=== PATIENT | male | born 1980 | race African-American/Black ===

== ENCOUNTER 2020-09-29 13:46 | Emergency (ER) | payer SELFPAY ==
[~2020-09-29] VITALS: Ht 182.9 cm; Wt 68.0 kg
[2020-09-29 14:00] VITALS: BP 148/100
--- NOTE | 2020-09-29 14:46 | Emergency Room Report ---
History of Present Illness General Chief Complaint: Abnormal Labs Present Illness HPI 39-year-old male with history of diabetes brought in by paramedics from a long term due to hyperglycemia however Accu-Chek is 94 upon arrival. Patient denies any chest pain, shortness of breath, headache and dizziness. Patient is in no distress upon arrival. Has not taken medication for symptom relief. Patient appears to be demented. Appears to be under the influence of an unknown substance. Allergies: Coded Allergies: No Known Allergies (Unverified , 09/29/20) COVID-19 Screening Contact w/high risk pt: No Experienced COVID-19 symptoms?: No COVID-19 Testing performed SECURITY PROJECT MANAGER: No Patient History Past Medical History: see triage record Past Surgical History: none Pertinent Family History: none Immunizations: UTD Reviewed Nursing Documentation: PMH: Agreed; PSxH: Agreed Review of Systems All Other Systems: negative except mentioned in HPI Physical Exam Vital Signs Date Time Temp Pulse Resp B/P (MAP) Pulse Ox O2 Delivery O2 Flow Rate FiO2 09/29/20 13:45 98.2 88 16 150/112 (125) 99 Room Air Sp02 EP Interpretation: reviewed, normal General Appearance: no apparent distress, alert, GCS 15, non-toxic Head: normocephalic, atraumatic Eyes: bilateral eye normal inspection, bilateral eye PERRL ENT: hearing grossly normal, no angioedema, normal voice Neck: full range of motion, supple/symm/no masses Respiratory: no respiratory distress, no retraction, no accessory muscle use Cardiovascular #1: regular rate, rhythm, no edema Gastrointestinal: soft, no mass Genitourinary: no CVA tenderness Musculoskeletal: back normal Neurologic: alert, motor strength/tone normal, oriented x3, sensory intact, responsive, speech normal Psychiatric: judgement/insight normal, memory normal, mood/affect normal, no suicidal/homicidal ideation Skin: no rash Lymphatic: no adenopathy Medical Decision Making PA Attestation All my diagnosis and treatment plans were reviewed ad discussed with my supervising physician Dr. Wade Diagnostic Impression: Primary Impression: Amphetamine abuse Additional Impression: UTI (urinary tract infection) ER Course 39-year-old male with history of diabetes brought in by paramedics from a long term due to hyperglycemia however Accu-Chek is 94 upon arrival. Patient denies any chest pain, shortness of breath, headache and dizziness. Patient is in no distress upon arrival. Has not taken medication for symptom relief. Patient appears to be demented. Appears to be under the influence of an unknown substance. Ddx considered but are not limited to: DKA, hyperglycemia, dementia, altered level of mental status, stimulant abuse, Vital signs: are WNL, pt. is afebrile H&PE are most consistent with methamphetamine abuse, UTI ORDERS: DKA order set, head CT ED INTERVENTIONS: NS bolus, Rocephin DISCHARGE: At this time pt. is stable for d/c to home. Will provide printed patient care instructions, and any necessary prescriptions. Care plan and follow up instructions have been discussed with the patient prior to discharge. Patient sent to the stop using methamphetamine, follow primary care provider normal emergency room EKG Diagnostic Results Rate: tachycardiac Rhythm: other - Slight tachycardia ST Segments: no acute changes Other Impression No acute ST changes ASA given to the pt in ED: No Chest X-Ray Diagnostic Results Chest X-Ray Diagnostic Results : Chest X-Ray Ordered: Yes # of Views/Limited/Complete: 1 View Indication: Other EP Interpretation: Yes PA Xray: Interpretation reviewed, by supervising MD, and agrees with findings. Interpretation: no consolidation, no effusion, no pneumothorax Impression: No acute disease Electronically Signed by: Eyal Ambrocio PA-C CT/MRI/US Diagnostic Results CT/MRI/US Diagnostic Results : Imaging Test Ordered: Head CT no contrast Impression COMPARISON: No relevant prior studies available. FINDINGS: Brain: No hemorrhage. No edema. Ventricles: No ventriculomegaly. Bones/joints: No acute fracture. Soft tissues: Unremarkable. Sinuses: No acute sinusitis. Mastoid air cells: No mastoid effusion. IMPRESSION: No acute intracranial process. Last Vital Signs Date Time Temp Pulse Resp B/P (MAP) Pulse Ox O2 Delivery O2 Flow Rate FiO2 09/29/20 13:45 98.2 88 16 150/112 (125) 99 Room Air Disposition: HOME, SELF-CARE Condition: Stable Patient Instructions: Stimulant Use Disorder-Amphetamines Additional Instructions: Increase oral hydration, follow primary care provider, if worsening symptoms return to emergency room Eyal Yao Sep 29, 2020 14:46
[2020-09-29 14:58] LABS: APPEARANCE,URINE CLEAR; BILIRUBIN, URINE NEGATIVE (NEGATIVE); COLOR,URINE PALE YELLOW; GLUCOSE, URINE (UA) NEGATIVE (NEGATIVE); KETONES,URINE NEGATIVE (NEGATIVE); LEUKOCYTE ESTERASE ,URINE 1+ (NEGATIVE); NITRITE,URINE NEGATIVE (NEGATIVE); PH,URINE 6.5 (4.5-8.0); PROTEIN,URINE NEGATIVE (NEGATIVE); UROBILINOGEN,URINE NORMAL MG/DL (0.0-1.0)
[2020-09-29 15:31] LABS: ANION GAP 10 mmol/L (5-15); BLOOD UREA NITROGEN 10 mg/dL (7-18); CALCIUM 9.2 MG/DL (8.5-10.1); CARBON DIOXIDE 28 MMOL/L (21-32); CHLORIDE 96 MMOL/L (98-107); CREATININE 0.9 MG/DL (0.55-1.30); SODIUM 134 MMOL/L (136-145)
[2020-09-29 15:35] LABS: BASOPHILS % (AUTO) 0.8 % (0.0-2.0); EOSINOPHILS % (AUTO) 0.4 % (0.0-3.0); HEMATOCRIT 42.7 % (42.0-52.0); HEMOGLOBIN 14.1 G/DL (14.2-18.0); MEAN CORPUSCULAR VOLUME 89 FL (80-99); MONOCYTES % (AUTO) 8.6 % (1.0-10.0); NEUTROPHILS % (AUTO) 72.2 % (45.0-75.0); PLATELET COUNT 329 K/UL (150-450); RED BLOOD COUNT 4.83 M/UL (4.70-6.10); RED CELL DISTRIBUTION WIDTH 11.4 % (11.6-14.8); WHITE BLOOD COUNT 5.5 K/UL (4.8-10.8)
[2020-09-29 15:36] LABS: ALANINE AMINOTRANSFERASE 24 U/L (12-78); ALBUMIN 3.5 G/DL (3.4-5.0); ALBUMIN/GLOBULIN RATIO 0.6 (1.0-2.7); ALKALINE PHOSPHATASE 119 U/L (46-116); ASPARTATE AMINO TRANSFERASE 17 U/L (15-37); BILIRUBIN,TOTAL 0.5 MG/DL (0.2-1.0)
--- NOTE | 2020-09-29 15:58 | Diagnostic Imaging Report ---
Indication: Shortness of breath Technique: One view of the chest Comparison: none Findings: Lungs and pleural spaces are clear. Heart size is normal. Impression: No acute process
[2020-09-29 16:00] VITALS: BP 142/98
[2020-09-29] MEDS ORDERED: cefTRIAXone 1 GM in NS 55 ML IVPB ONE (16:30)
[2020-09-29 18:00] VITALS: BP 148/92
--- NOTE | 2020-09-29 19:09 | Diagnostic Imaging Report ---
EXAM: CT Head Without Intravenous Contrast CLINICAL HISTORY: ALOC TECHNIQUE: Axial computed tomography images of the head/brain without intravenous contrast. CTDI is 53.4 mGy and DLP is 1098.9 mGy-cm. One or more of the following dose reduction techniques were used: automated exposure control, adjustment of the mA and/or kV according to patient size, use of iterative reconstruction technique. COMPARISON: No relevant prior studies available. FINDINGS: Brain: No hemorrhage. No edema. Ventricles: No ventriculomegaly. Bones/joints: No acute fracture. Soft tissues: Unremarkable. Sinuses: No acute sinusitis. Mastoid air cells: No mastoid effusion. IMPRESSION: No acute intracranial process.
[2020-09-29 19:36] VITALS: BP 132/83
--- NOTE | 2020-09-30 13:07 | Cardiology Report ---
APPROVED REPORT EKG Measurement Heart [id number] <Conclusion> Sinus tachycardia Otherwise normal ECG
== END 2020-09-29 19:36 | disposition home or self-care (01) ==
LOC: EDBD 13:46 → EMR 15:33
DX: F15.10 Other stimulant abuse, uncomplicated (principal); N39.0 Urinary tract infection, site not specified; E11.9 Type 2 diabetes mellitus without complications; R00.0 Tachycardia, unspecified
CPT/HCPCS: 36415; 70450; 71045; 80053; 80307; 81003; 82009; 82962; 83735; 84484; 85025; 93005; 96361; 96365; 99284; J0696; J7030

== ENCOUNTER 2020-09-30 14:31 | Inpatient (IN) | payer SELFPAY ==
[~2020-09-30] VITALS: Ht 182.9 cm; Wt 54.4 kg
[2020-09-30 14:45] VITALS: BP 131/81
[2020-09-30] MEDS ORDERED: Haloperidol 5mg/ml Inj IM ONE (14:45)
[2020-09-30 15:03] LABS: BASOPHILS % (AUTO) 0.4 % (0.0-2.0); HEMATOCRIT 42.5 % (42.0-52.0); HEMOGLOBIN 14.3 G/DL (14.2-18.0); LYMPHOCYTES % (AUTO) 9.4 % (20.0-45.0); MEAN CORPUSCULAR VOLUME 83 FL (80-99); MONOCYTES % (AUTO) 6.3 % (1.0-10.0); NEUTROPHILS % (AUTO) 83.9 % (45.0-75.0); PLATELET COUNT 291 K/UL (150-450); RED BLOOD COUNT 5.14 M/UL (4.70-6.10); RED CELL DISTRIBUTION WIDTH 11.5 % (11.6-14.8); WHITE BLOOD COUNT 8.3 K/UL (4.8-10.8)
[2020-09-30 15:14] LABS: ANION GAP 8 mmol/L (5-15); BLOOD UREA NITROGEN 16 mg/dL (7-18); CALCIUM 10.3 MG/DL (8.5-10.1); CARBON DIOXIDE 29 MMOL/L (21-32); CHLORIDE 99 MMOL/L (98-107); CREATININE 1.1 MG/DL (0.55-1.30); POTASSIUM 4.5 MMOL/L (3.5-5.1); SODIUM 136 MMOL/L (136-145)
--- NOTE | 2020-09-30 15:14 | NUR ---
ED Nurse Note: Pt RAE GORDON 60 from [facility]. Pt discharged from [place] yesterday. Pt refusing to answer questions. Pt reports wanting a taxi home and wanting food.
[2020-09-30 15:15] LABS: AMMONIA 11 umol/L (11-32)
[2020-09-30 15:18] LABS: ALANINE AMINOTRANSFERASE 18 U/L (12-78); ALBUMIN 3.4 G/DL (3.4-5.0); ALBUMIN/GLOBULIN RATIO 0.6 (1.0-2.7); ALKALINE PHOSPHATASE 118 U/L (46-116); ASPARTATE AMINO TRANSFERASE 20 U/L (15-37); BILIRUBIN,TOTAL 0.7 MG/DL (0.2-1.0)
[2020-09-30 17:00] VITALS: BP 133/85
--- NOTE | 2020-09-30 19:12 | Emergency Room Report ---
History of Present Illness General Chief Complaint: Altered Mental Status Source: Medical Record, EMS (Steve Wade MD) Present Illness HPI 39-year-old male presents to ED for altered level of consciousness. [place] near hospital. Brought to the ED for evaluation. Was seen in ED yesterday for similar episode of altered level of consciousness. Had work-up including CT and labs which were unremarkable. Amphetamines positive. Patient was discharged last night. Patient unable to provide any additional history at this time. No signs of distress. No other aggravating relieving factors. 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: No (Steve Wade MD) Patient History Past Medical History: none Past Surgical History: none Pertinent Family History: none Social History: Reports: drug use; Denies: smoking, alcohol use Immunizations: UTD Reviewed Nursing Documentation: PMH: Agreed; PSxH: Agreed (Steve Wade MD) Nursing Documentation-PMH Past Medical History: No History, Except For (Steve Wade MD) Review of Systems All Other Systems: limited (Steve Wade MD) Physical Exam Vital Signs Date Time Temp Pulse Resp B/P (MAP) Pulse Ox O2 Delivery O2 Flow Rate FiO2 09/30/20 14:29 98.8 101 20 125/84 (98) 94 Room Air Sp02 EP Interpretation: reviewed, normal General Appearance: other - ALOC Head: normocephalic, atraumatic Eyes: bilateral eye normal inspection, bilateral eye PERRL ENT: hearing grossly normal, normal pharynx, no angioedema, normal voice Neck: full range of motion, supple/symm/no masses Respiratory: chest non-tender, lungs clear, normal breath sounds, speaking full sentences Cardiovascular #1: regular rate, rhythm, no edema Cardiovascular #2: 2+ carotid (R), 2+ carotid (L), 2+ radial (R), 2+ radial (L), 2+ dorsalis pedis (R), 2+ dorsalis pedis (L) Gastrointestinal: normal bowel sounds, non tender, soft, non-distended, no guarding, no rebound Rectal: deferred Genitourinary: normal inspection, no CVA tenderness Musculoskeletal: back normal, normal range of motion, gait/station normal, non- tender Neurologic: other - ALOC Psychiatric: other - ALOC Reflexes: 3+ bicep (R), 3+ bicep (L), 3+ tricep (R), 3+ tricep (L), 3+ knee (R), 3+ knee (L) Skin: other Lymphatic: no adenopathy (Steve Wade MD) Procedures Critical Care Time Critical Care Time Time: 45 minutes of bedside evaluation and treatment excludes procedures Procedures: none Reason for Critical care: Assessment of stupor, reassessment, review of multiple records, discussion with staff, restraints Possible Complications: Hypotension, sepsis, metabolic acidosis, prevention of end organ injury Interventions: Repeat assessments, sedation, sideration of lumbar puncture, Covid testing Course: Patient was signed out to me for altered mentation with history of substance abuse. The patient was seen multiple times in this emergency department. Review of records was difficult as he had new medical record and old records were difficult to find. Multiple nurses had different histories which were obtained. Initial assessment was severe stupor. As he had a history of neck pain consideration for lumbar puncture was entertained. Also the patient had admission procedures begun. Covid testing was obtained and was positive. On reassessment the patient was standing by the sink, purposeful although still ataxic. He denied neck pain at that time and the lumbar puncture was canceled as well as the admission. The patient was still not obeying commands and felt to be risk of fall and was pulling at his IV. Patient was sedated again with Haldol and Benadryl. Soft restraints were ordered until sedation was adequate. Consideration for consultation with social work manager in the morning for appropriate discharge. Consultations: rn staffing Alternative history: rn staffing and review of multiple charts Result: Patient was improved Performed by: Dr. De Jesus (Adeel De Jesus MD) Medical Decision Making Restraint Reassesment I, Adeel De Jesus MD, have personally evaluated this patient. Laboratory tests have been reviewed and addressed accordingly. The patient is a fall risk and occasionally pulling out his medical devices. This is based on the exam, history and observed behavior. Attempts for non-invasive measures have been considered and/or attempted, however, have been futile. It is in the best interest of the nursing staff, the patient, and others involved in this patient's care that none behavioral restraints be applied. Patient evaluation reveals the following: Slightly ataxic, purposeful but resisting attempts to not ambulate and pull out devices. (Adeel De Jesus MD) Diagnostic Impression: Primary Impression: Altered mental status Qualified Codes: R40.4 - Transient alteration of awareness Additional Impressions: Amphetamine abuse COVID-19 virus detected Laboratory Tests Test 09/30/20 14:55 09/30/20 16:45 White Blood Count 8.3 K/UL (4.8-10.8) # Red Blood Count 5.14 M/UL (4.70-6.10) Hemoglobin 14.3 G/DL (14.2-18.0) Hematocrit 42.5 % (42.0-52.0) Mean Corpuscular Volume 83 FL (80-99) Mean Corpuscular Hemoglobin 27.8 PG (27.0-31.0) Mean Corpuscular Hemoglobin Concent 33.7 G/DL (32.0-36.0) Red Cell Distribution Width 11.5 % (11.6-14.8) L Platelet Count 291 K/UL (150-450) Mean Platelet Volume 6.3 FL (6.5-10.1) L Neutrophils (%) (Auto) 83.9 % (45.0-75.0) H Lymphocytes (%) (Auto) 9.4 % (20.0-45.0) L Monocytes (%) (Auto) 6.3 % (1.0-10.0) Eosinophils (%) (Auto) 0.0 % (0.0-3.0) Basophils (%) (Auto) 0.4 % (0.0-2.0) Sodium Level 136 MMOL/L (136-145) Potassium Level 4.5 MMOL/L (3.5-5.1) Chloride Level 99 MMOL/L (98-107) Carbon Dioxide Level 29 MMOL/L (21-32) Anion Gap 8 mmol/L (5-15) Blood Urea Nitrogen 16 mg/dL (7-18) Creatinine 1.1 MG/DL (0.55-1.30) Estimat Glomerular Filtration Rate > 60 mL/min (>60) Glucose Level 111 MG/DL (74-106) H Calcium Level 10.3 MG/DL (8.5-10.1) H Total Bilirubin 0.7 MG/DL (0.2-1.0) Aspartate Amino Transf (AST/SGOT) 20 U/L (15-37) Alanine Aminotransferase (ALT/SGPT) 18 U/L (12-78) Alkaline Phosphatase 118 U/L (46-116) H Ammonia 11 umol/L (11-32) Total Protein 8.9 G/DL (6.4-8.2) H Albumin 3.4 G/DL (3.4-5.0) Globulin 5.5 g/dL Albumin/Globulin Ratio 0.6 (1.0-2.7) L Salicylates Level < 0.2 ug/mL (2.8-20) L Acetaminophen Level < 2 MCG/ML (10-30) L Serum Alcohol < 3 mg/dL Urine Opiates Screen Negative (NEGATIVE) Urine Barbiturates Screen Negative (NEGATIVE) Phencyclidine (PCP) Screen Negative (NEGATIVE) Urine Amphetamines Screen Negative (NEGATIVE) Urine Benzodiazepines Screen Negative (NEGATIVE) Urine Cocaine Screen Negative (NEGATIVE) Urine Marijuana (THC) Screen Negative (NEGATIVE) (Steve Wade MD) ER Course Please see above note. Apparently patient was seen here 09/24 complaining of neck pain and headache. At that time he was ambulatory using a wheelchair like a walker. [facility]. He was seen yesterday for altered level of consciousness. Work-up was negative except for positive amphetamine. A CT scan was done. When he was discharged yesterday he did not have a wheelchair. A taxi was called. He would not get up to ambulate to the taxicab. He was brought back to the emergency department today for repeat evaluation from waiting in the [facility] area. The patient apparently was able to see 09/25. Yesterday he behaved like he could not see anything. Today the patient received a dose of Haldol. 5 mg was given IM at 1507. Repeat labs were unremarkable today. Repeat CT scan negative. I examined the patient at 2240. The patient is obtunded and does not follow commands at this time. He does respond to sternal rub with grunting but no movement of his extremities. The discharge note from 09/25: 0750: I was informed by DISTRIBUTION LINEMAN Lor that patient wants to sign out against medical advice. When I arrived to bedside, patient is wheeling himself out of the ER, fully dressed, carrying all his belongings. He has eaten a full breakfast tray, and a turkey sandwich. He states his pain is well controlled, and this is what he came here for. I explained to him several times the nature of his multiple critical abnormal lab values, which he verbalizes his understanding. He continues to wheel himself out during this discussion despite knowing the risks of and clinical deterioration. He is refusing further treatment or testing. He received Kdur 60meq and Mg 2g IV, but specifically states he does not want any more treatment. He is refusing further testing and COVID swab. States he just wants another breakfast tray and to go home. The patient decided to leave AGAINST MEDICAL ADVICE. They understand the risks, benefits, and alternatives of continued treatment versus leaving. They understand the risks including but not limited to: worsening condition, missed diagnosis, permanent disability, and even associated with lack of potential further testing, monitoring, and treatments. The patient has capacity to make this decision in my opinion. The patient was encouraged to follow up with their primary care provider as soon as possible and to return immediately if they change their mind or if symptoms worsen or for any other concerns. RN was present for the discussion. All patient questions were answered. A Lining Baster consult was offered to the patient prior to discharge but the patient declined. All needs were met during this ED visit including food and water, change of clothes, long term referral/resources, and transportation. Based on his stupor I considered admitting the patient for further observation. In addition with a history of neck pain I was concerned about possible meningitis. Orders were entered for Versed sedation and also the lumbar puncture. Also admission was assessed. Covid testing was performed. Covid test positive. When approaching the patient for lumbar puncture. He was standing by the sink stating that he is thirsty. He was responding to commands at that time. He denied any neck pain and had no nuchal rigidity. His mentation was greatly improved and the lumbar puncture was canceled. 2355 Patient ataxic and somewhat unsteady on his feet. The patient states that he wants to leave at this time. Collective assessment is that he is unable to navigate on his own even though he is purposeful. He is unable to give an address for discharge. Patient is sedated again as he is resisting attempts to not pull devices. The patient will be was assessed in the morning. We may need social work manager involved to discharge. Able to d/c restraints as patient sedated 0[address]. Signed out to Dr. Cook at 0640 (Adeel De Jesus MD) ER Course 39-year-old male with persistent altered mental status attempted to wake up patient and get him out of bed patient returned to being persistently altered p atient also tested positive for COVID-19 he may have possible COVID-19 encephalopathy versus drug abuse plan for admission (Jayme Cook MD) Last Vital Signs Date Time Temp Pulse Resp B/P (MAP) Pulse Ox O2 Delivery O2 Flow Rate FiO2 09/30/20 15:07 103 19 Room Air 09/30/20 14:45 98.0 131/81 96 (Steve Wade MD) Status: improved (Adeel De Jesus MD) Disposition: ADMITTED INPATIENT Condition: Stable Scripts Unable to Obtain Active Prescriptions or Reported Meds Referrals: NOT CHOSEN IPA/,REFERRING (PCP) Steve Wade MD Sep 30, 2020 19:12 Adeel De Jesus MD Sep 30, 2020 22:51 Jayme Cook MD Oct 01, 2020 09:55
--- NOTE | 2020-09-30 19:21 | NUR ---
ED Nurse Note: pt back from Ct. no acute distress noted.
--- NOTE | 2020-09-30 19:30 | Diagnostic Imaging Report ---
EXAM: CT Head Without Intravenous Contrast CLINICAL HISTORY: ALOC TECHNIQUE: Axial computed tomography images of the head/brain without intravenous contrast. CTDI is 53.4 mGy and DLP is 1063.2 mGy-cm. One or more of the following dose reduction techniques were used: automated exposure control, adjustment of the mA and/or kV according to patient size, use of iterative reconstruction technique. COMPARISON: 09/29/20. FINDINGS: Brain: Unremarkable. No hemorrhage. No significant white matter disease. No edema. Ventricles: Unremarkable. No ventriculomegaly. Bones/joints: Unremarkable. No acute fracture. Soft tissues: Unremarkable. Sinuses: Unremarkable as visualized. No acute sinusitis. Mastoid air cells: Unremarkable as visualized. No mastoid effusion. IMPRESSION: No acute intracranial process.
--- NOTE | 2020-09-30 22:45 | NUR ---
ED Nurse Note: pt is sleeping on the bed. No distress and vitals are stable. we will keep monitoring the pt
[2020-09-30] MEDS ORDERED: Midazolam 2mg/2ml Inj IVP ONE (23:45)
[2020-10-01] MEDS ORDERED: Haloperidol 5mg/ml Inj IM ONE (00:15)
[2020-10-01] MEDS ORDERED: DiphenhydrAMINE 50mg/ml Inj IVP ONE (00:15)
--- NOTE | 2020-10-01 00:15 | NUR ---
ED Nurse Note: pt is A&Ox1 and confused. Pt is covid 19 +.He is not steady gait and he want to go home; Dr julius brady and sarah, order noted and carried out. we will keep monitoring the pt.
[2020-10-01 00:54] VITALS: BP 128/78
--- NOTE | 2020-10-01 01:04 | NUR ---
ED Nurse Note: pt is sleeping , no sob, and no distress. Vitals are stable. we will keep monitoring the pt
[2020-10-01 06:01] VITALS: BP 134/70
--- NOTE | 2020-10-01 10:02 | NUR ---
report given to olya in med/surg unit patient is to be transferd to room 403-1 via rney
[2020-10-01 10:45] VITALS: BP 142/103
--- NOTE | 2020-10-01 10:45 | NUR ---
NURSE NOTES: RN received report from ITZEL Price. RN received the patient in bed. Patient is confused, refusing care. IV is intact, patent, flushed. Bed rails up x3. Bed in lowest position and locked. Call light within reach. Will continue to monitor.
[2020-10-01] MEDS ORDERED: Albuterol 90mcg Inhaler 8gm INH PRN (11:00)
--- NOTE | 2020-10-01 11:02 | History and Physical ---
History of Present Illness General Date patient seen: Oct 01, 2020 Time patient seen: 10:30 Reason for Hospitalization: Altered Mental Status Present Illness HPI 39 years old male presented to emergency department with altered level of consciousness. Patient was found in a park bench near the hospital and brought to the emergency department for evaluation. Patient was seen in emergency department yesterday on 09/29 for similar episode of altered level of consciousness. At that time he received CT of the head , which revealed no acute intracranial process , Chest x-ray revealed no acute cardiopulmonary pathology Urine toxicology screen was positive for amphetamine. Urinalysis revealed pyuria ,no bacteria At that time he received potassium and magnesium replacement. Mental status returned to baseline He refused Covid swabbing . He ate breakfast and left AGAINST MEDICAL ADVICE. During the current presentation, CT of the head was repeated and was still negative. Repeated urine toxicology screen was negative Rapid COVID-19 was positive. Pulse oximetry remained stable on RA 95-97 & Troponin negative. Stable electrolytes and renal parameters. Ammonia within normal limits. No leukocytosis . This time lumbar puncture was planned due to persistent ALOC. Patient was sedated, but mentation improved . patient denied neck pain. No nuchal rigidity. Lumbar puncture subsequently was canceled. Patient was ataxic and unable to ambulate at this time . In emergency department patient received Haldol , Versed, liter of fluids and admitted for further management. Allergies: Coded Allergies: No Known Allergies (Unverified , 09/29/20) COVID-19 Screening Contact w/high risk pt: No Experienced COVID-19 symptoms?: No Medication History Unable to Obtain Active Prescriptions or Reported Meds Patient History Healthcare decision maker Resuscitation status Full code Advanced Directive on File Review of Systems ROS Narrative unable to obtain given pt medical condition/AMS Physical Exam General Appearance: confused, other - sedated Lines, tubes and drains: peripheral HEENT: normocephalic, atraumatic, anicteric Neck: non-tender, supple Respiratory/Chest: chest wall non-tender, lungs clear, no respiratory distress, no accessory muscle use Cardiovascular/Chest: normal peripheral pulses, normal rate Abdomen: normal bowel sounds, non tender, soft Extremities: no calf tenderness Neurologic: other - unable to access gait, unable to ambulate at this time due to ALOC Musculoskeletal: normal muscle bulk Last 24 Hour Vital Signs Date Time Temp Pulse Resp B/P (MAP) Pulse Ox O2 Delivery O2 Flow Rate FiO2 10/01/20 09:58 98.0 82 18 130/80 97 Room Air 10/01/20 06:01 98.3 76 15 134/70 99 Room Air 10/01/20 00:54 97.9 89 17 128/78 97 Room Air 09/30/20 17:00 98.2 103 19 133/85 95 Room Air 09/30/20 15:07 103 19 Room Air 09/30/20 14:45 98.0 101 20 131/81 96 Room Air 09/30/20 14:29 98.8 101 20 125/84 (98) 94 Room Air Intake and Output 09/30/20 10/01/20 19:00 07:00 Output Total 0 ml Balance 0 ml Output Urine Total 0 ml Laboratory Tests Test 09/30/20 14:55 09/30/20 16:45 White Blood Count 8.3 K/UL (4.8-10.8) # Red Blood Count 5.14 M/UL (4.70-6.10) Hemoglobin 14.3 G/DL (14.2-18.0) Hematocrit 42.5 % (42.0-52.0) Mean Corpuscular Volume 83 FL (80-99) Mean Corpuscular Hemoglobin 27.8 PG (27.0-31.0) Mean Corpuscular Hemoglobin Concent 33.7 G/DL (32.0-36.0) Red Cell Distribution Width 11.5 % (11.6-14.8) L Platelet Count 291 K/UL (150-450) Mean Platelet Volume 6.3 FL (6.5-10.1) L Neutrophils (%) (Auto) 83.9 % (45.0-75.0) H Lymphocytes (%) (Auto) 9.4 % (20.0-45.0) L Monocytes (%) (Auto) 6.3 % (1.0-10.0) Eosinophils (%) (Auto) 0.0 % (0.0-3.0) Basophils (%) (Auto) 0.4 % (0.0-2.0) Sodium Level 136 MMOL/L (136-145) Potassium Level 4.5 MMOL/L (3.5-5.1) Chloride Level 99 MMOL/L (98-107) Carbon Dioxide Level 29 MMOL/L (21-32) Anion Gap 8 mmol/L (5-15) Blood Urea Nitrogen 16 mg/dL (7-18) Creatinine 1.1 MG/DL (0.55-1.30) Estimat Glomerular Filtration Rate > 60 mL/min (>60) Glucose Level 111 MG/DL (74-106) H Calcium Level 10.3 MG/DL (8.5-10.1) H Total Bilirubin 0.7 MG/DL (0.2-1.0) Aspartate Amino Transf (AST/SGOT) 20 U/L (15-37) Alanine Aminotransferase (ALT/SGPT) 18 U/L (12-78) Alkaline Phosphatase 118 U/L (46-116) H Ammonia 11 umol/L (11-32) Total Protein 8.9 G/DL (6.4-8.2) H Albumin 3.4 G/DL (3.4-5.0) Globulin 5.5 g/dL Albumin/Globulin Ratio 0.6 (1.0-2.7) L Salicylates Level < 0.2 ug/mL (2.8-20) L Acetaminophen Level < 2 MCG/ML (10-30) L Serum Alcohol < 3 mg/dL Urine Opiates Screen Negative (NEGATIVE) Urine Barbiturates Screen Negative (NEGATIVE) Phencyclidine (PCP) Screen Negative (NEGATIVE) Urine Amphetamines Screen Negative (NEGATIVE) Urine Benzodiazepines Screen Negative (NEGATIVE) Urine Cocaine Screen Negative (NEGATIVE) Urine Marijuana (THC) Screen Negative (NEGATIVE) Microbiology Date/Time Source Procedure Growth Status 09/30/20 23:10 Nasopharynx SARS-CoV-2 RdRp Gene Assay - Final Complete Height (Feet): 6 Weight (Pounds): 120 Medications Current Medications Medications (Trade) Dose Ordered Sig/Carleen Route PRN Reason Start Time Stop Time Status Last Admin Dose Admin Sodium Chloride 1,000 ml @ 200 mls/hr Q5H IV 09/30/20 22:45 10/30/20 22:44 09/30/20 22:57 Assessment/Plan Assessment/Plan: ASSESSMENT COVID 19 infection 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 PLAN OF CARE [facility] floor Date of sx onset: unclear Positive test: 09/30 rapid COVID 19 + O2 RA titrate to keep sat > 92% ( currently 95-97% on RA) HFA no DEX for now given no hypoxica, no REM given stable resp status, will monitor closely DVT PPX: Lovenox check D dimer check CRP Abx per ID recs- at this time no need Monitor volumes and renal function Fup with consultants recs FC gentle IVF for now NPO until fully awake,m then start regular diet as tolerated anxiolytics prn psych eval pending Dr Erin HINDS eval case discussed and evaluated by supervising physician Margaret Qureshi NP Oct 01, 2020 11:02
[2020-10-01 12:00] VITALS: BP 136/106
[2020-10-01] MEDS: Potassium Chloride 10 MEQ in D5 1/2NS 1,000 ML IV SCH (13:12)
[2020-10-01] MEDS: Enoxaparin 40mg Inj SUBQ SCH (13:13)
--- NOTE | 2020-10-01 14:59 | Diagnostic Imaging Report ---
Indication: Shortness of breath Technique: One view of the chest Comparison: 09/29/2020 Findings: Lungs and pleural spaces are clear. Heart size is normal. Impression: No acute process
--- NOTE | 2020-10-01 18:31 | Infectious Diseases Prog Note ---
Assessment/Plan Assessment/Plan Full consult dictated: covid-19 + saturations stable no indication for covid tx thank you Subjective Allergies: Coded Allergies: No Known Allergies (Unverified , 09/29/20) Objective Last 24 Hour Vital Signs Date Time Temp Pulse Resp B/P (MAP) Pulse Ox O2 Delivery O2 Flow Rate FiO2 10/01/20 12:00 98.0 115 20 136/106 (116) 98 10/01/20 10:45 98.5 109 20 142/103 (116) 99 10/01/20 09:58 98.0 82 18 130/80 97 Room Air 10/01/20 06:01 98.3 76 15 134/70 99 Room Air 10/01/20 00:54 97.9 89 17 128/78 97 Room Air Height (Feet): 6 Weight (Pounds): 120 Microbiology Date/Time Source Procedure Growth Status 09/30/20 23:10 Nasopharynx SARS-CoV-2 RdRp Gene Assay - Final Complete Laboratory Tests Test 10/01/20 12:10 D-Dimer 2.29 mg/L FEU (0.00-0.49) H C-Reactive Protein, Quantitative 2.6 mg/dL (0.00-0.90) H Current Medications Medications (Trade) Dose Ordered Sig/Carleen Route PRN Reason Start Time Stop Time Status Last Admin Dose Admin Acetaminophen (Tylenol) 650 mg Q4H PRN ORAL Mild Pain (Pain Scale 1-3) 10/01/20 11:00 10/31/20 10:59 Acetaminophen (Tylenol) 650 mg Q4H PRN ORAL Temp >100.5 10/01/20 11:00 10/31/20 10:59 Albuterol Sulfate (Proventil MDI) 2 puff Q4H PRN INH Shortness of Breath 10/01/20 11:00 12/30/20 10:59 Dextrose (Dextrose 50%) 25 ml Q30M PRN IV Hypoglycemia 10/01/20 11:00 12/30/20 10:59 Dextrose (Dextrose 50%) 50 ml Q30M PRN IV Hypoglycemia 10/01/20 11:00 12/30/20 10:59 Enoxaparin Sodium (Lovenox) 40 mg DAILY SUBQ 10/01/20 12:00 12/30/20 11:59 10/01/20 13:13 Ondansetron HCl (Zofran) 4 mg Q6H PRN IVP Nausea & Vomiting 10/01/20 11:00 10/31/20 10:59 Pantoprazole (Protonix) 40 mg DAILY ORAL 10/02/20 09:00 11/01/20 08:59 Potassium Chloride 10 meq/ Dextrose/Sodium Chloride 1,005 ml @ 50 mls/hr Q20H6M IV 10/01/20 12:00 10/31/20 11:59 10/01/20 13:12 Wood Tyler MD Oct 01, 2020 18:31
[2020-10-01 20:00] VITALS: BP 125/80
--- NOTE | 2020-10-01 20:00 | NUR ---
NURSE NOTES: Patient in bed, asleep. Arousable to touch. No s/s of pain or discomfort at the moment. Iv site noted, iv fluid is infusing as ordered. Bed in low and locked position. Respiration is even and unlabored. Abdomen is soft and non distended. Kept clean and comfortable. Provided safe environment. Call light is at bedside. Will continue plan of care.
--- NOTE | 2020-10-01 20:05 | NUR ---
NURSE HAND-OFF: Important Events on Shift:patient refusing vital sign Patient Status: stable, confused Diet: NPO Pending Orders: n/a Pending Results/Labs:n/a Pending MD notification:n/a Latest Vital Signs: Temperature 98.0 , Pulse 115 , B/P 136 /106 , Respiratory Rate 20 , O2 SAT 98 , Room Air, O2 Flow Rate . Vital Sign Comment: stable, refused evening vital signs Latest Red Fall Score: 55 Fall Risk: High Risk Safety Measures: Call light , Bed Alarm , Side Rails Side Rails x3, Bed position . Fall Precautions: Report given to Wang.
--- NOTE | 2020-10-01 20:30 | NUR ---
NURSE NOTES: Patient refusing, vital signs re-check. Patient confused, keeps moving, doesnt follow commands.
--- NOTE | 2020-10-01 22:49 | NUR ---
NURSE NOTES: Patient refusing to have condom cath on or the use of urinal
--- NOTE | 2020-10-01 23:15 | Consultation ---
DATE OF CONSULTATION: 10/01/2020 INFECTIOUS DISEASE CONSULT ATTENDING PHYSICIAN: Jaime Wiggins M.D. REFERRING PHYSICIAN: Jaime Wiggins M.D. REASON FOR CONSULTATION: COVID infection. CHIEF COMPLAINT: The patient's chief complaint coming into the hospital is altered level of consciousness. HISTORY OF PRESENT ILLNESS: This is a 39-year-old male who presents to [facility] with altered level of consciousness. The patient was seen previously in the emergency room and had positive amphetamines on the drug screen. CT scan of the head showed no acute disease. At that time, he left against medical advice. The patient was readmitted. CT scan of head was negative. The patient's COVID testing was positive. The patient's saturations are stable. Infectious disease consultation is requested. REVIEW OF SYSTEMS: Main issue is altered level of consciousness. He is arousable. Currently, he has no fever. Saturations are stable. Cardiac, no chest pain. Gastrointestinal, no diarrhea. Genitourinary, no Horton. Pulmonary, no short of breath. PAST MEDICAL HISTORY: Otherwise I believe negative. ALLERGIES: No known drug allergies. SOCIAL HISTORY: Positive for amphetamines. FAMILY HISTORY: Noncontributory. MEDICATIONS: Noted and reviewed. PHYSICAL EXAMINATION: VITAL SIGNS: Temperature 98.0, pulse rate 115, respiratory rate 20, saturation 98%, blood pressure 136/106. GENERAL: The patient is alert, responsive, weak. HEAD AND NECK: Oral exam, no thrush. Neck is supple. HEART: Regular. No gallop or murmur. ABDOMEN: Soft. Positive bowel sounds. LUNGS: Clear bilaterally . SKIN: No rash. LABORATORY DATA: Creatinine 1.1. White count 8.3, hemoglobin 14.3. C-reactive protein 2.6. Chest x-ray showed no acute disease. CT scan of the head showed no acute disease. COVID testing by molecular testing was positive, nasopharyngeal molecular testing. ASSESSMENT AND PLAN: 1. COVID infection. Saturation stable. No indication for treatment. 2. Altered level of consciousness. 3. Amphetamine use. 4. Stable from ID standpoint. Monitor hypoxia. Salam Alkasspooles, M.D. DR: ARIANE JOB#: [id number] CC:
--- NOTE | 2020-10-01 23:52 | Psychiatry Consultation ---
Psychiatry Consultation Psychiatry Consultation Chief Complaint: Altered Mental Status Allergies: Coded Allergies: No Known Allergies (Unverified , 09/29/20) Medication History Unable to Obtain Active Prescriptions or Reported Meds Objective Data Height (Feet): 6 Weight (Pounds): 120 Kelsy Khan MD Oct 01, 2020 23:52
[2020-10-02] VITALS: BP 149/107
[2020-10-02] MEDS ORDERED: LORazepam 0.5mg tab ORAL PRN
--- NOTE | 2020-10-02 | NUR ---
NURSE NOTES: Patient refuses to be cleaned. Patient being combative.
[2020-10-02 04:00] VITALS: BP 103/81
--- NOTE | 2020-10-02 05:25 | NUR ---
NURSE NOTES: Patient refusing blood draw, attempted to educate patient. Still refused.
--- NOTE | 2020-10-02 07:07 | NUR ---
NURSE HAND-OFF: Important Events on Shift: Condom cath Patient Status: Diet: NPO Pending Orders: CBC, BMP Pending Results/Labs: Pending MD notification: Latest Vital Signs: Temperature 97.2 , Pulse 104 , B/P 103 /81 , Respiratory Rate 20 , O2 SAT 99 , Room Air, O2 Flow Rate . Vital Sign Comment: WNL Latest Red Fall Score: 55 Fall Risk: High Risk Safety Measures: Call light Within Reach, Bed Alarm Zone 1, Side Rails Side Rails x3, Bed position Low and Locked. Fall Precautions: Report given to Fabian Mesa.
[2020-10-02 07:13] LABS: ANION GAP 9 mmol/L (5-15); BLOOD UREA NITROGEN 18 mg/dL (7-18); CALCIUM 10.1 MG/DL (8.5-10.1); CARBON DIOXIDE 29 MMOL/L (21-32); CHLORIDE 104 MMOL/L (98-107); CREATININE 1.1 MG/DL (0.55-1.30); POTASSIUM 4.1 MMOL/L (3.5-5.1); SODIUM 142 MMOL/L (136-145)
[2020-10-02 07:52] LABS: HEMATOCRIT 42.2 % (42.0-52.0); HEMOGLOBIN 14.5 G/DL (14.2-18.0); MEAN CORPUSCULAR VOLUME 84 FL (80-99); PLATELET COUNT 270 K/UL (150-450); RED BLOOD COUNT 5.02 M/UL (4.70-6.10); RED CELL DISTRIBUTION WIDTH 11.9 % (11.6-14.8); WHITE BLOOD COUNT 10.9 K/UL (4.8-10.8)
[2020-10-02 08:00] VITALS: BP 113/88
--- NOTE | 2020-10-02 08:10 | NUR ---
NURSE NOTES: RN received report from Wang. RN received the patient sitting on the bed. Patient states he wants to go home. His IV is patent, flushed, asymptomatic and running. He is confused, and has unsteady gait. He does not show s/s of respiratory distress or pain.Bed in lowest position and locked. Call light within reach. Will continue to monitor.
[2020-10-02] MEDS ORDERED: DiphenhydrAMINE 50mg/ml Inj IVP PRN (09:15)
[2020-10-02] MEDS ORDERED: LORazepam Inj 2mg/ml 1ml IV PRN (09:15)
--- NOTE | 2020-10-02 09:18 | NUR ---
RD ASSESSMENT & RECOMMENDATIONS SEE CARE ACTIVITY FOR COMPLETE ASSESSMENT DAILY ESTIMATED NEEDS: Needs based on Underweight, pulmonary 54.4kg 30-35 kcals/kg 5093-5463 total kcals 1-1.5 g protein/kg 54-82 g total protein 25-30 mL/kg 5314-8189 total fluid mLs NUTRITION DIAGNOSIS: Increased kcal and pro needs r/t underweight status as evidenced by BMI underweight per guidelines, pt is 67% of [place] Body weight w/ visual wasting per RN. CURRENT DIET: NPO PO DIET RECOMMENDATIONS: W/ confirmed h/o DM, rec [facility] MED diet; Regular otherwise ADDITIONAL RECOMMENDATIONS: 1) Diet Texture per nursing service director 2) Rec non oral feeds if pt is unable to tolerate oral po 3) Rec D5 while NPO, check for hypoglycemia 4) Daily wts on calibrated bed scale
--- NOTE | 2020-10-02 09:47 | Pulmonology Progress Note ---
Subjective Allergies: Coded Allergies: No Known Allergies (Unverified , 09/29/20) Subjective low grade fever last night currently afebrile, no leukocytosis pulse ox stable on RA remains altered, not answering questions, anxious and combative psychiatrist on the case Objective Last 24 Hour Vital Signs Date Time Temp Pulse Resp B/P (MAP) Pulse Ox O2 Delivery O2 Flow Rate FiO2 10/02/20 08:00 97.9 110 20 113/88 (96) 95 10/02/20 04:00 97.2 104 20 103/81 (88) 99 10/02/20 00:00 99.6 116 24 149/107 (121) 94 10/01/20 21:00 Room Air 10/01/20 20:00 100.0 110 24 125/80 (95) 95 10/01/20 12:00 98.0 115 20 136/106 (116) 98 10/01/20 10:56 Room Air 10/01/20 10:45 98.5 109 20 142/103 (116) 99 10/01/20 09:58 98.0 82 18 130/80 97 Room Air Intake and Output 10/01/20 10/02/20 19:00 07:00 Intake Total 50 ml 550 ml Balance 50 ml 550 ml Intake IV Total 50 ml 550 ml # Voids 2 Objective General Appearance: confused, not follows directions; not answering questions Lines, tubes and drains: peripheral HEENT: normocephalic, atraumatic, anicteric, not opening eyes Neck: non-tender, supple Respiratory/Chest: chest wall non-tender, lungs clear, no respiratory distress, no accessory muscle use Cardiovascular/Chest: normal peripheral pulses, normal rate Abdomen: normal bowel sounds, non tender, soft Extremities: no calf tenderness Neurologic: unable to access gait, unable to ambulate at this time due to ALOC Musculoskeletal: normal muscle bulk Microbiology Date/Time Source Procedure Growth Status 09/30/20 23:10 Nasopharynx SARS-CoV-2 RdRp Gene Assay - Final Complete Laboratory Tests 10/01/20 12:10: D-Dimer 2.29H, C-Reactive Protein, Quantitative 2.6H 10/02/20 06:50: White Blood Count 10.9H, Red Blood Count 5.02, Hemoglobin 14.5, Hematocrit 42.2, Mean Corpuscular Volume 84, Mean Corpuscular Hemoglobin 28.8, Mean Corpuscular Hemoglobin Concent 34.3, Red Cell Distribution Width 11.9, Platelet Count 270, Mean Platelet Volume 6.0L, Neutrophils (%) (Auto) , Lymphocytes (%) (Auto) , Monocytes (%) (Auto) , Eosinophils (%) (Auto) , Basophils (%) (Auto) , Neutrophils % (Manual) [Pending], Lymphocytes % (Manual) [Pending], Platelet Estimate [Pending], Platelet Morphology [Pending], Sodium Level 142, Potassium Level 4.1, Chloride Level 104, Carbon Dioxide Level 29, Anion Gap 9, Blood Urea Nitrogen 18, Creatinine 1.1, Estimat Glomerular Filtration Rate > 60, Glucose Level 104, Calcium Level 10.1 Current Medications Medications (Trade) Dose Ordered Sig/Carleen Route PRN Reason Start Time Stop Time Status Last Admin Dose Admin Acetaminophen (Tylenol) 650 mg Q4H PRN ORAL Mild Pain (Pain Scale 1-3) 10/01/20 11:00 10/31/20 10:59 Acetaminophen (Tylenol) 650 mg Q4H PRN ORAL Temp >100.5 10/01/20 11:00 10/31/20 10:59 Albuterol Sulfate (Proventil MDI) 2 puff Q4H PRN INH Shortness of Breath 10/01/20 11:00 12/30/20 10:59 Dextrose (Dextrose 50%) 25 ml Q30M PRN IV Hypoglycemia 10/01/20 11:00 12/30/20 10:59 Dextrose (Dextrose 50%) 50 ml Q30M PRN IV Hypoglycemia 10/01/20 11:00 12/30/20 10:59 Diphenhydramine HCl (Benadryl) 25 mg ONCE ONCE IM 10/02/20 09:45 10/02/20 09:46 UNV Enoxaparin Sodium (Lovenox) 40 mg DAILY SUBQ 10/01/20 12:00 12/30/20 11:59 10/01/20 13:13 Haloperidol Decanoate (Haldol Decanoate(Long Acting)) 10 mg ONCE IM 10/02/20 10:30 10/02/20 12:00 Lorazepam (Ativan 2mg/ml 1ml) 2 mg ONCE ONCE IM 10/02/20 09:45 10/02/20 09:46 UNV Lorazepam (Ativan) 2 mg Q6H PRN ORAL For Anxiety 10/02/20 00:00 10/09/20 00:00 Ondansetron HCl (Zofran) 4 mg Q6H PRN IVP Nausea & Vomiting 10/01/20 11:00 10/31/20 10:59 Pantoprazole (Protonix) 40 mg DAILY ORAL 10/02/20 09:00 11/01/20 08:59 Potassium Chloride 10 meq/ Dextrose/Sodium Chloride 1,005 ml @ 50 mls/hr Q20H6M IV 10/01/20 12:00 10/31/20 11:59 10/01/20 13:12 Risperidone (RisperDAL) 2 mg BEDTIME ORAL 10/02/20 21:00 11/16/20 20:59 Assessment/Plan Assessment/Plan ASSESSMENT COVID 19 infection Altered mental status possibly due to toxic metabolic encephalopathy 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 PLAN OF CARE [facility] floor Date of sx onset: unclear Positive test: 09/30 rapid COVID 19 + O2 RA titrate to keep sat > 92% ( currently 95-97% on RA) HFA no DEX for now given no hypoxia, no REM given stable resp status, will monitor closely DVT PPX: Lovenox check D dimer- 2.29 Venous Duplex BLE check CRP-2.26 CXR no acute process Abx per ID recs- at this time no need Monitor volumes and renal function Fup with consultants recs FC IVF for now NPO until fully awake,m then start regular diet as tolerated anxiolytics prn psych eval appreciated SW eval will get rapid HIV test case discussed and evaluated by supervising physician Margaret Qureshi NP Oct 02, 2020 09:47
[2020-10-02] MEDS ORDERED: LORazepam Inj 2mg/ml 1ml IM SCH (10:00)
[2020-10-02] MEDS ORDERED: DiphenhydrAMINE 50mg/ml Inj IM SCH ×2 (10:00→10:45)
[2020-10-02] MEDS ORDERED: Haloperidol Decanoate (Long Acting) 50mg Inj IM SCH (10:30)
--- NOTE | 2020-10-02 11:56 | NUR ---
SURGICAL APPLIANCES SALESPERSON NOTE SW attempted to speak w/ pt. Pt is sleeping, did not respond to this SW. SW will attempt again. Per chart review, UDS all negative. PT has hx of amphetamine abuse. Addendum: 10/02/20 at 1603 by LINDA HINDS SW attempted to meet w/ pt. Pt was awake, making poor eye contact, murmuring. SW was unable to have meaningful communication w/ pt. SW will attempt when pt becomes more alert and oriented.
[2020-10-02 12:00] VITALS: BP 131/99
--- NOTE | 2020-10-02 12:00 | NUR ---
NURSE NOTES: Patient was coming out of the room saying he wants to go home. He pulled out the IV which made him bleed. He is not eligible for AMA because he is not alert and not able to ambulate safely. RN made Qureshi, Dr. Khan and made aware. RN got the order to give Haldol, Benadryl and Ativan and put him on restraints. RN verified and carried out the order one by one. The patient still refuses to wear the condom catheter which would allow the RN to collect the urine for UA. RN will continue to monitor.
[2020-10-02] MEDS: Potassium Chloride 10 MEQ in D5 1/2NS 1,000 ML IV SCH (12:18)
[2020-10-02] MEDS: Pantoprazole Inj IVP SCH (12:18)
[2020-10-02] MEDS: Enoxaparin 40mg Inj SUBQ SCH (12:19)
--- NOTE | 2020-10-02 15:48 | NUR ---
CASE MANAGEMENT:REVIEW 39 YR OLD MALE BIBA FROM STREET CC; AMS SI: AMS. COVID POSITIVE. AMPHETAMINE ABUSE 98.8 101 20 125/84 94% ON RA GLUCOSE+111 IS: HALDOL IM X2 1L NS BOLUS X2 IV VERSED X1 IV BENADRYL X1 CT HEAD : TO MED/SURG [facility]
--- NOTE | 2020-10-02 15:59 | Diagnostic Imaging Report ---
Indication: Reason For Exam: SOB Technique: Grayscale and duplex images of the bilateral lower extremity veins Comparison: Findings: Bilaterally, grayscale and duplex images demonstrate no evidence of intraluminal thrombus. Normal phasic Doppler waveforms, demonstrating normal augmentation response and no evidence of valvular insufficiency. Greater saphenous vein(s) and tibial veins are patent. Normal compressibility. Impression: Negative for evidence of lower extremity deep venous thrombosis bilaterally
[2020-10-02 16:00] VITALS: BP 133/83
--- NOTE | 2020-10-02 19:37 | NUR ---
NURSE HAND-OFF: Important Events on Shift:Patient had episodes in the morning trying to leave, pulling out condom catheter Patient Status: lethargic Diet: npo Pending Orders: Urinalysis Pending Results/Labs:n/a Pending MD notification:n/a Latest Vital Signs: Temperature 98.2 , Pulse 114 , B/P 133 /83 , Respiratory Rate 20 , O2 SAT 96 , Room Air, O2 Flow Rate . Vital Sign Comment: stable Latest Red Fall Score: 55 Fall Risk: High Risk Safety Measures: Call light Within Reach, Bed Alarm Zone 1, Side Rails Side Rails x3, Bed position Low and Locked. Fall Precautions: Report given to SEGUNDO Michelle.
[2020-10-02 20:00] VITALS: BP 152/98
--- NOTE | 2020-10-02 20:00 | NUR ---
NURSE NOTES: RECEIVED PATIENT LYING IN BED, AWAKE, REPETITIVE SPEECH , "VISHAL I LOVE YOU". HEAD OF BED ELEVATED TO FACILITATE BREATHING, NO SIGNS AND SYMPTOMS OF ACUTE CARDIO RESPIRATORY DISTRESS/SHORTNESS OF BREATH, NO PERIPHERAL EDEMA NOTED. BILATERAL WRIST RESTRAINTS INTACT TO PREVENT PATIENT FROM CLIMBING OUT OF BED/REMOVING TUBINGS, REASSESSED, PATIENT REMAIN RESTLESS/AGITATED, UNABLE TO RELEASE RESTRAINTS AT THIS TIME. ABDOMEN SOFT/NON DISTENDED/NON TENDER/AUDIBLE BOWEL SOUNDS, NO REPORT OF N/V/D. ASSISTED WITH COMFORT CARE. SIDE RAILS UP X3/BED IN LOWEST POSITION FOR SAFETY, FREQUENT ROUNDING FOR SAFETY/NEEDS. CONTINUE WITH CURRENT PLAN OF CARE. NAD.
--- NOTE | 2020-10-02 21:00 | NUR ---
NURSE NOTES: PM MEDICATION ADM., TOLERATED WELL, WILL CONTINUE TO MONITOR FOR SAFETY/NEEDS. BILATERAL WRIST RESTRAINTS INTACT.
[2020-10-03] VITALS: BP 114/77
[2020-10-03 04:00] VITALS: BP 127/92
[2020-10-03 05:27] LABS: HEMATOCRIT 39.4 % (42.0-52.0); HEMOGLOBIN 13.2 G/DL (14.2-18.0); MEAN CORPUSCULAR VOLUME 84 FL (80-99); PLATELET COUNT 234 K/UL (150-450); RED BLOOD COUNT 4.67 M/UL (4.70-6.10); RED CELL DISTRIBUTION WIDTH 11.8 % (11.6-14.8); WHITE BLOOD COUNT 8.7 K/UL (4.8-10.8)
[2020-10-03 05:49] LABS: APPEARANCE,URINE CLEAR; BILIRUBIN, URINE NEGATIVE (NEGATIVE); GLUCOSE, URINE (UA) NEGATIVE (NEGATIVE); KETONES,URINE 1+ (NEGATIVE); LEUKOCYTE ESTERASE ,URINE NEGATIVE (NEGATIVE); NITRITE,URINE NEGATIVE (NEGATIVE); PH,URINE 5 (4.5-8.0); PROTEIN,URINE 2+ (NEGATIVE); UROBILINOGEN,URINE NORMAL MG/DL (0.0-1.0)
[2020-10-03 05:58] LABS: ANION GAP 11 mmol/L (5-15); BLOOD UREA NITROGEN 23 mg/dL (7-18); CALCIUM 9.7 MG/DL (8.5-10.1); CARBON DIOXIDE 26 MMOL/L (21-32); CHLORIDE 106 MMOL/L (98-107); CREATININE 1.1 MG/DL (0.55-1.30); POTASSIUM 3.9 MMOL/L (3.5-5.1); SODIUM 143 MMOL/L (136-145)
[2020-10-03 06:37] LABS: COLOR,URINE YELLOW
[2020-10-03] MEDS: Potassium Chloride 10 MEQ in D5 1/2NS 1,000 ML IV SCH (06:45)
--- NOTE | 2020-10-03 07:20 | NUR ---
nurse notes received patient resting comfortably in bed, nonresponsive, lehargic, no sign of distress, no fascial grimace noted on going O2 AT 2LPM via NC SAT 95%,IVF patent and infusing well, on NPO, Repositioned patient for comfort and good circulation kept clean dry and comfortable, seen by MD prior to my shift with order to transfer patient to tele per NOC supervisor nuclear medicine no bed available ,charge nurse noc shift and am shift aware, biilaeral wrist restraint on, on contact and droplet precaution , kept clean dry and comfortable, will continue to monitor patient condition leida cunningham
[2020-10-03] MEDS: Pantoprazole Inj IVP SCH (08:25)
[2020-10-03] MEDS: Enoxaparin 40mg Inj SUBQ SCH (08:27)
[2020-10-03 08:58] VITALS: BP 123/83
--- NOTE | 2020-10-03 08:59 | NUR ---
CHARGE NURSE NOTE: Abnormal ECG (sinus tachycardia) (HR 119bpm) result was reported to Margaret Qureshi(IRLANDA). No new orders given.
--- NOTE | 2020-10-03 09:23 | Pulmonology Progress Note ---
Subjective Allergies: Coded Allergies: No Known Allergies (Unverified , 09/29/20) Subjective no fevers, labs stable pulse ox stable on RA remains altered, not answering questions, at times anxious and combative , but currently calm psychiatrist on the case Objective Last 24 Hour Vital Signs Date Time Temp Pulse Resp B/P (MAP) Pulse Ox O2 Delivery O2 Flow Rate FiO2 10/03/20 08:58 97.2 118 22 123/83 (96) 99 10/03/20 08:00 Nasal Cannula 2.0 10/03/20 04:00 98.8 134 22 127/92 (104) 97 10/03/20 00:00 98.7 129 24 114/77 (89) 94 10/02/20 21:00 Room Air 10/02/20 20:15 93 10/02/20 20:00 98.0 111 22 152/98 (116) 89 10/02/20 16:00 98.2 114 20 133/83 (100) 96 10/02/20 12:00 97.1 118 20 131/99 (110) 99 10/02/20 11:43 118 20 131/99 99 10/02/20 11:13 110 20 113/88 95 Intake and Output 10/02/20 10/03/20 19:00 07:00 Intake Total 500 ml 630 ml Balance 500 ml 630 ml Intake Oral 30 ml IV Total 500 ml 600 ml # Voids 2 2 Objective General Appearance: confused, not follows directions; not answering questions Lines, tubes and drains: peripheral HEENT: normocephalic, atraumatic, anicteric, not opening eyes Neck: non-tender, supple Respiratory/Chest: chest wall non-tender, lungs clear, no respiratory distress, no accessory muscle use Cardiovascular/Chest: normal peripheral pulses, normal rate Abdomen: normal bowel sounds, non tender, soft Extremities: no calf tenderness Neurologic: unable to access gait, unable to ambulate at this time due to REY C Musculoskeletal: normal muscle bulk Microbiology Date/Time Source Procedure Growth Status 09/30/20 23:10 Nasopharynx SARS-CoV-2 RdRp Gene Assay - Final Complete Laboratory Tests 10/03/20 04:15: White Blood Count 8.7, Red Blood Count 4.67L, Hemoglobin 13.2L, Hematocrit 39.4L , Mean Corpuscular Volume 84, Mean Corpuscular Hemoglobin 28.2, Mean Corpuscular Hemoglobin Concent 33.4, Red Cell Distribution Width 11.8, Platelet Count 234, Mean Platelet Volume 5.9L, Neutrophils (%) (Auto) , Lymphocytes (%) (Auto) , Monocytes (%) (Auto) , Eosinophils (%) (Auto) , Basophils (%) (Auto) , Neutrophils % (Manual) [Pending], Lymphocytes % (Manual) [Pending], Platelet Estimate [Pending], Platelet Morphology [Pending], Urine Color Yellow, Urine Appearance Clear, Urine pH 5, Urine Specific [place] 1.020, Urine Protein 2+H, Urine Glucose (UA) Negative, Urine Ketones 1+H, Urine Blood Negative, Urine Nitrite Negative, Urine Bilirubin Negative, Urine Urobilinogen Normal, Urine Leukocyte Esterase Negative, Urine RBC 0-2H, Urine WBC 0-2, Urine Squamous E pithelial Cells Few, Urine Bacteria None, Sodium Level 143, Potassium Level 3.9, Chloride Level 106, Carbon Dioxide Level 26, Anion Gap 11, Blood Urea Nitrogen 23H, Creatinine 1.1, Estimat Glomerular Filtration Rate > 60, Glucose Level 145H , Calcium Level 9.7 Current Medications Medications (Trade) Dose Ordered Sig/Carleen Route PRN Reason Start Time Stop Time Status Last Admin Dose Admin Acetaminophen (Tylenol) 650 mg Q4H PRN ORAL Mild Pain (Pain Scale 1-3) 10/01/20 11:00 10/31/20 10:59 Acetaminophen (Tylenol) 650 mg Q4H PRN ORAL Temp >100.5 10/01/20 11:00 10/31/20 10:59 Albuterol Sulfate (Proventil MDI) 2 puff Q4H PRN INH Shortness of Breath 10/01/20 11:00 12/30/20 10:59 Dextrose (Dextrose 50%) 25 ml Q30M PRN IV Hypoglycemia 10/01/20 11:00 12/30/20 10:59 Dextrose (Dextrose 50%) 50 ml Q30M PRN IV Hypoglycemia 10/01/20 11:00 12/30/20 10:59 Enoxaparin Sodium (Lovenox) 40 mg DAILY SUBQ 10/01/20 12:00 12/30/20 11:59 10/03/20 08:27 Lorazepam (Ativan) 2 mg Q6H PRN ORAL For Anxiety 10/02/20 00:00 10/09/20 00:00 Ondansetron HCl (Zofran) 4 mg Q6H PRN IVP Nausea & Vomiting 10/01/20 11:00 10/31/20 10:59 Pantoprazole (Protonix) 40 mg DAILY IVP 10/02/20 13:00 11/01/20 12:59 10/03/20 08:25 Potassium Chloride 10 meq/ Dextrose/Sodium Chloride 1,005 ml @ 50 mls/hr Q20H6M IV 10/01/20 12:00 10/31/20 11:59 10/03/20 06:45 Risperidone (RisperDAL) 2 mg BEDTIME ORAL 10/02/20 21:00 11/16/20 20:59 10/02/20 20:43 Assessment/Plan Assessment/Plan ASSESSMENT COVID 19 infection Altered mental status possibly due to toxic metabolic encephalopathy 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 PLAN OF CARE [facility] floor Date of sx onset: unclear Positive test: 09/30 rapid COVID 19 + O2 RA titrate to keep sat > 92% ( currently 95-97% on RA) HFA no DEX for now given no hypoxia, no REM given stable resp status, will monitor closely DVT PPX: Lovenox D dimer- 2.29 Venous Duplex BLE 10/02 -NGT CRP-2.26 CXR -no acute process Abx per ID recs- at this time no need Monitor volumes and renal function Fup with consultants recs FC IVF for now NPO until fully awake, then start regular diet as tolerated anxiolytics prn psych eval appreciated SW eval will get rapid HIV test -pending will get neuro eval case discussed and evaluated by supervising physician Margaret Qureshi NP Oct 03, 2020 09:23
--- NOTE | 2020-10-03 11:54 | Consultation ---
Consult Note Consult Note Neurology Consultation Date of consultation: 10/03/2020 Manuela GONGORA; De. Feliciano M.D Coverage for Sandeep Degroot HPI: This is a 39 yr old AA male patient who presented to emergency department with altered level of consciousness. Patient [place] near the hospital and brought to the emergency department for evaluation. Patient was seen in emergency department yesterday on 09/29 for similar episode of altered level of consciousness. At that time he received CT of the head , which revealed no acute intracranial process. Chest x-ray revealed no acute cardiopulmonary pathology Urine toxicology screen was positive for amphetamine. he had left AGAINST MEDICAL ADVICE. CT of the head was repeated is negative. Repeated urine toxicology screen was negative Rapid COVID-19 was positive. This time lumbar puncture was planned due to persistent ALOC. Patient was sedated. But was subsequently was canceled. In emergency department patient received Haldol , Versed, liter of fluids and admitted for further management. We were consulted for further evaluation for altered level of consciousness Past Medical History: Homeless, Polysubstance abuse, non compliance Past Surgical History: unknown Family History: unknown Allergies: NKDA ROS unable to obtain to assess he is lethargic Neuro Exam: GENERAL: For general physical examination, please refer to other physicians' examination for details. Neuro Exam: pt is not awake, is drowsy and lethargic responds to painful stimuli and sternum rub pupils are equal and reactive bilaterally to light. ocular encephalic responses are intact. Cranial nerves: gag reflux is present Motor exam: pt has no spontaneous movements in upper and lower extremities Sensory: patient withdraws to pain Lab Data: Reviewed Imaging: Reviewed Assessment: 1. Encephalopathy likely toxic --> prior urine tox screen was + for methamphetamines --> CT head was completed and is unremarkable --> at this time continue to closely monitor patient and hold sedatives. 2. Covid 19 Disease --> afebrile no hypoxia no treatment indicated 3. Polysubstance Abuse --> rec cessation when fully awake. Thannk you for the consultation we appreciate consultation Plan of care was discussed with my supervising Physician and he agrees with plan of care. Lilia Mejia NP Oct 03, 2020 11:54
[2020-10-03 11:57] VITALS: BP 123/93
--- NOTE | 2020-10-03 14:35 | NUR ---
CASE MANAGEMENT:REVIEW SI;AMS. COVID POSITIVE. AMPHETAMINE ABUSE. 98.8 134 24 127/92 94% 2L NC BUN+ 23 GLU+ 145 IS;KCL/D5/NS IV @ 50 ML/HR LOVENOX SQ QD PROTONIX IV QD MED SURG STATUS DCP;FROM HOME
[2020-10-03 16:00] VITALS: BP 139/93
--- NOTE | 2020-10-03 16:30 | Infectious Diseases Prog Note ---
Assessment/Plan Assessment/Plan ASSESSMENT AND PLAN: 1. COVID infection. Saturation stable. No indication for treatment. 2. Altered level of consciousness. 3. Amphetamine use. - no indication for covid tx - continue to monitor 4. will f/u 5. neuro consult noted Subjective Constitutional: Reports: fatigue, other - weak but responsive ; Denies: fever HEENT: Denies: congestion Respiratory: Denies: shortness of breath Cardiovascular: Denies: chest pain Gastrointestinal/Abdominal: Denies: nausea, vomiting, diarrhea Neurologic: Denies: headache Psychiatric: Denies: depression Skin: Denies: rash Hematologic: Denies: bleeding Musculoskeletal: Denies: pain Allergies: Coded Allergies: No Known Allergies (Unverified , 09/29/20) Objective Last 24 Hour Vital Signs Date Time Temp Pulse Resp B/P (MAP) Pulse Ox O2 Delivery O2 Flow Rate FiO2 10/03/20 16:00 98.6 118 22 139/93 (108) 99 10/03/20 11:57 97.9 117 22 123/93 (103) 99 10/03/20 08:58 97.2 118 22 123/83 (96) 99 10/03/20 08:00 Nasal Cannula 2.0 10/03/20 04:00 98.8 134 22 127/92 (104) 97 10/03/20 00:00 98.7 129 24 114/77 (89) 94 10/02/20 21:00 Room Air 10/02/20 20:15 93 10/02/20 20:00 98.0 111 22 152/98 (116) 89 Height (Feet): 6 Weight (Pounds): 120 General Appearance: no acute distress HEENT: normocephalic, atraumatic, anicteric Respiratory/Chest: lungs clear, normal breath sounds, no respiratory distress Cardiovascular: normal rate, regular rhythm, no gallop/murmur, no JVD Abdomen: normal bowel sounds, soft, non tender, no organomegaly, non distended Microbiology Date/Time Source Procedure Growth Status 09/30/20 23:10 Nasopharynx SARS-CoV-2 RdRp Gene Assay - Final Complete Laboratory Tests Test 10/03/20 04:15 White Blood Count 8.7 K/UL (4.8-10.8) Red Blood Count 4.67 M/UL (4.70-6.10) L Hemoglobin 13.2 G/DL (14.2-18.0) L Hematocrit 39.4 % (42.0-52.0) L Mean Corpuscular Volume 84 FL (80-99) Mean Corpuscular Hemoglobin 28.2 PG (27.0-31.0) Mean Corpuscular Hemoglobin Concent 33.4 G/DL (32.0-36.0) Red Cell Distribution Width 11.8 % (11.6-14.8) Platelet Count 234 K/UL (150-450) Mean Platelet Volume 5.9 FL (6.5-10.1) L Neutrophils (%) (Auto) % (45.0-75.0) Lymphocytes (%) (Auto) % (20.0-45.0) Monocytes (%) (Auto) % (1.0-10.0) Eosinophils (%) (Auto) % (0.0-3.0) Basophils (%) (Auto) % (0.0-2.0) Differential Total Cells Counted 100 Neutrophils % (Manual) 86 % (45-75) H Lymphocytes % (Manual) 7 % (20-45) L Monocytes % (Manual) 7 % (1-10) Eosinophils % (Manual) 0 % (0-3) Basophils % (Manual) 0 % (0-2) Band Neutrophils 0 % (0-8) Platelet Estimate Adequate Platelet Morphology Normal Red Blood Cell Morphology Normal Urine Color Yellow Urine Appearance Clear Urine pH 5 (4.5-8.0) Urine Specific [place] 1.020 (1.005-1.035) Urine Protein 2+ (NEGATIVE) H Urine Glucose (UA) Negative (NEGATIVE) Urine Ketones 1+ (NEGATIVE) H Urine Blood Negative (NEGATIVE) Urine Nitrite Negative (NEGATIVE) Urine Bilirubin Negative (NEGATIVE) Urine Urobilinogen Normal MG/DL (0.0-1.0) Urine Leukocyte Esterase Negative (NEGATIVE) Urine RBC 0-2 /HPF (0 - 0) H Urine WBC 0-2 /HPF (0 - 0) Urine Squamous Epithelial Cells Few /LPF (NONE/OCC) Urine Bacteria None /HPF (NONE) Sodium Level 143 MMOL/L (136-145) Potassium Level 3.9 MMOL/L (3.5-5.1) Chloride Level 106 MMOL/L (98-107) Carbon Dioxide Level 26 MMOL/L (21-32) Anion Gap 11 mmol/L (5-15) Blood Urea Nitrogen 23 mg/dL (7-18) H Creatinine 1.1 MG/DL (0.55-1.30) Estimat Glomerular Filtration Rate > 60 mL/min (>60) Glucose Level 145 MG/DL (74-106) H Calcium Level 9.7 MG/DL (8.5-10.1) Current Medications Medications (Trade) Dose Ordered Sig/Carleen Route PRN Reason Start Time Stop Time Status Last Admin Dose Admin Acetaminophen (Tylenol) 650 mg Q4H PRN ORAL Mild Pain (Pain Scale 1-3) 10/01/20 11:00 10/31/20 10:59 Acetaminophen (Tylenol) 650 mg Q4H PRN ORAL Temp >100.5 10/01/20 11:00 10/31/20 10:59 Albuterol Sulfate (Proventil MDI) 2 puff Q4H PRN INH Shortness of Breath 10/01/20 11:00 12/30/20 10:59 Dextrose (Dextrose 50%) 25 ml Q30M PRN IV Hypoglycemia 10/01/20 11:00 12/30/20 10:59 Dextrose (Dextrose 50%) 50 ml Q30M PRN IV Hypoglycemia 10/01/20 11:00 12/30/20 10:59 Enoxaparin Sodium (Lovenox) 40 mg DAILY SUBQ 10/01/20 12:00 12/30/20 11:59 10/03/20 08:27 Lorazepam (Ativan) 2 mg Q6H PRN ORAL For Anxiety 10/02/20 00:00 10/09/20 00:00 Ondansetron HCl (Zofran) 4 mg Q6H PRN IVP Nausea & Vomiting 10/01/20 11:00 10/31/20 10:59 Pantoprazole (Protonix) 40 mg DAILY IVP 10/02/20 13:00 11/01/20 12:59 10/03/20 08:25 Potassium Chloride 10 meq/ Dextrose/Sodium Chloride 1,005 ml @ 50 mls/hr Q20H6M IV 10/01/20 12:00 10/31/20 11:59 10/03/20 06:45 Risperidone (RisperDAL) 2 mg BEDTIME ORAL 10/02/20 21:00 11/16/20 20:59 10/02/20 20:43 Wood Tyler MD Oct 03, 2020 16:30
--- NOTE | 2020-10-03 17:03 | NUR ---
PROFESSOR OF GENETICS NOTE SW attempted to meet w/ pt to obtain information 2x. Pt was sleeping and did not wake up. SW will continue to F/U.
--- NOTE | 2020-10-03 19:05 | NUR ---
NURSE NOTES: Received report from ITZEL Dean. Pt is sleeping in bed, ISABEL wrist restraints with proper circulation, IVF infusing well. Bed locked and in lowest position, call light within reach, condom catheter draining well. Aware of MD order to transfer to [facility], but no bed available. Will continue to monitor.
--- NOTE | 2020-10-03 19:29 | NUR ---
HAND-OFF: Report given to given to Fionaian, RN PATIENT RESTING COMFORTABLY, NO SIGN OF DISTRESS ITZEL cunningham.
[2020-10-03 20:00] VITALS: BP 131/105
--- NOTE | 2020-10-03 20:16 | NUR ---
NURSE NOTES: Unable to administer Risperdal due to patient being too lethargic to swallow.
--- NOTE | 2020-10-03 22:02 | Psychiatric Progress Note ---
Psychiatry Progress Note Psychiatry Progress Note Medications Current Medications Medications (Trade) Dose Ordered Sig/Carleen Route PRN Reason Start Time Stop Time Status Last Admin Dose Admin Acetaminophen (Tylenol) 650 mg Q4H PRN ORAL Mild Pain (Pain Scale 1-3) 10/01/20 11:00 10/31/20 10:59 Acetaminophen (Tylenol) 650 mg Q4H PRN ORAL Temp >100.5 10/01/20 11:00 10/31/20 10:59 Albuterol Sulfate (Proventil MDI) 2 puff Q4H PRN INH Shortness of Breath 10/01/20 11:00 12/30/20 10:59 Dextrose (Dextrose 50%) 25 ml Q30M PRN IV Hypoglycemia 10/01/20 11:00 12/30/20 10:59 Dextrose (Dextrose 50%) 50 ml Q30M PRN IV Hypoglycemia 10/01/20 11:00 12/30/20 10:59 Enoxaparin Sodium (Lovenox) 40 mg DAILY SUBQ 10/01/20 12:00 12/30/20 11:59 10/03/20 08:27 Lorazepam (Ativan) 2 mg Q6H PRN ORAL For Anxiety 10/02/20 00:00 10/09/20 00:00 Ondansetron HCl (Zofran) 4 mg Q6H PRN IVP Nausea & Vomiting 10/01/20 11:00 10/31/20 10:59 Pantoprazole (Protonix) 40 mg DAILY IVP 10/02/20 13:00 11/01/20 12:59 10/03/20 08:25 Potassium Chloride 10 meq/ Dextrose/Sodium Chloride 1,005 ml @ 50 mls/hr Q20H6M IV 10/01/20 12:00 10/31/20 11:59 10/03/20 06:45 Risperidone (RisperDAL) 2 mg BEDTIME ORAL 10/02/20 21:00 11/16/20 20:59 10/02/20 20:43 Allergies: Coded Allergies: No Known Allergies (Unverified , 09/29/20) Objective Data Height (Feet): 6 Weight (Pounds): 120 General Appearance: WD/WN, no apparent distress, lethargic, confused, agitated, other - sedated Additional Comments: Assessment/Plan Assessment/Plan: ASSESSMENT: [place] I Acute toxic encephalopathy. Psychotic disorder. [place] II Deferred. [place] III COVID-19. [place] IV Low. [place] V 20 PLAN: 1. We will start the patient on low dose of antipsychotics. 2. Continue the restraints. 3. Discussed with the primary team. Kelsy Khan MD Oct 03, 2020 22:02
[2020-10-04] VITALS (7 sets, daily range): BP systolic 131–149; BP diastolic 86–103
[2020-10-04] MEDS: Potassium Chloride 10 MEQ in D5 1/2NS 1,000 ML IV SCH ×2 (01:08→21:00)
--- NOTE | 2020-10-04 07:00 | NUR ---
NURSE HAND-OFF: Important Events on Shift: Pt unable to take oral medication, no BM Patient Status: lethargic, sleeping Diet: NPO Pending Orders: Pending Results/Labs: Pending MD notification: Latest Vital Signs: Temperature 99.0 , Pulse 109 , B/P 137 /100 , Respiratory Rate 21 , O2 SAT 96 , Room Air, O2 Flow Rate 2.0 . Vital Sign Comment: VSS, tachycardia Latest Red Fall Score: 55 Fall Risk: High Risk Safety Measures: Call light Within Reach, Bed Alarm Zone 1, Side Rails Side Rails x3, Bed position Low and Locked. Fall Precautions: Report given to ITZEL Willson.
--- NOTE | 2020-10-04 07:10 | NUR ---
nurse notes received patient resting comfortably in bed, nonresponsive,still lethargic, no sign of distress, no fascial grimace noted, on going O2 AT 2LPM via NC sat 99%,IVF patent and infusing well, on NPO, AM care rendered, Repositioned patient for comfort and good circulation , bilateral wrist restraint on, on contact and droplet precaution , kept clean dry and comfortable, will continue to monitor patient condition leida cunningham
[2020-10-04 07:28] LABS: HEMATOCRIT 37.6 % (42.0-52.0); HEMOGLOBIN 12.5 G/DL (14.2-18.0); MEAN CORPUSCULAR VOLUME 85 FL (80-99); PLATELET COUNT 225 K/UL (150-450); RED BLOOD COUNT 4.39 M/UL (4.70-6.10); RED CELL DISTRIBUTION WIDTH 12.2 % (11.6-14.8); WHITE BLOOD COUNT 9.7 K/UL (4.8-10.8)
[2020-10-04 07:37] LABS: ANION GAP 9 mmol/L (5-15); BLOOD UREA NITROGEN 22 mg/dL (7-18); CALCIUM 9.6 MG/DL (8.5-10.1); CARBON DIOXIDE 26 MMOL/L (21-32); CHLORIDE 111 MMOL/L (98-107); CREATININE 1.1 MG/DL (0.55-1.30); POTASSIUM 4.1 MMOL/L (3.5-5.1); SODIUM 146 MMOL/L (136-145)
[2020-10-04 07:47] LABS: AMMONIA 33 umol/L (11-32)
--- NOTE | 2020-10-04 08:03 | Pulmonology Progress Note ---
Subjective Allergies: Coded Allergies: No Known Allergies (Unverified , 09/29/20) Subjective no fevers, now on O2 via NC stated having difficulty breathing tachycardic Objective Last 24 Hour Vital Signs Date Time Temp Pulse Resp B/P (MAP) Pulse Ox O2 Delivery O2 Flow Rate FiO2 10/04/20 07:54 99.0 126 22 134/96 (109) 99 10/04/20 04:00 99.0 109 21 137/100 (112) 96 10/04/20 00:00 97.9 123 22 131/90 (104) 96 10/03/20 21:00 Nasal Cannula 2.0 10/03/20 20:00 98.9 121 22 131/105 (114) 98 10/03/20 16:00 98.6 118 22 139/93 (108) 99 10/03/20 11:57 97.9 117 22 123/93 (103) 99 10/03/20 08:58 97.2 118 22 123/83 (96) 99 10/03/20 08:00 Nasal Cannula 2.0 Intake and Output 10/03/20 10/04/20 19:00 07:00 Intake Total 620 ml Output Total 700 ml 900 ml Balance -80 ml -900 ml IV Total 620 ml Output Urine Total 700 ml 900 ml # Voids 1 Objective General Appearance: altered, weak Lines, tubes and drains: peripheral HEENT: normocephalic, atraumatic, anicteric, not opening eyes, O2 2 L via NC Neck: non-tender, supple Respiratory/Chest: chest wall non-tender, lungs clear, no respiratory distress, no accessory muscle use Cardiovascular/Chest: normal peripheral pulses, normal rate Abdomen: normal bowel sounds, non tender, soft Extremities: no calf tenderness Neurologic: unable to access gait, unable to ambulate at this time due to AL OC Musculoskeletal: normal muscle bulk Laboratory Tests 10/04/20 06:40: White Blood Count 9.7, Red Blood Count 4.39L, Hemoglobin 12.5L, Hematocrit 37.6L , Mean Corpuscular Volume 85, Mean Corpuscular Hemoglobin 28.5, Mean Corpuscular Hemoglobin Concent 33.3, Red Cell Distribution Width 12.2, Platelet Count 225, Mean Platelet Volume 6.2L, Neutrophils (%) (Auto) , Lymphocytes (%) (Auto) , Monocytes (%) (Auto) , Eosinophils (%) (Auto) , Basophils (%) (Auto) , Neutrophils % (Manual) [Pending], Lymphocytes % (Manual) [Pending], Platelet Estimate [Pending], Platelet Morphology [Pending], Sodium Level 146H, Potassium Level 4.1, Chloride Level 111H, Carbon Dioxide Level 26, Anion Gap 9, Blood Urea Nitrogen 22H, Creatinine 1.1, Estimat Glomerular Filtration Rate > 60, Glucose Level 126H, Calcium Level 9.6, Ammonia 33H Current Medications Medications (Trade) Dose Ordered Sig/Carleen Route PRN Reason Start Time Stop Time Status Last Admin Dose Admin Acetaminophen (Tylenol) 650 mg Q4H PRN ORAL Mild Pain (Pain Scale 1-3) 10/01/20 11:00 10/31/20 10:59 Acetaminophen (Tylenol) 650 mg Q4H PRN ORAL Temp >100.5 10/01/20 11:00 10/31/20 10:59 Albuterol Sulfate (Proventil MDI) 2 puff Q4H PRN INH Shortness of Breath 10/01/20 11:00 12/30/20 10:59 Dextrose (Dextrose 50%) 25 ml Q30M PRN IV Hypoglycemia 10/01/20 11:00 12/30/20 10:59 Dextrose (Dextrose 50%) 50 ml Q30M PRN IV Hypoglycemia 10/01/20 11:00 12/30/20 10:59 Enoxaparin Sodium (Lovenox) 40 mg DAILY SUBQ 10/01/20 12:00 12/30/20 11:59 10/03/20 08:27 Lorazepam (Ativan) 2 mg Q6H PRN ORAL For Anxiety 10/02/20 00:00 10/09/20 00:00 Ondansetron HCl (Zofran) 4 mg Q6H PRN IVP Nausea & Vomiting 10/01/20 11:00 10/31/20 10:59 Pantoprazole (Protonix) 40 mg DAILY IVP 10/02/20 13:00 11/01/20 12:59 10/03/20 08:25 Potassium Chloride 10 meq/ Dextrose/Sodium Chloride 1,005 ml @ 50 mls/hr Q20H6M IV 10/01/20 12:00 10/31/20 11:59 10/04/20 01:08 Risperidone (RisperDAL) 2 mg BEDTIME ORAL 10/02/20 21:00 11/16/20 20:59 10/02/20 20:43 Assessment/Plan Assessment/Plan ASSESSMENT COVID 19 infection Altered mental status possibly due to toxic metabolic encephalopathy 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 PLAN OF CARE [facility] floor Date of sx onset: unclear Positive test: 09/30 rapid COVID 19 + O2 NC titrate to keep sat > 92% HFA start DEX Day #1 ( 10/04 -) given hypoxia consider REM -per ID recs - will start Day #1 ( 10/04- ) discussed with ID DVT PPX: Lovenox D dimer- 2.29 Venous Duplex BLE 10/02 -NGT trend CRP-2.6 - CXR -no acute process Abx per ID recs- at this time no need Monitor volumes and renal function Fup with consultants recs FC transfer to tele given tachy and hypoxia IVF for now NPO until fully awake, then start regular diet as tolerated anxiolytics prn psych eval appreciated SW eval will get rapid HIV test -pending will get neuro eval case discussed and evaluated by supervising physician Margaret Qureshi NP Oct 04, 2020 08:03
[2020-10-04] MEDS: Enoxaparin 40mg Inj SUBQ SCH (08:45)
[2020-10-04] MEDS: dexAMETHasone 10mg/ml Inj IV SCH (08:46)
[2020-10-04] MEDS: Pantoprazole Inj IVP SCH (08:46)
[2020-10-04] MEDS ORDERED: Loading Dose:Remdesivir 200mg/NS 210ml IV SCH ×2 (11:00)
--- NOTE | 2020-10-04 19:30 | NUR ---
NURSE HAND-OFF: Important Events on Shift:[still lethargic, remdesivir IVPB started] Patient Status: [on going] Diet: [npo] Pending Orders: [] Pending Results/Labs:[] Pending MD notification:[] Latest Vital Signs: Temperature 98.7 , Pulse 111 , B/P 147 /100 , Respiratory Rate 20 , O2 SAT 98 , Room Air, O2 Flow Rate 2.0 . Vital Sign Comment: [stable] Latest Red Fall Score: 55 Fall Risk: High Risk Safety Measures: Call light Within Reach, Bed Alarm Zone 1, Side Rails Side Rails x3, Bed position Low and Locked. Fall Precautions: Report given to [Ms SINGH].
--- NOTE | 2020-10-04 19:35 | NUR ---
NURSE NOTES: Patient in bed, awake and alert x0 at this time. On nasal cannula 2L with no signs of distress or SOB. Suction at bedside. RN performed suctioning; patient tolerating ok. O2 sat 97%. NPO status. Bilat soft wrist restraints in progress; no swelling and pulses palpable. IV intact and running IVF as ordered. Bed locked and in lowest position. HOB elevated. Bed locked and in lowest position. Bed alarm on. Call light in reach. Order for transfer to telemetry unit per MD; waiting for available bed. Will continue plan of care.
--- NOTE | 2020-10-04 22:48 | NUR ---
TRANSFER TO FLOOR: Patient transferred to Telemetry, per MD. Report given to ITZEL Jane. Belongings and medications given to RN.
--- NOTE | 2020-10-04 22:50 | NUR ---
NURSE NOTES: Receive a report from ITZEL Hanna. Pt transferred from via hospital bed. Pt is opening his eye himself but is not able to answer any questions, saying. " I can't breathe. When surgical mask was off, pt was feeling better but does not want on oxygen NC back. Pt shows agitation when O2 NC back. On bed bound. Skin intact but noted bony on sacrum. Apply opticform on sacrum for prevention. Attach leads for vehicle monitor technician. Skin is warm to touch. VSS: [id number] 83% with O2 2L NC. No chilling noted. Pt started Remdesivir earlier of day. Done belonging list. Call light within reach. Will continue to monitor. Addendum: 10/05/20 at 0203 by Buck Barajas RN Noted grunting and crackling sound while breathing. Done oral suction but ineffective at this time.
--- NOTE | 2020-10-04 23:20 | NUR ---
NURSE NOTES: Call Dr. Wiggins for pt's elevated temperature and RR, desaturation as 83%. Receive new orders of chest x-ray, blood culturex2, urine culture, high-flow oxygen. Read back orders. Order noted and carried out. Call RT.
--- NOTE | 2020-10-04 23:30 | NUR ---
NURSE NOTES: Confirm with Dr. Wiggins for changing the route of Tylenol from oral to rectum d/t pt's mental status. Added AGB and receive order of Bi-Pap 08/23. Rely to RT for new orders. Will continue to follow up.
--- NOTE | 2020-10-04 23:42 | Psychiatric Progress Note ---
Psychiatry Progress Note Psychiatry Progress Note Subjective lethargic no meds were given no agitation Medications Current Medications Medications (Trade) Dose Ordered Sig/Carleen Route PRN Reason Start Time Stop Time Status Last Admin Dose Admin Acetaminophen (Tylenol) 650 mg Q4H PRN ORAL Mild Pain (Pain Scale 1-3) 10/01/20 11:00 10/31/20 10:59 Acetaminophen (Tylenol) 650 mg Q4H PRN RECTAL BT>100.5F 10/04/20 23:30 11/03/20 23:29 Albuterol Sulfate (Proventil MDI) 2 puff Q4H PRN INH Shortness of Breath 10/01/20 11:00 12/30/20 10:59 Dexamethasone Sodium Phosphate (Decadron 10mg/ ml Inj) 6 mg DAILY IV 10/04/20 09:00 10/13/20 09:01 10/04/20 08:46 Dextrose (Dextrose 50%) 25 ml Q30M PRN IV Hypoglycemia 10/01/20 11:00 12/30/20 10:59 Dextrose (Dextrose 50%) 50 ml Q30M PRN IV Hypoglycemia 10/01/20 11:00 12/30/20 10:59 Enoxaparin Sodium (Lovenox) 40 mg DAILY SUBQ 10/01/20 12:00 12/30/20 11:59 10/04/20 08:45 Lorazepam (Ativan) 2 mg Q6H PRN ORAL For Anxiety 10/02/20 00:00 10/09/20 00:00 Ondansetron HCl (Zofran) 4 mg Q6H PRN IVP Nausea & Vomiting 10/01/20 11:00 10/31/20 10:59 Pantoprazole (Protonix) 40 mg DAILY IVP 10/02/20 13:00 11/01/20 12:59 10/04/20 08:46 Potassium Chloride 10 meq/ Dextrose/Sodium Chloride 1,005 ml @ 50 mls/hr Q20H6M IV 10/01/20 12:00 10/31/20 11:59 10/04/20 21:00 Remdesivir 100 mg/ Sodium Chloride 250 ml @ 250 mls/hr Q24H IV 10/05/20 11:00 10/08/20 11:59 Risperidone (RisperDAL) 2 mg BEDTIME ORAL 10/02/20 21:00 11/16/20 20:59 10/02/20 20:43 Allergies: Coded Allergies: No Known Allergies (Unverified , 09/29/20) Objective Data Height (Feet): 6 Weight (Pounds): 120 General Appearance: WD/WN, no apparent distress, lethargic, confused, agitated, other - sedated Additional Comments: Assessment/Plan [place] I: ASSESSMENT: [place] I Acute toxic encephalopathy. Psychotic disorder. [place] II Deferred. [place] III COVID-19. [place] IV Low. [place] V 20 PLAN: 1. We will start the patient on low dose of antipsychotics. 2. Continue the restraints. 3. Discussed with the primary team. Status Narrative ASSESSMENT: [place] I Acute toxic encephalopathy. Psychotic disorder. [place] II Deferred. [place] III COVID-19. [place] IV Low. [place] V 20 PLAN: 1. We will start the patient on low dose of antipsychotics. 2. Continue the restraints. 3. Discussed with the primary team. Assessment/Plan: ASSESSMENT: [place] I Acute toxic encephalopathy. Psychotic disorder. [place] II Deferred. [place] III COVID-19. [place] IV Low. [place] V 20 PLAN: 1. We will start the patient on low dose of antipsychotics. 2. Continue the restraints. 3. Discussed with the primary team. Kelsy Khan MD Oct 04, 2020 23:42
--- NOTE | 2020-10-04 23:51 | Diagnostic Imaging Report ---
EXAM: XR Chest, 1 View CLINICAL HISTORY: DIARRHEA TECHNIQUE: Frontal view of the chest. COMPARISON: Chest x-ray 10/01/2020 FINDINGS: Lungs: New mild patchy opacities within the medial left lung base and to a lesser extent the medial right lung base. Pleural space: Unremarkable. No pneumothorax. Heart: Unremarkable. No cardiomegaly. Mediastinum: Unremarkable. Bones/joints: Unremarkable. IMPRESSION: New mild patchy opacities within the lung bases may indicate a developing infectious/inflammatory process such as multifocal pneumonia or aspiration pneumonitis.
[2020-10-05] VITALS (7 sets, daily range): BP systolic 118–159; BP diastolic 84–110
[2020-10-05] MEDS: Acetaminophen 650 MG SUPP RECTAL PRN ×2 (00:14→08:18)
--- NOTE | 2020-10-05 00:30 | NUR ---
Chest x-ray, Blood culture x2, urine culture are done. BT: 101.3. Given Tylenol 650mg pre rectum. Spo2 checked as 96-97% with non-breather mask. RR got slower than earlier as 22 bpm. Keep NPO and head-up elevated. Will continue to monitor.
--- NOTE | 2020-10-05 01:45 | NUR ---
NURSE NOTES: BT rechecked as 99.5F. But still noted MO: 110-120bpm. Spo2 99% with non-breather mask. Pt is spontaneous eye opening but non-responsive. Will continue to monitor.
--- NOTE | 2020-10-05 07:30 | NUR ---
NURSE HAND-OFF REPORT: Important Events on Shift: Transfer from . Desaturation, elevated temp--> on Non-breathing mask 15L, Spo2 maintains 97-99%, Done oral suction by RT. Patient Status: [] Diet: [npo] Pending Orders: [] Pending Results/Labs:[] Pending MD notification:[] Latest Vital Signs: Temperature 100.0 , Pulse 118 , B/P 120 /90 , Respiratory Rate 24 , O2 SAT 100 , Room Air, O2 Flow Rate 15.0 . Vital Sign Comment: [] EKG Rhythm: Sinus Tachycardia Rhythm change?: N MD Notified?: - MD Response: Latest Red Fall Score: 55 Fall Risk: High Risk Safety Measures: Call light Within Reach, Bed Alarm Zone 1, Side Rails Side Rails x3, Bed position Low and Locked. Fall Precautions: Report given to ITZEL Mosquera.
[2020-10-05 07:35] LABS: HEMATOCRIT 38.6 % (42.0-52.0); HEMOGLOBIN 12.4 G/DL (14.2-18.0); MEAN CORPUSCULAR VOLUME 88 FL (80-99); PLATELET COUNT 205 K/UL (150-450); RED BLOOD COUNT 4.41 M/UL (4.70-6.10); WHITE BLOOD COUNT 9.3 K/UL (4.8-10.8)
--- NOTE | 2020-10-05 07:46 | NUR ---
NURSE NOTES: Received report from Gho/RN. Pt in bed sleeping, on 15L non-rebreather mask, no distress or SOB noted. IV on left UA 20G running D5 1/2Ns w/10Meq Kcl @ 50ml/hr. Patient is on restrains will monitor q2hr. Bed in the lowest position and locked, call light within reach, encouraged to use when needed. Side rail up X3. Will continue plan of care.
--- NOTE | 2020-10-05 07:53 | Pulmonology Progress Note ---
Subjective Allergies: Coded Allergies: No Known Allergies (Unverified , 09/29/20) Subjective now on tele ABG 10/04 late night noted , now on NRM febrile, tachycardic , no leukocytosis 10/04 started DEX and REM rapid HIV prelim positive chemistry pending Objective Last 24 Hour Vital Signs Date Time Temp Pulse Resp B/P (MAP) Pulse Ox O2 Delivery O2 Flow Rate FiO2 10/05/20 04:00 118 10/05/20 04:00 100.0 114 24 120/90 (100) 100 10/05/20 01:45 99.5 10/05/20 00:00 101.3 116 24 128/90 (103) 96 10/05/20 00:00 111 10/04/20 23:20 90 Non-Rebreather 15.0 100 10/04/20 23:00 102.2 118 28 149/100 (116) 83 10/04/20 23:00 Non-Rebreather 15.0 10/04/20 20:15 Nasal Cannula 2.0 10/04/20 20:00 97.7 120 17 138/103 (115) 96 10/04/20 15:47 98.7 111 20 147/100 (116) 98 10/04/20 11:32 99.1 110 22 135/86 (102) 99 10/04/20 08:40 Nasal Cannula 2.0 10/04/20 07:54 99.0 126 22 134/96 (109) 99 Intake and Output 10/04/20 10/05/20 19:00 07:00 Intake Total 700 ml Output Total 800 ml 500 ml Balance -100 ml -500 ml IV Total 700 ml Output Urine Total 800 ml 500 ml Objective General Appearance: altered, weak Lines, tubes and drains: peripheral HEENT: normocephalic, atraumatic, anicteric, not opening eyes, O2 NRM Neck: non-tender, supple Respiratory/Chest: chest wall non-tender, decreased BS Cardiovascular/Chest: normal peripheral pulses, normal rate Abdomen: normal bowel sounds, non tender, soft Extremities: no calf tenderness Neurologic: unable to access gait, unable to ambulate at this time due to ALOC Musculoskeletal: normal muscle bulk Laboratory Tests 10/04/20 23:27: Arterial Blood pH 7.472H, Arterial Blood Partial Pressure CO2 35.1, Arterial Blood Partial Pressure O2 60.2L, Arterial Blood HCO3 25.1, Arterial Blood Oxygen Saturation 90.6L, Arterial Blood Base Excess 1.8, Joe Test Positive 10/05/20 00:00: HIV-1 Antibody [Pending], HIV-2 Antibody [Pending] 10/05/20 04:10: White Blood Count 9.3, Red Blood Count 4.41L, Hemoglobin 12.4L, Hematocrit 38.6L , Mean Corpuscular Volume 88, Mean Corpuscular Hemoglobin 28.1, Mean Corpuscular Hemoglobin Concent 32.1, Red Cell Distribution Width 12.0, Platelet Count 205, Mean Platelet Volume 5.7L, Neutrophils (%) (Auto) , Lymphocytes (%) (Auto) , Monocytes (%) (Auto) , Eosinophils (%) (Auto) , Basophils (%) (Auto) , Neutrophils % (Manual) [Pending], Lymphocytes % (Manual) [Pending], Platelet Estimate [Pending], Platelet Morphology [Pending], Sodium Level [Pending], Potassium Level [Pending], Chloride Level [Pending], Carbon Dioxide Level [Pen ding], Blood Urea Nitrogen [Pending], Creatinine [Pending], Estimat Glomerular Filtration Rate [Pending], Glucose Level [Pending], Calcium Level [Pending], Total Bilirubin [Pending], Direct Bilirubin [Pending], Aspartate Amino Transf (AST/SGOT) [Pending], Alanine Aminotransferase (ALT/SGPT) [Pending], Alkaline Phosphatase [Pending], C-Reactive Protein, Quantitative [Pending], Total Protein [Pending], Albumin [Pending], Globulin [Pending] Current Medications Medications (Trade) Dose Ordered Sig/Carleen Route PRN Reason Start Time Stop Time Status Last Admin Dose Admin Acetaminophen (Tylenol) 650 mg Q4H PRN ORAL Mild Pain (Pain Scale 1-3) 10/01/20 11:00 10/31/20 10:59 Acetaminophen (Tylenol) 650 mg Q4H PRN RECTAL BT>100.5F 10/04/20 23:30 11/03/20 23:29 10/05/20 00:14 Albuterol Sulfate (Proventil MDI) 2 puff Q4H PRN INH Shortness of Breath 10/01/20 11:00 12/30/20 10:59 Dexamethasone Sodium Phosphate (Decadron 10mg/ ml Inj) 6 mg DAILY IV 10/04/20 09:00 10/13/20 09:01 10/04/20 08:46 Dextrose (Dextrose 50%) 25 ml Q30M PRN IV Hypoglycemia 10/01/20 11:00 12/30/20 10:59 Dextrose (Dextrose 50%) 50 ml Q30M PRN IV Hypoglycemia 10/01/20 11:00 12/30/20 10:59 Enoxaparin Sodium (Lovenox) 40 mg DAILY SUBQ 10/01/20 12:00 12/30/20 11:59 10/04/20 08:45 Lorazepam (Ativan) 2 mg Q6H PRN ORAL For Anxiety 10/02/20 00:00 10/09/20 00:00 Ondansetron HCl (Zofran) 4 mg Q6H PRN IVP Nausea & Vomiting 10/01/20 11:00 10/31/20 10:59 Pantoprazole (Protonix) 40 mg DAILY IVP 10/02/20 13:00 11/01/20 12:59 10/04/20 08:46 Potassium Chloride 10 meq/ Dextrose/Sodium Chloride 1,005 ml @ 50 mls/hr Q20H6M IV 10/01/20 12:00 10/31/20 11:59 10/04/20 21:00 Remdesivir 100 mg/ Sodium Chloride 250 ml @ 250 mls/hr Q24H IV 10/05/20 11:00 10/08/20 11:59 Assessment/Plan Assessment/Plan ASSESSMENT COVID 19 infection Altered mental status possibly due to toxic metabolic encephalopathy 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 Abx per ID recs- currently off abx Monitor volumes and renal function Fup with consultants recs FC on tele since 10/04 given tachy and hypoxia condition worsened on NRM rapid HIV test prel positive, will get CD4 count IVF NPO until fully awake, then start regular diet as tolerated anxiolytics prn psych eval appreciated SW eval neuro eval appreciated case discussed and evaluated by supervising physician Margaret Qureshi NP Oct 05, 2020 07:53
[2020-10-05 07:57] LABS: ALANINE AMINOTRANSFERASE 14 U/L (12-78); ALBUMIN 2.5 G/DL (3.4-5.0); ALBUMIN/GLOBULIN RATIO 0.4 (1.0-2.7); ALKALINE PHOSPHATASE 87 U/L (46-116); ANION GAP 11 mmol/L (5-15); ASPARTATE AMINO TRANSFERASE 17 U/L (15-37); BILIRUBIN,DIRECT < 0.1 MG/DL (0.0-0.3); BILIRUBIN,TOTAL 0.6 MG/DL (0.2-1.0); BLOOD UREA NITROGEN 30 mg/dL (7-18); CARBON DIOXIDE 25 MMOL/L (21-32); CHLORIDE 113 MMOL/L (98-107); CREATININE 1.2 MG/DL (0.55-1.30); POTASSIUM 4.2 MMOL/L (3.5-5.1); SODIUM 149 MMOL/L (136-145)
[2020-10-05] MEDS: Pantoprazole Inj IVP SCH (08:11)
[2020-10-05] MEDS: dexAMETHasone 10mg/ml Inj IV SCH (08:12)
[2020-10-05] MEDS: Enoxaparin 40mg Inj SUBQ SCH (08:12)
[2020-10-05] MEDS: Maintenance Dose:Remdesivir 100mg/NS 230ml x 4 Doses IV SCH ×2 (11:16)
[2020-10-05] MEDS ORDERED: LORazepam 1mg tab ORAL PRN (11:30)
--- NOTE | 2020-10-05 16:03 | Infectious Diseases Prog Note ---
Assessment/Plan Assessment/Plan ASSESSMENT AND PLAN: 1. COVID-19 infection, hiv +, acute hypoxia, ams, fevers, sepsis - dexamethasone and remdesivir - zosyn, vancomycin, bactrim, diflucan, azithromycin - check cryptococcus serum antigen, ldh, cd4, viral load, beta-D glucan - consider LP - monitor labs and chest x-ray - d/w Margaret Qureshi, MANAGER [facility] and pharmacy 2. pmh o/w negative 3. Amphetamine use 4) allergies - negative 5. will f/u Subjective Constitutional: Reports: fatigue, other - on NR HEENT: Reports: congestion Respiratory: Reports: shortness of breath Cardiovascular: Denies: chest pain Gastrointestinal/Abdominal: Denies: nausea Genitourinary: Denies: dysuria Neurologic: Denies: headache Skin: Denies: rash Musculoskeletal: Denies: pain Allergies: Coded Allergies: No Known Allergies (Unverified , 09/29/20) Objective Last 24 Hour Vital Signs Date Time Temp Pulse Resp B/P (MAP) Pulse Ox O2 Delivery O2 Flow Rate FiO2 10/05/20 12:00 99.9 95 21 118/84 (95) 100 10/05/20 12:00 92 10/05/20 09:00 Non-Rebreather 15.0 10/05/20 09:00 Non-Rebreather 15.0 10/05/20 08:48 99.9 10/05/20 08:00 100.8 114 22 136/94 (108) 100 10/05/20 08:00 112 10/05/20 04:00 118 10/05/20 04:00 100.0 114 24 120/90 (100) 100 10/05/20 01:45 99.5 10/05/20 00:00 101.3 116 24 128/90 (103) 96 10/05/20 00:00 111 10/04/20 23:20 90 Non-Rebreather 15.0 100 10/04/20 23:00 102.2 118 28 149/100 (116) 83 10/04/20 23:00 Non-Rebreather 15.0 10/04/20 20:15 Nasal Cannula 2.0 10/04/20 20:00 97.7 120 17 138/103 (115) 96 Height (Feet): 6 Weight (Pounds): 120 General Appearance: other - opens eyes, sob HEENT: normocephalic, atraumatic, anicteric Respiratory/Chest: crackles/rales, rhonchi - bilaterally Cardiovascular: normal rate, regular rhythm, no gallop/murmur Abdomen: normal bowel sounds, soft, non tender, no organomegaly, non distended Genitourinary: other - + yeung Extremities: no cyanosis Skin: no rash 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 COMPARISON: Chest x-ray 10/01/2020 FINDINGS: Lungs: New mild patchy opacities within the medial left lung base and to a lesser extent the medial right lung base. Pleural space: Unremarkable. No pneumothorax. Heart: Unremarkable. No cardiomegaly. Mediastinum: Unremarkable. Bones/joints: Unremarkable. IMPRESSION: New mild patchy opacities within the lung bases may indicate a developing infectious/inflammatory process such as multifocal pneumonia or aspiration pneumonitis. Microbiology Date/Time Source Procedure Growth Status 09/30/20 23:10 Nasopharynx SARS-CoV-2 RdRp Gene Assay - Final Complete Laboratory Tests Test 10/04/20 23:27 10/05/20 00:00 10/05/20 04:10 10/05/20 09:30 Arterial Blood pH 7.472 (7.350-7.450) Arterial Blood Partial Pressure CO2 35.1 mmHg (35.0-45.0) Arterial Blood Partial Pressure O2 60.2 mmHg (75.0-100.0) L Arterial Blood HCO3 25.1 mmol/L (22.0-26.0) Arterial Blood Oxygen Saturation 90.6 % (95-100) L Arterial Blood Base Excess 1.8 (-2-2) Joe Test Positive HIV-1 Antibody Pending Pending HIV-2 Antibody Pending Pending White Blood Count 9.3 K/UL (4.8-10.8) Red Blood Count 4.41 M/UL (4.70-6.10) L Hemoglobin 12.4 G/DL (14.2-18.0) L Hematocrit 38.6 % (42.0-52.0) L Mean Corpuscular Volume 88 FL (80-99) Mean Corpuscular Hemoglobin 28.1 PG (27.0-31.0) Mean Corpuscular Hemoglobin Concent 32.1 G/DL (32.0-36.0) Red Cell Distribution Width 12.0 % (11.6-14.8) Platelet Count 205 K/UL (150-450) Mean Platelet Volume 5.7 FL (6.5-10.1) L Neutrophils (%) (Auto) % (45.0-75.0) Lymphocytes (%) (Auto) % (20.0-45.0) Monocytes (%) (Auto) % (1.0-10.0) Eosinophils (%) (Auto) % (0.0-3.0) Basophils (%) (Auto) % (0.0-2.0) Differential Total Cells Counted 100 Neutrophils % (Manual) 91 % (45-75) H Lymphocytes % (Manual) 6 % (20-45) L Monocytes % (Manual) 3 % (1-10) Eosinophils % (Manual) 0 % (0-3) Basophils % (Manual) 0 % (0-2) Band Neutrophils 0 % (0-8) Platelet Estimate Adequate Platelet Morphology Normal Red Blood Cell Morphology Normal Sodium Level 149 MMOL/L (136-145) H Potassium Level 4.2 MMOL/L (3.5-5.1) Chloride Level 113 MMOL/L (98-107) H Carbon Dioxide Level 25 MMOL/L (21-32) Anion Gap 11 mmol/L (5-15) Blood Urea Nitrogen 30 mg/dL (7-18) H Creatinine 1.2 MG/DL (0.55-1.30) Estimat Glomerular Filtration Rate > 60 mL/min (>60) Glucose Level 91 MG/DL (74-106) Calcium Level 10.0 MG/DL (8.5-10.1) Total Bilirubin 0.6 MG/DL (0.2-1.0) Direct Bilirubin < 0.1 MG/DL (0.0-0.3) Aspartate Amino Transf (AST/SGOT) 17 U/L (15-37) Alanine Aminotransferase (ALT/SGPT) 14 U/L (12-78) Alkaline Phosphatase 87 U/L (46-116) C-Reactive Protein, Quantitative 24.2 mg/dL (0.00-0.90) H Total Protein 8.5 G/DL (6.4-8.2) H Albumin 2.5 G/DL (3.4-5.0) L Globulin 6.0 g/dL Albumin/Globulin Ratio 0.4 (1.0-2.7) L Test 10/05/20 09:35 White Blood Count Pending Lymphocytes Pending Percent CD3 Cells Pending Absolute CD3 Count Pending Percent CD4 Cells Pending Absolute CD4 Count Pending T-Lymphocyte CD4/CD8 Ratio Pending Percent CD8 Cells Pending Absolute CD8 Count Pending Current Medications Medications (Trade) Dose Ordered Sig/Carleen Route PRN Reason Start Time Stop Time Status Last Admin Dose Admin Acetaminophen (Tylenol) 650 mg Q4H PRN ORAL Mild Pain (Pain Scale 1-3) 10/01/20 11:00 10/31/20 10:59 Acetaminophen (Tylenol) 650 mg Q4H PRN RECTAL BT>100.5F 10/04/20 23:30 11/03/20 23:29 10/05/20 08:18 Albuterol Sulfate (Proventil MDI) 2 puff Q4H PRN INH Shortness of Breath 10/01/20 11:00 12/30/20 10:59 Azithromycin (Zithromax) 500 mg DAILY ORAL 10/06/20 09:00 10/13/20 08:59 Dexamethasone Sodium Phosphate (Decadron 10mg/ ml Inj) 6 mg DAILY IV 10/04/20 09:00 10/13/20 09:01 10/05/20 08:12 Dextrose (Dextrose 50%) 25 ml Q30M PRN IV Hypoglycemia 10/01/20 11:00 12/30/20 10:59 Dextrose (Dextrose 50%) 50 ml Q30M PRN IV Hypoglycemia 10/01/20 11:00 12/30/20 10:59 Enoxaparin Sodium (Lovenox) 40 mg DAILY SUBQ 10/01/20 12:00 12/30/20 11:59 10/05/20 08:12 Lorazepam (Ativan) 2 mg Q6H PRN ORAL For Anxiety 10/05/20 11:30 10/09/20 00:00 Ondansetron HCl (Zofran) 4 mg Q6H PRN IVP Nausea & Vomiting 10/01/20 11:00 10/31/20 10:59 Pantoprazole (Protonix) 40 mg DAILY IVP 10/02/20 13:00 11/01/20 12:59 10/05/20 08:11 Piperacillin Sod/ Tazobactam Sod 3.375 gm/Dextrose 100 ml @ 25 mls/hr EVERY 8 HOURS IVPB 10/05/20 22:00 10/10/20 21:59 Potassium Chloride 10 meq/ Dextrose/Sodium Chloride 1,005 ml @ 50 mls/hr Q20H6M IV 10/01/20 12:00 10/31/20 11:59 10/04/20 21:00 Remdesivir 100 mg/ Sodium Chloride 250 ml @ 250 mls/hr Q24H IV 10/05/20 11:00 10/08/20 11:59 10/05/20 11:16 Vancomycin HCl (Vanco pharmacy to dose) 1 ea DAILY PRN MISC Per rx protocol 10/05/20 16:00 11/04/20 15:59 Vancomycin HCl 750 mg/Sodium Chloride 275 ml @ 183.333 mls/hr Q12H IVPB 10/06/20 05:00 10/11/20 04:59 Vancomycin HCl 1 gm/Dextrose 275 ml @ 183.708 mls/hr ONCE ONCE IVPB 10/05/20 17:00 10/05/20 18:29 Wood Tyler MD Oct 05, 2020 16:03
[2020-10-05] MEDS: Potassium Chloride 10 MEQ in D5 1/2NS 1,000 ML IV SCH (16:04)
[2020-10-05] MEDS: Trimethoprim/Sulfamethoxazole 20 ML in D5W 500ml 550 ML IV SCH ×2 (16:47→23:42)
[2020-10-05] MEDS ORDERED: Vancomycin 1gm/D5W 275ml IVPB ONE ×2 (17:00)
--- NOTE | 2020-10-05 19:14 | NUR ---
NURSE HAND-OFF REPORT: Important Events on Shift:Pt still on retrains. Patient Status: stable Diet: NPO Pending Orders: Pending Results/Labs: Pending MD notification: Latest Vital Signs: Temperature 98.0 , Pulse 95 , B/P 146 /98 , Respiratory Rate 20 , O2 SAT 100 , non-rebreather, O2 Flow Rate 15.0 . Vital Sign Comment: Stable EKG Rhythm: Sinus Rhythm Rhythm change?: N MD Notified?: - MD Response: Latest Red Fall Score: 55 Fall Risk: High Risk Safety Measures: Call light Within Reach, Bed Alarm Zone 1, Side Rails Side Rails x3, Bed position Low and Locked. Fall Precautions: Report given to Gho/RN.
--- NOTE | 2020-10-05 19:15 | NUR ---
NURSE NOTES: Receive a report from ITZEL Mosquera. Noted spontaneous eyes opening but is not able to communicate. Lethargic and drowsy. On non-breather mask with O2 15L. Spo2 maintains 99-100%. On bilateral restraints. Skin intact. On condom catheter and yellow urine is patent. IV is left upper arm and IV fluid and ATB as ordered. Call light within reach. Will contact to RT for oral suction as needed and will continue to monitor closely.
[2020-10-06] VITALS: BP 143/104
--- NOTE | 2020-10-06 01:00 | NUR ---
NURSE NOTES: Done suction by RT and good amount secretion out. Still on non-breather 15L oxygen and maintain spo2 99%. Will continue to monitor.
[2020-10-06 04:00] VITALS: BP 140/99
[2020-10-06] MEDS: Vancomycin 750mg/NS 275ml IVPB SCH ×4 (04:30→18:09)
--- NOTE | 2020-10-06 06:51 | NUR ---
CASE MANAGEMENT:REVIEW 10/06/20 SI: COVID(+). TOXIC ENCEPHALOPATHY D/T AMPHETAMINES HIV(+) 98.2 107 22 140/99 99% ON 15L/100% NRB IS: IV VANCOMYCIN Q12 IV ZOSYN Q8HRS IV DIFLUCAN Q24 IV BACTRIM Q8HRS IV REMDESIVIR Q24 IV DECADRON Q24 IV PROTONIX Q24 IVF+KCL@50/HR LOVENOX SQ QD : TELEMETRY STATUS DCP: SOCIAL SERVICE CONSULT PLAN: NPO UNTIL FULLY AWAKE
--- NOTE | 2020-10-06 07:15 | NUR ---
NURSE HAND-OFF REPORT: Important Events on Shift: Suction for secretion. VSS remain stable. Noted more response but not meaningful at this time. Patient Status: [stabe] Diet: [npo] Pending Orders: [] Pending Results/Labs:[] Pending MD notification:[] Latest Vital Signs: Temperature 98.2 , Pulse 96 , B/P 140 /99 , Respiratory Rate 22 , O2 SAT 99 , Room Air, O2 Flow Rate 15.0 . Vital Sign Comment: [] EKG Rhythm: Sinus Bradycardia Rhythm change?: N MD Notified?: - MD Response: Latest Red Fall Score: 55 Fall Risk: High Risk Safety Measures: Call light Within Reach, Bed Alarm Zone 1, Side Rails Side Rails x3, Bed position Low and Locked. Fall Precautions: Report given to ITZEL Jacobson.
[2020-10-06 07:17] LABS: HEMATOCRIT 39.9 % (42.0-52.0); HEMOGLOBIN 12.7 G/DL (14.2-18.0); MEAN CORPUSCULAR VOLUME 89 FL (80-99); PLATELET COUNT 197 K/UL (150-450); RED CELL DISTRIBUTION WIDTH 12.1 % (11.6-14.8); WHITE BLOOD COUNT 8.8 K/UL (4.8-10.8)
--- NOTE | 2020-10-06 07:27 | NUR ---
NURSE NOTES: Pt recieved from bakari RN, Pt in bed disoriented, bilateral wrist restraints in place, pulses present and palpable, no swelling or redness noted. Pt eyes open spontaneously but do not track. Non-rebreather on at 15liters. bed low and locked, call light near left hand, however pt not able to demonstrate using it.
[2020-10-06 07:39] LABS: ALANINE AMINOTRANSFERASE 15 U/L (12-78); ALBUMIN 2.2 G/DL (3.4-5.0); ALBUMIN/GLOBULIN RATIO 0.4 (1.0-2.7); ALKALINE PHOSPHATASE 79 U/L (46-116); ANION GAP 8 mmol/L (5-15); ASPARTATE AMINO TRANSFERASE 21 U/L (15-37); BILIRUBIN,DIRECT 0.1 MG/DL (0.0-0.3); BILIRUBIN,TOTAL 0.5 MG/DL (0.2-1.0); BLOOD UREA NITROGEN 25 mg/dL (7-18); CALCIUM 9.8 MG/DL (8.5-10.1); CARBON DIOXIDE 28 MMOL/L (21-32); CHLORIDE 113 MMOL/L (98-107); POTASSIUM 5.1 MMOL/L (3.5-5.1); SODIUM 149 MMOL/L (136-145)
[2020-10-06 08:00] VITALS: BP 141/90
[2020-10-06] MEDS: Trimethoprim/Sulfamethoxazole 20 ML in D5W 500ml 550 ML IV SCH ×2 (08:05→16:23)
[2020-10-06] MEDS: dexAMETHasone 10mg/ml Inj IV SCH (08:05)
[2020-10-06] MEDS: Pantoprazole Inj IVP SCH (08:05)
[2020-10-06] MEDS: Enoxaparin 40mg Inj SUBQ SCH (08:06)
[2020-10-06] MEDS: Azithromycin 250mg tab ORAL SCH (09:00)
--- NOTE | 2020-10-06 09:10 | NUR ---
NURSE NOTES: Pt left eye noted to be rolling into back, right pupil not dilating in light. Called Roberto FOURNIER, however phone number in roster is for Dr. Rose. Will inform her in person re pt status. Infomred Margaret Qureshi, order for stat head CT placed.
--- NOTE | 2020-10-06 10:01 | Diagnostic Imaging Report ---
Indications: Altered mental status Technique: Spiral acquisitions obtained through the brain. Angled axial and coronal 5 x 5 mm slices were reconstructed. Total dose length product 1179 mGycm. CTDI vol(s) 53 mGy. Dose reduction achieved using automated exposure control Comparison: 09/30/2020 Findings: No acute intracranial hemorrhage or edema. No mass effect nor midline shift. Normal contreras-white differentiation. Normal size ventricles and extra axial CSF spaces. Visualized orbits and sinuses are unremarkable. The mastoids are clear. The calvarium is intact. No significant change Impression: Negative The CT scanner at [facility] is accredited by the [employer] and the scans are performed using protocols designed to limit radiation exposure to as low as reasonably achievable to attain images of sufficient resolution adequate for diagnostic evaluation.
[2020-10-06] MEDS: Maintenance Dose:Remdesivir 100mg/NS 230ml x 4 Doses IV SCH ×2 (11:27)
[2020-10-06] MEDS: Potassium Chloride 10 MEQ in D5 1/2NS 1,000 ML IV SCH (11:56)
[2020-10-06 12:00] VITALS: BP 133/103
--- NOTE | 2020-10-06 12:22 | NUR ---
RD ASSESSMENT & RECOMMENDATIONS SEE CARE ACTIVITY FOR COMPLETE ASSESSMENT DAILY ESTIMATED NEEDS: Needs based on Underweight, pulmonary 54.4kg 30-35 kcals/kg 7228-7409 total kcals 1-1.5 g protein/kg 54-82 g total protein 25-30 mL/kg 0815-4641 total fluid mLs NUTRITION DIAGNOSIS: Increased kcal and pro needs r/t underweight status as evidenced by BMI underweight per guidelines, pt is 67% of [place] Body weight w/ visual wasting per RN, NPO until fully awake per MD. CURRENT DIET: NPO PO DIET RECOMMENDATIONS: W/ confirmed h/o DM, rec CCHO MED diet; Regular otherwise (texture per EDUCATION DIAGNOSTICIAN) ENTERAL NUTRITION RECOMMENDATIONS: Glucerna 1.2 @ 60ml/hr x 24 hrs to provide 1440ml, 1728kcal, 86g prot, 1162ml free water * IF MENTAL STATUS DOES NOT IMPROVE, REC TEMPORARY NONORAL FEEDS- NPO DAY 5 * W/ GI access, initiate Glucerna 1.2 @ 20ml/hr x 6hrs * Advance 10ml q 4-6 hrs as tolerated to goal * HOB over 30 degrees/ H2o flush 150ml q 8hrs ADDITIONAL RECOMMENDATIONS: 1) Rec non oral feeds if pt is unable to tolerate oral po- NPO DAY 5 2) Rec EDUCATION DIAGNOSTICIAN eval 3) Continue D5 while NPO, check for hypoglycemia 4) Daily wts on calibrated bed scale
[2020-10-06 16:00] VITALS: BP 159/105
--- NOTE | 2020-10-06 16:23 | NUR ---
NURSE NOTES: Please note per pharmacist ok to Y tube zosyn and bactrim
--- NOTE | 2020-10-06 16:42 | Pulmonology Progress Note ---
Subjective Constitutional: Reports: fatigue, other - on NR Gastrointestinal/Abdominal: Denies: nausea Skin: Denies: rash Musculoskeletal: Denies: pain Allergies: Coded Allergies: No Known Allergies (Unverified , 09/29/20) Subjective AFVSS on 15L Obtunded + coarse BS CT NAD + blood with OP suctioning Objective Last 24 Hour Vital Signs Date Time Temp Pulse Resp B/P (MAP) Pulse Ox O2 Delivery O2 Flow Rate FiO2 10/06/20 16:00 98.1 103 20 159/105 (123) 99 10/06/20 16:00 94 10/06/20 12:00 89 10/06/20 12:00 97.7 82 20 133/103 (113) 99 10/06/20 09:00 Non-Rebreather 15.0 10/06/20 08:00 97.9 91 20 141/90 (107) 99 10/06/20 08:00 89 10/06/20 04:00 98.2 96 22 140/99 (113) 99 10/06/20 04:00 107 10/06/20 00:00 97.7 90 22 143/104 (117) 100 10/06/20 00:00 97 10/05/20 23:14 100 Non-Rebreather 15.0 100 10/05/20 21:00 Non-Rebreather 15.0 10/05/20 21:00 139/97 (111) 10/05/20 20:00 105 10/05/20 20:00 98.2 102 22 159/110 (126) 100 Intake and Output 10/05/20 10/06/20 19:00 07:00 Output Total 600 ml 1300 ml Balance -600 ml -1300 ml Output Urine Total 600 ml 1300 ml # Voids 1 General Appearance: other - obtunded HEENT: normocephalic, atraumatic, anicteric, mucous membranes moist Respiratory: rhonchi - bilaterally Cardiovascular: normal peripheral pulses, normal rate, regular rhythm Abdomen: normal bowel sounds, soft, non tender, no organomegaly, non distended, no mass Extremities: no cyanosis, no clubbing, no edema Microbiology Date/Time Source Procedure Growth Status 10/05/20 00:30 Urine,Clean Catch Urine Culture - Preliminary Strep Species, Gamma-Hemolytic Resulted 10/04/20 23:55 Blood Blood Culture - Preliminary NO GROWTH AFTER 24 HOURS Resulted 10/04/20 23:40 Blood Blood Culture - Preliminary NO GROWTH AFTER 24 HOURS Resulted Laboratory Tests 10/06/20 04:00: White Blood Count 8.8, Red Blood Count 4.50L, Hemoglobin 12.7L, Hematocrit 39.9L , Mean Corpuscular Volume 89, Mean Corpuscular Hemoglobin 28.2, Mean Corpuscular Hemoglobin Concent 31.8L, Red Cell Distribution Width 12.1, Platelet Count 197, Mean Platelet Volume 6.9, Neutrophils (%) (Auto) , Lymphocytes (%) (Auto) , Monocytes (%) (Auto) , Eosinophils (%) (Auto) , Basophils (%) (Auto) , Differential Total Cells Counted 100, Neutrophils % (Manual) 86H, Lymphocytes % (Manual) 9L, Monocytes % (Manual) 5, Eosinophils % (Manual) 0, Basophils % (Manual) 0, Band Neutrophils 0, Platelet Estimate Adequate, Platelet Morphology Normal, Red Blood Cell Morphology Normal, Sodium Level 149H, Potassium Level 5.1, Chloride Level 113H, Carbon Dioxide Level 28, Anion Gap 8, Blood Urea Nitrogen 25H, Creatinine 1.0, Estimat Glomerular Filtration Rate > 60, Glucose Level 89, Calcium Level 9.8, Total Bilirubin 0.5, Direct Bilirubin 0.1, Aspartate Amino Transf (AST/SGOT) 21, Alanine Aminotransferase (ALT/SGPT) 15, Alkaline Phosphatase 79, Total Protein 8.1, Albumin 2.2L, Globulin 5.9, Albumin/Globulin Ratio 0.4L 10/06/20 07:51: HIV-1 RNA (PCR) log10 Value [Pending], HIV-1 RNA Ultraquantitative (PCR) [Pending] Current Medications Medications (Trade) Dose Ordered Sig/Carleen Route PRN Reason Start Time Stop Time Status Last Admin Dose Admin Acetaminophen (Tylenol) 650 mg Q4H PRN ORAL Mild Pain (Pain Scale 1-3) 10/01/20 11:00 10/31/20 10:59 Acetaminophen (Tylenol) 650 mg Q4H PRN RECTAL BT>100.5F 10/04/20 23:30 11/03/20 23:29 10/05/20 08:18 Albuterol Sulfate (Proventil MDI) 2 puff Q4H PRN INH Shortness of Breath 10/01/20 11:00 12/30/20 10:59 Azithromycin (Zithromax) 500 mg DAILY ORAL 10/06/20 09:00 10/13/20 08:59 Dexamethasone Sodium Phosphate (Decadron 10mg/ ml Inj) 6 mg DAILY IV 10/04/20 09:00 10/13/20 09:01 10/06/20 08:05 Dextrose (Dextrose 50%) 25 ml Q30M PRN IV Hypoglycemia 10/01/20 11:00 12/30/20 10:59 Dextrose (Dextrose 50%) 50 ml Q30M PRN IV Hypoglycemia 10/01/20 11:00 12/30/20 10:59 Enoxaparin Sodium (Lovenox) 40 mg DAILY SUBQ 10/01/20 12:00 12/30/20 11:59 10/06/20 08:06 Fluconazole/ Sodium Chloride 200 ml @ 100 mls/hr Q24H IV 10/05/20 18:00 10/12/20 17:59 10/05/20 17:48 Lorazepam (Ativan) 2 mg Q6H PRN ORAL For Anxiety 10/05/20 11:30 10/09/20 00:00 Ondansetron HCl (Zofran) 4 mg Q6H PRN IVP Nausea & Vomiting 10/01/20 11:00 10/31/20 10:59 Pantoprazole (Protonix) 40 mg DAILY IVP 10/02/20 13:00 11/01/20 12:59 10/06/20 08:05 Piperacillin Sod/ Tazobactam Sod 3.375 gm/Dextrose 100 ml @ 25 mls/hr EVERY 8 HOURS IVPB 10/05/20 22:00 10/10/20 21:59 10/06/20 13:08 Potassium Chloride 10 meq/ Dextrose/Sodium Chloride 1,005 ml @ 50 mls/hr Q20H6M IV 10/01/20 12:00 10/31/20 11:59 10/06/20 11:56 Remdesivir 100 mg/ Sodium Chloride 250 ml @ 250 mls/hr Q24H IV 10/05/20 11:00 10/08/20 11:59 10/06/20 11:27 Trimethoprim/ Sulfamethoxazole 20 ml/Dextrose 570 ml @ 380 mls/hr [id number] BACTRIM IV 10/05/20 17:00 10/12/20 16:59 10/06/20 16:23 Vancomycin HCl (Vanco pharmacy to dose) 1 ea DAILY PRN MISC Per rx protocol 10/05/20 16:00 11/04/20 15:59 Vancomycin HCl 750 mg/Sodium Chloride 275 ml @ 183.333 mls/hr Q12H IVPB 10/06/20 05:00 10/11/20 04:59 10/06/20 04:30 Assessment/Plan Problems: (1) AIDS (2) COVID-19 virus detected (3) UTI (urinary tract infection) (4) Encephalopathy acute (5) Altered mental status (6) Amphetamine abuse Assessment/Plan DEX D3 REM D3 Antimicrobial therapy per ID Pulmonary hygiene/mobilize HFA's Titrate O2 Prone as able Monitor MS, F/U psych and neuro recs, D/C Ativan, ? LP NPO, mIVF, replete free water Hold LMWH given bloody secretions F/U markers Jaime Wiggins MD Oct 06, 2020 16:42
[2020-10-06] MEDS ORDERED: Sterile Water Irrig 1000ml IRRIG ONE (16:59)
[2020-10-06] MEDS ORDERED: Tubing IV Secondary IV ONE (16:59)
[2020-10-06] MEDS ORDERED: NS 275ml ONE (16:59)
--- NOTE | 2020-10-06 17:16 | Neurology Progress Note ---
Interim History Interim History Interim History remains somnolent, resp distress no new deficits Objective Physical Exam Last Vital Signs Date Time Temp Pulse Resp B/P (MAP) Pulse Ox O2 Delivery O2 Flow Rate FiO2 10/06/20 16:00 98.1 103 20 159/105 (123) 99 10/06/20 09:00 Non-Rebreather 15.0 10/05/20 23:14 100 Laboratory Tests Test 10/06/20 04:00 10/06/20 07:51 White Blood Count 8.8 K/UL (4.8-10.8) Red Blood Count 4.50 M/UL (4.70-6.10) L Hemoglobin 12.7 G/DL (14.2-18.0) L Hematocrit 39.9 % (42.0-52.0) L Mean Corpuscular Volume 89 FL (80-99) Mean Corpuscular Hemoglobin 28.2 PG (27.0-31.0) Mean Corpuscular Hemoglobin Concent 31.8 G/DL (32.0-36.0) L Red Cell Distribution Width 12.1 % (11.6-14.8) Platelet Count 197 K/UL (150-450) Mean Platelet Volume 6.9 FL (6.5-10.1) Neutrophils (%) (Auto) % (45.0-75.0) Lymphocytes (%) (Auto) % (20.0-45.0) Monocytes (%) (Auto) % (1.0-10.0) Eosinophils (%) (Auto) % (0.0-3.0) Basophils (%) (Auto) % (0.0-2.0) Differential Total Cells Counted 100 Neutrophils % (Manual) 86 % (45-75) H Lymphocytes % (Manual) 9 % (20-45) L Monocytes % (Manual) 5 % (1-10) Eosinophils % (Manual) 0 % (0-3) Basophils % (Manual) 0 % (0-2) Band Neutrophils 0 % (0-8) Platelet Estimate Adequate Platelet Morphology Normal Red Blood Cell Morphology Normal Sodium Level 149 MMOL/L (136-145) H Potassium Level 5.1 MMOL/L (3.5-5.1) Chloride Level 113 MMOL/L (98-107) H Carbon Dioxide Level 28 MMOL/L (21-32) Anion Gap 8 mmol/L (5-15) Blood Urea Nitrogen 25 mg/dL (7-18) H Creatinine 1.0 MG/DL (0.55-1.30) Estimat Glomerular Filtration Rate > 60 mL/min (>60) Glucose Level 89 MG/DL (74-106) Calcium Level 9.8 MG/DL (8.5-10.1) Total Bilirubin 0.5 MG/DL (0.2-1.0) Direct Bilirubin 0.1 MG/DL (0.0-0.3) Aspartate Amino Transf (AST/SGOT) 21 U/L (15-37) Alanine Aminotransferase (ALT/SGPT) 15 U/L (12-78) Alkaline Phosphatase 79 U/L (46-116) Total Protein 8.1 G/DL (6.4-8.2) Albumin 2.2 G/DL (3.4-5.0) L Globulin 5.9 g/dL Albumin/Globulin Ratio 0.4 (1.0-2.7) L HIV-1 RNA (PCR) log10 Value Pending HIV-1 RNA Ultraquantitative (PCR) Pending Impression/Recommendations Problems: (1) Substance abuse (2) Encephalopathy acute (3) Altered mental status (4) Amphetamine abuse (5) AIDS (6) UTI (urinary tract infection) (7) COVID-19 virus detected Diagnostic Impression 1. Encephalopathy likely toxic --> prior urine tox screen was + for methamphetamines --> CT head was completed and is unremarkable --> at this time continue to closely monitor patient and hold sedatives. 2. Covid 19 Disease --> afebrile no hypoxia no treatment indicated 3. Polysubstance Abuse --> rec cessation when fully awake. Jayme Landa MD Oct 06, 2020 17:16
--- NOTE | 2020-10-06 18:57 | NUR ---
NURSE HAND-OFF REPORT: Important Events on Shift:[Redid CT as pt was obtunded in the morning, no changes. High BP's noted NNO from Dr. Wiggins. Ativan D/Jose. Never heard back from Dr. Vaughan.] Patient Status: [Full code] Diet: [NPO] Pending Orders: [] Pending Results/Labs:[] Pending MD notification:[Dr. Bay should be informed that pt did not take PO azithro since he is lethargic, additionally he needs to add the required note to his progress notes so that 2 physician consent can be given for CSF collection] Latest Vital Signs: Temperature 98.1 , Pulse 94 , B/P 159 /105 , Respiratory Rate 20 , O2 SAT 99 , Room Air, O2 Flow Rate 15.0 . Vital Sign Comment: [] EKG Rhythm: Sinus Rhythm Rhythm change?: N MD Notified?: - MD Response: Latest Red Fall Score: 55 Fall Risk: High Risk Safety Measures: Call light Within Reach, Bed Alarm Zone 1, Side Rails Side Rails x3, Bed position Low and Locked. Fall Precautions: Report given to [Pending rn assignment]. Addendum: 10/06/20 at 1930 by Indira Jade RN Report Given to Danielle ROBBINS
--- NOTE | 2020-10-06 19:00 | NUR ---
NURSE NOTES: Received report from ITZEL Jacobson; comfortable in bed; AOX0 asleep in bed; On O2 therapy 15L via non-rebreather mask, in no acute distress; RT to suction PRN; will f/u with RT if secretions noted with bleeding and will hold Lovenox if noted with bleeding per Dr. Wiggins endorsed by AM shift; will also f/u with RT if pt able to tolerate O2 titration to wean off non-rebreather; NPO; with L upper arm 20 gauge peripheral IV site inatct and patent infusing IV fluids as ordered; will f/u with Dr. Perez when he comes regarding writing progress notes for consent as second MD (first consent from Dr. Wiggins) for spinal tap procedure; will monitor BP; with bilateral soft wrist restraints; skin and circulation in place; call light within reach; siderails x 2; bed locked and in low position; will continue to monitor.
[2020-10-06 20:00] VITALS: BP 156/104
--- NOTE | 2020-10-06 22:00 | NUR ---
NURSE NOTES: RT Anita made aware to suction pt d/t noted with congestion and to try and titrate pt O2; Per Anita RT, suctioned thick, tenacious, copious amounts of red, brown sputum; placed on Venturi mask 6L FiO2 50% to titrate pt; Per RT Anita, pt O2 sat 93-94% before she left pt room; after 5 mins, tried placing pt on continous pulse oximetry and nopted with desaturation 75-80% while on Venturi mask 6L; HOB elevated, pt noted repeating word; in no acute distress; however pt placed back on non-rebreather 15L of O2 and RT Anita, made aware; O2 sat 80-88%; RT Anita, came to see pt and suctioned him again; O2 saturation noted slowly going up to maximum of 99-100% on non-rebreather mask; will continue to monitor and suction PRN; noted comfortable and asleep.
[2020-10-07] VITALS: BP 145/111
--- NOTE | 2020-10-07 | Psychiatric Progress Note ---
Psychiatry Progress Note Psychiatry Progress Note Subjective lethargic no meds were given no agitation Medications Current Medications Medications (Trade) Dose Ordered Sig/Carleen Route PRN Reason Start Time Stop Time Status Last Admin Dose Admin Acetaminophen (Tylenol) 650 mg Q4H PRN ORAL Mild Pain (Pain Scale 1-3) 10/01/20 11:00 10/31/20 10:59 Acetaminophen (Tylenol) 650 mg Q4H PRN RECTAL BT>100.5F 10/04/20 23:30 11/03/20 23:29 10/05/20 08:18 Albuterol Sulfate (Proventil MDI) 2 puff Q4H PRN INH Shortness of Breath 10/01/20 11:00 12/30/20 10:59 Azithromycin (Zithromax) 500 mg DAILY ORAL 10/06/20 09:00 10/13/20 08:59 Dexamethasone Sodium Phosphate (Decadron 10mg/ ml Inj) 6 mg DAILY IV 10/04/20 09:00 10/13/20 09:01 10/06/20 08:05 Dextrose (Dextrose 50%) 25 ml Q30M PRN IV Hypoglycemia 10/01/20 11:00 12/30/20 10:59 Dextrose (Dextrose 50%) 50 ml Q30M PRN IV Hypoglycemia 10/01/20 11:00 12/30/20 10:59 Enoxaparin Sodium (Lovenox) 40 mg DAILY SUBQ 10/01/20 12:00 12/30/20 11:59 10/06/20 08:06 Fluconazole/ Sodium Chloride 200 ml @ 100 mls/hr Q24H IV 10/05/20 18:00 10/12/20 17:59 10/06/20 18:45 Ondansetron HCl (Zofran) 4 mg Q6H PRN IVP Nausea & Vomiting 10/01/20 11:00 10/31/20 10:59 Pantoprazole (Protonix) 40 mg DAILY IVP 10/02/20 13:00 11/01/20 12:59 10/06/20 08:05 Piperacillin Sod/ Tazobactam Sod 3.375 gm/Dextrose 100 ml @ 25 mls/hr EVERY 8 HOURS IVPB 10/05/20 22:00 10/10/20 21:59 10/06/20 21:50 Potassium Chloride 10 meq/ Dextrose/Sodium Chloride 1,005 ml @ 50 mls/hr Q20H6M IV 10/01/20 12:00 10/31/20 11:59 10/06/20 11:56 Remdesivir 100 mg/ Sodium Chloride 250 ml @ 250 mls/hr Q24H IV 10/05/20 11:00 10/08/20 11:59 10/06/20 11:27 Trimethoprim/ Sulfamethoxazole 20 ml/Dextrose 570 ml @ 380 mls/hr [id number] BACTRIM IV 10/05/20 17:00 10/12/20 16:59 10/06/20 16:23 Vancomycin HCl (Vanco pharmacy to dose) 1 ea DAILY PRN MISC Per rx protocol 10/05/20 16:00 11/04/20 15:59 Vancomycin HCl 750 mg/Sodium Chloride 275 ml @ 183.333 mls/hr Q12H IVPB 10/06/20 05:00 10/11/20 04:59 10/06/20 18:09 Allergies: Coded Allergies: No Known Allergies (Unverified , 09/29/20) Objective Data Height (Feet): 6 Weight (Pounds): 120 General Appearance: WD/WN, no apparent distress, lethargic, confused, agitated, other - sedated Additional Comments: Assessment/Plan [place] I: ASSESSMENT: [place] I Acute toxic encephalopathy. Psychotic disorder. [place] II Deferred. [place] III COVID-19. [place] IV Low. [place] V 20 PLAN: 1. We will start the patient on low dose of antipsychotics. 2. Continue the restraints. 3. Discussed with the primary team. Status Narrative ASSESSMENT: [place] I Acute toxic encephalopathy. Psychotic disorder. [place] II Deferred. [place] III COVID-19. [place] IV Low. [place] V 20 PLAN: 1. We will start the patient on low dose of antipsychotics. 2. Continue the restraints. 3. Discussed with the primary team. Assessment/Plan: ASSESSMENT: [place] I Acute toxic encephalopathy. Psychotic disorder. [place] II Deferred. [place] III COVID-19. [place] IV Low. [place] V 20 PLAN: 1. We will start the patient on low dose of antipsychotics. 2. Continue the restraints. 3. Discussed with the primary team. Kelsy Khan MD Oct 07, 2020 00:00
[2020-10-07] MEDS: Trimethoprim/Sulfamethoxazole 20 ML in D5W 500ml 550 ML IV SCH ×2 (01:08→08:26)
[2020-10-07 03:55] LABS: HEMATOCRIT 36.6 % (42.0-52.0); HEMOGLOBIN 11.7 G/DL (14.2-18.0); MEAN CORPUSCULAR VOLUME 86 FL (80-99); PLATELET COUNT 188 K/UL (150-450); RED BLOOD COUNT 4.25 M/UL (4.70-6.10); RED CELL DISTRIBUTION WIDTH 12.1 % (11.6-14.8); WHITE BLOOD COUNT 10.8 K/UL (4.8-10.8)
[2020-10-07 04:00] VITALS: BP 132/94
[2020-10-07 04:20] LABS: ALANINE AMINOTRANSFERASE 18 U/L (12-78); ALBUMIN 2.1 G/DL (3.4-5.0); ALBUMIN/GLOBULIN RATIO 0.4 (1.0-2.7); ALKALINE PHOSPHATASE 70 U/L (46-116); ANION GAP 9 mmol/L (5-15); ASPARTATE AMINO TRANSFERASE 19 U/L (15-37); BILIRUBIN,DIRECT 0.1 MG/DL (0.0-0.3); BILIRUBIN,TOTAL 0.3 MG/DL (0.2-1.0); BLOOD UREA NITROGEN 24 mg/dL (7-18); CALCIUM 9.5 MG/DL (8.5-10.1); CARBON DIOXIDE 25 MMOL/L (21-32); CHLORIDE 108 MMOL/L (98-107); POTASSIUM 4.2 MMOL/L (3.5-5.1); SODIUM 142 MMOL/L (136-145)
[2020-10-07] MEDS: Vancomycin 1gm/D5W 275ml IVPB SCH ×6 (05:43→21:41)
--- NOTE | 2020-10-07 07:30 | NUR ---
NURSE NOTES: Received report from ITZEL Peñaloza. Patient is AOx0 in bed asleep at this time. Patient on 15L non-rebreather mask, with no signs of respiratory distress at this time. Patient has L hand 22G and R upper arm 20G, patent and intact. Patient on bilateral soft wrist restraint for safety and pulling out medical devices. Bed in lowest position, locked with side rails x2 up. Call light within reach.
--- NOTE | 2020-10-07 07:40 | NUR ---
NURSE HAND-OFF REPORT: Important Events on Shift:[received midshift, vancomycin redosed and retimed] Patient Status: at baseline Diet: NPO Pending Orders: na Pending Results/Labs:na Pending MD notification:na Latest Vital Signs: Temperature 97.7 , Pulse 95 , B/P 132 /94 , Respiratory Rate 20 , O2 SAT 99 , Room Air, O2 Flow Rate 6.0 . Vital Sign Comment: stable EKG Rhythm: Sinus Rhythm Rhythm change?: N MD Notified?: - MD Response: Latest Red Fall Score: 50 Fall Risk: High Risk Safety Measures: Call light Within Reach, Bed Alarm Zone 1, Side Rails Side Rails x3, Bed position Low and Locked. Fall Precautions: Report given to ITZEL Ace.
[2020-10-07 08:00] VITALS: BP 150/98
[2020-10-07] MEDS: Enoxaparin 40mg Inj SUBQ SCH (09:00)
--- NOTE | 2020-10-07 09:44 | Diagnostic Imaging Report ---
Indication: Cough Technique: One view of the chest Comparison: 10/04/2020 Findings: There is markedly increased infiltrate in the right lower lung. There is slightly increased left infrahilar infiltrate. The pleural spaces are clear. The heart size is normal. Impression: Unchanged left basilar infiltrate. Markedly increased right basilar infiltrate
[2020-10-07] MEDS: Potassium Chloride 10 MEQ in D5 1/2NS 1,000 ML IV SCH (10:14)
[2020-10-07] MEDS: Pantoprazole Inj IVP SCH (10:14)
[2020-10-07] MEDS: Azithromycin 250mg tab ORAL SCH (10:15)
[2020-10-07] MEDS: dexAMETHasone 10mg/ml Inj IV SCH (10:15)
[2020-10-07] MEDS: Maintenance Dose:Remdesivir 100mg/NS 230ml x 4 Doses IV SCH ×2 (11:10)
[2020-10-07 12:00] VITALS: BP 142/95
--- NOTE | 2020-10-07 14:52 | NUR ---
CASE MANAGEMENT:REVIEW 10/07/20 SI: COVID(+). HIV(+) TOXIC ENCEPHALOPATHY D/T AMPHETAMINES 98.2 107 22 140/99 99% ON 15L/50% NRB IS: IV REMDESIVIR Q24 IV DECADRON Q24 IV VANCOMYCIN Q8 IV ZOSYN Q8HRS IV DIFLUCAN Q24 IV BACTRIM Q8HRS AZITHROMYCIN PO QD IV PROTONIX Q24 IVF+KCL@50/HR LOVENOX SQ QD : TELEMETRY STATUS DCP: SOCIAL SERVICE CONSULT PLAN: NPO UNTIL FULLY AWAKE
--- NOTE | 2020-10-07 14:54 | NUR ---
RADIOLOGY DEPT., CHEST X-RAY DONE.-P.DYE
[2020-10-07 16:00] VITALS: BP 151/95
--- NOTE | 2020-10-07 16:00 | Infectious Diseases Prog Note ---
Assessment/Plan Assessment/Plan ASSESSMENT AND PLAN: 1. COVID-19 infection, acute hypoxia, ams, fevers, sepsis HIV, AIDS - CDR 10, pcr pending LDH wnl - less likely pneumocystis - dexamethasone and remdesivir - zosyn, vancomycin, diflucan, azithromycin - bactrim prophylaxis - check cryptococcus serum antigen, beta-D glucan - consider LP - monitor labs and chest x-ray - Hold on HIV treatment until OI ruled out because of potential of immune reconstitution syndrome 2. pmh o/w negative 3. Amphetamine use 4) allergies - negative 5. will f/u Subjective Constitutional: Reports: fatigue; Denies: fever HEENT: Reports: congestion Respiratory: Reports: shortness of breath Cardiovascular: Denies: chest pain Gastrointestinal/Abdominal: Denies: nausea, vomiting Neurologic: Reports: confusion Allergies: Coded Allergies: No Known Allergies (Unverified , 09/29/20) Objective Last 24 Hour Vital Signs Date Time Temp Pulse Resp B/P (MAP) Pulse Ox O2 Delivery O2 Flow Rate FiO2 10/07/20 12:00 97.9 96 22 142/95 (111) 97 10/07/20 12:00 103 10/07/20 09:00 Non-Rebreather 15.0 10/07/20 08:00 97.5 95 22 150/98 (115) 98 10/07/20 08:00 94 10/07/20 04:00 95 10/07/20 04:00 97.7 95 20 132/94 (107) 99 10/07/20 00:00 97.5 102 22 145/111 (122) 100 10/07/20 00:00 100 10/06/20 22:26 94 Venturi Mask 6.0 50 10/06/20 21:00 Non-Rebreather 15.0 10/06/20 20:44 98 Non-Rebreather 15.0 100 10/06/20 20:00 97.7 91 22 156/104 (121) 100 10/06/20 20:00 79 10/06/20 16:00 98.1 103 20 159/105 (123) 99 10/06/20 16:00 94 Height (Feet): 6 Weight (Pounds): 120 General Appearance: other - + NR, + sob HEENT: normocephalic, atraumatic, anicteric Respiratory/Chest: crackles/rales, rhonchi - bilaterally Cardiovascular: normal rate, regular rhythm Abdomen: normal bowel sounds, soft, non tender, no organomegaly Skin: no rash 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 COMPARISON: Chest x-ray 10/01/2020 FINDINGS: Lungs: New mild patchy opacities within the medial left lung base and to a lesser extent the medial right lung base. Pleural space: Unremarkable. No pneumothorax. Heart: Unremarkable. No cardiomegaly. Mediastinum: Unremarkable. Bones/joints: Unremarkable. IMPRESSION: New mild patchy opacities within the lung bases may indicate a developing infectious/inflammatory process such as multifocal pneumonia or aspiration pneumonitis. Microbiology Date/Time Source Procedure Growth Status 10/05/20 00:30 Urine,Clean Catch Urine Culture - Final Enterococcus Faecalis Complete 10/04/20 23:55 Blood Blood Culture - Preliminary NO GROWTH AFTER 48 HOURS Resulted 10/04/20 23:40 Blood Blood Culture - Preliminary NO GROWTH AFTER 48 HOURS Resulted Laboratory Tests Test 10/06/20 17:20 10/06/20 18:00 10/07/20 03:49 Erythrocyte Sedimentation Rate 90 MM/HR (0-15) H Miscellaneous Test Pending Ammonia 17 umol/L (11-32) C-Reactive Protein, Quantitative 25.8 mg/dL (0.00-0.90) H Arterial Blood pH 7.380 (7.350-7.450) Arterial Blood Partial Pressure CO2 43.3 mmHg (35.0-45.0) Arterial Blood Partial Pressure O2 329.0 mmHg (75.0-100.0) H Arterial Blood HCO3 25.0 mmol/L (22.0-26.0) Arterial Blood Oxygen Saturation 99.6 % (95-100) Arterial Blood Base Excess -0.2 (-2-2) Joe Test Positive White Blood Count 10.8 K/UL (4.8-10.8) Red Blood Count 4.25 M/UL (4.70-6.10) L Hemoglobin 11.7 G/DL (14.2-18.0) L Hematocrit 36.6 % (42.0-52.0) L Mean Corpuscular Volume 86 FL (80-99) Mean Corpuscular Hemoglobin 27.6 PG (27.0-31.0) Mean Corpuscular Hemoglobin Concent 32.0 G/DL (32.0-36.0) Red Cell Distribution Width 12.1 % (11.6-14.8) Platelet Count 188 K/UL (150-450) Mean Platelet Volume 7.0 FL (6.5-10.1) Neutrophils (%) (Auto) % (45.0-75.0) Lymphocytes (%) (Auto) % (20.0-45.0) Monocytes (%) (Auto) % (1.0-10.0) Eosinophils (%) (Auto) % (0.0-3.0) Basophils (%) (Auto) % (0.0-2.0) Sodium Level 142 MMOL/L (136-145) Potassium Level 4.2 MMOL/L (3.5-5.1) Chloride Level 108 MMOL/L (98-107) H Carbon Dioxide Level 25 MMOL/L (21-32) Anion Gap 9 mmol/L (5-15) Blood Urea Nitrogen 24 mg/dL (7-18) H Creatinine 1.0 MG/DL (0.55-1.30) Estimat Glomerular Filtration Rate > 60 mL/min (>60) Glucose Level 159 MG/DL (74-106) H Calcium Level 9.5 MG/DL (8.5-10.1) Total Bilirubin 0.3 MG/DL (0.2-1.0) Direct Bilirubin 0.1 MG/DL (0.0-0.3) Aspartate Amino Transf (AST/SGOT) 19 U/L (15-37) Alanine Aminotransferase (ALT/SGPT) 18 U/L (12-78) Alkaline Phosphatase 70 U/L (46-116) Total Protein 7.6 G/DL (6.4-8.2) Albumin 2.1 G/DL (3.4-5.0) L Globulin 5.5 g/dL Albumin/Globulin Ratio 0.4 (1.0-2.7) L Vancomycin Level Trough 6.4 ug/mL (5.0-12.0) Cryptococcus Antigen Pending Current Medications Medications (Trade) Dose Ordered Sig/Carleen Route PRN Reason Start Time Stop Time Status Last Admin Dose Admin Acetaminophen (Tylenol) 650 mg Q4H PRN ORAL Mild Pain (Pain Scale 1-3) 10/01/20 11:00 10/31/20 10:59 Acetaminophen (Tylenol) 650 mg Q4H PRN RECTAL BT>100.5F 10/04/20 23:30 11/03/20 23:29 10/05/20 08:18 Albuterol Sulfate (Proventil MDI) 2 puff Q4H PRN INH Shortness of Breath 10/01/20 11:00 12/30/20 10:59 Azithromycin (Zithromax) 500 mg DAILY ORAL 10/06/20 09:00 10/13/20 08:59 10/07/20 10:15 Dexamethasone Sodium Phosphate (Decadron 10mg/ ml Inj) 6 mg DAILY IV 10/04/20 09:00 10/13/20 09:01 10/07/20 10:15 Dextrose (Dextrose 50%) 25 ml Q30M PRN IV Hypoglycemia 10/01/20 11:00 12/30/20 10:59 Dextrose (Dextrose 50%) 50 ml Q30M PRN IV Hypoglycemia 10/01/20 11:00 12/30/20 10:59 Enoxaparin Sodium (Lovenox) 40 mg DAILY SUBQ 10/01/20 12:00 12/30/20 11:59 10/06/20 08:06 Fluconazole/ Sodium Chloride 200 ml @ 100 mls/hr Q24H IV 10/05/20 18:00 10/12/20 17:59 10/06/20 18:45 Ondansetron HCl (Zofran) 4 mg Q6H PRN IVP Nausea & Vomiting 10/01/20 11:00 10/31/20 10:59 Pantoprazole (Protonix) 40 mg DAILY IVP 10/02/20 13:00 11/01/20 12:59 10/07/20 10:14 Piperacillin Sod/ Tazobactam Sod 3.375 gm/Dextrose 100 ml @ 25 mls/hr Q8H IVPB 10/07/20 08:00 10/14/20 07:59 10/07/20 08:26 Potassium Chloride 10 meq/ Dextrose/Sodium Chloride 1,005 ml @ 50 mls/hr Q20H6M IV 10/01/20 12:00 10/31/20 11:59 10/07/20 10:14 Remdesivir 100 mg/ Sodium Chloride 250 ml @ 250 mls/hr Q24H IV 10/05/20 11:00 10/08/20 11:59 10/07/20 11:10 Trimethoprim/ Sulfamethoxazole (Bactrim-DS) 1 tab DAILY ORAL 10/08/20 09:00 10/15/20 08:59 Vancomycin HCl (Vanco pharmacy to dose) 1 ea DAILY PRN MISC Per rx protocol 10/05/20 16:00 11/04/20 15:59 Vancomycin HCl 1 gm/Dextrose 275 ml @ 183.708 mls/hr Q8H IVPB 10/07/20 06:00 10/12/20 05:59 10/07/20 14:22 Wood Tyler MD Oct 07, 2020 16:00
--- NOTE | 2020-10-07 16:52 | Pulmonology Progress Note ---
Subjective ROS Limited/Unobtainable: Yes Gastrointestinal/Abdominal: Reports: vomiting Allergies: Coded Allergies: No Known Allergies (Unverified , 09/29/20) Subjective remains altered on 100% NMR afebrile CXR this am worse Objective Last 24 Hour Vital Signs Date Time Temp Pulse Resp B/P (MAP) Pulse Ox O2 Delivery O2 Flow Rate FiO2 10/07/20 16:00 97.9 92 20 151/95 (113) 98 10/07/20 12:00 97.9 96 22 142/95 (111) 97 10/07/20 12:00 103 10/07/20 09:00 Non-Rebreather 15.0 10/07/20 08:00 97.5 95 22 150/98 (115) 98 10/07/20 08:00 94 10/07/20 04:00 95 10/07/20 04:00 97.7 95 20 132/94 (107) 99 10/07/20 00:00 97.5 102 22 145/111 (122) 100 10/07/20 00:00 100 10/06/20 22:26 94 Venturi Mask 6.0 50 10/06/20 21:00 Non-Rebreather 15.0 10/06/20 20:44 98 Non-Rebreather 15.0 100 10/06/20 20:00 97.7 91 22 156/104 (121) 100 10/06/20 20:00 79 Intake and Output 10/06/20 10/07/20 19:00 07:00 Output Total 800 ml 1200 ml Balance -800 ml -1200 ml Output Urine Total 800 ml 1200 ml Objective General Appearance: altered, weak Lines, tubes and drains: peripheral HEENT: normocephalic, atraumatic, anicteric, not opening eyes, O2 NRM Neck: non-tender, supple Respiratory/Chest: chest wall non-tender, decreased BS Cardiovascular/Chest: normal peripheral pulses, normal rate Abdomen: normal bowel sounds, non tender, soft Extremities: no calf tenderness Neurologic: unable to access gait, unable to ambulate at this time due to ALOC Musculoskeletal: normal muscle bulk General Appearance: other - obtunded HEENT: normocephalic, atraumatic, anicteric, mucous membranes moist Respiratory: rhonchi - bilaterally Cardiovascular: normal peripheral pulses, normal rate, regular rhythm Abdomen: normal bowel sounds, soft, non tender, no organomegaly, non distended, no mass Extremities: no cyanosis, no clubbing, no edema Microbiology Date/Time Source Procedure Growth Status 10/05/20 00:30 Urine,Clean Catch Urine Culture - Final Enterococcus Faecalis Complete 10/04/20 23:55 Blood Blood Culture - Preliminary NO GROWTH AFTER 48 HOURS Resulted 10/04/20 23:40 Blood Blood Culture - Preliminary NO GROWTH AFTER 48 HOURS Resulted Laboratory Tests 10/06/20 17:20: Erythrocyte Sedimentation Rate 90H, Miscellaneous Test [Pending], Ammonia 17, C- Reactive Protein, Quantitative 25.8H 10/06/20 18:00: Arterial Blood pH 7.380, Arterial Blood Partial Pressure CO2 43.3, Arterial Blood Partial Pressure O2 329.0H, Arterial Blood HCO3 25.0, Arterial Blood Oxygen Saturation 99.6, Arterial Blood Base Excess -0.2, Joe Test Positive 10/07/20 03:49: White Blood Count 10.8, Red Blood Count 4.25L, Hemoglobin 11.7L, Hematocrit 36.6L, Mean Corpuscular Volume 86, Mean Corpuscular Hemoglobin 27.6, Mean Corpuscular Hemoglobin Concent 32.0, Red Cell Distribution Width 12.1, Platelet Count 188, Mean Platelet Volume 7.0, Neutrophils (%) (Auto) , Lymphocytes (%) (Auto) , Monocytes (%) (Auto) , Eosinophils (%) (Auto) , Basophils (%) (Auto) , Sodium Level 142, Potassium Level 4.2, Chloride Level 108H, Carbon Dioxide Level 25, Anion Gap 9, Blood Urea Nitrogen 24H, Creatinine 1.0, Estimat Glomerular Filtration Rate > 60, Glucose Level 159H, Calcium Level 9.5, Total Bilirubin 0.3, Direct Bilirubin 0.1, Aspartate Amino Transf (AST/SGOT) 19, Alanine Aminotransferase (ALT/SGPT) 18, Alkaline Phosphatase 70, Total Protein 7.6, Albumin 2.1L, Globulin 5.5, Albumin/Globulin Ratio 0.4L, Vancomycin Level Trough 6.4, Cryptococcus Antigen [Pending] Current Medications Medications (Trade) Dose Ordered Sig/Carleen Route PRN Reason Start Time Stop Time Status Last Admin Dose Admin Acetaminophen (Tylenol) 650 mg Q4H PRN ORAL Mild Pain (Pain Scale 1-3) 10/01/20 11:00 10/31/20 10:59 Acetaminophen (Tylenol) 650 mg Q4H PRN RECTAL BT>100.5F 10/04/20 23:30 11/03/20 23:29 10/05/20 08:18 Albuterol Sulfate (Proventil MDI) 2 puff Q4H PRN INH Shortness of Breath 10/01/20 11:00 12/30/20 10:59 Azithromycin (Zithromax) 500 mg DAILY ORAL 10/06/20 09:00 10/13/20 08:59 10/07/20 10:15 Dexamethasone Sodium Phosphate (Decadron 10mg/ ml Inj) 6 mg DAILY IV 10/04/20 09:00 10/13/20 09:01 10/07/20 10:15 Dextrose (Dextrose 50%) 25 ml Q30M PRN IV Hypoglycemia 10/01/20 11:00 12/30/20 10:59 Dextrose (Dextrose 50%) 50 ml Q30M PRN IV Hypoglycemia 10/01/20 11:00 12/30/20 10:59 Enoxaparin Sodium (Lovenox) 40 mg DAILY SUBQ 10/01/20 12:00 12/30/20 11:59 10/06/20 08:06 Fluconazole/ Sodium Chloride 200 ml @ 100 mls/hr Q24H IV 10/05/20 18:00 10/12/20 17:59 10/06/20 18:45 Ondansetron HCl (Zofran) 4 mg Q6H PRN IVP Nausea & Vomiting 10/01/20 11:00 10/31/20 10:59 Pantoprazole (Protonix) 40 mg DAILY IVP 10/02/20 13:00 11/01/20 12:59 10/07/20 10:14 Piperacillin Sod/ Tazobactam Sod 3.375 gm/Dextrose 100 ml @ 25 mls/hr Q8H IVPB 10/07/20 08:00 10/14/20 07:59 10/07/20 16:02 Potassium Chloride 10 meq/ Dextrose/Sodium Chloride 1,005 ml @ 50 mls/hr Q20H6M IV 10/01/20 12:00 10/31/20 11:59 10/07/20 10:14 Remdesivir 100 mg/ Sodium Chloride 250 ml @ 250 mls/hr Q24H IV 10/05/20 11:00 10/08/20 11:59 10/07/20 11:10 Trimethoprim/ Sulfamethoxazole (Bactrim-DS) 1 tab DAILY ORAL 10/08/20 09:00 10/15/20 08:59 Vancomycin HCl (Vanco pharmacy to dose) 1 ea DAILY PRN MISC Per rx protocol 10/05/20 16:00 11/04/20 15:59 Vancomycin HCl 1 gm/Dextrose 275 ml @ 183.708 mls/hr Q8H IVPB 10/07/20 06:00 10/12/20 05:59 10/07/20 14:22 Assessment/Plan Assessment/Plan ASSESSMENT COVID 19 PNA Acute hypoxemic resp failure requiring NRM Acute toxic metabolic encephalopathy Amphetamine abuse HIV/AIDS : CD4-10 ? AIDS encephalopathy PLAN OF CARE tele Date of sx onset: unclear Positive test: 09/30 rapid COVID 19 + O2 NRM titrate to keep sat > 92% HFA DEX Day #4 ( 10/04 -) given hypoxia REM Day #4 ( 10/04- ) DVT PPX: Lovenox D dimer- 2.29 Venous Duplex BLE 10/02 -NGT trend CRP-2.6 - 25.8 CXR initial -no p acute process fup CXR 10/04 - New mild patchy opacities within the lung bases may indicate a developing infectious/inflammatory process such as multifocal pneumonia or aspiration pneumonitis. CXR 10/07 -Unchanged left basilar infiltrate. Markedly increased right basilar infiltrate CD4 -10 Abx per ID recs- for PNA and OI PPX LDH WNL, unlikely PCP, more COVID PNA fup with PCR and fungal serology pending monitor volumes and renal function Fup with consultants recs FC IVF NPO until fully awake, then start regular diet as tolerated anxiolytics prn psych eval appreciated SW eval neuro eval appreciated case discussed and evaluated by supervising physician Margaret Qureshi NP Oct 07, 2020 16:52
--- NOTE | 2020-10-07 19:00 | NUR ---
NURSE NOTES: Patient noted with change of rythm from NSR to A flutter. Notified Dr. Wiggins with no new orders at this time.
--- NOTE | 2020-10-07 19:10 | NUR ---
NURSE NOTES: Received report from ITZEL Ace; AOX0, responds to name by opening his eyes; on O2 therapy via non-rebreather mask 15L/min, ON CONTINUOUS o2 MONITORING WITH o2 SAT 99-100%; unable to tolerate O2 titration by RT; will f/u with RT regarding need for suction; in no acute distress; with peripheral IV site on L hand and L upper arm, infusing IV atb as ordered; intact and patent; remains with bilateral soft wrist restraints for pulling out devices and safety; intact with skin and circulation intact as well; on condfom catheter in place draining clear yellow urine; call light within reach; side rails x3; bed locked and in low position; will continue to monitor.
--- NOTE | 2020-10-07 19:27 | NUR ---
NURSE HAND-OFF REPORT: Important Events on Shift:NA Patient Status: Stable Diet: NPO Pending Orders: NA Pending Results/Labs:NA Pending MD notification:NA Latest Vital Signs: Temperature 97.9 , Pulse 94 , B/P 151 /95 , Respiratory Rate 20 , O2 SAT 98 , Room Air, O2 Flow Rate 15.0 . Vital Sign Comment: Stable EKG Rhythm: Sinus Rhythm Rhythm change?: N MD Notified?: - MD Response: Latest Red Fall Score: 50 Fall Risk: High Risk Safety Measures: Call light Within Reach, Bed Alarm Zone 1, Side Rails Side Rails x3, Bed position Low and Locked. Fall Precautions: Report given to ITZEL Santos.
[2020-10-07 20:00] VITALS: BP 146/110
--- NOTE | 2020-10-07 22:38 | Neurology Progress Note ---
Interim History Interim History ROS Limited/Unobtainable: Yes Interim History remains confused in distress Objective Physical Exam Last Vital Signs Date Time Temp Pulse Resp B/P (MAP) Pulse Ox O2 Delivery O2 Flow Rate FiO2 10/07/20 16:00 97.9 92 20 151/95 (113) 98 10/07/20 09:00 Non-Rebreather 15.0 10/07/20 07:50 100 Laboratory Tests Test 10/07/20 03:49 White Blood Count 10.8 K/UL (4.8-10.8) Red Blood Count 4.25 M/UL (4.70-6.10) L Hemoglobin 11.7 G/DL (14.2-18.0) L Hematocrit 36.6 % (42.0-52.0) L Mean Corpuscular Volume 86 FL (80-99) Mean Corpuscular Hemoglobin 27.6 PG (27.0-31.0) Mean Corpuscular Hemoglobin Concent 32.0 G/DL (32.0-36.0) Red Cell Distribution Width 12.1 % (11.6-14.8) Platelet Count 188 K/UL (150-450) Mean Platelet Volume 7.0 FL (6.5-10.1) Neutrophils (%) (Auto) % (45.0-75.0) Lymphocytes (%) (Auto) % (20.0-45.0) Monocytes (%) (Auto) % (1.0-10.0) Eosinophils (%) (Auto) % (0.0-3.0) Basophils (%) (Auto) % (0.0-2.0) Sodium Level 142 MMOL/L (136-145) Potassium Level 4.2 MMOL/L (3.5-5.1) Chloride Level 108 MMOL/L (98-107) H Carbon Dioxide Level 25 MMOL/L (21-32) Anion Gap 9 mmol/L (5-15) Blood Urea Nitrogen 24 mg/dL (7-18) H Creatinine 1.0 MG/DL (0.55-1.30) Estimat Glomerular Filtration Rate > 60 mL/min (>60) Glucose Level 159 MG/DL (74-106) H Calcium Level 9.5 MG/DL (8.5-10.1) Total Bilirubin 0.3 MG/DL (0.2-1.0) Direct Bilirubin 0.1 MG/DL (0.0-0.3) Aspartate Amino Transf (AST/SGOT) 19 U/L (15-37) Alanine Aminotransferase (ALT/SGPT) 18 U/L (12-78) Alkaline Phosphatase 70 U/L (46-116) Total Protein 7.6 G/DL (6.4-8.2) Albumin 2.1 G/DL (3.4-5.0) L Globulin 5.5 g/dL Albumin/Globulin Ratio 0.4 (1.0-2.7) L Vancomycin Level Trough 6.4 ug/mL (5.0-12.0) Cryptococcus Antigen Pending Impression/Recommendations Problems: (1) Substance abuse (2) Encephalopathy acute (3) Altered mental status (4) Amphetamine abuse (5) AIDS (6) UTI (urinary tract infection) (7) COVID-19 virus detected Diagnostic Impression 1. Encephalopathy likely toxic --> prior urine tox screen was + for methamphetamines --> CT head was completed and is unremarkable --> at this time continue to closely monitor patient and hold sedatives. 2. Covid 19 Disease --> afebrile no hypoxia no treatment indicated 3. Polysubstance Abuse --> rec cessation when fully awake. Jayme Landa MD Oct 07, 2020 22:38
[2020-10-08] VITALS: BP 131/99
[2020-10-08 04:00] VITALS: BP 157/105
[2020-10-08] MEDS: Potassium Chloride 10 MEQ in D5 1/2NS 1,000 ML IV SCH (04:15)
[2020-10-08] MEDS: Vancomycin 1gm/D5W 275ml IVPB SCH ×8 (05:53→23:25)
[2020-10-08 05:59] LABS: HEMATOCRIT 35.2 % (42.0-52.0); HEMOGLOBIN 11.5 G/DL (14.2-18.0); MEAN CORPUSCULAR VOLUME 87 FL (80-99); PLATELET COUNT 181 K/UL (150-450); RED BLOOD COUNT 4.06 M/UL (4.70-6.10); RED CELL DISTRIBUTION WIDTH 12.3 % (11.6-14.8); WHITE BLOOD COUNT 9.7 K/UL (4.8-10.8)
[2020-10-08 06:33] LABS: ALANINE AMINOTRANSFERASE 14 U/L (12-78); ALBUMIN 2.1 G/DL (3.4-5.0); ALBUMIN/GLOBULIN RATIO 0.4 (1.0-2.7); ALKALINE PHOSPHATASE 67 U/L (46-116); ANION GAP 8 mmol/L (5-15); ASPARTATE AMINO TRANSFERASE 18 U/L (15-37); BILIRUBIN,DIRECT 0.2 MG/DL (0.0-0.3); BILIRUBIN,TOTAL 0.4 MG/DL (0.2-1.0); BLOOD UREA NITROGEN 20 mg/dL (7-18); CALCIUM 9.9 MG/DL (8.5-10.1); CARBON DIOXIDE 27 MMOL/L (21-32); CHLORIDE 108 MMOL/L (98-107); CREATININE 0.9 MG/DL (0.55-1.30); POTASSIUM 4.2 MMOL/L (3.5-5.1); SODIUM 143 MMOL/L (136-145)
--- NOTE | 2020-10-08 07:12 | NUR ---
RD ASSESSMENT & RECOMMENDATIONS SEE CARE ACTIVITY FOR COMPLETE ASSESSMENT DAILY ESTIMATED NEEDS: Needs based on Underweight, pulmonary 54.4kg 30-35 kcals/kg 0754-6002 total kcals 1-1.5 g protein/kg 54-82 g total protein 25-30 mL/kg 1321-7403 total fluid mLs NUTRITION DIAGNOSIS: Increased kcal and pro needs r/t underweight status as evidenced by BMI underweight per guidelines, pt is 67% of [place] Body weight w/ visual wasting per RN, NPO until fully awake per MD. CURRENT DIET: NPO PO DIET RECOMMENDATIONS-->>> W/ confirmed h/o DM, rec CCHO MED diet; Regular otherwise (texture per PARATRANSIT DRIVER) ENTERAL NUTRITION RECOMMENDATIONS: Glucerna 1.2 @ 60ml/hr x 24 hrs to provide 1440ml, 1728kcal, 86g prot, 1162ml free water * IF MENTAL STATUS DOES NOT IMPROVE, REC TEMPORARY NONORAL FEEDS- NPO DAY 5 * W/ GI access, initiate Glucerna 1.2 @ 20ml/hr x 6hrs * Advance 10ml q 4-6 hrs as tolerated to goal * HOB over 30 degrees/ H2o flush 150ml q 8hrs ADDITIONAL RECOMMENDATIONS: 1) Rec non oral feeds if pt is unable to tolerate oral po- NPO DAY 7 2) Rec PARATRANSIT DRIVER eval 3) Continue D5 while NPO, check for hypoglycemia 4) Daily wts on calibrated bed scale
--- NOTE | 2020-10-08 07:12 | NUR ---
CASE MANAGEMENT:REVIEW 10/08/20 SI: COVID(+). HIV(+) TOXIC ENCEPHALOPATHY 98.7 107 22 157/105 100% ON 15L/100%% NRB H/H-11.5/35.2 BUN+20 CRP+17.2 IS: IV REMDESIVIR Q24 IV DECADRON Q24 IV VANCOMYCIN Q8 IV ZOSYN Q8HRS IV DIFLUCAN Q24 IV BACTRIM Q8HRS AZITHROMYCIN PO QD IV PROTONIX Q24 IVF+KCL@50/HR LOVENOX SQ QD : TELEMETRY STATUS DCP: SOCIAL SERVICE CONSULT PLAN: NPO UNTIL FULLY AWAKE
--- NOTE | 2020-10-08 07:15 | NUR ---
NURSE HAND-OFF REPORT: Important Events on Shift: Tolerating o2 via non-rebreather mask 15L O2 sat 99-100%; multiple IV atbs given as ordered; Vanco trough drawn by sailaja @ 0500, no BM since 10/01 so informed AM RN to f/u with MD for PRN order of laxative; still needs consent for spinal tap; need 2 MD notes regarding importance of procedure (F/U with Dr. Perez and Dr. Wiggins) Patient Status: AOX0, stable Diet: NPO Pending Orders: Spinal tap Pending Results/Labs: am labs Pending MD notification: N Latest Vital Signs: Temperature 96.7 , Pulse 107 , B/P 157 /105 , Respiratory Rate 22 , O2 SAT 100 , Room Air, O2 Flow Rate 15.0 . Vital Sign Comment: WITHIN BASELINE EKG Rhythm: Sinus Tachycardia Rhythm change?: N Notified?: N Response: Latest Red Fall Score: 50 Fall Risk: High Risk Safety Measures: Call light Within Reach, Bed Alarm Zone 1, Side Rails Side Rails x3, Bed position Low and Locked. Fall Precautions: Report given to ITZEL Tamez.
--- NOTE | 2020-10-08 07:41 | NUR ---
NURSE NOTES: Patient seen in bed in semifowlers position with no acute signs of distress. The patient is on 15L NR with oxygen saturation within normal limits. the patient has 2 IV sites; L hand 22G and L UA 20G infusing d51/2NS with 10Meq KCL at 50cc/hr. The patients IVs are clean, patent and intact. The patients bed is in lowest position, locked, side rails x3, bed alarm in zone 1 and call light within reach.
[2020-10-08 08:00] VITALS: BP 136/95
[2020-10-08] MEDS: Pantoprazole Inj IVP SCH (08:12)
[2020-10-08] MEDS: dexAMETHasone 10mg/ml Inj IV SCH (08:12)
[2020-10-08] MEDS: Enoxaparin 40mg Inj SUBQ SCH (08:12)
--- NOTE | 2020-10-08 08:52 | NUR ---
[employer] TECHNICIAN NOTE SW attempted to meet w/ pt. SW was unable to obtain information d/t pt's current condition. SW is unable to locate family/any information related to pt.
[2020-10-08] MEDS: Bactrim-DS 1 tab ORAL SCH (09:00)
[2020-10-08] MEDS: Azithromycin 250mg tab ORAL SCH (09:00)
[2020-10-08] MEDS: Maintenance Dose:Remdesivir 100mg/NS 230ml x 4 Doses IV SCH ×2 (10:38)
--- NOTE | 2020-10-08 11:42 | Pulmonology Progress Note ---
Subjective ROS Limited/Unobtainable: Yes Gastrointestinal/Abdominal: Reports: vomiting Allergies: Coded Allergies: No Known Allergies (Unverified , 09/29/20) Subjective AFVSS on 15L Obtunded + coarse BS C-RP dowtrending + cough + some blood tinged + SOB no FC Objective Last 24 Hour Vital Signs Date Time Temp Pulse Resp B/P (MAP) Pulse Ox O2 Delivery O2 Flow Rate FiO2 10/08/20 09:00 Non-Rebreather 15.0 10/08/20 08:00 99.7 93 18 136/95 (109) 100 10/08/20 08:00 81 10/08/20 07:52 99 Non-Rebreather 15.0 100 10/08/20 04:00 107 10/08/20 04:00 96.7 107 22 157/105 (122) 100 10/08/20 00:00 97.5 99 22 131/99 (110) 100 10/08/20 00:00 88 10/07/20 22:44 92 24 99 Non-Rebreather 15.0 100 10/07/20 21:00 Non-Rebreather 15.0 10/07/20 20:00 108 10/07/20 20:00 99 Non-Rebreather 15.0 100 10/07/20 20:00 98.2 108 22 146/110 (122) 100 10/07/20 16:00 97.9 92 20 151/95 (113) 98 10/07/20 16:00 94 10/07/20 12:00 97.9 96 22 142/95 (111) 97 10/07/20 12:00 103 Intake and Output 10/07/20 10/08/20 19:00 07:00 Intake Total 1055 ml Output Total 1500 ml 1100 ml Balance -445 ml -1100 ml IV Total 1055 ml Output Urine Total 1500 ml 1100 ml General Appearance: other - obtunded HEENT: normocephalic, atraumatic, anicteric, mucous membranes moist Respiratory: rhonchi - bilaterally Cardiovascular: normal peripheral pulses, normal rate, regular rhythm Abdomen: normal bowel sounds, soft, non tender, no organomegaly, non distended, no mass Extremities: no cyanosis, no clubbing, no edema Laboratory Tests 10/08/20 04:37: White Blood Count 9.7, Red Blood Count 4.06L, Hemoglobin 11.5L, Hematocrit 35.2L , Mean Corpuscular Volume 87, Mean Corpuscular Hemoglobin 28.4, Mean Corpuscular Hemoglobin Concent 32.7, Red Cell Distribution Width 12.3, Platelet Count 181, Mean Platelet Volume 6.6, Neutrophils (%) (Auto) , Lymphocytes (%) (Auto) , Monocytes (%) (Auto) , Eosinophils (%) (Auto) , Basophils (%) (Auto) , Differential Total Cells Counted 100, Neutrophils % (Manual) 87H, Lymphocytes % (Manual) 8L, Monocytes % (Manual) 5, Eosinophils % (Manual) 0, Basophils % (Manual) 0, Band Neutrophils 0, Platelet Estimate Adequate, Platelet Morphology Normal, Hypochromasia 1+, Sodium Level 143, Potassium Level 4.2, Chloride Level 108H, Carbon Dioxide Level 27, Anion Gap 8, Blood Urea Nitrogen 20H, Creatinine 0.9, Estimat Glomerular Filtration Rate > 60, Glucose Level 108H, Calcium Level 9.9, Total Bilirubin 0.4, Direct Bilirubin 0.2, Aspartate Amino Transf (AST/SGOT ) 18, Alanine Aminotransferase (ALT/SGPT) 14, Alkaline Phosphatase 67, C- Reactive Protein, Quantitative 17.2H, Total Protein 7.7, Albumin 2.1L, Globulin 5.6, Albumin/Globulin Ratio 0.4L, Vancomycin Level Trough 12.5H Current Medications Medications (Trade) Dose Ordered Sig/Carleen Route PRN Reason Start Time Stop Time Status Last Admin Dose Admin Acetaminophen (Tylenol) 650 mg Q4H PRN ORAL Mild Pain (Pain Scale 1-3) 10/01/20 11:00 10/31/20 10:59 Acetaminophen (Tylenol) 650 mg Q4H PRN RECTAL BT>100.5F 10/04/20 23:30 11/03/20 23:29 10/05/20 08:18 Albuterol Sulfate (Proventil MDI) 2 puff Q4H PRN INH Shortness of Breath 10/01/20 11:00 12/30/20 10:59 Azithromycin (Zithromax) 500 mg DAILY ORAL 10/06/20 09:00 10/13/20 08:59 10/07/20 10:15 Dexamethasone Sodium Phosphate (Decadron 10mg/ ml Inj) 6 mg DAILY IV 10/04/20 09:00 10/13/20 09:01 10/08/20 08:12 Dextrose (Dextrose 50%) 25 ml Q30M PRN IV Hypoglycemia 10/01/20 11:00 12/30/20 10:59 Dextrose (Dextrose 50%) 50 ml Q30M PRN IV Hypoglycemia 10/01/20 11:00 12/30/20 10:59 Enoxaparin Sodium (Lovenox) 40 mg DAILY SUBQ 10/01/20 12:00 12/30/20 11:59 10/06/20 08:06 Fluconazole/ Sodium Chloride 200 ml @ 100 mls/hr Q24H IV 10/05/20 18:00 10/12/20 17:59 10/07/20 17:26 Ondansetron HCl (Zofran) 4 mg Q6H PRN IVP Nausea & Vomiting 10/01/20 11:00 10/31/20 10:59 Pantoprazole (Protonix) 40 mg DAILY IVP 10/02/20 13:00 11/01/20 12:59 10/08/20 08:12 Piperacillin Sod/ Tazobactam Sod 3.375 gm/Dextrose 100 ml @ 25 mls/hr Q8H IVPB 10/07/20 08:00 10/14/20 07:59 10/08/20 08:12 Potassium Chloride 10 meq/ Dextrose/Sodium Chloride 1,005 ml @ 50 mls/hr Q20H6M IV 10/01/20 12:00 10/31/20 11:59 10/08/20 04:15 Remdesivir 100 mg/ Sodium Chloride 250 ml @ 250 mls/hr Q24H IV 10/05/20 11:00 10/08/20 11:59 10/08/20 10:38 Trimethoprim/ Sulfamethoxazole (Bactrim-DS) 1 tab DAILY ORAL 10/08/20 09:00 10/15/20 08:59 Vancomycin HCl (Vanco pharmacy to dose) 1 ea DAILY PRN MISC Per rx protocol 10/05/20 16:00 11/04/20 15:59 Vancomycin HCl 1 gm/Dextrose 275 ml @ 183.708 mls/hr Q6H IVPB 10/08/20 12:00 10/13/20 11:59 Assessment/Plan Problems: (1) AIDS (2) COVID-19 virus detected (3) UTI (urinary tract infection) (4) Encephalopathy acute (5) Altered mental status (6) Amphetamine abuse Assessment/Plan DEX D4 REM D4 Antimicrobial therapy per ID Pulmonary hygiene/mobilize HFA's Titrate O2 Prone as able Monitor MS, F/U psych and neuro recs, Ativan off, minimize sedatives, ? LP NPO, mIVF DVT Px: cautiously resume LMWH PPx F/U markers Jaime Wiggins MD Oct 08, 2020 11:42
--- NOTE | 2020-10-08 11:58 | NUR ---
NURSE NOTES: CONTACTED DR. WALDROP FOR PATIENT GRAM + RODS IN BLOOD CX. NO NEW ORDERS PER MD DUE TO ABX REGIMEN ALREADY PRESCRIBED.
[2020-10-08 12:00] VITALS: BP 148/105
[2020-10-08 16:00] VITALS: BP 156/103
--- NOTE | 2020-10-08 19:10 | NUR ---
NURSE NOTES: Received report from ITZEL Tamez; noted restless and with secretions; RT made aware to suction pt; AOX0; rambling speech; on O2 therapy via non-rebreather mask @ 15L/min O2 sat 99-100%; remains on bilateral soft wrist restraints; skin intact and patent; NPO status; peripehral IV site on L upper arm 20 gauge and L hand 22 gauge intact and patent; L upper arm IV infusing fluids as ordered; call light within reach; bed locked and in low position; side rails x 3; will continue to monitor.
--- NOTE | 2020-10-08 19:45 | NUR ---
NURSE HAND-OFF REPORT: Important Events on Shift:[Antibiotics, Rectal Dulcolax order] Patient Status: [full code] Diet: [NPO] Pending Orders: [N/A] Pending Results/Labs:[N/A] Pending MD notification:[N/A] Latest Vital Signs: Temperature 98.2 , Pulse 92 , B/P 156 /103 , Respiratory Rate 18 , O2 SAT 98 , Room Air, O2 Flow Rate 15.0 . Vital Sign Comment: [] EKG Rhythm: Sinus Rhythm Rhythm change?: N MD Notified?: - MD Response: Latest Red Fall Score: 50 Fall Risk: High Risk Safety Measures: Call light Within Reach, Bed Alarm Zone 1, Side Rails Side Rails x3, Bed position Low and Locked. Fall Precautions: Report given to [ITZEL Coleman].
[2020-10-08 20:00] VITALS: BP 155/113
--- NOTE | 2020-10-08 21:55 | Neurology Progress Note ---
Interim History Interim History ROS Limited/Unobtainable: Yes Interim History no new focal deficits Objective Physical Exam Last Vital Signs Date Time Temp Pulse Resp B/P (MAP) Pulse Ox O2 Delivery O2 Flow Rate FiO2 10/08/20 16:00 98.2 95 18 156/103 (120) 98 10/08/20 09:00 Non-Rebreather 15.0 10/08/20 07:52 100 Laboratory Tests Test 10/08/20 04:37 White Blood Count 9.7 K/UL (4.8-10.8) Red Blood Count 4.06 M/UL (4.70-6.10) L Hemoglobin 11.5 G/DL (14.2-18.0) L Hematocrit 35.2 % (42.0-52.0) L Mean Corpuscular Volume 87 FL (80-99) Mean Corpuscular Hemoglobin 28.4 PG (27.0-31.0) Mean Corpuscular Hemoglobin Concent 32.7 G/DL (32.0-36.0) Red Cell Distribution Width 12.3 % (11.6-14.8) Platelet Count 181 K/UL (150-450) Mean Platelet Volume 6.6 FL (6.5-10.1) Neutrophils (%) (Auto) % (45.0-75.0) Lymphocytes (%) (Auto) % (20.0-45.0) Monocytes (%) (Auto) % (1.0-10.0) Eosinophils (%) (Auto) % (0.0-3.0) Basophils (%) (Auto) % (0.0-2.0) Differential Total Cells Counted 100 Neutrophils % (Manual) 87 % (45-75) H Lymphocytes % (Manual) 8 % (20-45) L Monocytes % (Manual) 5 % (1-10) Eosinophils % (Manual) 0 % (0-3) Basophils % (Manual) 0 % (0-2) Band Neutrophils 0 % (0-8) Platelet Estimate Adequate Platelet Morphology Normal Hypochromasia 1+ Sodium Level 143 MMOL/L (136-145) Potassium Level 4.2 MMOL/L (3.5-5.1) Chloride Level 108 MMOL/L (98-107) H Carbon Dioxide Level 27 MMOL/L (21-32) Anion Gap 8 mmol/L (5-15) Blood Urea Nitrogen 20 mg/dL (7-18) H Creatinine 0.9 MG/DL (0.55-1.30) Estimat Glomerular Filtration Rate > 60 mL/min (>60) Glucose Level 108 MG/DL (74-106) H Calcium Level 9.9 MG/DL (8.5-10.1) Total Bilirubin 0.4 MG/DL (0.2-1.0) Direct Bilirubin 0.2 MG/DL (0.0-0.3) Aspartate Amino Transf (AST/SGOT) 18 U/L (15-37) Alanine Aminotransferase (ALT/SGPT) 14 U/L (12-78) Alkaline Phosphatase 67 U/L (46-116) C-Reactive Protein, Quantitative 17.2 mg/dL (0.00-0.90) H Total Protein 7.7 G/DL (6.4-8.2) Albumin 2.1 G/DL (3.4-5.0) L Globulin 5.6 g/dL Albumin/Globulin Ratio 0.4 (1.0-2.7) L Vancomycin Level Trough 12.5 ug/mL (5.0-12.0) H Impression/Recommendations Problems: (1) Substance abuse (2) Encephalopathy acute (3) Altered mental status (4) Amphetamine abuse (5) AIDS (6) UTI (urinary tract infection) (7) COVID-19 virus detected Diagnostic Impression 1. Encephalopathy likely toxic --> prior urine tox screen was + for methamphetamines --> CT head was completed and is unremarkable --> at this time continue to closely monitor patient and hold sedatives. 2. Covid 19 Disease --> afebrile no hypoxia no treatment indicated 3. Polysubstance Abuse --> rec cessation when fully awake. Jayme Landa MD Oct 08, 2020 21:54
[2020-10-09] VITALS (11 sets, daily range): BP systolic 74–156; BP diastolic 38–109
[2020-10-09] MEDS: Potassium Chloride 10 MEQ in D5 1/2NS 1,000 ML IV SCH (02:23)
--- NOTE | 2020-10-09 06:00 | NUR ---
NURSE NOTES: rECEIVED A CALL FROM Helen FROM [facility]; Per Tristen Carvalho to give Vanco I gram IV per vanco trough results; given as ordered.
[2020-10-09] MEDS: Vancomycin 1gm/D5W 275ml IVPB SCH ×2 (06:25)
--- NOTE | 2020-10-09 07:00 | NUR ---
NURSE HAND-OFF REPORT: Important Events on Shift: Vanco trough came back and per estella from [facility] ok to give Vanco 1 gram as ordered; RT suctioned pt, tolerated well Patient Status: AOX0, Obtunded Diet: NPO Pending Orders: spinal tap, cxr Pending Results/Labs: N Pending MD notification: n Latest Vital Signs: Temperature 99.2 , Pulse 80 , B/P 150 /98 , Respiratory Rate 20 , O2 SAT 100 , Room Air, O2 Flow Rate 15.0 . Vital Sign Comment: within baseline EKG Rhythm: Sinus Rhythm Rhythm change?: N MD Notified?: - MD Response: Latest Red Fall Score: 50 Fall Risk: High Risk Safety Measures: Call light Within Reach, Bed Alarm Zone 1, Side Rails Side Rails x3, Bed position Low and Locked. Fall Precautions: Report given to ITZEL Tamez.
--- NOTE | 2020-10-09 07:29 | NUR ---
NURSE NOTES: patient seen in bed in high fowlers position with no acute signs of distress. patient is on a nonrebreather 15L with oxygen saturation within normal limits. The patient has a L UA IV 22G that is infusing D51/2NS at 50cc and is clean, patent and intact. The patients bed is in lowest position, locked, side rails x2, bed alarm in zone 1 and call light within reach.
[2020-10-09] MEDS: Azithromycin 250mg tab ORAL SCH (08:01)
[2020-10-09] MEDS: Bactrim-DS 1 tab ORAL SCH (08:01)
[2020-10-09] MEDS: dexAMETHasone 10mg/ml Inj IV SCH (08:06)
[2020-10-09] MEDS: Pantoprazole Inj IVP SCH (08:06)
[2020-10-09] MEDS: Enoxaparin 40mg Inj SUBQ SCH (08:08)
--- NOTE | 2020-10-09 08:15 | Pulmonology Progress Note ---
Subjective ROS Limited/Unobtainable: Yes Gastrointestinal/Abdominal: Reports: vomiting Allergies: Coded Allergies: No Known Allergies (Unverified , 09/29/20) Subjective AFVSS on 15L Obtunded + coarse BS GPC in blood 1/2 + cough + some blood tinged + SOB no FC Objective Last 24 Hour Vital Signs Date Time Temp Pulse Resp B/P (MAP) Pulse Ox O2 Delivery O2 Flow Rate FiO2 10/09/20 04:00 99.2 80 20 150/98 (115) 100 10/09/20 04:00 80 10/09/20 00:00 99 10/09/20 00:00 98.8 99 24 156/109 (125) 100 10/08/20 21:00 Non-Rebreather 15.0 10/08/20 20:22 97 Non-Rebreather 15.0 100 10/08/20 20:00 103 10/08/20 20:00 98.4 103 24 155/113 (127) 100 10/08/20 16:00 98.2 95 18 156/103 (120) 98 10/08/20 16:00 92 10/08/20 12:00 97 10/08/20 12:00 98.1 98 18 148/105 (119) 99 10/08/20 09:00 Non-Rebreather 15.0 Intake and Output 10/08/20 10/09/20 19:00 07:00 Intake Total 550 ml 240 ml Output Total 1500 ml 750 ml Balance -950 ml -510 ml Intake Oral 240 ml IV Total 550 ml Output Urine Total 1500 ml 750 ml # Voids 3 General Appearance: other - obtunded HEENT: normocephalic, atraumatic, anicteric, mucous membranes moist Respiratory: rhonchi - bilaterally Cardiovascular: normal peripheral pulses, normal rate, regular rhythm Abdomen: normal bowel sounds, soft, non tender, no organomegaly, non distended, no mass Extremities: no cyanosis, no clubbing, no edema Laboratory Tests 10/09/20 05:17: Vancomycin Level Trough 19.6H Current Medications Medications (Trade) Dose Ordered Sig/Carleen Route PRN Reason Start Time Stop Time Status Last Admin Dose Admin Acetaminophen (Tylenol) 650 mg Q4H PRN ORAL Mild Pain (Pain Scale 1-3) 10/01/20 11:00 10/31/20 10:59 Acetaminophen (Tylenol) 650 mg Q4H PRN RECTAL BT>100.5F 10/04/20 23:30 11/03/20 23:29 10/05/20 08:18 Albuterol Sulfate (Proventil MDI) 2 puff Q4H PRN INH Shortness of Breath 10/01/20 11:00 12/30/20 10:59 Azithromycin (Zithromax) 500 mg DAILY ORAL 10/06/20 09:00 10/13/20 08:59 10/07/20 10:15 Bisacodyl (Dulcolax) 10 mg DAILYPRN PRN RECTAL Constipation 10/08/20 19:00 01/06/21 18:59 Dexamethasone Sodium Phosphate (Decadron 10mg/ ml Inj) 6 mg DAILY IV 10/04/20 09:00 10/13/20 09:01 10/09/20 08:06 Dextrose (Dextrose 50%) 25 ml Q30M PRN IV Hypoglycemia 10/01/20 11:00 12/30/20 10:59 Dextrose (Dextrose 50%) 50 ml Q30M PRN IV Hypoglycemia 10/01/20 11:00 12/30/20 10:59 Enoxaparin Sodium (Lovenox) 40 mg DAILY SUBQ 10/01/20 12:00 12/30/20 11:59 10/06/20 08:06 Fluconazole/ Sodium Chloride 200 ml @ 100 mls/hr Q24H IV 10/05/20 18:00 10/12/20 17:59 10/08/20 18:51 Ondansetron HCl (Zofran) 4 mg Q6H PRN IVP Nausea & Vomiting 10/01/20 11:00 10/31/20 10:59 Pantoprazole (Protonix) 40 mg DAILY IVP 10/02/20 13:00 11/01/20 12:59 10/09/20 08:06 Piperacillin Sod/ Tazobactam Sod 3.375 gm/Dextrose 100 ml @ 25 mls/hr Q8H IVPB 10/07/20 08:00 10/14/20 07:59 10/09/20 08:06 Potassium Chloride 10 meq/ Dextrose/Sodium Chloride 1,005 ml @ 50 mls/hr Q20H6M IV 10/01/20 12:00 10/31/20 11:59 10/09/20 02:23 Trimethoprim/ Sulfamethoxazole (Bactrim-DS) 1 tab DAILY ORAL 10/08/20 09:00 10/15/20 08:59 Vancomycin HCl (Vanco pharmacy to dose) 1 ea DAILY PRN MISC Per rx protocol 10/05/20 16:00 11/04/20 15:59 Vancomycin HCl 1 gm/Dextrose 275 ml @ 183.708 mls/hr Q6H IVPB 10/08/20 12:00 10/13/20 11:59 10/09/20 06:25 Assessment/Plan Problems: (1) AIDS (2) COVID-19 virus detected (3) UTI (urinary tract infection) (4) Encephalopathy acute (5) Altered mental status (6) Amphetamine abuse Assessment/Plan DEX D5 Complete REM D4 Antimicrobial therapy per ID, F/U repeat CX's Pulmonary hygiene/mobilize HFA's Titrate O2 Prone as able Monitor MS, F/U psych and neuro recs, Ativan off, minimize sedatives, ? LP NPO, mIVF DVT Px: cautious LMWH PPx F/U markers Jaime Wiggins MD Oct 09, 2020 08:15
--- NOTE | 2020-10-09 08:33 | NUR ---
PCXR COMPLETED AT 0830HRS. NF
--- NOTE | 2020-10-09 11:56 | NUR ---
Rand SewerShingler SI: COVID-19, Toxic Encephalopathy T-100.3, HR 73, RR 16, BP 105/69 NRM 15L FiO2 100% O2 sat 100% BUN 20 IS: Vancomycin IV q 8 h Bactrim PO QD Zosyn IV Q 8 h Zithromaz PO QD Fluconazole IV q 24 h Decadron IV QD Protonix IV QD KCL/D5 @ 50cc/hr Telemetry Status
--- NOTE | 2020-10-09 12:58 | Diagnostic Imaging Report ---
Procedure: XRAY Chest 1v Reason for study: Shortness of breath. Comparison films: 10/07/2020. FINDINGS: A single one view chest is obtained. Vascularity is normal. There is worsening of left basilar infiltrate. Cardiac and mediastinal silhouette are within normal limits. CP angles are sharp. The bony thorax appear unremarkable. IMPRESSION: Worsening of left basilar infiltrate.
[2020-10-09] MEDS: Vancomycin 1.25gm/250ml Premix IVPB SCH ×2 (14:42→22:00)
--- NOTE | 2020-10-09 16:10 | NUR ---
NURSE NOTES: Patient presenting hypotensive 74/38 with temp of 102.2. contacted Dr. Wiggins and Dr. Perez left message awaiting orders
--- NOTE | 2020-10-09 16:14 | NUR ---
NURSE NOTES: Contacted back by Dr. Perez new orders have been input by
--- NOTE | 2020-10-09 16:18 | Infectious Diseases Prog Note ---
Assessment/Plan Assessment/Plan ASSESSMENT AND PLAN: 1. COVID-19 infection, acute hypoxia, ams, fevers, sepsis HIV, AIDS - CDR 10, pcr pending LDH wnl - less likely pneumocystis but possible enterococcus uti recurrent fevers - dexamethasone and remdesivir - zosyn, vancomycin, diflucan, azithromycin, restart iv bactrim - reculture patient - check cryptococcus serum antigen, beta-D glucan - consider LP - monitor labs and chest x-ray - Hold on HIV treatment until OI ruled out because of potential of immune reconstitution syndrome - patient still febrile and acutely ill 2. pmh o/w negative 3. Amphetamine use 4) allergies - negative 5. will f/u Subjective Constitutional: Reports: fever, fatigue, other - on NR HEENT: Reports: congestion Respiratory: Reports: shortness of breath Cardiovascular: Denies: chest pain Gastrointestinal/Abdominal: Denies: nausea, vomiting, diarrhea Genitourinary: Reports: other - no + yeung Skin: Denies: rash Hematologic: Denies: bleeding Allergies: Coded Allergies: No Known Allergies (Unverified , 09/29/20) Objective Last 24 Hour Vital Signs Date Time Temp Pulse Resp B/P (MAP) Pulse Ox O2 Delivery O2 Flow Rate FiO2 10/09/20 12:00 73 10/09/20 12:00 99.9 69 18 108/57 (74) 99 10/09/20 09:00 Non-Rebreather 15.0 10/09/20 08:00 73 10/09/20 08:00 100.3 76 16 105/69 (81) 100 10/09/20 04:00 99.2 80 20 150/98 (115) 100 10/09/20 04:00 80 10/09/20 00:00 99 10/09/20 00:00 98.8 99 24 156/109 (125) 100 10/08/20 21:00 Non-Rebreather 15.0 10/08/20 20:22 97 Non-Rebreather 15.0 100 10/08/20 20:00 103 10/08/20 20:00 98.4 103 24 155/113 (127) 100 Height (Feet): 6 Weight (Pounds): 120 General Appearance: other - + sob HEENT: normocephalic, anicteric Respiratory/Chest: crackles/rales, rhonchi - bilaterally Cardiovascular: normal rate, regular rhythm Abdomen: normal bowel sounds, soft, non tender, no organomegaly Genitourinary: other - no yeung Extremities: no cyanosis Chest x-ray - 10/04/20 - Procedure: XRAY Chest 1v EXAM: XR Chest, 1 View CLINICAL HISTORY: DIARRHEA TECHNIQUE: Frontal view of the chest. COMPARISON: Chest x-ray 10/01/2020 FINDINGS: Lungs: New mild patchy opacities within the medial left lung base and to a lesser extent the medial right lung base. Pleural space: Unremarkable. No pneumothorax. Heart: Unremarkable. No cardiomegaly. Mediastinum: Unremarkable. Bones/joints: Unremarkable. IMPRESSION: New mild patchy opacities within the lung bases may indicate a developing infectious/inflammatory process such as multifocal pneumonia or aspiration pneumonitis. Laboratory Tests Test 10/09/20 05:17 Vancomycin Level Trough 19.6 ug/mL (5.0-12.0) H Current Medications Medications (Trade) Dose Ordered Sig/Carleen Route PRN Reason Start Time Stop Time Status Last Admin Dose Admin Acetaminophen (Tylenol) 650 mg Q4H PRN ORAL Mild Pain (Pain Scale 1-3) 10/01/20 11:00 10/31/20 10:59 Acetaminophen (Tylenol) 650 mg Q4H PRN RECTAL BT>100.5F 10/04/20 23:30 11/03/20 23:29 10/05/20 08:18 Albuterol Sulfate (Proventil MDI) 2 puff Q4H PRN INH Shortness of Breath 10/01/20 11:00 12/30/20 10:59 Azithromycin (Zithromax) 500 mg DAILY ORAL 10/06/20 09:00 10/13/20 08:59 10/07/20 10:15 Bisacodyl (Dulcolax) 10 mg DAILYPRN PRN RECTAL Constipation 10/08/20 19:00 01/06/21 18:59 Dexamethasone Sodium Phosphate (Decadron 10mg/ ml Inj) 6 mg DAILY IV 10/04/20 09:00 10/13/20 09:01 10/09/20 08:06 Dextrose (Dextrose 50%) 25 ml Q30M PRN IV Hypoglycemia 10/01/20 11:00 12/30/20 10:59 Dextrose (Dextrose 50%) 50 ml Q30M PRN IV Hypoglycemia 10/01/20 11:00 12/30/20 10:59 Enoxaparin Sodium (Lovenox) 40 mg DAILY SUBQ 10/01/20 12:00 12/30/20 11:59 10/06/20 08:06 Fluconazole/ Sodium Chloride 200 ml @ 100 mls/hr Q24H IV 10/05/20 18:00 10/12/20 17:59 10/08/20 18:51 Hydralazine HCl (Apresoline) 10 mg Q4H PRN IV SBP > 150 mmHg 10/09/20 08:15 01/07/21 08:14 Ondansetron HCl (Zofran) 4 mg Q6H PRN IVP Nausea & Vomiting 10/01/20 11:00 10/31/20 10:59 Pantoprazole (Protonix) 40 mg DAILY IVP 10/02/20 13:00 11/01/20 12:59 10/09/20 08:06 Piperacillin Sod/ Tazobactam Sod 3.375 gm/Dextrose 100 ml @ 25 mls/hr Q8H IVPB 10/07/20 08:00 10/14/20 07:59 10/09/20 15:52 Potassium Chloride 10 meq/ Dextrose/Sodium Chloride 1,005 ml @ 50 mls/hr Q20H6M IV 10/01/20 12:00 10/31/20 11:59 10/09/20 02:23 Trimethoprim/ Sulfamethoxazole (Bactrim-DS) 1 tab DAILY ORAL 10/08/20 09:00 10/15/20 08:59 Vancomycin HCl 250 ml @ 166.667 mls/hr Q8HR IVPB 10/09/20 14:00 10/14/20 13:59 10/09/20 14:42 Vancomycin HCl (Vanco pharmacy to dose) 1 ea DAILY PRN MISC Per rx protocol 10/05/20 16:00 11/04/20 15:59 Wood Tyler MD Oct 09, 2020 16:18
[2020-10-09] MEDS: Acetaminophen 650 MG SUPP RECTAL PRN (16:24)
--- NOTE | 2020-10-09 16:25 | NUR ---
NURSE NOTES: Patients blood pressure began to decrease below normal limits at 74/38. patient also had an increase in temperature of 102.2. Both Dr. Wiggins and Ana were notified of patients decline. on reassessment 5 minutes later patients blood pressure was still declining at 69/36. FIREBREAK CUTTER was called, patient blood sugar was checked and within normal limits, EKG was taken and showed NSR, 1L of NS was bolused per MD order and then decision was made to intubate patient due to respiratory depression. The patients blood pressure than began to increase after bolus to 102/78. At this time ICU bed was being prepared for transfer
--- NOTE | 2020-10-09 17:08 | Emergency Room Report ---
History of Present Illness General Chief Complaint: Altered Mental Status Source: Patient Present Illness Allergies: Coded Allergies: No Known Allergies (Unverified , 09/29/20) COVID-19 Screening Contact w/high risk pt: Yes Experienced COVID-19 symptoms?: No COVID-19 Testing performed COMMUNITY RECREATION COORDINATOR: No COVID-19 Screening: Positive COVID-19 Nursing Documentation-PM Past Medical History: No History, Except For Hx Cardiac Problems: No Hx Neurological Problems: No Physical Exam Vital Signs Date Time Temp Pulse Resp B/P (MAP) Pulse Ox O2 Delivery O2 Flow Rate FiO2 10/05/20 08:00 112 10/05/20 08:00 100.8 22 136/94 (108) 100 10/05/20 09:00 Non-Rebreather 15.0 10/05/20 23:14 100 Procedures Intubation Intubation : Consent: Emergent Intubation Method: orotracheal Tube Size (cm): 7.5 Medications: Etomidate, Rocuronium Intubation Complications: no complications Post Intubation Xray: Yes - ordered at pending Attempts: One Patient Tolerated: Well Complications: None Medical Decision Making Diagnostic Impression: Primary Impression: Altered mental status Qualified Codes: R40.4 - Transient alteration of awareness Additional Impressions: COVID-19 virus detected Amphetamine abuse ER Course I was called to intubate patient who is Covid positive with agonal respirations. Patient was intubated without complication. X-rays been ordered to verify ET tube placement. Patient remains in critical condition and will be moved to the ICU. Last Vital Signs Date Time Temp Pulse Resp B/P (MAP) Pulse Ox O2 Delivery O2 Flow Rate FiO2 10/09/20 12:00 73 10/09/20 12:00 99.9 18 108/57 (74) 99 10/09/20 09:00 Non-Rebreather 15.0 10/08/20 20:22 100 Disposition: ADMITTED INPATIENT Condition: Stable Scripts Unable to Obtain Active Prescriptions or Reported Meds Referrals: NOT CHOSEN IPA/,REFERRING (PCP) Patient Instructions: Stimulant Use Disorder-Amphetamines Additional Instructions: Stop using amphetamines. Go to [facility]. Follow up with your doctor. Return if you are worse. Isolate yourself. You have tested positive for the lemus virus. Meseret Lynne M.D. Oct 09, 2020 17:08
--- NOTE | 2020-10-09 17:25 | Diagnostic Imaging Report ---
EXAM: XR Chest, 1 View CLINICAL HISTORY: Chest pain. TECHNIQUE: Frontal view of the chest. COMPARISON: 10/04/2020. FINDINGS: Lungs: Patchy airspace disease at the right lung base is noted compatible with right lower lobe pneumonia. Minimal patchy airspace disease medially at the left lung base is noted, possibly on the basis of left lower lobe pneumonia. Pleural space: Unremarkable. No pneumothorax. Heart: Unremarkable. No cardiomegaly. Mediastinum: Unremarkable. Bones/joints: The ribs are unremarkable. Tubes, lines and devices: Endotracheal tube is noted in place approximately 3 cm above the alesha. IMPRESSION: 1. Endotracheal tube is noted in place with its tip approximate 3 cm above the alesha. 2. Patchy airspace disease is noted at the lung bases, right greater than left worrisome for by basilar pneumonias. Clinical correlation is advised.
--- NOTE | 2020-10-09 17:50 | NUR ---
NURSE NOTES: Patient was transferred to ICU at 1750 and was received by ITZEL Sears. The patient was intubated in TELE and was brought by hospital bed to ICU. The patients belongings were brought, form was sign and acknowledged. The patients bed was placed in lowest position, locked, side rails x3 and was placed on continuous monitor per ICU protocol.
--- NOTE | 2020-10-09 17:51 | NUR ---
NURSE NOTES: Pt was assessed after receiving transfer from [facility] [place]. Pt was received at ICU via [facility]. Placed on security monitor, displays ST, HR 110. Temp 99.8F axillary. Pt has eyes closed, does not respond to voice or touch, withdraws to pain. Bilateral pupils sluggish 3mm response to light, with hypoactive gag reflex. Orally intubated, ETT 7.5 at 27cm lipline with vent settings AC14, VT500, Peep 5, FIO2 100%, with O2Sat 100%. Bilateral rales/rhonchi with diminished lung sounds. Pt has large amounts of thin greenish/pink oral secretions. IV fluid D5 0.45%NS with 10meq KCL is infusing at 50ml/hour. Peripheral IV access is present on left FA#22G, left UA #20G and right FA #22G, all intact/patent. Horton catheter 16F was inserted, with output of clear/yellow urine. Abdomen is flat, soft, nontender to touch with hypoactive bowel sounds. Skin is intact. HOB at 30 degrees, bed locked, in lowest position, three side rails up. Will continue to monitor and follow plan of care.
--- NOTE | 2020-10-09 18:30 | NUR ---
NURSE NOTES: Pt was cleaned, gown/bed linens were changed. Pt was repositioned. VS remain stable.
--- NOTE | 2020-10-09 19:30 | NUR ---
NURSE HAND-OFF REPORT: Latest Vital Signs: Temperature 99.8 , Pulse 101 , B/P 106 /86 , Respiratory Rate 18 , O2 SAT 100 , mechanical ventilator, ETT 7.5 at 27cm/lipline with vent settings AC14, VT500, Peep 5, FIO2 100%. EKG Rhythm: Sinus Tachycardia Rhythm change?: N MD Notified?: - MD Response: Latest Red Fall Score: 50 Fall Risk: High Risk Safety Measures: Call light Within Reach, Bed Alarm Zone 1, Side Rails Side Rails x3, Bed position Low and Locked. Fall Precautions: Report given to Hanna ROBBINS. Endorsed plan of care.
--- NOTE | 2020-10-09 19:30 | NUR ---
NURSE NOTES: Report received from ITZEL Sears Per AMRN, Pt was transferred from [facility] after intubated. SR/ST on director cardiac. Afebrile. Pt has eyes closed, does not respond to voice or touch, withdraws to pain. Bilateral pupils sluggish. Orally intubated, ETT 7.5 at 27cm lipline with vent settings AC14, VT500, Peep 5, FIO2 100%, with O2Sat 100%. Bilateral rales/rhonchi with diminished lung sounds. Pt has large amounts of thin oral secretions. IV fluid D5 0.45%NS with 10meq KCL is infusing at 50ml/hour. Peripheral IV access is present on left FA#22G, left UA #20G and right FA #22G, all intact/patent. Horton catheter 16F was inserted, with output of clear/yellow urine. Abdomen is flat, soft, nontender to touch with hypoactive bowel sounds. Skin is intact. Safety measures observed and no acute distress noted. Will continue monitor.
--- NOTE | 2020-10-09 21:00 | NUR ---
NURSE NOTES: PM meds given. Turned and repositioned. Oral care provided.
[2020-10-09 21:48] LABS: APPEARANCE,URINE CLEAR; BILIRUBIN, URINE NEGATIVE (NEGATIVE); COLOR,URINE PALE YELLOW; GLUCOSE, URINE (UA) NEGATIVE (NEGATIVE); KETONES,URINE NEGATIVE (NEGATIVE); LEUKOCYTE ESTERASE ,URINE NEGATIVE (NEGATIVE); NITRITE,URINE NEGATIVE (NEGATIVE); PH,URINE 5 (4.5-8.0); PROTEIN,URINE 2+ (NEGATIVE); UROBILINOGEN,URINE NORMAL MG/DL (0.0-1.0)
--- NOTE | 2020-10-09 22:26 | Neurology Progress Note ---
Interim History Interim History ROS Limited/Unobtainable: Yes Interim History no new deficits + sob Objective Physical Exam Last Vital Signs Date Time Temp Pulse Resp B/P (MAP) Pulse Ox O2 Delivery O2 Flow Rate FiO2 10/09/20 19:00 99.8 101 18 106/86 (93) 100 10/09/20 18:00 Mechanical Ventilator 10/09/20 17:54 100 10/09/20 09:00 15.0 Laboratory Tests Test 10/09/20 05:17 10/09/20 20:30 Vancomycin Level Trough 19.6 ug/mL (5.0-12.0) H Urine Color Pale yellow Urine Appearance Clear Urine pH 5 (4.5-8.0) Urine Specific [place] 1.015 (1.005-1.035) Urine Protein 2+ (NEGATIVE) H Urine Glucose (UA) Negative (NEGATIVE) Urine Ketones Negative (NEGATIVE) Urine Blood 5+ (NEGATIVE) H Urine Nitrite Negative (NEGATIVE) Urine Bilirubin Negative (NEGATIVE) Urine Urobilinogen Normal MG/DL (0.0-1.0) Urine Leukocyte Esterase Negative (NEGATIVE) Urine RBC 5-10 /HPF (0 - 0) H Urine WBC 0-2 /HPF (0 - 0) Urine Squamous Epithelial Cells None /LPF (NONE/OCC) Urine Amorphous Sediment Few /LPF (NONE) H Urine Bacteria Few /HPF (NONE) Impression/Recommendations Problems: (1) Substance abuse (2) Encephalopathy acute (3) Altered mental status (4) Amphetamine abuse (5) AIDS (6) UTI (urinary tract infection) (7) COVID-19 virus detected Diagnostic Impression 1. Encephalopathy likely toxic --> prior urine tox screen was + for methamphetamines --> CT head was completed and is unremarkable --> at this time continue to closely monitor patient and hold sedatives. 2. Covid 19 Disease --> afebrile no hypoxia no treatment indicated 3. Polysubstance Abuse --> rec cessation when fully awake. Jayme Landa MD Oct 09, 2020 22:26
--- NOTE | 2020-10-09 23:30 | NUR ---
NURSE NOTES: Pt BP decreased. Called Dr. Wiggins's office.
--- NOTE | 2020-10-09 23:50 | NUR ---
NURSE NOTES: Pt Hypotensive. Called Dr. Wiggins's office 2nd time.
[2020-10-10] VITALS (40 sets, daily range): BP systolic 55–164; BP diastolic 32–108
--- NOTE | 2020-10-10 | NUR ---
NURSE NOTES: PT BP 55/36. Bolus 250mL/hr. started. Consult woth charger operator helper. Notified to MD over the phone at 0010.
--- NOTE | 2020-10-10 00:10 | NUR ---
NURSE NOTES: from Dr. Wiggins"s office called back. Levophed order received.
--- NOTE | 2020-10-10 00:15 | NUR ---
NURSE NOTES: Pt asystole, no pulse, CODE BLUE called. CPR started and ACLS algorithm observed.
[2020-10-10] MEDS ORDERED: Levophed 4mg/4mL Inj IV ONE (00:27)
--- NOTE | 2020-10-10 00:45 | NUR ---
NURSE NOTES: BP does ups and downs. Very unstable. Titrating Levo. Cotinie to monitor.
--- NOTE | 2020-10-10 00:45 | NUR ---
NURSE NOTES: During the Code, Blood glucose was 44. D50 given. 0032 Pulse came back. Code ended.
--- NOTE | 2020-10-10 00:56 | Emergency Room Report ---
History of Present Illness General Chief Complaint: Altered Mental Status Source: Patient Present Illness HPI This is a 39-year-old homeless male who was admitted to the hospital was cardiac arrest and was intubated. He was also positive for Covid. Patient became hypotensive and pressor was initiated. Patient became bradycardic and then asystolic. I responded to a CODE BLUE. On my arrival CPR was in progress. Patient received epinephrine and there was no pulse. After the third round of epinephrine, there was a return of spontaneous pulse. Because patient has no central line, I placed a right femoral central line. Please see code sheet for full list and time of medicine given. Allergies: Coded Allergies: No Known Allergies (Unverified , 09/29/20) COVID-19 Screening Contact w/high risk pt: Yes Experienced COVID-19 symptoms?: No COVID-19 Testing performed FIREBRICK LAYER HELPER: No COVID-19 Screening: Positive COVID-19 Nursing Documentation-[facility] Past Medical History: No History, Except For Hx Cardiac Problems: No Hx Neurological Problems: No Physical Exam Vital Signs Date Time Temp Pulse Resp B/P (MAP) Pulse Ox O2 Delivery O2 Flow Rate FiO2 10/06/20 08:00 89 10/06/20 08:00 97.9 20 141/90 (107) 99 10/06/20 09:00 Non-Rebreather 15.0 10/06/20 20:44 100 Procedures Central Line Central Line : Consent: Emergent Central Line Lumen: triple Maximal Sterile Barrier Tech: yes cap, yes mask, yes sterile gown, yes sterile gloves, yes large sterile sheet, yes hand hygiene, yes chlorhexidine prep Central Line Postion: femoral (R) US Guided Line?: No Complications: none Central Line Post Position: sutured, good blood return Attempts: One Patient Tolerated: Well Complications: None CPR/Code Blue CPR/Code Blue Narrative Patient was asystolic and CODE BLUE was called. Patient had CPR given and 3 rounds of epinephrine. After the third round of epinephrine, there was return of spontaneous contraction. Please see code sheet for time epinephrine was given. Medical Decision Making Diagnostic Impression: Primary Impression: Altered mental status Qualified Codes: R40.4 - Transient alteration of awareness Additional Impressions: COVID-19 virus detected Amphetamine abuse Cardiac arrest Last Vital Signs Date Time Temp Pulse Resp B/P (MAP) Pulse Ox O2 Delivery O2 Flow Rate FiO2 10/09/20 23:00 99 18 84/56 (65) 100 10/09/20 21:00 Non-Rebreather 15.0 10/09/20 19:08 100 10/09/20 19:00 99.8 Disposition: ADMITTED INPATIENT Condition: Critical Scripts Unable to Obtain Active Prescriptions or Reported Meds Referrals: NOT CHOSEN IPA/,REFERRING (PCP) Eder Reyes MD Oct 10, 2020 00:56
[2020-10-10] MEDS: Trimethoprim/Sulfamethoxazole 20 ML in D5W 500ml 550 ML IV SCH ×4 (01:00→23:16)
--- NOTE | 2020-10-10 04:00 | NUR ---
NURSE NOTES: Pt HR start increasing and ups and downs. Reached high 190s for a moment.
--- NOTE | 2020-10-10 04:45 | NUR ---
NURSE NOTES: Pt HR stays high. Contacted Dr. Wiggins's office.
--- NOTE | 2020-10-10 05:00 | NUR ---
NURSE NOTES: Received telephone order Metoprolol 5mg IV Push Add Vasopressin and decrease Levo If they don't work, add Laci and weaning down Levo.
[2020-10-10] MEDS ORDERED: Metoprolol Tartrate 5mg/5ml Inj IVP SCH (05:15)
--- NOTE | 2020-10-10 05:15 | NUR ---
NURSE NOTES: Metoprolol 5mg IV push given. Immediately HR start decreasing.
[2020-10-10 05:24] LABS: HEMATOCRIT 34.3 % (42.0-52.0); HEMOGLOBIN 10.5 G/DL (14.2-18.0); MEAN CORPUSCULAR VOLUME 93 FL (80-99); PLATELET COUNT 166 K/UL (150-450); RED CELL DISTRIBUTION WIDTH 12.7 % (11.6-14.8); WHITE BLOOD COUNT 11.6 K/UL (4.8-10.8)
[2020-10-10] MEDS: Vasopressin 100 UNITS in NS 95 ML IV SCH (05:30)
--- NOTE | 2020-10-10 05:30 | NUR ---
NURSE NOTES: Vasopressin started with 0.01U/min
[2020-10-10] MEDS: Potassium Chloride 10 MEQ in D5 1/2NS 1,000 ML IV SCH (06:00)
[2020-10-10] MEDS: Vancomycin 1.25gm/250ml Premix IVPB SCH (06:00)
--- NOTE | 2020-10-10 06:00 | NUR ---
NURSE NOTES: Pt glucose 118.
[2020-10-10 06:03] LABS: ALBUMIN 1.5 G/DL (3.4-5.0); ALBUMIN/GLOBULIN RATIO 0.3 (1.0-2.7); BILIRUBIN,TOTAL 0.2 MG/DL (0.2-1.0); CALCIUM 8.8 MG/DL (8.5-10.1); CREATININE 2.1 MG/DL (0.55-1.30); POTASSIUM 5.9 MMOL/L (3.5-5.1)
[2020-10-10] MEDS: Phenylephrine 50 MG in D5W 245 ML IV SCH ×3 (06:45→22:24)
--- NOTE | 2020-10-10 06:45 | NUR ---
NURSE NOTES: Pt BP start decreasing. Laci started with 100mcgs/min
--- NOTE | 2020-10-10 07:20 | NUR ---
NURSE NOTES: Received report from ITZEL Ferreira. Patient is in comatose s/p code blue. ETT 7.5/27cm at lip line with vent setting ac 14, vt 500, peep 5 and fio2 50%. NPO status. Horton intact and draining with darron color urine. Right femoral TLC intact and running with levophed 24mcg/min, vasopressin 0.05 unit/min and eriberto 100mcg/min. ST 120-130 on the monitor. Kept dry, clean and comfortable. Will continue plan of care.
--- NOTE | 2020-10-10 07:30 | NUR ---
HAND-OFF: Report given to TIZEL Morgan. Endorsed POC.
[2020-10-10] MEDS: Pantoprazole Inj IVP SCH (08:16)
[2020-10-10] MEDS: Enoxaparin 40mg Inj SUBQ SCH (08:16)
[2020-10-10] MEDS: dexAMETHasone 10mg/ml Inj IV SCH (08:16)
[2020-10-10] MEDS: Azithromycin 250mg tab ORAL SCH (08:17)
--- NOTE | 2020-10-10 08:31 | Pulmonolgy Critical Care Note ---
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 (3) Cardiac arrest (4) AIDS (5) Encephalopathy acute (6) UTI (urinary tract infection) (7) Altered mental status (8) Amphetamine abuse (9) COVID-19 virus detected Respiratory: adjust tidal volume, monitor respiratory rate, adjust FIO2, CXR, ABG, other - HHN's, continue DEX D6 Cardiac: continue pressors - Titrate to keep MAP > 60, other - TTE Renal: other - Change IVF to NS@100 Infectious Disease: check cultures, continue antibiotics - antimicrobial therapy per ID, other - LP if able Gastrointestinal: other - start NGT feeds once clinically stable Endocrine: monitor blood sugar, other - Continue Dex Hematologic: monitor H/H Neurologic: other - Unresponsive, once more responsive will start ICU sedation, F/U neuro recs Prophylaxis: Protonix, other - LMWH Time Spent (Minutes): other - 80 Notes Reviewed: ID, neuro Discussed with: nurses, consultants Critical Care - Objective Last 24 Hour Vital Signs Date Time Temp Pulse Resp B/P (MAP) Pulse Ox O2 Delivery O2 Flow Rate FiO2 10/10/20 08:00 127 14 102/65 (77) 100 10/10/20 07:00 124 14 102/84 (90) 100 10/10/20 07:00 102/84 10/10/20 06:45 125 80/52 10/10/20 06:45 80/52 10/10/20 06:30 73/56 10/10/20 06:15 63/48 10/10/20 06:00 119 14 70/54 (59) 100 10/10/20 06:00 70/54 10/10/20 05:45 70/54 10/10/20 05:30 89/63 10/10/20 05:15 161 86/61 10/10/20 05:15 89/63 10/10/20 05:00 162 14 92/49 (63) 98 10/10/20 05:00 86/61 10/10/20 04:30 47/28 10/10/20 04:15 48/35 10/10/20 04:00 94 10/10/20 04:00 90/60 10/10/20 04:00 101 15 97/71 (80) 100 10/10/20 03:00 116 17 105/73 (84) 10/10/20 02:00 122 20 99/65 (76) 100 10/10/20 01:30 122 20 78/54 (62) 100 10/10/20 01:30 78/54 10/10/20 01:00 129 14 164/108 (126) 100 10/10/20 01:00 164/108 10/10/20 00:30 166 17 117/89 (98) 10/10/20 00:30 87/55 10/10/20 00:15 0 12 125/32 (63) 10/10/20 00:00 81 14 55/36 (42) 100 10/10/20 00:00 81 10/09/20 23:00 99 18 84/56 (65) 100 10/09/20 22:00 115 17 95/71 (79) 100 10/09/20 21:00 111 18 97/73 (81) 100 10/09/20 21:00 Non-Rebreather 15.0 10/09/20 20:00 114 17 110/78 (89) 100 10/09/20 20:00 Mechanical Ventilator 10/09/20 20:00 114 10/09/20 19:08 110 18 100 10/09/20 19:00 99.8 101 18 106/86 (93) 100 10/09/20 18:00 102.2 104 19 74/38 (50) 99 10/09/20 18:00 Mechanical Ventilator 10/09/20 17:54 79 14 100 10/09/20 16:00 83 10/09/20 16:00 102.2 104 18 74/38 (50) 99 10/09/20 12:00 73 10/09/20 12:00 99.9 69 18 108/57 (74) 99 10/09/20 09:00 Non-Rebreather 15.0 Status: sedated Condition: critical HEENT: atraumatic, normocephalic Lungs: rhonchi Heart: HR/BP unstable Abdomen: soft, non-tender, active bowel sounds Extremities: no C/C/E Accucheck: 99 Blood Sugars: BS controlled Critical Care - Subjective ROS Limited/Unobtainable: Yes ICU Day: 2 Intubation Day: 2 Interval Events: CODE BLUE x 2 S/P ROSC Intubated by ER Had an emergent FEM CVC placed + ADALI Condition: critical IV Access: central - R FEV CVC 10/10 EKG Rhythm: Sinus Tachycardia FI02: 50 Vent Support Breath Rate: 14 Vent Support Mode: AC Vent Tidal Volume: 500 Sputum Amount: Scant PEEP: 5.0 PIP: 26 Secretions: clear/green Fluids: [id number]@50 Drips: NE 24 VASO 0.04 CRISTEL 100 I&O: Intake and Output 10/09/20 10/10/20 19:00 07:00 Intake Total 450 ml 822.6375 ml Output Total 670 ml 1000 ml Balance -220 ml -177.3625 ml IV Total 450 ml 822.6375 ml Output Urine Total 670 ml 1000 ml CXR: ETT above alesha patchy BiB opacities Labs: Laboratory Tests 10/09/20 20:30: Urine Color Pale yellow, Urine Appearance Clear, Urine pH 5, Urine Specific [place] 1.015, Urine Protein 2+H, Urine Glucose (UA) Negative, Urine Ketones Negative, Urine Blood 5+H, Urine Nitrite Negative, Urine Bilirubin Negative, Urine Urobilinogen Normal, Urine Leukocyte Esterase Negative, Urine RBC 5-10H, Urine WBC 0-2, Urine Squamous Epithelial Cells None, Urine Amorphous Sediment FewH, Urine Bacteria Few 10/10/20 03:40: White Blood Count 11.6H, Red Blood Count 3.70L, Hemoglobin 10.5L, Hematocrit 34.3L, Mean Corpuscular Volume 93, Mean Corpuscular Hemoglobin 28.3, Mean Corpuscular Hemoglobin Concent 30.5L, Red Cell Distribution Width 12.7, Platelet Count 166, Mean Platelet Volume 8.0, Neutrophils (%) (Auto) , Lymphocytes (%) (Auto) , Monocytes (%) (Auto) , Eosinophils (%) (Auto) , Basophils (%) (Auto) , Differential Total Cells Counted 100, Neutrophils % (Manual) 94H, Lymphocytes % (Manual) 4L, Monocytes % (Manual) 2, Eosinophils % (Manual) 0, Basophils % (Manual) 0, Band Neutrophils 0, Platelet Estimate Adequate, Platelet Morphology Normal, Hypochromasia 1+, Sodium Level 142, Potassium Level 5.9H, Chloride Level 108H, Carbon Dioxide Level 22, Anion Gap 12, Blood Urea Nitrogen 48H, Creatinine 2.1H, Estimat Glomerular Filtration Rate 42.7, Glucose Level 307H, Calcium Level 8.8, Total Bilirubin 0.2, Aspartate Amino Transf (AST/SGOT) 83H, Alanine Aminotransferase (ALT/SGPT) 39, Alkaline Phosphatase 64, Total Protein 6.6, Albumin 1.5L, Globulin 5.1, Albumin/Globulin Ratio 0.3L, Beta-(1,3)-D-Glucan [Pending] Jaime Wiggins MD Oct 10, 2020 08:31
--- NOTE | 2020-10-10 08:40 | NUR ---
NURSE NOTES: Seen by Dr. Wiggins and notified potassium level. Changed iv fluid to NS @100ml/hr. Will continue plan of care.
--- NOTE | 2020-10-10 10:37 | NUR ---
RD ASSESSMENT & RECOMMENDATIONS SEE CARE ACTIVITY FOR COMPLETE ASSESSMENT DAILY ESTIMATED NEEDS: Needs based on Underweight, Critical Care/ 54.4kg 25-35 kcals/kg 8481-5080 total kcals 1.2-2 g protein/kg 65-109 g total protein 25-30 mL/kg 5472-8967 total fluid mLs NUTRITION DIAGNOSIS: Increased kcal and pro needs r/t underweight status as evidenced by BMI underweight per guidelines, pt is 67% of [place] Body weight w/ visual wasting per RN, NPO until fully awake per MD, now orally intubated (10/09), s/p code blue (10/10), on pressor support, NPO. CURRENT DIET: NPO ENTERAL NUTRITION RECOMMENDATIONS: Glucerna 1.2 @ 55ml/hr x 24 hrs to provide 1320ml, 1584kcal, 79g prot, 1063ml free water FEED WITH HEMODYNAMIC STABILITY ---> W/ GI access, initiate Glucerna 1.2 @ 15ml/hr x 6hrs ---> Advance 10ml q 4-6 hrs as tolerated to goal ---> HOB over 30 degrees/ H2o flush 180ml q 8hrs WITHOUT HEMODYNAMIC STABILITY, rec trophic feeding of Glucerna 1.2 @10-15ml/hr if able to keep HOB >30 degrees ADDITIONAL RECOMMENDATIONS: 1) Monitor hemodynamic stability, ability to feed: NPO DAY 9 s/p code blue (10/10) 2) Monitor for hypoglycemia while NPO- consider adding D5 to IVF 3) BM not updated since 10/01, rec bowel regimen 4) Daily wts on calibrated bed scale - s/p floor txr
--- NOTE | 2020-10-10 12:04 | NUR ---
RESPIRATORY NOTE: FiO2 titrated to 40%. Eddie ROBBINS. made aware.
--- NOTE | 2020-10-10 12:14 | NUR ---
NURSE NOTES: ABG done. Paged Dr. Wiggins and will follow up.
--- NOTE | 2020-10-10 13:40 | NUR ---
NURSE NOTES: Called pharmacy and asked if pt's need vanco trough @ 1300. Sari said pt's does not need at this time.
--- NOTE | 2020-10-10 14:46 | NUR ---
Analytics ArchitectOptical Instrument Inspector SI: COVID-19, Toxic Encephalopathy, ETT/VENT support T-100.2, HR 111, RR 14, BP 121/84 AC 14, PEEP 5, TV 500, FiO2 100% o2 sat 100% WBC 11.6, BUN 48, 2.1 IS: Vancomycin IV q 8 h Phenylephrine GTT Vasopressin GTT Levophed GTT Bactrim IV q 8 h Zosyn IV Q 8 h Zithromax PO QD Fluconazole IV q 24 h Decadron IV QD Protonix IV QD NS IV @ 100cc/hr ICU Status
--- NOTE | 2020-10-10 16:44 | NUR ---
NURSE NOTES: Bed bath given. Kept dry, clean and comfortable.
--- NOTE | 2020-10-10 17:13 | NUR ---
RESPIRATORY NOTE: PT received on AC/VC: 14, 500, 50%, +5. Alarms are on and audible. Vent circuit is secure and out of the way. Airway is secure and patent. No s/s of respiratory distress noted at this time. Will continue to closely monitor.
[2020-10-10] MEDS ORDERED: NS 275ml ONE ×2 (17:47→20:03)
--- NOTE | 2020-10-10 19:24 | NUR ---
HAND-OFF: Report given to ITZEL Soto. Endorsed plan of care.
--- NOTE | 2020-10-10 19:25 | NUR ---
NURSE NOTES: Patient received from ITZEL Morgan. Patient does not respond to pain, no gag reflex noted. 7.5 ETT at 27cm lipline on ventilator AC TV FiO2 40% PEEP 5. BP138/96 HR99 NSR on monitor. Temp 99.1F axillary. Left Forearm # 22, Left upper arm #20, Right forearm # 22, Right femoral TLC running Levophed 10mcg/hr, phenylephrine 10mcg/min, Vasopressin 0.04 units/min, NS @100ml/hr. Horton catheter draining yellow urine. patient repositioned and oral care provided.
[2020-10-10] MEDS: Dyna-Hex 2% Top Sol 2oz TOPIC SCH (19:51)
[2020-10-10] MEDS ORDERED: Tubing IV Secondary IV ONE (20:03)
--- NOTE | 2020-10-10 22:00 | NUR ---
NURSE NOTES: Patient comatose with 7.5 ETT at 27cm lipline on ventilator AC TV FiO2 35% PEEP 5. BP95/64 HR91 NSR on monitor. Left Forearm # 22, Left upper arm #20, Right forearm # 22, Right femoral TLC running Levophed decreased to 4mcg/hr, phenylephrine 100mcg/min, Vasopressin 0.04 units/min, NS @100ml/hr. inserted OGT, awaiting CXR for confirmation of placement. Horton catheter draining yellow urine. patient repositioned and oral care provided.
[2020-10-11] VITALS (25 sets, daily range): BP systolic 62–188; BP diastolic 39–126
--- NOTE | 2020-10-11 | NUR ---
NURSE NOTES: Patient comatose with 7.5 ETT at 27cm lipline on ventilator AC TV FiO2 35% PEEP 5. BP86/57 HR84 NSR on monitor. Left Forearm # 22, Left upper arm #20, Right forearm # 22, Right femoral TLC running Levophed decreased to 1mcg/hr but patient did not tolerate so increased back to 2mcg/hr, phenylephrine 100mcg/min, Vasopressin 0.04 units/min, NS @100ml/hr. inserted OGT, awaiting CXR for confirmation of placement. Horton catheter draining yellow urine. patient repositioned and oral care provided.
--- NOTE | 2020-10-11 02:00 | NUR ---
NURSE NOTES: Patient comatose with 7.5 ETT at 27cm lipline on ventilator AC TV FiO2 35% PEEP 5. BP88/59 HR84 NSR on monitor. Left Forearm # 22, Left upper arm #20, Right forearm # 22, Right femoral TLC running Levophed decreased to 1mcg/hr but patient did not tolerate so increased back to 2mcg/hr, phenylephrine 100mcg/min, Vasopressin 0.04 units/min, NS @100ml/hr.OGT clamped. Horton catheter draining yellow urine. Patient given CHG bath, repositioned and oral care provided.
--- NOTE | 2020-10-11 04:00 | NUR ---
NURSE NOTES: Patient comatose with 7.5 ETT at 27cm lipline on ventilator AC TV FiO2 35% PEEP 5. BP101/66 HR86 NSR on monitor. Left Forearm # 22, Left upper arm #20, Right forearm # 22, Right femoral TLC running phenylephrine 160mcg/min, Vasopressin 0.04 units/min, NS @100ml/hr. inserted OGT. Horton catheter draining yellow urine. Patient repositioned and oral care provided.
[2020-10-11] MEDS: Vasopressin 100 UNITS in NS 95 ML IV SCH (04:40)
[2020-10-11] MEDS: Phenylephrine 50 MG in D5W 245 ML IV SCH ×2 (04:41→12:14)
--- NOTE | 2020-10-11 06:00 | NUR ---
NURSE NOTES: Patient comatose with 7.5 ETT at 27cm lipline on ventilator AC TV FiO2 35% PEEP 5. BP101/62 HR81 NSR on monitor. Left Forearm # 22, Left upper arm #20, Right forearm # 22, Right femoral TLC running phenylephrine 140mcg/min, Vasopressin 0.04 units/min, NS @100ml/hr. inserted OGT. Horton catheter draining yellow urine. Patient repositioned and oral care provided.
[2020-10-11 06:34] LABS: HEMATOCRIT 28.1 % (42.0-52.0); HEMOGLOBIN 8.8 G/DL (14.2-18.0); MEAN CORPUSCULAR VOLUME 90 FL (80-99); PLATELET COUNT 140 K/UL (150-450); RED BLOOD COUNT 3.14 M/UL (4.70-6.10); RED CELL DISTRIBUTION WIDTH 12.3 % (11.6-14.8); WHITE BLOOD COUNT 8.8 K/UL (4.8-10.8)
[2020-10-11 06:41] LABS: ALBUMIN 1.4 G/DL (3.4-5.0); ALBUMIN/GLOBULIN RATIO 0.3 (1.0-2.7); BILIRUBIN,TOTAL 0.3 MG/DL (0.2-1.0); CALCIUM 8.7 MG/DL (8.5-10.1); CREATININE 1.8 MG/DL (0.55-1.30); POTASSIUM 5.3 MMOL/L (3.5-5.1)
--- NOTE | 2020-10-11 07:21 | Pulmonolgy Critical Care Note ---
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 (3) s/p Cardiac arrest (4) AIDS (5) Encephalopathy acute (6) UTI (urinary tract infection) (7) Altered mental status (8) Amphetamine abuse (9) COVID-19 virus detected Respiratory: adjust tidal volume, monitor respiratory rate, adjust FIO2, CXR, ABG, HHN's, continue DEX D7 Cardiac: continue pressors - Titrate to keep MAP > 60, other - TTE Renal: IVF NS@100 Infectious Disease: check cultures, continue antibiotics - antimicrobial therapy per ID, LP if able Gastrointestinal: start NGT feeds once clinically stable Endocrine: monitor blood sugar, continue Dex Hematologic: monitor H/H Neurologic: Unresponsive, once more responsive will start ICU sedation, F/U neuro recs Prophylaxis: Protonix, LMWH case discussed and evaluated by supervising physician Critical Care - Objective Last 24 Hour Vital Signs Date Time Temp Pulse Resp B/P (MAP) Pulse Ox O2 Delivery O2 Flow Rate FiO2 10/11/20 06:00 81 14 101/62 (75) 100 10/11/20 05:00 82 14 90/57 (68) 100 10/11/20 04:41 84 111/74 10/11/20 04:00 87 10/11/20 04:00 35 10/11/20 04:00 99.0 86 14 101/66 (78) 100 10/11/20 03:00 104/70 10/11/20 03:00 87 14 104/70 (81) 100 10/11/20 02:30 84 14 35 10/11/20 02:00 84 14 88/59 (69) 100 10/11/20 02:00 88/59 10/11/20 01:00 83 14 96/63 (74) 100 10/11/20 01:00 96/63 10/11/20 00:15 85 14 97/67 (77) 100 10/11/20 00:15 97/67 10/11/20 00:00 86/57 10/11/20 00:00 81 10/11/20 00:00 98.9 84 14 85/53 (64) 100 10/11/20 00:00 35 10/10/20 23:25 98.9 89 14 96/71 (79) 100 10/10/20 23:00 89 14 85/52 (63) 100 10/10/20 23:00 96/71 10/10/20 22:54 89 14 35 10/10/20 22:24 91 86/60 10/10/20 22:00 91 14 95/64 (74) 100 10/10/20 22:00 95/64 10/10/20 21:00 93/68 10/10/20 21:00 92 14 93/68 (76) 100 10/10/20 20:00 98 10/10/20 20:00 121/87 10/10/20 20:00 99.1 96 14 103/73 (83) 100 10/10/20 20:00 40 10/10/20 19:00 99 14 138/96 (110) 100 10/10/20 19:00 105/65 10/10/20 19:00 100 14 40 10/10/20 18:45 100/59 10/10/20 18:30 99 14 132/96 (108) 100 10/10/20 18:30 112/64 10/10/20 18:15 132/96 10/10/20 18:00 131/90 10/10/20 18:00 98.0 100 14 151/103 (119) 100 10/10/20 17:45 151/103 10/10/20 17:30 132/94 10/10/20 17:30 102 14 123/92 (102) 100 10/10/20 17:15 123/92 10/10/20 17:00 101 14 124/90 (101) 100 10/10/20 17:00 124/90 10/10/20 16:45 114/85 10/10/20 16:30 102 15 91/67 (75) 99 10/10/20 16:30 97/71 10/10/20 16:15 91/67 10/10/20 16:00 103 10/10/20 16:00 124/86 10/10/20 16:00 104 14 124/86 (99) 100 10/10/20 16:00 98.1 108 14 134/97 (109) 100 10/10/20 15:45 134/97 10/10/20 15:30 127/95 10/10/20 15:30 107 14 123/93 (103) 100 10/10/20 15:15 123/93 10/10/20 15:06 107 14 40 10/10/20 15:00 100 14 117/83 (94) 100 10/10/20 14:59 111 126/87 10/10/20 14:59 126/87 10/10/20 14:30 112 14 123/91 (102) 100 10/10/20 14:00 111 14 121/84 (96) 100 10/10/20 13:30 112 14 110/84 (93) 100 10/10/20 13:00 111 14 123/91 (102) 100 10/10/20 13:00 111/84 10/10/20 12:30 112 14 120/83 (95) 100 10/10/20 12:10 40 10/10/20 12:04 113 14 40 10/10/20 12:00 112 14 110/88 (95) 100 10/10/20 12:00 110/88 10/10/20 12:00 112 10/10/20 12:00 50 10/10/20 11:30 113 14 116/87 (97) 100 10/10/20 11:25 112 14 50 10/10/20 11:00 114 14 111/83 (92) 100 10/10/20 11:00 111/83 10/10/20 10:30 114 14 114/76 (89) 100 10/10/20 10:00 112 14 118/77 (91) 100 10/10/20 10:00 108/81 10/10/20 09:30 114 14 114/85 (95) 100 10/10/20 09:30 100/76 10/10/20 09:15 114/85 10/10/20 09:00 130/85 10/10/20 09:00 117 14 113/88 (96) 100 10/10/20 08:45 122/93 10/10/20 08:31 50 10/10/20 08:30 120/98 10/10/20 08:30 100.2 123 14 110/82 (91) 100 10/10/20 08:15 110/82 10/10/20 08:00 116 10/10/20 08:00 114/82 10/10/20 08:00 100 10/10/20 08:00 Mechanical Ventilator 10/10/20 08:00 127 14 102/65 (77) 100 10/10/20 07:30 127 14 108/70 (83) 100 Objective: Status: obtunded Condition: critical Lines: femoral CL intact HEENT: atraumatic, normocephalic, pupils not reactive ,ET in place, intact Lungs: BL rhonchi Heart: HR/BP unstable Abdomen: soft, non-tender, active bowel sounds Extremities: no C/C/E Micro: Microbiology Date/Time Source Procedure Growth Status 10/09/20 20:20 Blood Blood Culture - Preliminary NO GROWTH AFTER 24 HOURS Resulted 10/09/20 20:05 Blood Blood Culture - Preliminary NO GROWTH AFTER 24 HOURS Resulted Accucheck: 99 Critical Care - Subjective ROS Limited/Unobtainable: Yes Interval Events: intubated on 2 pressors, Levo stopped earlier no fevers, not responsive Condition: critical IV Access: central - femoral intact EKG Rhythm: Sinus Rhythm - to low ST FI02: 35 Vent Support Breath Rate: 14 Vent Support Mode: AC Vent Tidal Volume: 500 Sputum Amount: Scant PEEP: 5.0 PIP: 18 Fluids: NS at 100 Drips: Laci 140 mcg/min, Vasopressin 0.04 u/min I&O: Intake and Output 10/10/20 10/11/20 19:00 07:00 Intake Total 3160.910 ml 2433.78988 ml Output Total 1450 ml 1100 ml Balance 1710.910 ml 1333.50565 ml IV Total 3160.910 ml 2433.28545 ml Output Urine Total 1450 ml 1100 ml CXR: CXR 10/09 1. Endotracheal tube is noted in place with its tip approximate 3 cm above the alesha. 2. Patchy airspace disease is noted at the lung bases, right greater than left worrisome for by basilar pneumonias. Clinical correlation is advised. ET-Tube: 7.5 ET Position: 27 Jaime Wiggins MD 10/13/20 0834: Critical Care - Asmt/Plan Time Spent (Minutes): 40 Margaret Qureshi NP Oct 11, 2020 07:21 Jaime Wiggins MD Oct 13, 2020 08:34
--- NOTE | 2020-10-11 07:26 | NUR ---
NURSE HAND-OFF REPORT: Latest Vital Signs: Temperature 99.0 , Pulse 78 , B/P 101 /62 , Respiratory Rate 14 , O2 SAT 100 , Room Air, O2 Flow Rate 15.0 . Vital Sign Comment: WNL, patient comatose EKG Rhythm: Sinus Rhythm Rhythm change?: N MD Notified?: - MD Response: Latest Red Fall Score: 50 Fall Risk: High Risk Safety Measures: Call light Within Reach, Bed Alarm Zone 1, Side Rails Side Rails x3, Bed position Low and Locked. Fall Precautions: Report given to ITZEL Mendes.
--- NOTE | 2020-10-11 07:57 | NUR ---
NURSE NOTES: Received report from Kelly ROBBINS.
[2020-10-11] MEDS: Azithromycin 250mg tab ORAL SCH (08:24)
--- NOTE | 2020-10-11 08:30 | NUR ---
NURSE NOTES: Pt. in bed, obtunded. No sign of distress. ETT in placed 7.5/27cm. with setting AC14/VT500/Fi O2 at 35%/P5. IV site in place Left FA #22g, Right FA #22g. and Left upper arm #20g. in placed. Right femoral TLC in placed patent/intact running Laci 140mcg/min and other lumen Vaso 0.04units and another lumen NS at 100cc/hr. F/C in placed patent/intact draining yellow colored with sediments noted. Bed in low position, locked. Call light within reach. Will cont. to monitor.
[2020-10-11] MEDS: Trimethoprim/Sulfamethoxazole 20 ML in D5W 500ml 550 ML IV SCH ×2 (08:57→16:32)
[2020-10-11] MEDS: Enoxaparin 40mg Inj SUBQ SCH (08:58)
[2020-10-11] MEDS: Pantoprazole Inj IVP SCH (08:58)
[2020-10-11] MEDS: dexAMETHasone 10mg/ml Inj IV SCH (08:58)
--- NOTE | 2020-10-11 09:36 | NUR ---
CASE MANAGEMENT:REVIEW 10/11/20 SI: COVID(+). HIV(+) TOXIC ENCEPHALOPATHY 97.7 77 14 121/80 SAT 100% ON VENT SUPPORT W/35% FIO2 H/H-8.8/28.1 PLT-140 K+5.3 BUN+48 CR+1.8 IS: IVF NS@100/HR PHENYLEPHRINE GTT VASOPRESSIN GTT LEVOPHED GTT IV BACTRIM Q8HRS IV ZOSYN Q8HRS IV DIFLUCAN Q24 IV DECADRON QD IV PROTONIX QD LOVENOX SQ QD : ICU STATUS DCP: SOCIAL SERVICE CONSULT PLAN: COMPLETED REMDESIVIR
--- NOTE | 2020-10-11 09:50 | NUR ---
NURSE NOTES: Oral care rendered. Suctioned by RAll Turned and repositioned.
--- NOTE | 2020-10-11 09:50 | Diagnostic Imaging Report ---
EXAM: XR Chest, 1 View CLINICAL HISTORY: INFECT TECHNIQUE: Frontal view of the chest. COMPARISON: Chest radiograph October 09, 2020 FINDINGS/IMPRESSION: Improving infiltrate in the right lower lung field, medially. Findings are consistent with infiltrate. Follow-up chest radiograph recommended. Endotracheal tube terminates approximately 4.9 cm above the alesha. Enteric feeding tube in the stomach.
--- NOTE | 2020-10-11 10:29 | NUR ---
RADIOLOGY DEPT., CHEST X-RAY DONE.-P.DYE
--- NOTE | 2020-10-11 11:00 | NUR ---
NURSE NOTES: Seen by Titus FOURNIER with lab. orders. Orders noted.
--- NOTE | 2020-10-11 12:10 | NUR ---
NURSE NOTES: Pt. noted with good output from F/C draining well with yellow colored urine.
[2020-10-11] MEDS ORDERED: Vancomycin 750mg/NS 275ml IVPB ONE ×2 (15:00)
--- NOTE | 2020-10-11 16:17 | Infectious Diseases Prog Note ---
Assessment/Plan Assessment/Plan ASSESSMENT AND PLAN: 1. COVID-19 infection, acute hypoxia, ams, fevers, sepsis HIV, AIDS - CDR 10, pcr pending LDH wnl - less likely pneumocystis but possible enterococcus uti fungemia - ? cryptococcus infection - dexamethasone and remdesivir - zosyn, vancomycin, diflucan, azithromycin, iv bactrim - reculture patient - f/u cryptococcus serum antigen, beta-D glucan - consider LP if possible - monitor labs and chest x-ray - Hold on HIV treatment until OI ruled out because of potential of immune reconstitution syndrome - patient still febrile and acutely ill - poor prognosis 2. pmh o/w negative 3. Amphetamine use 4) allergies - negative 5. will f/u Subjective Constitutional: Denies: fever HEENT: Reports: congestion Respiratory: Reports: shortness of breath Cardiovascular: Reports: other - on pressors Gastrointestinal/Abdominal: Denies: nausea, vomiting Allergies: Coded Allergies: No Known Allergies (Unverified , 09/29/20) Objective Last 24 Hour Vital Signs Date Time Temp Pulse Resp B/P (MAP) Pulse Ox O2 Delivery O2 Flow Rate FiO2 10/11/20 15:00 84 16 132/98 (109) 100 10/11/20 14:00 107 16 167/113 (131) 100 10/11/20 13:00 188/126 10/11/20 13:00 106 16 188/126 (146) 100 10/11/20 12:14 68 101/64 10/11/20 12:13 69 10/11/20 12:00 97.1 71 16 101/64 (76) 100 10/11/20 12:00 35 10/11/20 12:00 101/64 10/11/20 11:25 80 16 35 10/11/20 11:00 71 16 62/39 (47) 100 10/11/20 10:00 77 16 152/103 (119) 100 10/11/20 09:00 77 16 117/76 (90) 100 10/11/20 08:00 97.7 77 14 121/80 (94) 100 10/11/20 08:00 35 10/11/20 08:00 Mechanical Ventilator 10/11/20 07:29 79 10/11/20 07:00 78 14 35 10/11/20 07:00 80 14 114/74 (87) 100 10/11/20 06:00 81 14 101/62 (75) 100 10/11/20 05:00 82 14 90/57 (68) 100 10/11/20 04:41 84 111/74 10/11/20 04:00 87 10/11/20 04:00 35 10/11/20 04:00 99.0 86 14 101/66 (78) 100 10/11/20 03:00 104/70 10/11/20 03:00 87 14 104/70 (81) 100 10/11/20 02:30 84 14 35 10/11/20 02:00 84 14 88/59 (69) 100 10/11/20 02:00 88/59 10/11/20 01:00 83 14 96/63 (74) 100 10/11/20 01:00 96/63 10/11/20 00:15 85 14 97/67 (77) 100 10/11/20 00:15 97/67 10/11/20 00:00 86/57 10/11/20 00:00 81 10/11/20 00:00 98.9 84 14 85/53 (64) 100 10/11/20 00:00 35 10/10/20 23:25 98.9 89 14 96/71 (79) 100 10/10/20 23:00 89 14 85/52 (63) 100 10/10/20 23:00 96/71 10/10/20 22:54 89 14 35 10/10/20 22:24 91 86/60 10/10/20 22:00 91 14 95/64 (74) 100 10/10/20 22:00 95/64 10/10/20 21:00 93/68 10/10/20 21:00 92 14 93/68 (76) 100 10/10/20 20:00 98 10/10/20 20:00 121/87 10/10/20 20:00 99.1 96 14 103/73 (83) 100 10/10/20 20:00 40 10/10/20 19:00 99 14 138/96 (110) 100 10/10/20 19:00 105/65 10/10/20 19:00 100 14 40 10/10/20 18:45 100/59 10/10/20 18:30 99 14 132/96 (108) 100 10/10/20 18:30 112/64 10/10/20 18:15 132/96 10/10/20 18:00 131/90 10/10/20 18:00 98.0 100 14 151/103 (119) 100 10/10/20 17:45 151/103 10/10/20 17:30 132/94 10/10/20 17:30 102 14 123/92 (102) 100 10/10/20 17:15 123/92 10/10/20 17:00 101 14 124/90 (101) 100 10/10/20 17:00 124/90 10/10/20 16:45 114/85 10/10/20 16:30 102 15 91/67 (75) 99 10/10/20 16:30 97/71 10/10/20 16:15 91/67 10/10/20 16:00 103 10/10/20 16:00 124/86 10/10/20 16:00 104 14 124/86 (99) 100 10/10/20 16:00 98.1 108 14 134/97 (109) 100 Height (Feet): 6 Weight (Pounds): 120 HEENT: normocephalic, atraumatic, no JVD Respiratory/Chest: crackles/rales, rhonchi - bilaterally Cardiovascular: normal rate, regular rhythm Abdomen: soft, non tender, no organomegaly Chest x-ray - 10/04/20 - Procedure: XRAY Chest 1v EXAM: XR Chest, 1 View CLINICAL HISTORY: DIARRHEA TECHNIQUE: Frontal view of the chest. COMPARISON: Chest x-ray 10/01/2020 FINDINGS: Lungs: New mild patchy opacities within the medial left lung base and to a lesser extent the medial right lung base. Pleural space: Unremarkable. No pneumothorax. Heart: Unremarkable. No cardiomegaly. Mediastinum: Unremarkable. Bones/joints: Unremarkable. IMPRESSION: New mild patchy opacities within the lung bases may indicate a developing infectious/inflammatory process such as multifocal pneumonia or aspiration pneumonitis. Microbiology Date/Time Source Procedure Growth Status 10/09/20 20:20 Blood Blood Culture - Preliminary NO GROWTH AFTER 24 HOURS Resulted 10/09/20 20:05 Blood Blood Culture - Preliminary NO GROWTH AFTER 24 HOURS Resulted Laboratory Tests Test 10/11/20 05:10 10/11/20 11:50 White Blood Count 8.8 K/UL (4.8-10.8) Red Blood Count 3.14 M/UL (4.70-6.10) L Hemoglobin 8.8 G/DL (14.2-18.0) L Hematocrit 28.1 % (42.0-52.0) L Mean Corpuscular Volume 90 FL (80-99) Mean Corpuscular Hemoglobin 27.9 PG (27.0-31.0) Mean Corpuscular Hemoglobin Concent 31.2 G/DL (32.0-36.0) L Red Cell Distribution Width 12.3 % (11.6-14.8) Platelet Count 140 K/UL (150-450) L Mean Platelet Volume 8.2 FL (6.5-10.1) Neutrophils (%) (Auto) % (45.0-75.0) Lymphocytes (%) (Auto) % (20.0-45.0) Monocytes (%) (Auto) % (1.0-10.0) Eosinophils (%) (Auto) % (0.0-3.0) Basophils (%) (Auto) % (0.0-2.0) Differential Total Cells Counted 100 Neutrophils % (Manual) 83 % (45-75) H Lymphocytes % (Manual) 9 % (20-45) L Monocytes % (Manual) 8 % (1-10) Eosinophils % (Manual) 0 % (0-3) Basophils % (Manual) 0 % (0-2) Band Neutrophils 0 % (0-8) Platelet Estimate Decreased L Platelet Morphology Normal Hypochromasia 1+ Sodium Level 136 MMOL/L (136-145) Potassium Level 5.3 MMOL/L (3.5-5.1) H Chloride Level 103 MMOL/L (98-107) Carbon Dioxide Level 26 MMOL/L (21-32) Anion Gap 7 mmol/L (5-15) Blood Urea Nitrogen 48 mg/dL (7-18) H Creatinine 1.8 MG/DL (0.55-1.30) H Estimat Glomerular Filtration Rate 50.9 mL/min (>60) Glucose Level 173 MG/DL (74-106) #H Calcium Level 8.7 MG/DL (8.5-10.1) Total Bilirubin 0.3 MG/DL (0.2-1.0) Aspartate Amino Transf (AST/SGOT) 59 U/L (15-37) H Alanine Aminotransferase (ALT/SGPT) 39 U/L (12-78) Alkaline Phosphatase 56 U/L (46-116) Total Protein 6.2 G/DL (6.4-8.2) L Albumin 1.4 G/DL (3.4-5.0) L Globulin 4.8 g/dL Albumin/Globulin Ratio 0.3 (1.0-2.7) L Random Vancomycin Level 15.8 ug/mL Current Medications Medications (Trade) Dose Ordered Sig/Carleen Route PRN Reason Start Time Stop Time Status Last Admin Dose Admin Acetaminophen (Tylenol) 650 mg Q4H PRN ORAL Mild Pain (Pain Scale 1-3) 10/01/20 11:00 10/31/20 10:59 Acetaminophen (Tylenol) 650 mg Q4H PRN RECTAL BT>100.5F 10/04/20 23:30 11/03/20 23:29 10/05/20 08:18 Albuterol Sulfate (Proventil MDI) 2 puff Q4H PRN INH Shortness of Breath 10/01/20 11:00 12/30/20 10:59 Azithromycin (Zithromax) 500 mg DAILY ORAL 10/06/20 09:00 10/13/20 08:59 10/07/20 10:15 Bisacodyl (Dulcolax) 10 mg DAILYPRN PRN RECTAL Constipation 10/08/20 19:00 01/06/21 18:59 Chlorhexidine Gluconate (Malgorzata-Hex 2%) 1 applic DAILY@2000 TOPIC 10/10/20 20:00 01/08/21 19:59 10/10/20 19:51 Dexamethasone Sodium Phosphate (Decadron 10mg/ ml Inj) 6 mg DAILY IV 10/04/20 09:00 10/13/20 09:01 10/11/20 08:58 Dextrose (Dextrose 50%) 25 ml Q30M PRN IV Hypoglycemia 10/01/20 11:00 12/30/20 10:59 Dextrose (Dextrose 50%) 50 ml Q30M PRN IV Hypoglycemia 10/01/20 11:00 12/30/20 10:59 Enoxaparin Sodium (Lovenox) 40 mg DAILY SUBQ 10/01/20 12:00 12/30/20 11:59 10/11/20 08:58 Fluconazole/ Sodium Chloride 200 ml @ 100 mls/hr Q24H IV 10/05/20 18:00 10/12/20 17:59 10/10/20 17:34 Hydralazine HCl (Apresoline) 10 mg Q4H PRN IV SBP > 150 mmHg 10/09/20 08:15 01/07/21 08:14 Metoprolol Tartrate (Lopressor) 5 mg Q5MIN X 3 IVP 10/10/20 05:15 01/08/21 05:14 10/10/20 05:15 Norepinephrine Bitartrate 16 mg/ Dextrose 516 ml @ 0 mls/hr Q24H IV 10/10/20 01:30 10/13/20 01:29 10/10/20 14:59 Ondansetron HCl (Zofran) 4 mg Q6H PRN IVP Nausea & Vomiting 10/01/20 11:00 10/31/20 10:59 Pantoprazole (Protonix) 40 mg DAILY IVP 10/02/20 13:00 11/01/20 12:59 10/11/20 08:58 Phenylephrine HCl 50 mg/Dextrose 250 ml @ 0 mls/hr Q24H IV 10/10/20 06:45 10/13/20 06:33 10/11/20 12:14 Piperacillin Sod/ Tazobactam Sod 3.375 gm/Dextrose 100 ml @ 25 mls/hr Q8H IVPB 10/07/20 08:00 10/14/20 07:59 10/11/20 08:57 Sodium Chloride 1,000 ml @ 100 mls/hr Q10H IV 10/10/20 09:00 11/09/20 08:59 10/11/20 14:43 Trimethoprim/ Sulfamethoxazole 20 ml/Dextrose 570 ml @ 380 mls/hr [id number] BACTRIM IV 10/10/20 00:00 10/17/20 00:00 10/11/20 08:57 Vancomycin HCl (Vanco pharmacy to dose) 1 ea DAILY PRN MISC Per rx protocol 10/05/20 16:00 11/04/20 15:59 Vancomycin HCl 750 mg/Sodium Chloride 275 ml @ 183.333 mls/hr ONCE ONCE IVPB 10/11/20 15:00 10/11/20 16:29 10/11/20 15:28 Vasopressin 100 units/Sodium Chloride 100 ml @ 0 mls/hr Q24H IV 10/10/20 05:15 10/13/20 05:09 10/11/20 04:40 Wood Tyler MD Oct 11, 2020 16:17
--- NOTE | 2020-10-11 16:25 | NUR ---
NURSE NOTES: Seen by Dr. Perez with [facility].
--- NOTE | 2020-10-11 18:52 | Neurology Progress Note ---
Interim History Interim History ROS Limited/Unobtainable: Yes Interim History intubated on pressors unstable Objective Physical Exam Last Vital Signs Date Time Temp Pulse Resp B/P (MAP) Pulse Ox O2 Delivery O2 Flow Rate FiO2 10/11/20 18:00 75 16 173/111 (131) 100 10/11/20 16:00 35 10/11/20 12:00 97.1 10/11/20 08:00 Mechanical Ventilator 10/09/20 21:00 15.0 Laboratory Tests Test 10/11/20 05:10 10/11/20 11:50 White Blood Count 8.8 K/UL (4.8-10.8) Red Blood Count 3.14 M/UL (4.70-6.10) L Hemoglobin 8.8 G/DL (14.2-18.0) L Hematocrit 28.1 % (42.0-52.0) L Mean Corpuscular Volume 90 FL (80-99) Mean Corpuscular Hemoglobin 27.9 PG (27.0-31.0) Mean Corpuscular Hemoglobin Concent 31.2 G/DL (32.0-36.0) L Red Cell Distribution Width 12.3 % (11.6-14.8) Platelet Count 140 K/UL (150-450) L Mean Platelet Volume 8.2 FL (6.5-10.1) Neutrophils (%) (Auto) % (45.0-75.0) Lymphocytes (%) (Auto) % (20.0-45.0) Monocytes (%) (Auto) % (1.0-10.0) Eosinophils (%) (Auto) % (0.0-3.0) Basophils (%) (Auto) % (0.0-2.0) Differential Total Cells Counted 100 Neutrophils % (Manual) 83 % (45-75) H Lymphocytes % (Manual) 9 % (20-45) L Monocytes % (Manual) 8 % (1-10) Eosinophils % (Manual) 0 % (0-3) Basophils % (Manual) 0 % (0-2) Band Neutrophils 0 % (0-8) Platelet Estimate Decreased L Platelet Morphology Normal Hypochromasia 1+ Sodium Level 136 MMOL/L (136-145) Potassium Level 5.3 MMOL/L (3.5-5.1) H Chloride Level 103 MMOL/L (98-107) Carbon Dioxide Level 26 MMOL/L (21-32) Anion Gap 7 mmol/L (5-15) Blood Urea Nitrogen 48 mg/dL (7-18) H Creatinine 1.8 MG/DL (0.55-1.30) H Estimat Glomerular Filtration Rate 50.9 mL/min (>60) Glucose Level 173 MG/DL (74-106) #H Calcium Level 8.7 MG/DL (8.5-10.1) Total Bilirubin 0.3 MG/DL (0.2-1.0) Aspartate Amino Transf (AST/SGOT) 59 U/L (15-37) H Alanine Aminotransferase (ALT/SGPT) 39 U/L (12-78) Alkaline Phosphatase 56 U/L (46-116) Total Protein 6.2 G/DL (6.4-8.2) L Albumin 1.4 G/DL (3.4-5.0) L Globulin 4.8 g/dL Albumin/Globulin Ratio 0.3 (1.0-2.7) L Random Vancomycin Level 15.8 ug/mL Neurologic Exam Objective intubated on pressors pupils reactive Impression/Recommendations Problems: (1) Substance abuse (2) Encephalopathy acute (3) Altered mental status (4) Amphetamine abuse (5) AIDS (6) UTI (urinary tract infection) (7) COVID-19 virus detected Diagnostic Impression 1. Encephalopathy likely toxic --> prior urine tox screen was + for methamphetamines --> CT head was completed and is unremarkable 2. Covid 19 Disease --> afebrile no hypoxia no treatment indicated 3. Polysubstance Abuse --> rec cessation when fully awake. 4. resp failure on vent cc 35 min Jayme Landa MD Oct 11, 2020 18:52
--- NOTE | 2020-10-11 19:30 | NUR ---
NURSE NOTES: Patient received from ITZEL Nesbitt. Patient does not respond to pain, no gag reflex noted. 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 Then transferred to ICU. 10/10 0015 Asystole/Coded 7.5 ETT at 27cm from lip line. Setting:AC TV FiO2 40% PEEP 5. LFA 22G, ARA 20G, RFA 22G noted. Right femoral TLC running Levophed HELD, Phenylephrine 140mcg/min, Vasopressin 0.04 units/min, NS @100ml/hr. Horton catheter draining yellow urine. Bioethics on board per AMRN Safety measures observed and no acute distress noted. Will continue to monitor.
--- NOTE | 2020-10-11 19:40 | NUR ---
NURSE HAND-OFF REPORT: Latest Vital Signs: Temperature 97.1 , Pulse 66 , B/P 112 /79 , Respiratory Rate 18 , O2 SAT 100 , Room Air, O2 Flow Rate 15.0 . Vital Sign Comment: wnl EKG Rhythm: Sinus Rhythm Rhythm change?: N MD Notified?: - MD Response: Latest Red Fall Score: 50 Fall Risk: High Risk Safety Measures: Call light Within Reach, Bed Alarm Zone 1, Side Rails Side Rails x3, Bed position Low and Locked. Fall Precautions: Report given to Hanna Sánchez RN.
--- NOTE | 2020-10-11 19:45 | NUR ---
NURSE NOTES: Levo 2mgs started.
[2020-10-11] MEDS: Dyna-Hex 2% Top Sol 2oz TOPIC SCH (20:00)
--- NOTE | 2020-10-11 20:00 | NUR ---
NURSE NOTES: Titrate to Levo 4mcgs.
--- NOTE | 2020-10-11 20:15 | NUR ---
NURSE NOTES: Titrate to Levo 6mcgs.
[2020-10-12] VITALS (50 sets, daily range): BP systolic 77–187; BP diastolic 51–121
--- NOTE | 2020-10-12 | NUR ---
NURSE NOTES: Pt's BP stable. Switch to Laci 140mcgs.
--- NOTE | 2020-10-12 00:30 | NUR ---
NURSE NOTES: Hypertensive, Levo stopped. Laci titrate down to 100 mcgs.
--- NOTE | 2020-10-12 00:45 | NUR ---
NURSE NOTES: Laci titrate down to 80 mcgs.
[2020-10-12] MEDS: Trimethoprim/Sulfamethoxazole 20 ML in D5W 500ml 550 ML IV SCH ×4 (01:00→23:37)
--- NOTE | 2020-10-12 01:15 | NUR ---
NURSE NOTES: Laci titrate down to 60 mcgs
--- NOTE | 2020-10-12 01:30 | NUR ---
NURSE NOTES: Laci titrate down to 40 mcgs
--- NOTE | 2020-10-12 03:00 | NUR ---
NURSE NOTES: AM care given. Turned and repositioned. Oral care provided.
[2020-10-12] MEDS: Vasopressin 100 UNITS in NS 95 ML IV SCH (05:15)
--- NOTE | 2020-10-12 06:30 | NUR ---
NURSE NOTES: Laci titrate down to 20 mcgs Addendum: 10/12/20 at 0758 by Hanna Bee RN Vaso titrate down to 0.02U
--- NOTE | 2020-10-12 07:00 | NUR ---
NURSE NOTES: Pt hypotensive. Laci titrate back to 40 mcgs.
--- NOTE | 2020-10-12 07:01 | NUR ---
NURSE NOTES: Report received from Hanna Bee RN. Patient is comatose in bed. No response to pain. No gag reflex. No pupil response. Bilateral pupils +5. Afebrile. SB on air sampling and monitoring. HR 55-59. ETT 7.5/27cm at lip line. AC 16, TV 500, FiO2 30%, P 5. O2 sat 98-100%. RR 16. OGT in place and clamped as ordered. Horton in place draining yellow urine to gravity. Right femoral TLC patent and asymptomatic. Patient is on Phenylephrine at 40 mcg/min, Vasopressin at 0.02 units/min, and NS at 100cc/hr. Bed in lowest position. Side rails up x3. Will resume plan of care.
--- NOTE | 2020-10-12 07:02 | NUR ---
NURSE NOTES: Right foot splint in place. Patient is able to move toes. No redness, no swelling. Patient denies pain or discomfort on right foot and leg. Will continue to monitor.
[2020-10-12 07:56] LABS: HEMATOCRIT 23.2 % (42.0-52.0); HEMOGLOBIN 7.6 G/DL (14.2-18.0); MEAN CORPUSCULAR VOLUME 86 FL (80-99); PLATELET COUNT 124 K/UL (150-450); RED BLOOD COUNT 2.69 M/UL (4.70-6.10); RED CELL DISTRIBUTION WIDTH 12.1 % (11.6-14.8); WHITE BLOOD COUNT 7.7 K/UL (4.8-10.8)
[2020-10-12] MEDS: Pantoprazole Inj IVP SCH (08:08)
[2020-10-12] MEDS: dexAMETHasone 10mg/ml Inj IV SCH (08:08)
[2020-10-12] MEDS: Azithromycin 250mg tab ORAL SCH (08:09)
[2020-10-12] MEDS: Enoxaparin 40mg Inj SUBQ SCH ×2 (08:09→08:36)
--- NOTE | 2020-10-12 08:16 | Pulmonolgy Critical Care Note ---
Margaret Qureshi WASH HELPER 10/12/20 0816: Critical Care - Asmt/Plan Assessment/Plan: ASSESSMENT/PLAN Sepsis with shock Dependence on ventilator status s/p Cardiac arrest AIDS/CD4 10 Encephalopathy acute toxic Fungemia ?Cryptococcal infection Enterococci UTI Amphetamine abuse COVID-19 virus detected Respiratory: adjust tidal volume, monitor respiratory rate, adjust FIO2, CXR, ABG, HHN's, continue DEX D8 Cardiac: continue pressors - Titrate to keep MAP > 60, TTE Renal: IVF NS@100 Infectious Disease: check cultures, continue antibiotics - antimicrobial therapy per ID, UCX + Enterococci, BCX 10/04 + yeast, repeated 10/09 NGTD, ? cryptococcal infection, , serology pending, LP if able Gastrointestinal: start NGT feeds once clinically stable, aspiration precautions Endocrine: monitor blood sugar, continue Dex Hematologic: monitor H/H Neurologic: comatose, once more responsive consider to start ICU sedation, F/U neuro recs Prophylaxis: Protonix, LMWH Overall prognosis poor Consider EEG SW to attempt to locate family If no family located, then bioethics eval case discussed and evaluated by supervising physician Critical Care - Objective Last 24 Hour Vital Signs Date Time Temp Pulse Resp B/P (MAP) Pulse Ox O2 Delivery O2 Flow Rate FiO2 10/12/20 07:00 55 16 77/60 (66) 100 10/12/20 06:30 59 16 150/107 (121) 100 10/12/20 06:15 59 16 157/110 (126) 100 10/12/20 06:00 97.3 58 16 144/109 (121) 100 10/12/20 05:00 58 16 102/77 (85) 100 10/12/20 04:00 Mechanical Ventilator 10/12/20 04:00 59 16 100/72 (81) 100 10/12/20 04:00 30 10/12/20 04:00 59 10/12/20 03:30 60 16 30 10/12/20 03:00 61 16 117/83 (94) 100 10/12/20 02:00 67 16 102/70 (81) 100 10/12/20 01:30 170/112 10/12/20 01:00 78 16 187/121 (143) 100 10/12/20 00:30 185/121 10/12/20 00:15 120/91 10/12/20 00:00 67 120/91 10/12/20 00:00 117/87 10/12/20 00:00 Mechanical Ventilator 10/12/20 00:00 66 16 117/87 (97) 100 10/11/20 23:22 68 16 30 10/11/20 23:00 110/82 10/11/20 23:00 66 16 110/82 (91) 100 10/11/20 22:00 103/80 10/11/20 22:00 69 16 103/80 (88) 100 10/11/20 21:00 70 16 116/85 (95) 100 10/11/20 21:00 116/85 10/11/20 20:30 134/95 10/11/20 20:15 178/126 10/11/20 20:00 30 10/11/20 20:00 62/43 10/11/20 20:00 65 16 62/43 (49) 100 10/11/20 20:00 66 10/11/20 19:45 73/48 10/11/20 19:30 65 16 30 10/11/20 19:00 66 18 112/79 (90) 100 10/11/20 18:00 75 16 173/111 (131) 100 10/11/20 17:00 77 16 166/108 (127) 100 10/11/20 16:00 80 16 129/90 (103) 100 10/11/20 16:00 35 10/11/20 15:30 88 10/11/20 15:02 78 16 30 10/11/20 15:00 84 16 132/98 (109) 100 10/11/20 14:00 107 16 167/113 (131) 100 10/11/20 13:00 188/126 10/11/20 13:00 106 16 188/126 (146) 100 10/11/20 12:14 68 101/64 10/11/20 12:13 69 10/11/20 12:00 97.1 71 16 101/64 (76) 100 10/11/20 12:00 35 10/11/20 12:00 101/64 10/11/20 11:25 80 16 35 10/11/20 11:00 71 16 62/39 (47) 100 10/11/20 10:00 77 16 152/103 (119) 100 10/11/20 09:00 77 16 117/76 90 100 Objective: Status: comatose Condition: critical Lines: femoral CL intact HEENT: atraumatic, normocephalic, pupils not reactive ,ET in place, intact, NGT Lungs: BL rhonchi Heart: HR/BP unstable Abdomen: soft, active bowel sounds Extremities: no C/C/E Micro: Microbiology Date/Time Source Procedure Growth Status 10/09/20 20:20 Blood Blood Culture - Preliminary NO GROWTH AFTER 24 HOURS Resulted 10/09/20 20:05 Blood Blood Culture - Preliminary NO GROWTH AFTER 24 HOURS Resulted Accucheck: 99 Critical Care - Subjective ROS Limited/Unobtainable: Yes Interval Events: remains intubated, comatose with unstable hemodynamics on 3 different pressors Condition: critical IV Access: central - femoral intact EKG Rhythm: Sinus Rhythm FI02: 30 Vent Support Breath Rate: 16 Vent Support Mode: AC Vent Tidal Volume: 500 Sputum Amount: Small PEEP: 5.0 PIP: 17 Fluids: NS at 100 Drips: Levo 6mcg/min, Laci 40 mcg/min Vasopressin 0.02 u/min I&O: Intake and Output 10/11/20 10/12/20 19:00 07:00 Intake Total 1592.27 ml 1167.15 ml Output Total 530 ml 600 ml Balance 1062.27 ml 567.15 ml IV Total 1592.27 ml 1167.15 ml Output Urine Total 530 ml 600 ml CXR: 10/11 Improving infiltrate in the right lower lung field, medially. Findings are consistent with infiltrate. ET-Tube: 7.5 ET Position: 27 Jaime Wiggins MD 10/13/20 0835: Margaret Qureshi NP Oct 12, 2020 08:16 Jaime Wiggins MD Oct 13, 2020 08:35
[2020-10-12 08:37] LABS: ANION GAP 9 mmol/L (5-15); BLOOD UREA NITROGEN 42 mg/dL (7-18); CALCIUM 8.6 MG/DL (8.5-10.1); CARBON DIOXIDE 23 MMOL/L (21-32); CHLORIDE 98 MMOL/L (98-107); CREATININE 1.3 MG/DL (0.55-1.30); POTASSIUM 4.5 MMOL/L (3.5-5.1); SODIUM 129 MMOL/L (136-145)
--- NOTE | 2020-10-12 08:37 | NUR ---
NURSE NOTES: Returned Lovenox for low Hgb 7.7 and small amount of active bleeding from mouth.
--- NOTE | 2020-10-12 09:00 | NUR ---
NURSE NOTES: Held Vasopressin since HR was 54. Spoke with pharmacist. Vasopressin has effect to lower HR. Held Vasopressin and increased Phenylephrine to 60mcg/min as per protocol. Will continue to monitor patient.
--- NOTE | 2020-10-12 09:10 | NUR ---
NURSE NOTES: Rectal temp 90.5. Placed on bear hugger and blanket. Will reassess temp later.
[2020-10-12] MEDS: Vancomycin 1.25gm/250ml Premix IVPB SCH ×2 (10:58→20:32)
--- NOTE | 2020-10-12 10:58 | Diagnostic Imaging Report ---
EXAM: XR Chest, 1 View CLINICAL HISTORY: SOB TECHNIQUE: Frontal view of the chest. COMPARISON: Chest radiograph October 11, 2020. FINDINGS/IMPRESSION: Stable endotracheal tube and intact feeding tube. Right base opacity, consistent with infiltrate, which is similar in appearance to the previous study. No pneumothorax. No pleural effusion. No cardiomegaly.
--- NOTE | 2020-10-12 11:30 | NUR ---
NURSE NOTES: Turned and repositioned patient. Oral care done. Will continue to monitor.
--- NOTE | 2020-10-12 12:27 | NUR ---
NURSE NOTES: Notified Margaret Qureshi NP regarding ABG result and low Na. No new orders for now.
--- NOTE | 2020-10-12 14:00 | NUR ---
NURSE NOTES: Rectal temp 92.5. Continued bear hugger and warm blankets. Will reassess temp later. BP 99/65. HR 68. Will continue the sate rate of Phenylephrine at 50mcg/min. Will continue to monitor.
[2020-10-12] MEDS: Phenylephrine 50 MG in D5W 245 ML IV SCH ×3 (15:00)
--- NOTE | 2020-10-12 16:30 | NUR ---
NURSE NOTES: Patient is dry and clean. Turned and repositioned patient. Oral temp 97.2. Turned off Bear hugger. Oral care done. Patient is on Phenylephrine at 50mcg/min for BP 92/56. Will continue to monitor.
--- NOTE | 2020-10-12 19:05 | NUR ---
NURSE HAND-OFF REPORT: Latest Vital Signs: Temperature 97.2 , Pulse 72 , B/P 101 /62 , Respiratory Rate 16 , O2 SAT 100 , Room Air, O2 Flow Rate 15.0 . Vital Sign Comment: EKG Rhythm: Sinus Rhythm Rhythm change?: N MD Notified?: MD Response: Latest Red Fall Score: 50 Fall Risk: High Risk Safety Measures: Call light Within Reach, Bed Alarm Zone 1, Side Rails Side Rails x3, Bed position Low and Locked. Fall Precautions: Report given to ITZEL Olson.
--- NOTE | 2020-10-12 19:56 | NUR ---
NURSE NOTES: received report from bhavesh rn pt comatose orally intubated -with o2 sat 100% npo on rt femt tlc with ns at 100cc/hr [id number] reposition and suction
[2020-10-12] MEDS: Dyna-Hex 2% Top Sol 2oz TOPIC SCH (20:31)
[2020-10-13] VITALS (51 sets, daily range): BP systolic 63–123; BP diastolic 46–92
--- NOTE | 2020-10-13 | NUR ---
NURSE NOTES: condition unchange
--- NOTE | 2020-10-13 04:00 | NUR ---
NURSE NOTES: complete bed bath oral care done
[2020-10-13 06:29] LABS: HEMATOCRIT 23.7 % (42.0-52.0); HEMOGLOBIN 7.7 G/DL (14.2-18.0); MEAN CORPUSCULAR VOLUME 87 FL (80-99); PLATELET COUNT 149 K/UL (150-450); RED BLOOD COUNT 2.72 M/UL (4.70-6.10); RED CELL DISTRIBUTION WIDTH 12.5 % (11.6-14.8); WHITE BLOOD COUNT 7.7 K/UL (4.8-10.8)
[2020-10-13 06:51] LABS: ANION GAP 9 mmol/L (5-15); BLOOD UREA NITROGEN 27 mg/dL (7-18); CALCIUM 9.2 MG/DL (8.5-10.1); CARBON DIOXIDE 24 MMOL/L (21-32); CHLORIDE 112 MMOL/L (98-107); CREATININE 1.5 MG/DL (0.55-1.30); POTASSIUM 5.3 MMOL/L (3.5-5.1); SODIUM 145 MMOL/L (136-145)
[2020-10-13] MEDS: Phenylephrine 50 MG in D5W 245 ML IV SCH ×2 (07:06→18:00)
--- NOTE | 2020-10-13 07:46 | NUR ---
NURSE HAND-OFF REPORT: Latest Vital Signs: Temperature 98.0 , Pulse 75 , B/P 103 /65 , Respiratory Rate 16 , O2 SAT 100 , Room Air, O2 Flow Rate 15.0 . Vital Sign Comment: EKG Rhythm: Sinus Rhythm Rhythm change?: N MD Notified?: N - MD Response: Latest Red Fall Score: 50 Fall Risk: High Risk Safety Measures: Call light Within Reach, Bed Alarm Zone 1, Side Rails Side Rails x3, Bed position Low and Locked. Fall Precautions: Report given to erica casarez using sbar.
--- NOTE | 2020-10-13 07:58 | NUR ---
RADIOLOGY DEPT., CHEST X-RAY DONE.-P.DYE
--- NOTE | 2020-10-13 08:00 | NUR ---
NURSE NOTES: Pt was assessed after receiving change of shift report from Whitney ROBBINS. Bilateral pupils 6mm and nonreactive to light, absence of gag reflex, does not respond to painful stimuli. Orally intubated, ETT 7.5 at 24cm lipline with vent settings AC16, VT500, Peep 5, FIO2 30%, with O2Sat 100%. Bilateral diminished lung sounds. Pt has small amounts of thin pink oral secretions. NSR on cardiac exercise specialist, HR 70, while maintained on Laci drip at 60mcg/min infusing via right femoral central line TLC, patent/intact. Temp 98.5F axillary. IV fluid NS is infusing at 100ml/hour. Peripheral IV access is present on left FA#22G, left UA #20G and right FA #22G, all intact/patent. Horton catheter 16F present, with output of large amount of clear/yellow urine. Abdomen is flat, soft, nontender to touch with hypoactive bowel sounds. Skin is intact. HOB at 30 degrees, bed locked, in lowest position, three side rails up. Will continue to monitor and follow plan of care.
--- NOTE | 2020-10-13 08:15 | NUR ---
NURSE NOTES: Chest xray done and ABGs were drawn and resulted. Dr Sheppard was at the nurse's station and aware of ABG and lab results. Orders received and processed for Bioethics consult, Nutrition consult, 2D Echo and Duoneb PRN added to med/regimen.
--- NOTE | 2020-10-13 08:34 | Pulmonolgy Critical Care Note ---
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 (5) Cardiac arrest (6) AIDS (7) Encephalopathy acute (8) UTI (urinary tract infection) (9) Altered mental status (10) Amphetamine abuse (11) COVID-19 virus detected Assessment/Plan: Respiratory: ABG reviewed, gas exchange adequate, continue current settings, pulmonary hygiene, PRN HHN's, continue DEX D9 Cardiac: continue pressors (Lamberto) - Titrate to keep MAP > 60, other - F/U TTE Renal: monitor renal function, continue NS@100 Infectious Disease: ABx and Flucon per ID, LP if it will electronic data interchange specialist Gastrointestinal: Start NGT's Endocrine: monitor blood sugar, other - Continue Dex D9/10 Hematologic: monitor H/H Neurologic: Off sedation, unresponsive, F/U EEG and neuro recs, LP if it will electronic data interchange specialist Goals: Ethics eval, will d/w team but patient should be DNAR based on medical futility Prophylaxis: Protonix & LMWH Time Spent (Minutes): other - 80 Notes Reviewed: ID, neuro Discussed with: nurses, consultants Critical Care - Objective Last 24 Hour Vital Signs Date Time Temp Pulse Resp B/P (MAP) Pulse Ox O2 Delivery O2 Flow Rate FiO2 10/13/20 07:06 75 103/65 10/13/20 07:00 74 16 103/59 (74) 100 10/13/20 06:30 75 16 109/65 (80) 100 10/13/20 06:00 75 16 110/74 (86) 100 10/13/20 05:30 77 16 107/70 (82) 100 10/13/20 05:00 75 16 109/63 (78) 100 10/13/20 04:30 75 16 108/63 (78) 100 10/13/20 04:00 30 10/13/20 04:00 98.0 76 16 108/60 (76) 100 10/13/20 04:00 75 10/13/20 04:00 Mechanical Ventilator 10/13/20 03:30 77 16 92/56 (68) 100 10/13/20 03:00 77 16 92/57 (69) 100 10/13/20 02:30 76 16 92/57 (69) 100 10/13/20 02:30 76 16 92/57 (69) 100 10/13/20 02:30 76 16 92/57 (69) 100 10/13/20 02:15 76 16 93/57 (69) 100 10/13/20 02:15 76 16 93/57 (69) 100 10/13/20 02:05 75 16 30 10/13/20 02:00 75 16 92/57 (69) 100 10/13/20 02:00 75 16 92/57 (69) 100 10/13/20 02:00 75 16 92/57 (69) 100 10/13/20 01:45 75 16 98/53 (68) 100 10/13/20 01:45 75 16 98/53 (68) 100 10/13/20 01:30 74 16 96/54 (68) 100 10/13/20 01:30 74 16 96/54 (68) 100 10/13/20 01:30 74 16 96/54 (68) 100 10/13/20 01:15 74 16 99/55 (70) 100 10/13/20 01:00 74 16 97/57 (70) 100 10/13/20 01:00 74 16 97/57 (70) 100 10/13/20 00:45 74 16 99/57 (71) 100 10/13/20 00:45 74 16 99/57 (71) 100 10/13/20 00:30 74 16 101/56 (71) 100 10/13/20 00:30 74 16 101/56 (71) 100 10/13/20 00:30 74 16 101/56 (71) 100 10/13/20 00:15 74 16 99/59 (72) 100 10/13/20 00:15 74 16 99/59 (72) 100 10/13/20 00:00 30 10/13/20 00:00 98.0 74 16 97/59 (72) 100 10/13/20 00:00 Mechanical Ventilator 10/13/20 00:00 74 16 97/59 (72) 100 10/13/20 00:00 74 16 97/59 (72) 100 10/13/20 00:00 70 10/12/20 23:30 73 16 94/56 (69) 100 10/12/20 23:14 72 16 30 10/12/20 23:00 72 16 102/60 (74) 100 10/12/20 22:30 73 16 101/68 (79) 100 10/12/20 22:00 72 16 104/68 (80) 100 10/12/20 21:30 72 16 101/62 (75) 100 10/12/20 21:00 71 16 100/59 (73) 100 10/12/20 20:30 72 16 101/60 (74) 100 10/12/20 20:00 70 10/12/20 20:00 Mechanical Ventilator 10/12/20 20:00 30 10/12/20 20:00 97.0 71 16 101/59 (73) 100 10/12/20 19:35 71 16 30 10/12/20 19:30 71 16 102/62 (75) 100 10/12/20 19:00 72 16 101/62 (75) 100 10/12/20 18:45 72 16 97/60 (72) 100 10/12/20 18:30 71 16 88/55 (66) 100 10/12/20 18:00 97.2 71 16 92/51 (65) 100 10/12/20 17:30 71 16 91/56 (68) 100 10/12/20 17:00 71 16 91/56 (68) 100 10/12/20 16:30 70 16 94/58 (70) 100 10/12/20 16:00 Mechanical Ventilator 10/12/20 16:00 70 16 95/57 (70) 100 10/12/20 16:00 70 10/12/20 16:00 30 10/12/20 15:34 69 10/12/20 15:30 95.9 69 16 96/60 (72) 100 10/12/20 15:00 69 16 99/64 (76) 100 10/12/20 15:00 64 92/74 10/12/20 14:30 66 16 102/67 (79) 100 10/12/20 14:00 92.2 64 16 92/74 (80) 100 10/12/20 13:30 65 16 95/66 (76) 100 10/12/20 13:00 63 16 103/71 (82) 100 10/12/20 12:45 64 16 110/79 (89) 100 10/12/20 12:38 66 16 30 10/12/20 12:30 64 16 115/83 (94) 100 10/12/20 12:15 66 16 124/100 (108) 100 10/12/20 12:00 Mechanical Ventilator 10/12/20 12:00 67 16 130/104 (113) 100 10/12/20 12:00 30 10/12/20 11:30 64 16 139/107 (118) 100 10/12/20 11:27 64 10/12/20 11:00 65 16 121/97 (105) 100 10/12/20 10:30 65 16 119/91 (100) 100 10/12/20 10:00 61 16 122/95 (104) 100 10/12/20 09:45 60 16 123/95 (104) 100 10/12/20 09:30 59 16 124/96 (105) 100 10/12/20 09:15 58 16 126/98 (107) 100 10/12/20 09:00 90.5 55 16 120/97 (105) 100 10/12/20 08:45 56 16 108/79 (89) 100 10/12/20 08:30 56 16 106/79 (88) 100 Status: other - Unresponsvie, pupils F&D, no gag Condition: critical HEENT: atraumatic, other - ETT OGT Lungs: rhonchi Heart: HR/BP unstable Abdomen: soft, non-tender, active bowel sounds Extremities: edema - 1-2 Accucheck: 99 Blood Sugars: BS controlled Critical Care - Subjective ROS Limited/Unobtainable: Yes ICU Day: 5 Intubation Day: 5 Interval Events: Pupils fixed and dilated, no gag reflex, no response Cryptococcus BSI Condition: critical IV Access: central - R fem TLC EKG Rhythm: Sinus Rhythm FI02: 30 Vent Support Breath Rate: 16 Vent Support Mode: AC Vent Tidal Volume: 500 Sputum Amount: Scant PEEP: 5.0 PIP: 17 Secretions: Scant Fluids: NS@100 Drips: LAMBERTO@60 Tube Feeding Amount: 0 I&O: Intake and Output 10/12/20 10/13/20 19:00 07:00 Intake Total 2951.300 ml 2243.000 ml Output Total 2165 ml 2300 ml Balance 786.300 ml -57.000 ml IV Total 2951.300 ml 2243.000 ml Output Urine Total 2165 ml 2300 ml Subjective: BEN ET-Tube: 7.5 ET Position: 27 Labs: Laboratory Tests 10/12/20 10:32: Arterial Blood pH 7.350, Arterial Blood Partial Pressure CO2 39.8, Arterial Blood Partial Pressure O2 128.8H, Arterial Blood HCO3 21.5L, Arterial Blood Oxygen Saturation 98.1, Arterial Blood Base Excess -3.8L, Joe Test Positive 10/13/20 04:57: White Blood Count 7.7, Red Blood Count 2.72L, Hemoglobin 7.7L, Hematocrit 23.7L, Mean Corpuscular Volume 87, Mean Corpuscular Hemoglobin 28.1, Mean Corpuscular Hemoglobin Concent 32.4, Red Cell Distribution Width 12.5, Platelet Count 149L, Mean Platelet Volume 8.4, Neutrophils (%) (Auto) , Lymphocytes (%) (Auto) , Monocytes (%) (Auto) , Eosinophils (%) (Auto) , Basophils (%) (Auto) , Differential Total Cells Counted 100, Neutrophils % (Manual) 89H, Lymphocytes % (Manual) 5L, Monocytes % (Manual) 3, Eosinophils % (Manual) 0, Basophils % (Manual) 0, Band Neutrophils 3, Platelet Estimate Adequate, Platelet Morphology Normal, Hypochromasia 3+, Anisocytosis 1+, Sodium Level 145#, Potassium Level 5.3H, Chloride Level 112H, Carbon Dioxide Level 24, Anion Gap 9, Blood Urea Nitrogen 27H, Creatinine 1.5H, Estimat Glomerular Filtration Rate > 60, Glucose Level 126H, Calcium Level 9.2, Random Vancomycin Level 31.1 Jaime Wiggins MD Oct 13, 2020 08:34
[2020-10-13] MEDS ORDERED: Albuterol/Ipratropium 3ml neb HHN PRN (08:45)
[2020-10-13] MEDS: Enoxaparin 40mg Inj SUBQ SCH (09:00)
--- NOTE | 2020-10-13 09:00 | NUR ---
NURSE NOTES: automotive tire technician is at bedside for 2D echo.
--- NOTE | 2020-10-13 10:00 | NUR ---
NURSE NOTES: AM meds were administered. Lovenox was held due to pinkish/bloody oral secretions and Platelets 149. Oral care was done. Pt was repositioned for comfort. Horton catheter is draining average 100-200ml/hourly clear light/yellow urine. VS remain stable while Alci drip is maintained at 60mcg/min for SBP above 90.
[2020-10-13] MEDS: Trimethoprim/Sulfamethoxazole 20 ML in D5W 500ml 550 ML IV SCH ×3 (10:29→23:54)
[2020-10-13] MEDS: Pantoprazole Inj IVP SCH (10:30)
[2020-10-13] MEDS: dexAMETHasone 10mg/ml Inj IV SCH (10:30)
--- NOTE | 2020-10-13 12:15 | NUR ---
NURSE NOTES: Remains afebrile. VS stable while currently Laci drip infusing at 70mcg/min to maintain SBP above 90, MAP 60.
--- NOTE | 2020-10-13 14:00 | NUR ---
NURSE NOTES: Radiologist contacted the nurse's station and order received to advance OGT 5-10cm further and repeat KUB. OGT was advanced as advised, current position at 65cm, and KUB done at bedside, per sterilisation technician, xray reveals correct positioning.
--- NOTE | 2020-10-13 14:32 | NUR ---
CASE MANAGEMENT:REVIEW 10/13/20 SI: COVID(+). HIV(+) TOXIC ENCEPHALOPATHY 98.8 72 16 108/63 SATS 100% ON VENT SUPPORT W/30% FIO2 H/H-7.7/23.7 PLT-149 K+5.3 BUN+27 CR+1.5 IS: IVF NS@100/HR PHENYLEPHRINE GTT IV BACTRIM Q8HRS IV ZOSYN Q8HRS IV DIFLUCAN Q24 IV DECADRON QD IV PROTONIX QD LOVENOX SQ QD : ICU STATUS DCP: SOCIAL SERVICE CONSULT PLAN: COMPLETED REMDESIVIR
--- NOTE | 2020-10-13 14:51 | NUR ---
NURSE NOTES: Cinda Mendieta - made aware of SW consult to locate family members and Bio-Ethics consult
--- NOTE | 2020-10-13 14:54 | Diagnostic Imaging Report ---
Indication: Shortness of breath Technique: One view of the chest Comparison: 10/12/2020 Findings: Orogastric tube tip projects just barely within the stomach, proximal sidehole above the gastroesophageal junction. Stable satisfactory endotracheal tube position. Right infrahilar infiltrate is unchanged. No new infiltrates. The left lung and pleural spaces are clear except for minimal retrocardiac atelectasis on the left. Impression: Unchanged, over one day, findings as noted Note high position of orogastric tube. Advancement recommended. This critical value finding was phoned to Janna, ICU charge nurse, at the time of interpretation
--- NOTE | 2020-10-13 16:36 | Diagnostic Imaging Report ---
Indication: Status post repositioning of orogastric tube Technique: Supine view of the abdomen Comparison: Chest radiograph of earlier the same day Findings: Interim advancement of orogastric tube, tip now coiled well within the gastric fundus. Also noted is a femoral right central venous catheter. The bowel gas pattern is unremarkable. Impression: Improved and now satisfactory position of orogastric tube
--- NOTE | 2020-10-13 16:45 | NUR ---
NURSE NOTES: Dr Tyler is at the nurse's station and was updated on pt's current status. No new orders were received at this time. VS remain stable while is maintained on Laci drip infusing at 70mcg/min for SBP above 90. Remains afebrile.
--- NOTE | 2020-10-13 17:05 | Infectious Diseases Prog Note ---
Assessment/Plan Assessment/Plan ASSESSMENT AND PLAN: 1. COVID-19 infection, acute hypoxia, ams, fevers, sepsis, ? pneumonia s/p code - non-responsive now HIV, AIDS - CDR 10, VL - 133,370 LDH wnl - less likely pneumocystis but possible enterococcus uti cryptococcus + blood culture, cryptococcus fungemia, infection, likely meningitis - dexamethasone, s/p remdesivir - zosyn, vancomycin, diflucan, iv bactrim - f/u beta-D glucan, cryptococcus antigen - neuro f/, poor prognosis, consider comfort care - monitor labs and chest x-ray - Hold on HIV treatment because of potential of immune reconstitution syndrome with disseminated cryptococcus infection 2. pmh o/w negative 3. Amphetamine use 4) allergies - negative 5. will f/u Subjective Constitutional: Reports: other - on vent ; Denies: fever HEENT: Reports: congestion Respiratory: Reports: shortness of breath Cardiovascular: Reports: other - no pressors Genitourinary: Reports: other - + yeung Allergies: Coded Allergies: No Known Allergies (Unverified , 09/29/20) Objective Last 24 Hour Vital Signs Date Time Temp Pulse Resp B/P (MAP) Pulse Ox O2 Delivery O2 Flow Rate FiO2 10/13/20 16:30 69 16 108/70 (83) 100 10/13/20 16:00 30 10/13/20 16:00 Mechanical Ventilator 10/13/20 16:00 70 10/13/20 16:00 98.6 69 16 107/70 (82) 100 10/13/20 15:30 70 16 107/68 (81) 100 10/13/20 15:00 70 16 110/69 (83) 100 10/13/20 14:30 71 16 105/66 (79) 100 10/13/20 14:00 72 16 105/68 (80) 100 10/13/20 13:30 70 16 99/59 (72) 100 10/13/20 13:00 70 16 99/58 (72) 100 10/13/20 12:00 30 10/13/20 12:00 Mechanical Ventilator 10/13/20 12:00 72 10/13/20 12:00 98.8 71 16 108/63 (78) 100 10/13/20 11:30 73 16 108/63 (78) 100 10/13/20 11:14 74 16 30 10/13/20 11:00 74 16 91/52 (65) 100 10/13/20 10:30 74 16 98/53 (68) 100 10/13/20 10:00 75 16 104/56 (72) 100 10/13/20 09:30 74 16 103/54 (70) 100 10/13/20 09:00 72 16 98/57 (71) 100 10/13/20 08:30 74 16 100/56 (71) 100 10/13/20 08:00 75 10/13/20 08:00 98.9 74 16 105/57 (73) 100 10/13/20 08:00 30 10/13/20 08:00 Mechanical Ventilator 10/13/20 07:08 73 16 30 10/13/20 07:06 75 103/65 10/13/20 07:00 74 16 103/59 (74) 100 10/13/20 06:30 75 16 109/65 (80) 100 10/13/20 06:00 75 16 110/74 (86) 100 10/13/20 05:30 77 16 107/70 (82) 100 10/13/20 05:00 75 16 109/63 (78) 100 10/13/20 04:30 75 16 108/63 (78) 100 10/13/20 04:00 30 10/13/20 04:00 98.0 76 16 108/60 (76) 100 10/13/20 04:00 75 10/13/20 04:00 Mechanical Ventilator 10/13/20 03:30 77 16 92/56 (68) 100 10/13/20 03:00 77 16 92/57 (69) 100 10/13/20 02:30 76 16 92/57 (69) 100 10/13/20 02:30 76 16 92/57 (69) 100 10/13/20 02:30 76 16 92/57 (69) 100 10/13/20 02:15 76 16 93/57 (69) 100 10/13/20 02:15 76 16 93/57 (69) 100 10/13/20 02:05 75 16 30 10/13/20 02:00 75 16 92/57 (69) 100 10/13/20 02:00 75 16 92/57 (69) 100 10/13/20 02:00 75 16 92/57 (69) 100 10/13/20 01:45 75 16 98/53 (68) 100 10/13/20 01:45 75 16 98/53 (68) 100 10/13/20 01:30 74 16 96/54 (68) 100 10/13/20 01:30 74 16 96/54 (68) 100 10/13/20 01:30 74 16 96/54 (68) 100 10/13/20 01:15 74 16 99/55 (70) 100 10/13/20 01:00 74 16 97/57 (70) 100 10/13/20 01:00 74 16 97/57 (70) 100 10/13/20 00:45 74 16 99/57 (71) 100 10/13/20 00:45 74 16 99/57 (71) 100 10/13/20 00:30 74 16 101/56 (71) 100 10/13/20 00:30 74 16 101/56 (71) 100 10/13/20 00:30 74 16 101/56 (71) 100 10/13/20 00:15 74 16 99/59 (72) 100 10/13/20 00:15 74 16 99/59 (72) 100 10/13/20 00:00 30 10/13/20 00:00 98.0 74 16 97/59 (72) 100 10/13/20 00:00 Mechanical Ventilator 10/13/20 00:00 74 16 97/59 (72) 100 10/13/20 00:00 74 16 97/59 (72) 100 10/13/20 00:00 70 10/12/20 23:30 73 16 94/56 (69) 100 10/12/20 23:14 72 16 30 10/12/20 23:00 72 16 102/60 (74) 100 10/12/20 22:30 73 16 101/68 (79) 100 10/12/20 22:00 72 16 104/68 (80) 100 10/12/20 21:30 72 16 101/62 (75) 100 10/12/20 21:00 71 16 100/59 (73) 100 10/12/20 20:30 72 16 101/60 (74) 100 10/12/20 20:00 70 10/12/20 20:00 Mechanical Ventilator 10/12/20 20:00 30 10/12/20 20:00 97.0 71 16 101/59 (73) 100 10/12/20 19:35 71 16 30 10/12/20 19:30 71 16 102/62 (75) 100 10/12/20 19:00 72 16 101/62 (75) 100 10/12/20 18:45 72 16 97/60 (72) 100 10/12/20 18:30 71 16 88/55 (66) 100 10/12/20 18:00 97.2 71 16 92/51 (65) 100 10/12/20 17:30 71 16 91/56 (68) 100 10/12/20 17:00 71 16 91/56 (68) 100 Height (Feet): 6 Weight (Pounds): 120 HEENT: normocephalic, atraumatic, anicteric, other - intubated Respiratory/Chest: crackles/rales, rhonchi - bilaterally Cardiovascular: normal rate, regular rhythm Abdomen: soft, non tender, no organomegaly Chest x-ray - 10/04/20 - Procedure: XRAY Chest 1v EXAM: XR Chest, 1 View CLINICAL HISTORY: DIARRHEA TECHNIQUE: Frontal view of the chest. COMPARISON: Chest x-ray 10/01/2020 FINDINGS: Lungs: New mild patchy opacities within the medial left lung base and to a lesser extent the medial right lung base. Pleural space: Unremarkable. No pneumothorax. Heart: Unremarkable. No cardiomegaly. Mediastinum: Unremarkable. Bones/joints: Unremarkable. IMPRESSION: New mild patchy opacities within the lung bases may indicate a developing infectious/inflammatory process such as multifocal pneumonia or aspiration pneumonitis. Laboratory Tests Test 10/13/20 04:57 10/13/20 08:18 White Blood Count 7.7 K/UL (4.8-10.8) Red Blood Count 2.72 M/UL (4.70-6.10) L Hemoglobin 7.7 G/DL (14.2-18.0) L Hematocrit 23.7 % (42.0-52.0) L Mean Corpuscular Volume 87 FL (80-99) Mean Corpuscular Hemoglobin 28.1 PG (27.0-31.0) Mean Corpuscular Hemoglobin Concent 32.4 G/DL (32.0-36.0) Red Cell Distribution Width 12.5 % (11.6-14.8) Platelet Count 149 K/UL (150-450) L Mean Platelet Volume 8.4 FL (6.5-10.1) Neutrophils (%) (Auto) % (45.0-75.0) Lymphocytes (%) (Auto) % (20.0-45.0) Monocytes (%) (Auto) % (1.0-10.0) Eosinophils (%) (Auto) % (0.0-3.0) Basophils (%) (Auto) % (0.0-2.0) Differential Total Cells Counted 100 Neutrophils % (Manual) 89 % (45-75) H Lymphocytes % (Manual) 5 % (20-45) L Monocytes % (Manual) 3 % (1-10) Eosinophils % (Manual) 0 % (0-3) Basophils % (Manual) 0 % (0-2) Band Neutrophils 3 % (0-8) Platelet Estimate Adequate Platelet Morphology Normal Hypochromasia 3+ Anisocytosis 1+ Sodium Level 145 MMOL/L (136-145) # Potassium Level 5.3 MMOL/L (3.5-5.1) H Chloride Level 112 MMOL/L (98-107) H Carbon Dioxide Level 24 MMOL/L (21-32) Anion Gap 9 mmol/L (5-15) Blood Urea Nitrogen 27 mg/dL (7-18) H Creatinine 1.5 MG/DL (0.55-1.30) H Estimat Glomerular Filtration Rate > 60 mL/min (>60) Glucose Level 126 MG/DL (74-106) H Calcium Level 9.2 MG/DL (8.5-10.1) Random Vancomycin Level 31.1 ug/mL Arterial Blood pH 7.387 (7.350-7.450) Arterial Blood Partial Pressure CO2 42.2 mmHg (35.0-45.0) Arterial Blood Partial Pressure O2 188.6 mmHg (75.0-100.0) H Arterial Blood HCO3 24.8 mmol/L (22.0-26.0) Arterial Blood Oxygen Saturation 98.9 % (95-100) Arterial Blood Base Excess -0.2 (-2-2) Joe Test Positive Current Medications Medications (Trade) Dose Ordered Sig/Carleen Route PRN Reason Start Time Stop Time Status Last Admin Dose Admin Acetaminophen (Tylenol) 650 mg Q4H PRN ORAL Mild Pain (Pain Scale 1-3) 10/01/20 11:00 10/31/20 10:59 Acetaminophen (Tylenol) 650 mg Q4H PRN RECTAL BT>100.5F 10/04/20 23:30 11/03/20 23:29 10/05/20 08:18 Albuterol/ Ipratropium (Albuterol/ Ipratropium) 3 ml Q4H PRN HHN Shortness of Breath 10/13/20 08:45 10/18/20 08:44 Bisacodyl (Dulcolax) 10 mg DAILYPRN PRN RECTAL Constipation 10/08/20 19:00 01/06/21 18:59 Chlorhexidine Gluconate (Malgorzata-Hex 2%) 1 applic DAILY@2000 TOPIC 10/10/20 20:00 01/08/21 19:59 10/12/20 20:31 Dextrose (Dextrose 50%) 25 ml Q30M PRN IV Hypoglycemia 10/01/20 11:00 12/30/20 10:59 Dextrose (Dextrose 50%) 50 ml Q30M PRN IV Hypoglycemia 10/01/20 11:00 12/30/20 10:59 Enoxaparin Sodium (Lovenox) 40 mg DAILY SUBQ 10/01/20 12:00 12/30/20 11:59 10/11/20 08:58 Fluconazole/ Sodium Chloride 200 ml @ 100 mls/hr Q24H IV 10/11/20 18:00 10/18/20 17:59 10/12/20 18:07 Hydralazine HCl (Apresoline) 10 mg Q4H PRN IV SBP > 150 mmHg 10/09/20 08:15 01/07/21 08:14 Metoprolol Tartrate (Lopressor) 5 mg Q5MIN X 3 IVP 10/10/20 05:15 01/08/21 05:14 10/10/20 05:15 Ondansetron HCl (Zofran) 4 mg Q6H PRN IVP Nausea & Vomiting 10/01/20 11:00 10/31/20 10:59 Pantoprazole (Protonix) 40 mg DAILY IVP 10/02/20 13:00 11/01/20 12:59 10/13/20 10:30 Phenylephrine HCl 50 mg/Dextrose 250 ml @ 0 mls/hr Q24H IV 10/13/20 07:00 10/16/20 06:57 10/13/20 07:06 Piperacillin Sod/ Tazobactam Sod 3.375 gm/Dextrose 100 ml @ 25 mls/hr Q8H IVPB 10/07/20 08:00 10/18/20 23:59 10/13/20 10:30 Sodium Chloride 1,000 ml @ 100 mls/hr Q10H IV 10/10/20 09:00 11/09/20 08:59 10/13/20 06:23 Trimethoprim/ Sulfamethoxazole 20 ml/Dextrose 570 ml @ 380 mls/hr S0QA-QS BACTRIM IV 10/10/20 00:00 10/17/20 00:00 10/13/20 10:29 Vancomycin HCl ([facility] pharmacy to dose) 1 ea DAILY PRN MISC Per rx protocol 10/05/20 16:00 11/04/20 15:59 Wood Tyler MD Oct 13, 2020 17:05
--- NOTE | 2020-10-13 17:38 | NUR ---
NURSE NOTES: Message left at Dr. Tyler voicemail regarding + BC - yeast x 2 bottles
--- NOTE | 2020-10-13 19:15 | NUR ---
NURSE HAND-OFF REPORT: Latest Vital Signs: Temperature 98.6 , Pulse 70 , B/P 110 /75 , Respiratory Rate 16 , O2 SAT 100 , ETT 7.5 at 24cm/lipline with vent settings AC16, VT500, Peep 5, FIO2 30%. Vital Sign Comment: Remains on Laci drip at 70mcg/min to maintain SBP above 90. EKG Rhythm: Sinus Rhythm Rhythm change?: N MD Notified?: N - MD Response: Latest Red Fall Score: 50 Fall Risk: High Risk Safety Measures: Call light Within Reach, Bed Alarm Zone 1, Side Rails Side Rails x3, Bed position Low and Locked. Fall Precautions: Report given to Whitney ROBBINS. Endorsed plan of care.
[2020-10-13] MEDS: Dyna-Hex 2% Top Sol 2oz TOPIC SCH (20:00)
--- NOTE | 2020-10-13 20:00 | NUR ---
NURSE NOTES: received report from erica casarez pt unresponsive to stimuli both pupil fix and dilate orally intubate -vent with o2 sat 100% on eriberto nqo drip at at 70mcg /min infusing at rt femoral tlc dressing dry and intact reposition and suction
[2020-10-13] MEDS ORDERED: Vancomycin 750mg/NS 275ml IVPB ONE ×2 (21:00)
--- NOTE | 2020-10-13 22:00 | NUR ---
NURSE NOTES: eeg done and result reported to dr mode was notify result
[2020-10-14] VITALS (32 sets, daily range): BP systolic 88–132; BP diastolic 50–99
--- NOTE | 2020-10-14 | NUR ---
NURSE NOTES: reposition and suction
[2020-10-14] MEDS: Phenylephrine 50 MG in D5W 245 ML IV SCH ×2 (02:19→14:00)
[2020-10-14 04:40] LABS: HEMATOCRIT 28.1 % (42.0-52.0); HEMOGLOBIN 8.8 G/DL (14.2-18.0); MEAN CORPUSCULAR VOLUME 89 FL (80-99); PLATELET COUNT 188 K/UL (150-450); RED BLOOD COUNT 3.15 M/UL (4.70-6.10); WHITE BLOOD COUNT 7.4 K/UL (4.8-10.8)
[2020-10-14 05:06] LABS: ALANINE AMINOTRANSFERASE 35 U/L (12-78); ALBUMIN 1.7 G/DL (3.4-5.0); ALBUMIN/GLOBULIN RATIO 0.3 (1.0-2.7); ALKALINE PHOSPHATASE 75 U/L (46-116); ANION GAP 12 mmol/L (5-15); ASPARTATE AMINO TRANSFERASE 69 U/L (15-37); BILIRUBIN,TOTAL < 0.1 MG/DL (0.2-1.0); BLOOD UREA NITROGEN 36 mg/dL (7-18); CALCIUM 9.5 MG/DL (8.5-10.1); CARBON DIOXIDE 24 MMOL/L (21-32); CHLORIDE 127 MMOL/L (98-107); CREATININE 1.7 MG/DL (0.55-1.30)
[2020-10-14 05:15] LABS: SODIUM 162 MMOL/L (136-145)
--- NOTE | 2020-10-14 07:15 | NUR ---
RD ASSESSMENT & RECOMMENDATIONS SEE CARE ACTIVITY FOR COMPLETE ASSESSMENT DAILY ESTIMATED NEEDS: Needs based on Underweight, Critical Care/ 54.4kg 25-35 kcals/kg 1075-4033 total kcals 1.2-2 g protein/kg 65-109 g total protein 25-30 mL/kg 7164-2093 total fluid mLs NUTRITION DIAGNOSIS: Increased kcal and pro needs r/t underweight status as evidenced by BMI underweight per guidelines, pt is 67% of [place] Body weight w/ visual wasting per RN, NPO until fully awake per MD, now orally intubated (10/09), s/p shayne medina (10/10), on pressor support, NPO. (CURRENT DIET: NPO) ENTERAL NUTRITION RECOMMENDATIONS: NEPRO @35ml/hr x 24 hrs to provide 840ml, 1512kcal, 68g prot, 611ml free water FEED WITH HEMODYNAMIC STABILITY ---> W/ GI access, initiate NEPRO @15ml/hr x 6hrs ---> Advance 10ml q 4-6 hrs as tolerated to goal ---> HOB over 30 degrees/ H2o flush 180ml q 8hrs WITHOUT HEMODYNAMIC STABILITY, rec trophic feeding of NEPRO @10ml/hr if able to keep HOB >30 degrees ADDITIONAL RECOMMENDATIONS: 1) Monitor hemodynamic stability, ability to feed: NPO from adm s/p code blue (10/10) 2) Monitor for hypoglycemia while NPO- consider adding D5 to IVF 3) BM not updated since 10/01, rec bowel regimen 4) Daily wts on calibrated bed scale
--- NOTE | 2020-10-14 07:25 | NUR ---
NURSE HAND-OFF REPORT: Latest Vital Signs: Temperature 97.5 , Pulse 61 , B/P 120 /50 , Respiratory Rate 17 , O2 SAT 100 , Room Air, O2 Flow Rate 15.0 . Vital Sign Comment: erica casarez EKG Rhythm: Sinus Rhythm Rhythm change?: N MD Notified?: N - MD Response: Latest Red Fall Score: 50 Fall Risk: High Risk Safety Measures: Call light Within Reach, Bed Alarm Zone 1, Side Rails Side Rails x3, Bed position Low and Locked. Fall Precautions: Report given to .
--- NOTE | 2020-10-14 07:30 | NUR ---
NURSE NOTES: Pt was assessed after receiving change of shift report from Whitney ROBBINS. Bilateral pupils 5mm and nonreactive to light, absence of gag reflex, does not respond to painful stimuli. Orally intubated, ETT 7.5 at 24cm lipline with vent settings AC16, VT500, Peep 5, FIO2 30%, with O2Sat 100%. Bilateral diminished lung sounds. Pt has small amounts of thin pink oral secretions. NSR on commis chef, HR 70, while maintained on Laci drip at 70mcg/min infusing via right femoral central line TLC, patent/intact. Temp 98.5F axillary. IV fluid NS is infusing at 100ml/hour. Peripheral IV access is present on left FA#[id number], left UA #[id number] and right FA #[id number], all intact/patent. Horton catheter 16F present, with output of large amount of clear/yellow urine. Abdomen is flat, soft, nontender to touch with hypoactive bowel sounds. Skin is intact. HOB at 30 degrees, bed locked, in lowest position, three side rails up. Will continue to monitor and follow plan of care.
[2020-10-14] MEDS: Trimethoprim/Sulfamethoxazole 20 ML in D5W 500ml 550 ML IV SCH ×3 (08:00→23:06)
--- NOTE | 2020-10-14 08:19 | NUR ---
CASE MANAGEMENT:REVIEW 10/14/20 SI: COVID(+). HIV(+. TOXIC ENCEPHALOPATHY 97.5 60 16 123/93 100% ON VENT SUPPORT W/30% FIO2 H/H-8.8/28.1 NA+162 BUN+36 CR+1.7 IS: IVF NS@100/HR PHENYLEPHRINE GTT IV BACTRIM Q8HRS IV ZOSYN Q8HRS IV DIFLUCAN Q24 IV PROTONIX QD LOVENOX SQ QD : ICU STATUS DCP: SOCIAL SERVICE CONSULT PLAN: COMPLETED REMDESIVIR BIOETHICS
--- NOTE | 2020-10-14 08:28 | Pulmonolgy Critical Care Note ---
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 (5) Cardiac arrest (6) AIDS (7) Encephalopathy acute (8) UTI (urinary tract infection) (9) Altered mental status (10) Amphetamine abuse (11) COVID-19 virus detected Assessment/Plan: Respiratory: Monitor gas exchange, continue current settings, pulmonary hygiene, PRN HHN's, complete Dex D10 Cardiac: continue pressors (Cristel) - Titrate to keep MAP > 60, other - TTE reviewed Renal: monitor renal function, change IVF to D5W @ 100 Infectious Disease: ABx and Flucon per ID, LP if it will changeover operator Gastrointestinal: Start NGT's Endocrine: monitor blood sugar, other - Continue Dex D10/10 Hematologic: monitor H/H Neurologic: Off sedation, unresponsive, F/U tinal EEG and neuro recs, doubt LP will changeover operator Goals: Ethics eval, will change to DNAR based on medical futility Prophylaxis: Protonix & LMWH Time Spent (Minutes): other - 40 Notes Reviewed: ID, neuro Discussed with: nurses, consultants Critical Care - Objective Last 24 Hour Vital Signs Date Time Temp Pulse Resp B/P (MAP) Pulse Ox O2 Delivery O2 Flow Rate FiO2 10/14/20 07:00 61 17 120/50 (73) 100 10/14/20 06:00 61 17 130/99 (109) 100 10/14/20 05:30 61 16 124/96 (105) 100 10/14/20 05:00 61 17 129/97 (108) 100 10/14/20 04:30 60 16 129/97 (108) 100 10/14/20 04:00 97.5 60 16 123/93 (103) 100 10/14/20 04:00 Mechanical Ventilator 10/14/20 04:00 30 10/14/20 04:00 60 10/14/20 03:30 60 16 122/85 (97) 100 10/14/20 03:27 60 16 30 10/14/20 03:00 61 16 123/95 (104) 100 10/14/20 02:30 61 16 124/91 (102) 100 10/14/20 02:19 62 119/91 10/14/20 02:00 62 16 124/92 (103) 100 10/14/20 01:30 63 16 128/94 (105) 100 10/14/20 01:00 97.8 62 16 132/96 (108) 100 10/14/20 00:30 62 16 129/97 (108) 100 10/14/20 00:00 62 16 115/86 (96) 100 10/14/20 00:00 63 10/14/20 00:00 Mechanical Ventilator 10/14/20 00:00 30 10/13/20 23:30 63 16 116/86 (96) 100 10/13/20 23:06 63 16 30 10/13/20 23:00 63 16 114/85 (95) 100 10/13/20 22:30 64 16 121/88 (99) 100 10/13/20 22:00 64 16 123/92 (102) 100 10/13/20 21:30 65 16 115/83 (94) 100 10/13/20 21:00 70 10/13/20 21:00 66 16 114/80 (91) 100 10/13/20 21:00 30 10/13/20 20:30 67 16 109/79 (89) 100 10/13/20 20:00 Mechanical Ventilator 10/13/20 20:00 97.8 68 16 108/78 (88) 100 10/13/20 19:30 70 16 110/75 (87) 100 10/13/20 19:00 65 16 63/46 (52) 100 10/13/20 18:56 64 16 30 10/13/20 18:30 67 16 112/74 (87) 100 10/13/20 18:00 68 16 113/76 (88) 100 10/13/20 18:00 64 108/70 10/13/20 17:30 71 16 111/76 (88) 100 10/13/20 17:00 69 16 106/68 (81) 100 10/13/20 16:30 69 16 108/70 (83) 100 10/13/20 16:00 30 10/13/20 16:00 Mechanical Ventilator 10/13/20 16:00 70 10/13/20 16:00 98.6 69 16 107/70 (82) 100 10/13/20 15:32 69 16 30 10/13/20 15:30 70 16 107/68 (81) 100 10/13/20 15:00 70 16 110/69 (83) 100 10/13/20 14:30 71 16 105/66 (79) 100 10/13/20 14:00 72 16 105/68 (80) 100 10/13/20 13:30 70 16 99/59 (72) 100 10/13/20 13:00 70 16 99/58 (72) 100 10/13/20 12:00 30 10/13/20 12:00 Mechanical Ventilator 10/13/20 12:00 72 10/13/20 12:00 98.8 71 16 108/63 (78) 100 10/13/20 11:30 73 16 108/63 (78) 100 10/13/20 11:14 74 16 30 10/13/20 11:00 74 16 91/52 (65) 100 10/13/20 10:30 74 16 98/53 (68) 100 10/13/20 10:00 75 16 104/56 (72) 100 10/13/20 09:30 74 16 103/54 (70) 100 10/13/20 09:00 72 16 98/57 (71) 100 10/13/20 08:30 74 16 100/56 (71) 100 Status: obtunded Condition: critical HEENT: atraumatic, normocephalic Lungs: rhonchi Heart: HR/BP unstable Abdomen: soft, non-tender, active bowel sounds Extremities: edema - 1-2+ Accucheck: 99 Blood Sugars: BS controlled Critical Care - Subjective ROS Limited/Unobtainable: Yes ICU Day: 6 Intubation Day: 6 Interval Events: Prelim EEG no activity, final report pending NAEO o/w Condition: critical IV Access: central EKG Rhythm: Sinus Rhythm FI02: 30 Vent Support Breath Rate: 16 Vent Support Mode: AC Vent Tidal Volume: 500 Sputum Amount: Scant PEEP: 5.0 PIP: 18 Secretions: Scant Fluids: NS 100 Drips: CRISTEL 60 Tube Feeding Amount: 0 I&O: Intake and Output 10/13/20 10/14/20 19:00 07:00 Intake Total 3004.5 ml 2068 ml Output Total 2070 ml 2150 ml Balance 934.5 ml -82 ml IV Total 3004.5 ml 2068 ml Tube Feeding 0 ml Output Urine Total 2070 ml 2150 ml Subjective: BEN CXR: OGT placement ET-Tube: 7.5 ET Position: 27 Labs: Laboratory Tests 10/13/20 18:05: Random Vancomycin Level 16.5 10/14/20 04:00: White Blood Count 7.4, Red Blood Count 3.15L, Hemoglobin 8.8L, Hematocrit 28.1L, Mean Corpuscular Volume 89, Mean Corpuscular Hemoglobin 27.8, Mean Corpuscular Hemoglobin Concent 31.2L, Red Cell Distribution Width 13.0, Platelet Count 188, Mean Platelet Volume 8.0, Neutrophils (%) (Auto) , Lymphocytes (%) (Auto) , Monocytes (%) (Auto) , Eosinophils (%) (Auto) , Basophils (%) (Auto) , Neutrophils % (Manual) [Pending], Lymphocytes % (Manual) [Pending], Platelet Estimate [Pending], Platelet Morphology [Pending], Sodium Level 162#*H, Potassium Level 5.0, Chloride Level 127H, Carbon Dioxide Level 24, Anion Gap 12, Blood Urea Nitrogen 36H, Creatinine 1.7H, Estimat Glomerular Filtration Rate 54.4, Glucose Level 287#H, Calcium Level 9.5, Total Bilirubin < 0.1L, Aspartate Amino Transf (AST/SGOT) 69H, Alanine Aminotransferase (ALT/SGPT) 35, Alkaline Phosphatase 75, Total Protein 6.6, Albumin 1.7L, Globulin 4.9, Albumin/Globulin Ratio 0.3L Jaime Wiggins MD Oct 14, 2020 08:28
--- NOTE | 2020-10-14 09:09 | General Progress Note ---
Progress Note Progress Note Bioethics Committee Asked to consult on this unfortunate 39 year man unrepresented with severe COVID-19, comatose, on a ventilator with poor prognosis due to COVID-19 pneumonia. Despite his young age It is appropriate for him to be DNR insofar as he would be unlikely to survive resuscitation and if he did the chances of an acceptable quality of life would be small. Maco Norton M.D. Maco Norton MD Oct 14, 2020 09:09
--- NOTE | 2020-10-14 10:00 | NUR ---
NURSE NOTES: Dr Wiggins was at the nurse's station and updated on pt's current status. MD notified regarding EEG results (electrical cerebral silence). MD also notified regarding AM lab results. Order was received to change IV fluid to D5W to infuse at 100ml/hour. AM meds were administered. Oral care was done. VS remain stable while pt is maintained on Laci drip at 70mcg/min Order also noted for change of code status to DNR. Charge nurse aware.
[2020-10-14] MEDS: Enoxaparin 40mg Inj SUBQ SCH (10:39)
[2020-10-14] MEDS: Pantoprazole Inj IVP SCH (10:40)
--- NOTE | 2020-10-14 11:50 | NUR ---
REGULATORY COMPLIANCE COORDINATOR NOTE Dr. Norton, the bioethics committee telecasting engineer was notified of the consult. Addendum: 10/14/20 at 1322 by LINDA HINDS Please see Dr. Norton' note for bioethics. Dr. Norton agrees w/ DNR.
--- NOTE | 2020-10-14 12:15 | NUR ---
NURSE NOTES: Spoke with social economist Zee (at the nurse's station), who is aware of DNR status, EEG results and order for bioethics consult request. workers compensation claims assistant spoke with Dr Norton regarding end of life and no family status. VS currently stable while maintained on Laci drip at 70mcg/min. Remains afebrile.
--- NOTE | 2020-10-14 12:40 | Neurology Progress Note ---
Interim History Interim History ROS Limited/Unobtainable: Yes Objective Physical Exam Last Vital Signs Date Time Temp Pulse Resp B/P (MAP) Pulse Ox O2 Delivery O2 Flow Rate FiO2 10/14/20 11:08 60 20 30 10/14/20 07:00 120/50 (73) 100 10/14/20 04:00 97.5 10/14/20 04:00 Mechanical Ventilator 10/09/20 21:00 15.0 Laboratory Tests Test 10/13/20 18:05 10/14/20 04:00 Random Vancomycin Level 16.5 ug/mL White Blood Count 7.4 K/UL (4.8-10.8) Red Blood Count 3.15 M/UL (4.70-6.10) L Hemoglobin 8.8 G/DL (14.2-18.0) L Hematocrit 28.1 % (42.0-52.0) L Mean Corpuscular Volume 89 FL (80-99) Mean Corpuscular Hemoglobin 27.8 PG (27.0-31.0) Mean Corpuscular Hemoglobin Concent 31.2 G/DL (32.0-36.0) L Red Cell Distribution Width 13.0 % (11.6-14.8) Platelet Count 188 K/UL (150-450) Mean Platelet Volume 8.0 FL (6.5-10.1) Neutrophils (%) (Auto) % (45.0-75.0) Lymphocytes (%) (Auto) % (20.0-45.0) Monocytes (%) (Auto) % (1.0-10.0) Eosinophils (%) (Auto) % (0.0-3.0) Basophils (%) (Auto) % (0.0-2.0) Differential Total Cells Counted 100 Neutrophils % (Manual) 85 % (45-75) H Lymphocytes % (Manual) 5 % (20-45) L Monocytes % (Manual) 4 % (1-10) Eosinophils % (Manual) 0 % (0-3) Basophils % (Manual) 0 % (0-2) Band Neutrophils 6 % (0-8) Platelet Estimate Adequate Platelet Morphology Normal Hypochromasia 1+ Sodium Level 162 MMOL/L (136-145) #*H Potassium Level 5.0 MMOL/L (3.5-5.1) Chloride Level 127 MMOL/L (98-107) H Carbon Dioxide Level 24 MMOL/L (21-32) Anion Gap 12 mmol/L (5-15) Blood Urea Nitrogen 36 mg/dL (7-18) H Creatinine 1.7 MG/DL (0.55-1.30) H Estimat Glomerular Filtration Rate 54.4 mL/min (>60) Glucose Level 287 MG/DL (74-106) #H Calcium Level 9.5 MG/DL (8.5-10.1) Total Bilirubin < 0.1 MG/DL (0.2-1.0) L Aspartate Amino Transf (AST/SGOT) 69 U/L (15-37) H Alanine Aminotransferase (ALT/SGPT) 35 U/L (12-78) Alkaline Phosphatase 75 U/L (46-116) Total Protein 6.6 G/DL (6.4-8.2) Albumin 1.7 G/DL (3.4-5.0) L Globulin 4.9 g/dL Albumin/Globulin Ratio 0.3 (1.0-2.7) L Neurologic Exam Objective ROS unable to obtain to assess he is lethargic Neuro Exam: GENERAL: intubated Neuro Exam: pt is comatose, responds to painful stimuli pupils are equal and reactive bilaterally to light. ocular encephalic responses are intact. Cranial nerves: gag reflux is present Motor exam: pt has no spontaneous movements in upper and lower extremities Sensory: patient withdraws to pain Impression/Recommendations Diagnostic Impression Imaging: Reviewed Assessment: 1. Encephalopathy likely toxic --> prior urine tox screen was + for methamphetamines --> CT head was completed and is unremarkable --> at this time continue to closely monitor patient and hold sedatives. 2. Covid 19 Disease --> intubated now 3. Polysubstance Abuse --> rec cessation when fully awake. Thank you for the consultation we appreciate consultation Plan of care was discussed with my supervising Physician and he agrees with plan of care. Lilia Mejia NP Oct 14, 2020 12:40
--- NOTE | 2020-10-14 14:30 | NUR ---
NURSE NOTES: New Laci bag was started to replace previous empty bag. Continuing same rate of 70mcg/min to maintain SBP above 90.
--- NOTE | 2020-10-14 18:00 | NUR ---
NURSE NOTES: Per conversation/instruction and order from Dr Wiggins for tube feeding based on nutrition/top dyeing machine loader recommendation, pt was started on Nepro at goal rate of 35ml/hour via OGT. Flushed with water, patent/intact. VS remain stable. Pt was repositioned for comfort.
--- NOTE | 2020-10-14 19:20 | NUR ---
NURSE HAND-OFF REPORT: Latest Vital Signs: Temperature 98.5 , Pulse 60 , B/P 121 /96 , Respiratory Rate 16 , O2 SAT 100 , Mechanical Ventilator, AC16, VT500, Peep 5, FIO2 30%. Vital Sign Comment: Remains on Laci drip at 70mcg/min to maintain SBP above 90 bpm. EKG Rhythm: Sinus Rhythm Rhythm change?: N MD Notified?: N - MD Response: Latest Red Fall Score: 50 Fall Risk: High Risk Safety Measures: Call light Within Reach, Bed Alarm Zone 1, Side Rails Side Rails x3, Bed position Low and Locked. Fall Precautions: Report given to Jefry ROBBINS. Endorsed plan of care.
--- NOTE | 2020-10-14 19:28 | NUR ---
NURSE NOTES: Report received from ITZEL Sears. Observed pt lying in the bed. No response to stimuli noted. SR at this time. ETT 7.5, 23cm at lip. AC 16/500/30%/PEEP 5, saturating 100%. OGT intact, running nepro at 35cc/hr. F/C intact, draining yellow urine. R femoral TLC noted, intact, running D5W at 100cc/hr. CRISTEL running at 70mcg/min. Bed in the lowest position. Side rails up x3. Will continue to monitor.
[2020-10-14] MEDS: Dyna-Hex 2% Top Sol 2oz TOPIC SCH (20:12)
--- NOTE | 2020-10-14 21:10 | NUR ---
NURSE NOTES: Noted pt temperature of 95.0. Russ douglas in placed. Will continue to monitor. BP of 88/64 noted, phenylepi titrated to 90mcg at this time. Will continue to monitor.
[2020-10-15] VITALS (27 sets, daily range): BP systolic 84–105; BP diastolic 51–68
[2020-10-15] MEDS: Phenylephrine 50 MG in D5W 245 ML IV SCH ×2 (00:02→05:09)
--- NOTE | 2020-10-15 00:12 | NUR ---
NURSE NOTES: Pt lying in the bed, comatose. BP of 99/65 noted, On Laci at 110mcg/min at this time. SR noted. Tolerating current vent setting. Tolerating feeding, nepro 35cc/hr, no residual noted. Will continue to monitor.
--- NOTE | 2020-10-15 02:50 | NUR ---
NURSE NOTES: Noted pt having residual >200cc at this time, dark green discharge noted. Feeding on hold at this time. Will notify MD in am. SR noted. Tolerating vent setting at this time. will continue to monitor.
--- NOTE | 2020-10-15 04:30 | NUR ---
NURSE NOTES: VS stable. Pt lying in the bed. Tolerating vent setting, saturating at 99%. Feeding on hold, residual >100cc. Reposition done. Oral care given. Will continue to monitor.
--- NOTE | 2020-10-15 06:34 | NUR ---
NURSE NOTES: No acute change noted. VS stable. Pt comatose status. Laci at 170mcg/min at this time, BP of 105/63 noted. Reposition done. Will continue to monitor.
--- NOTE | 2020-10-15 07:07 | NUR ---
RESPIRATORY NOTE: PT received on AC/VC: 16, 500, 30%, +5. Alarms are on and audible. Vent circuit is secure and out of the way. Airway is secure and patent. No s/s of respiratory distress noted at this time. Will continue to closely monitor.
--- NOTE | 2020-10-15 07:10 | NUR ---
NURSE HAND-OFF REPORT: OGT residual noted, left message to , awaiting for call back. Pt comatose. Laci at 170mcg/min at this time. BP of 102/63 noted. Latest Vital Signs: Temperature 98.7 , Pulse 97 , B/P 102 /63 , Respiratory Rate 16 , O2 SAT 98 , Room Air, O2 Flow Rate 15.0 . Vital Sign Comment: [] EKG Rhythm: Sinus Rhythm Rhythm change?: N MD Notified?: N - MD Response: Latest Red Fall Score: 50 Fall Risk: High Risk Safety Measures: Call light Within Reach, Bed Alarm Zone 1, Side Rails Side Rails x3, Bed position Low and Locked. Fall Precautions: Report given to ITZEL Rowland.
--- NOTE | 2020-10-15 07:11 | NUR ---
NURSE NOTES: Pt received from ITZEL Capps. Pt is comatose, non-responsive, gag reflex absent, bilat pupils fixed and dilated - equal and round 6mm; pt does not respond to deep pain stimuli. Pt is SR to nuclear monitoring technician with 1+ radial and dorsalis pedis pulses. . Pt is orally intubated with a 7.5 ETT noted 23 cm at the lip with the following settings: AC 16 TV 500 FiO2 30 % Peep 5. lung rodriguez noted diminished upon auscultation. OGT noted clamped - residuals 100 cc - TF on hold. Abdomen is flat and soft w/ hypoactive bowel sounds to all quadrants. F/C noted draining yellow urine. Skin is intact. Pt has a RFA 22g and LFA 22g IVs saline-locked. Pt also has a R fem TLC with dry and intact dressing running phenylepherine at 170 mcg/min and D5W at 100 cc/hr. Bed in lowest position, alarm on, side rails up x 3, call light within reach. Will continue to monitor. Addendum: 10/16/20 at 1830 by Janett Glover RN Late entry: pt also has a ARA 20g IV saline locked. Addendum: 02/01/21 at 1315 by Janett Glover RN Amendment: bilat pupils fixed and dilated - equal and round 5 mm
--- NOTE | 2020-10-15 08:00 | NUR ---
NURSE NOTES: Pt repositioned. Axillary temp 99 F. No distress noted.
[2020-10-15] MEDS: Trimethoprim/Sulfamethoxazole 20 ML in D5W 500ml 550 ML IV SCH ×2 (08:04→16:25)
[2020-10-15] MEDS: Pantoprazole Inj IVP SCH (08:12)
[2020-10-15] MEDS: Enoxaparin 40mg Inj SUBQ SCH (08:13)
[2020-10-15] MEDS ORDERED: Vancomycin 1.25gm Premix q24h IVPB SCH (09:00)
--- NOTE | 2020-10-15 09:58 | NUR ---
TUFTING MACHINE OPERATOR SINGLE NEEDLE NOTE SW attempted to call possible number [phone], the call was rejected.
--- NOTE | 2020-10-15 10:00 | NUR ---
NURSE NOTES: Pt repositioned. No distress noted.
--- NOTE | 2020-10-15 10:53 | Neurology Progress Note ---
Interim History Interim History ROS Limited/Unobtainable: Yes Events: remains in icu intubated Objective Physical Exam Last Vital Signs Date Time Temp Pulse Resp B/P (MAP) Pulse Ox O2 Delivery O2 Flow Rate FiO2 10/15/20 09:00 93 16 99/61 (74) 99 10/15/20 08:00 Mechanical Ventilator 10/15/20 08:00 30 10/15/20 08:00 99.0 10/09/20 21:00 15.0 Laboratory Tests Test 10/15/20 03:10 Random Vancomycin Level 14.9 ug/mL Neurologic Exam Objective ROS unable to obtain to assess he is lethargic Neuro Exam: GENERAL: intubated Neuro Exam: pt is comatose, responds to painful stimuli pupils are equal and reactive bilaterally to light. ocular encephalic responses are intact. Cranial nerves: gag reflux is present Motor exam: pt has no spontaneous movements in upper and lower extremities Sensory: patient withdraws to pain Impression/Recommendations Diagnostic Impression Imaging: Reviewed Assessment: 1. Encephalopathy likely toxic --> prior urine tox screen was + for methamphetamines --> CT head was completed and is unremarkable --> at this time continue to closely monitor patient and hold sedatives. --> bioethics committee consulted no further rec's. 2. Covid 19 Disease --> intubated now 3. Polysubstance Abuse --> rec cessation when fully awake. Thank you for the consultation we appreciate consultation Plan of care was discussed with my supervising Physician and he agrees with plan of care. Lilia Mejia NP Oct 15, 2020 10:53
[2020-10-15] MEDS: Phenylephrine 100 MG in D5W 500ml 490 ML IV PRN ×2 (10:58→19:57)
--- NOTE | 2020-10-15 12:00 | NUR ---
NURSE NOTES: Pt repositioned. Afebrile No distress noted.
--- NOTE | 2020-10-15 14:00 | NUR ---
NURSE NOTES: Pt repositioned. No distress noted.
--- NOTE | 2020-10-15 15:03 | Infectious Diseases Prog Note ---
Assessment/Plan Assessment/Plan ASSESSMENT AND PLAN: 1. COVID-19 infection, acute hypoxia, ams, fevers, sepsis, ? pneumonia s/p code - non-responsive now HIV, AIDS - CDR 10, VL - 133,370 LDH wnl - less likely pneumocystis but possible enterococcus uti cryptococcus + blood culture, cryptococcus fungemia, infection, likely meningitis - dexamethasone, s/p remdesivir - zosyn, vancomycin, diflucan, iv bactrim - f/u beta-D glucan, cryptococcus antigen - neuro f/, poor prognosis, consider comfort care - monitor labs and chest x-ray, surveillance blood cultures negative - Hold on HIV treatment because of potential of immune reconstitution syndrome with disseminated cryptococcus infection 2. pmh o/w negative 3. Amphetamine use 4) allergies - negative 5. will f/u Subjective Constitutional: Denies: fever HEENT: Reports: congestion Respiratory: Denies: shortness of breath Cardiovascular: Reports: other Gastrointestinal/Abdominal: Denies: vomiting, diarrhea Genitourinary: Reports: other - + yeung Allergies: Coded Allergies: No Known Allergies (Unverified , 09/29/20) Objective Last 24 Hour Vital Signs Date Time Temp Pulse Resp B/P (MAP) Pulse Ox O2 Delivery O2 Flow Rate FiO2 10/15/20 14:00 86 16 91/55 (67) 100 10/15/20 14:00 86 16 91/55 (67) 100 10/15/20 13:00 89 16 91/54 (66) 100 10/15/20 12:00 90 10/15/20 12:00 30 10/15/20 12:00 Mechanical Ventilator 10/15/20 12:00 98.7 92 16 93/53 (66) 99 10/15/20 11:08 95 16 30 10/15/20 11:00 95 16 101/54 (70) 99 10/15/20 10:58 95 101/59 10/15/20 10:00 92 16 95/57 (70) 99 10/15/20 09:00 93 16 99/61 (74) 99 10/15/20 08:00 Mechanical Ventilator 10/15/20 08:00 30 10/15/20 08:00 99.0 95 16 96/60 (72) 99 10/15/20 08:00 95 10/15/20 07:07 96 16 30 10/15/20 07:00 97 16 102/63 (76) 98 10/15/20 07:00 97 16 98 10/15/20 06:00 99 16 105/62 (76) 98 10/15/20 05:15 100 16 100/59 (73) 99 10/15/20 05:09 100 95/57 10/15/20 05:00 100 16 88/55 (66) 100 10/15/20 04:00 91 10/15/20 04:00 98.7 96 16 88/59 (69) 96 10/15/20 04:00 30 10/15/20 04:00 Mechanical Ventilator 10/15/20 03:10 100 16 30 10/15/20 03:00 91 16 97/63 (74) 97 10/15/20 02:15 87 16 93/59 (70) 98 10/15/20 02:00 86 16 88/61 (70) 97 10/15/20 01:12 82 16 92/62 (72) 98 10/15/20 01:00 80 16 84/54 (64) 98 10/15/20 00:02 77 99/65 10/15/20 00:00 30 10/15/20 00:00 Mechanical Ventilator 10/15/20 00:00 96.0 77 16 99/68 (78) 99 10/15/20 00:00 74 10/14/20 23:10 77 16 30 10/14/20 23:00 74 16 99/68 (78) 98 10/14/20 22:00 68 16 92/68 (76) 99 10/14/20 21:15 65 16 100/76 (84) 99 10/14/20 21:13 64 16 96/73 (81) 99 10/14/20 21:00 63 16 88/64 (72) 98 10/14/20 20:00 60 10/14/20 20:00 30 10/14/20 20:00 95.0 61 16 111/87 (95) 100 10/14/20 20:00 Mechanical Ventilator 10/14/20 19:10 59 16 30 10/14/20 19:00 60 16 121/96 (104) 100 10/14/20 18:00 61 16 121/98 (106) 100 10/14/20 17:00 58 16 103/83 (90) 100 10/14/20 16:00 Mechanical Ventilator 10/14/20 16:00 30 10/14/20 16:00 58 10/14/20 16:00 58 16 115/92 (100) 100 10/14/20 15:14 59 20 30 10/14/20 15:00 98.5 61 19 123/96 (105) 100 Height (Feet): 6 Weight (Pounds): 120 General Appearance: other - on vent, non-responsive HEENT: normocephalic, atraumatic Respiratory/Chest: crackles/rales, rhonchi - bilaterally Cardiovascular: normal rate, regular rhythm Abdomen: normal bowel sounds, soft, non tender, no organomegaly Genitourinary: other - + yeung Chest x-ray - 10/04/20 - Procedure: XRAY Chest 1v EXAM: XR Chest, 1 View CLINICAL HISTORY: DIARRHEA TECHNIQUE: Frontal view of the chest. COMPARISON: Chest x-ray 10/01/2020 FINDINGS: Lungs: New mild patchy opacities within the medial left lung base and to a lesser extent the medial right lung base. Pleural space: Unremarkable. No pneumothorax. Heart: Unremarkable. No cardiomegaly. Mediastinum: Unremarkable. Bones/joints: Unremarkable. IMPRESSION: New mild patchy opacities within the lung bases may indicate a developing infectious/inflammatory process such as multifocal pneumonia or aspiration pneumonitis. Laboratory Tests Test 10/15/20 03:10 Random Vancomycin Level 14.9 ug/mL Current Medications Medications (Trade) Dose Ordered Sig/Carleen Route PRN Reason Start Time Stop Time Status Last Admin Dose Admin Acetaminophen (Tylenol) 650 mg Q4H PRN ORAL Mild Pain (Pain Scale 1-3) 10/01/20 11:00 10/31/20 10:59 Acetaminophen (Tylenol) 650 mg Q4H PRN RECTAL BT>100.5F 10/04/20 23:30 11/03/20 23:29 10/05/20 08:18 Albuterol/ Ipratropium (Albuterol/ Ipratropium) 3 ml Q4H PRN HHN Shortness of Breath 10/13/20 08:45 10/18/20 08:44 Bisacodyl (Dulcolax) 10 mg DAILYPRN PRN RECTAL Constipation 10/08/20 19:00 01/06/21 18:59 Chlorhexidine Gluconate (Malgorzata-Hex 2%) 1 applic DAILY@2000 TOPIC 10/10/20 20:00 01/08/21 19:59 10/14/20 20:12 Dextrose 1,000 ml @ 100 mls/hr Q10H IV 10/14/20 08:30 11/13/20 08:29 10/15/20 13:30 Dextrose (Dextrose 50%) 25 ml Q30M PRN IV Hypoglycemia 10/01/20 11:00 12/30/20 10:59 Dextrose (Dextrose 50%) 50 ml Q30M PRN IV Hypoglycemia 10/01/20 11:00 12/30/20 10:59 Enoxaparin Sodium (Lovenox) 40 mg DAILY SUBQ 10/01/20 12:00 12/30/20 11:59 10/15/20 08:13 Fluconazole/ Sodium Chloride 200 ml @ 100 mls/hr Q24H IV 10/11/20 18:00 10/18/20 17:59 10/14/20 17:51 Hydralazine HCl (Apresoline) 10 mg Q4H PRN IV SBP > 150 mmHg 10/09/20 08:15 01/07/21 08:14 Metoprolol Tartrate (Lopressor) 5 mg Q5MIN X 3 IVP 10/10/20 05:15 01/08/21 05:14 10/10/20 05:15 Ondansetron HCl (Zofran) 4 mg Q6H PRN IVP Nausea & Vomiting 10/01/20 11:00 10/31/20 10:59 Pantoprazole (Protonix) 40 mg DAILY IVP 10/02/20 13:00 11/01/20 12:59 10/15/20 08:12 Phenylephrine HCl 100 mg/Dextrose 500 ml @ 0 mls/hr Q24H PRN IV . 10/15/20 09:00 11/14/20 08:59 10/15/20 10:58 Piperacillin Sod/ Tazobactam Sod 3.375 gm/Dextrose 100 ml @ 25 mls/hr Q8H IVPB 10/07/20 08:00 10/18/20 23:59 10/15/20 08:04 Trimethoprim/ Sulfamethoxazole 20 ml/Dextrose 570 ml @ 380 mls/hr [id number] BACTRIM IV 10/10/20 00:00 10/22/20 23:59 10/15/20 08:04 [facility] 1 ea DAILY PRN MISC Per rx protocol 10/05/20 16:00 11/04/20 15:59 Wood Tyler MD Oct 15, 2020 15:03
--- NOTE | 2020-10-15 16:00 | NUR ---
NURSE NOTES: Pt cleaned and repositioned. Afebrile. No acute distress noted. blood cultures sent down to lab for processing.
--- NOTE | 2020-10-15 16:32 | NUR ---
CASE MANAGEMENT:REVIEW 10/15/20 SI: COVID(+). HIV(+. TOXIC ENCEPHALOPATHY 98.9 86 16 93/54 100% ON VENT SUPPORT W/30% FIO2 IS: IVF NS@100/HR PHENYLEPHRINE GTT IV BACTRIM Q8HRS IV ZOSYN Q8HRS IV DIFLUCAN Q24 IV PROTONIX QD LOVENOX SQ QD : ICU STATUS DCP: SOCIAL SERVICE CONSULT PLAN: COMPLETED REMDESIVIR BIOETHICS
--- NOTE | 2020-10-15 17:54 | Pulmonolgy Critical Care Note ---
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 (5) Cardiac arrest (6) AIDS (7) Encephalopathy acute (8) UTI (urinary tract infection) (9) Altered mental status (10) Amphetamine abuse (11) COVID-19 virus detected Assessment/Plan: Respiratory: Monitor gas exchange, continue current settings, pulmonary hygiene, PRN HHN's, no longer on DEX Cardiac: continue pressors (Cristel) - Titrate to keep MAP > 60, other - TTE reviewed Renal: monitor renal function, IVF D5W @ 100 Infectious Disease: ABx and Flucon per ID, LP will not change management director Gastrointestinal: NGTF's Endocrine: monitor blood sugar, other Hematologic: monitor H/H Neurologic: Off sedation, unresponsive Goals: Ethics recs, DNAR based on medical futility Prophylaxis: Protonix & LMWH Time Spent (Minutes): other - 40 Notes Reviewed: ID, neuro Discussed with: nurses, consultants Critical Care - Objective Last 24 Hour Vital Signs Date Time Temp Pulse Resp B/P (MAP) Pulse Ox O2 Delivery O2 Flow Rate FiO2 10/15/20 17:00 84 16 90/54 (66) 100 10/15/20 16:00 30 10/15/20 16:00 98.9 86 16 93/54 (67) 100 10/15/20 16:00 Mechanical Ventilator 10/15/20 16:00 85 10/15/20 16:00 88 10/15/20 15:10 86 16 30 10/15/20 15:00 85 16 96/56 (69) 100 10/15/20 14:00 86 16 91/55 (67) 100 10/15/20 14:00 86 16 91/55 (67) 100 10/15/20 13:00 89 16 91/54 (66) 100 10/15/20 12:00 90 10/15/20 12:00 30 10/15/20 12:00 Mechanical Ventilator 10/15/20 12:00 98.7 92 16 93/53 (66) 99 10/15/20 11:08 95 16 30 10/15/20 11:00 95 16 101/54 (70) 99 10/15/20 10:58 95 101/59 10/15/20 10:00 92 16 95/57 (70) 99 10/15/20 09:00 93 16 99/61 (74) 99 10/15/20 08:00 Mechanical Ventilator 10/15/20 08:00 30 10/15/20 08:00 99.0 95 16 96/60 (72) 99 10/15/20 08:00 95 10/15/20 07:07 96 16 30 10/15/20 07:00 97 16 102/63 (76) 98 10/15/20 07:00 97 16 98 10/15/20 06:00 99 16 105/62 (76) 98 10/15/20 05:15 100 16 100/59 (73) 99 10/15/20 05:09 100 95/57 10/15/20 05:00 100 16 88/55 (66) 100 10/15/20 04:00 91 10/15/20 04:00 98.7 96 16 88/59 (69) 96 10/15/20 04:00 30 10/15/20 04:00 Mechanical Ventilator 10/15/20 03:10 100 16 30 10/15/20 03:00 91 16 97/63 (74) 97 10/15/20 02:15 87 16 93/59 (70) 98 10/15/20 02:00 86 16 88/61 (70) 97 10/15/20 01:12 82 16 92/62 (72) 98 10/15/20 01:00 80 16 84/54 (64) 98 10/15/20 00:02 77 99/65 10/15/20 00:00 30 10/15/20 00:00 Mechanical Ventilator 10/15/20 00:00 96.0 77 16 99/68 (78) 99 10/15/20 00:00 74 10/14/20 23:10 77 16 30 10/14/20 23:00 74 16 99/68 (78) 98 10/14/20 22:00 68 16 92/68 (76) 99 10/14/20 21:15 65 16 100/76 (84) 99 10/14/20 21:13 64 16 96/73 (81) 99 10/14/20 21:00 63 16 88/64 (72) 98 10/14/20 20:00 60 10/14/20 20:00 30 10/14/20 20:00 95.0 61 16 111/87 (95) 100 10/14/20 20:00 Mechanical Ventilator 10/14/20 19:10 59 16 30 10/14/20 19:00 60 16 121/96 (104) 100 10/14/20 18:00 61 16 121/98 (106) 100 Status: obtunded Condition: critical HEENT: atraumatic, normocephalic Lungs: rhonchi Heart: HR/BP unstable Abdomen: soft, non-tender, active bowel sounds Extremities: edema - 2+ Accucheck: 99 Blood Sugars: BS controlled Critical Care - Subjective ROS Limited/Unobtainable: Yes ICU Day: 7 Intubation Day: 7 Interval Events: Seen by bioethics DNAR NAEO Labs pending Yeast in blood Condition: critical IV Access: central - R fem CVC EKG Rhythm: Sinus Rhythm FI02: 30 Vent Support Breath Rate: 16 Vent Support Mode: AC Vent Tidal Volume: 500 Sputum Amount: Scant PEEP: 5.0 PIP: 15 Secretions: None Fluids: D5W@100 Drips: CRISTEL 170 Tube Feeding Amount: 10 Residuals: 0 I&O: Intake and Output 10/14/20 10/15/20 19:00 07:00 Intake Total 2847 ml 775.25 ml Output Total 1960 ml 1550 ml Balance 887 ml -774.75 ml Free Water 60 ml 30 ml IV Total 2717 ml 535.25 ml Tube Feeding 70 ml 210 ml Output Urine Total 1960 ml 1550 ml Subjective: BEN ET-Tube: 7.5 ET Position: 27 Labs: Laboratory Tests 10/15/20 03:10: Random Vancomycin Level 14.9 Jaime Wiggins MD Oct 15, 2020 17:54
--- NOTE | 2020-10-15 17:56 | NUR ---
NURSE NOTES: Pt seen by Dr Wiggins.
--- NOTE | 2020-10-15 18:00 | NUR ---
NURSE NOTES: Pt repositioned. STAT CBC and CBC collected and sent down to lab for processing.
[2020-10-15 18:51] LABS: ALBUMIN 1.2 G/DL (3.4-5.0); ALBUMIN/GLOBULIN RATIO 0.3 (1.0-2.7); BILIRUBIN,TOTAL 0.2 MG/DL (0.2-1.0); CALCIUM 8.5 MG/DL (8.5-10.1); CREATININE 2.1 MG/DL (0.55-1.30); POTASSIUM 4.6 MMOL/L (3.5-5.1)
--- NOTE | 2020-10-15 19:13 | NUR ---
NURSE HAND-OFF REPORT: Latest Vital Signs: Temperature 98.9 , Pulse 89 , B/P 102 /64 , Respiratory Rate 16 , O2 SAT 100 , Mechanical Ventilator , FiO2 30 % . EKG Rhythm: Sinus Rhythm Rhythm change?: N MD Notified?: N - MD Response: Latest Red Fall Score: 50 Fall Risk: High Risk Safety Measures: Call light Within Reach, Bed Alarm Zone 1, Side Rails Side Rails x3, Bed position Low and Locked. Fall Precautions: Report given to ITZEL Capps. Endorsed lab to repeat STAT CBC and CMP draw at this time (Dr Wiggins aware - f/u with results).
[2020-10-15 19:21] LABS: HEMATOCRIT 25.5 % (42.0-52.0); HEMOGLOBIN 7.9 G/DL (14.2-18.0); MEAN CORPUSCULAR VOLUME 91 FL (80-99); PLATELET COUNT 174 K/UL (150-450); RED BLOOD COUNT 2.82 M/UL (4.70-6.10); RED CELL DISTRIBUTION WIDTH 13.4 % (11.6-14.8); WHITE BLOOD COUNT 9.3 K/UL (4.8-10.8)
--- NOTE | 2020-10-15 19:26 | NUR ---
NURSE NOTES: Report received from ITZEL Rowland. Observed pt lying in the bed, comatose status noted. SR noted. BP of 94/55 at this time w/ CRISTEL at 190mcg/min. ETT 7.5, 23cm at lip, AC 16, 500, 30%, PEEP 5, saturating at 100%. OGT intact, running nepro at 10cc/hr. R Femoral TLC noted, running D5W at 100cc/hr. Bed in the lowest position. Side rails up x3. Will continue to monitor.
[2020-10-15 19:32] LABS: ALBUMIN 1.5 G/DL (3.4-5.0); ALBUMIN/GLOBULIN RATIO 0.3 (1.0-2.7); BILIRUBIN,TOTAL 0.2 MG/DL (0.2-1.0); CALCIUM 9.5 MG/DL (8.5-10.1); CREATININE 2.2 MG/DL (0.55-1.30)
[2020-10-15] MEDS: Dyna-Hex 2% Top Sol 2oz TOPIC SCH (19:57)
--- NOTE | 2020-10-15 22:24 | NUR ---
NURSE NOTES: No acute change noted at this time. Laci at 210mcg/min, bp 91/56 noted. Tolerating vent setting, AC16/500/30%/PEEP 5, saturating at 100%. Gtube residual of 10cc noted at this time. Will continue to monitor.
[2020-10-16] VITALS (24 sets, daily range): BP systolic 85–129; BP diastolic 49–86
--- NOTE | 2020-10-16 00:10 | NUR ---
NURSE NOTES: Noted residual from OGT >60cc, feeding on hold at this time. No other change noted. Reposition done. Oral care given. SR noted. Tolerating vent setting, saturating at 100%. Will continue to monitor.
[2020-10-16] MEDS: Trimethoprim/Sulfamethoxazole 20 ML in D5W 500ml 550 ML IV SCH ×3 (00:24→16:26)
--- NOTE | 2020-10-16 02:00 | NUR ---
NURSE NOTES: No acute change noted. SR noted. Tolerating vent, saturating at 100%. BP stable on Laci running at 210mcg/min. Urine output of 150cc/hr noted. Reposition done. Will continue to monitor.
[2020-10-16] MEDS: Phenylephrine 100 MG in D5W 500ml 490 ML IV PRN ×3 (03:36→19:00)
--- NOTE | 2020-10-16 04:56 | NUR ---
NURSE NOTES: BP 88/50 noted, titrated Laci to 230mcg/min at this time, BP of 107/68 noted. Bed bath given. Feeding on hold at this time. Repositio done. Oral care given. Will continue to monitor.
[2020-10-16 05:06] LABS: HEMATOCRIT 27.5 % (42.0-52.0); HEMOGLOBIN 8.3 G/DL (14.2-18.0); MEAN CORPUSCULAR VOLUME 92 FL (80-99); PLATELET COUNT 160 K/UL (150-450); RED BLOOD COUNT 2.98 M/UL (4.70-6.10); WHITE BLOOD COUNT 9.6 K/UL (4.8-10.8)
[2020-10-16 05:34] LABS: ALBUMIN 1.4 G/DL (3.4-5.0); ALBUMIN/GLOBULIN RATIO 0.3 (1.0-2.7); BILIRUBIN,TOTAL 0.1 MG/DL (0.2-1.0); CALCIUM 9.5 MG/DL (8.5-10.1); CREATININE 2.3 MG/DL (0.55-1.30); POTASSIUM 5.1 MMOL/L (3.5-5.1)
[2020-10-16] MEDS: NovoLOG Insulin Flexpen SUBQ SCH ×4 (05:47→17:15)
--- NOTE | 2020-10-16 07:25 | NUR ---
NURSE HAND-OFF REPORT: Pt lying in the bed, no acute change noted. Pt comatose status. BP stable at CRISTEL 230mcg/min. Latest Vital Signs: Temperature 97.0 , Pulse 85 , B/P 118 /71 , Respiratory Rate 16 , O2 SAT 100 , Room Air, O2 Flow Rate 15.0 . Vital Sign Comment: [] EKG Rhythm: Sinus Rhythm Rhythm change?: N MD Notified?: N - MD Response: Latest Red Fall Score: 50 Fall Risk: High Risk Safety Measures: Call light Within Reach, Bed Alarm Zone 1, Side Rails Side Rails x3, Bed position Low and Locked. Fall Precautions: Report given to ITZEL Yeung.
--- NOTE | 2020-10-16 07:26 | NUR ---
NURSE NOTES: Pt received from ITZEL Capps. Pt is comatose, non-responsive, gag reflex absent, bilat pupils fixed and dilated - equal and round 6mm; pt does not respond to deep pain stimuli. 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 . Pt is orally intubated with a 7.5 ETT noted 23 cm at the lip with the following settings: AC 16 TV 500 FiO2 30 % Peep 5. lung rodriguez noted diminished upon auscultation. OGT noted clamped - residuals 110 cc - TF on hold. Abdomen is flat and soft w/ hypoactive bowel sounds to all quadrants. F/C noted draining yellow urine. Skin is intact. Pt has a RFA 22g and LFA 22g IVs saline-locked. Pt also has a R fem TLC with dry and intact dressing running phenylepherine at 230 mcg/min and D5W at 150 cc/hr. Bed in lowest position, alarm on, side rails up x 3, call light within reach. Dr Wiggins made aware pt's average urine output per hour is 400 cc - serum sodium and BUN/Cr trend also noted - received order for nephrology consult with Dr Barrios. Addendum: 10/16/20 at 1830 by Janett Glover RN Late entry: pt also has a ARA 20g IV saline locked. Addendum: 10/20/20 at 1315 by Janett Glover RN Amendment: bilat pupils fixed and dilated - equal and round 5 mm
--- NOTE | 2020-10-16 08:00 | NUR ---
NURSE NOTES: Pt cleaned and repositioned. PO care provided. Afebrile.
--- NOTE | 2020-10-16 08:35 | NUR ---
RD ASSESSMENT & RECOMMENDATIONS SEE CARE ACTIVITY FOR COMPLETE ASSESSMENT DAILY ESTIMATED NEEDS: Needs based on Underweight, Critical Care/ 54.4kg 25-35 kcals/kg 0302-3106 total kcals 1.2-2 g protein/kg 65-109 g total protein 25-30 mL/kg 2616-9133 total fluid mLs NUTRITION DIAGNOSIS: Increased kcal and pro needs r/t underweight status as evidenced by BMI underweight per guidelines, pt is 67% of [place] Body weight w/ visual wasting per RN, NPO until fully awake per MD, now orally intubated (10/09), s/p code blue (10/10), on pressor support, NPO. CURRENT TF: Nepro @10ml/hr-> now held ENTERAL NUTRITION RECOMMENDATIONS: NEPRO @35ml/hr x 24 hrs to provide 840ml, 1512kcal, 68g prot, 611ml free water FEED WITH HEMODYNAMIC STABILITY ---> W/ GI access, initiate NEPRO @15ml/hr x 6hrs ---> Advance 10ml q 4-6 hrs as tolerated to goal ---> HOB over 30 degrees/ H2o flush 180ml q 8hrs WITHOUT HEMODYNAMIC STABILITY, rec trophic feeding of NEPRO @10ml/hr if able to keep HOB >30 degrees ADDITIONAL RECOMMENDATIONS: 1) Monitor hemodynamic stability, ability to feed: NPO from adm s/p code blue (10/10) 2) Monitor for hypoglycemia while NPO- now on D5 @150ml/hr 3) BM not updated since 10/01, rec bowel regimen 4) Daily wts on calibrated bed scale
[2020-10-16] MEDS: Enoxaparin 40mg Inj SUBQ SCH (08:53)
[2020-10-16] MEDS: Pantoprazole Inj IVP SCH ×2 (08:53→20:57)
[2020-10-16] MEDS ORDERED: NS 275ml ONE (09:16)
--- NOTE | 2020-10-16 10:00 | NUR ---
NURSE NOTES: Pt repositioned. No distress noted. Will continue to monitor.
--- NOTE | 2020-10-16 10:56 | Diagnostic Imaging Report ---
Procedure: XRAY Chest 1v Reason for study: Shortness of breath. Comparison films: 10/13/2020. FINDINGS: Endotracheal tube and NG tube remain in place. Vascularity is normal. Right basilar infiltrate not significantly changed. Cardiac and mediastinal silhouette are within normal limits. CP angles are sharp. The bony thorax appear unremarkable. IMPRESSION: NO SIGNIFICANT CHANGE COMPARED TO PREVIOUS EXAM.
--- NOTE | 2020-10-16 11:12 | Neurology Progress Note ---
Interim History Interim History ROS Limited/Unobtainable: Yes Events: no changes, intubated Objective Physical Exam Last Vital Signs Date Time Temp Pulse Resp B/P (MAP) Pulse Ox O2 Delivery O2 Flow Rate FiO2 10/16/20 10:00 82 16 109/62 (78) 100 10/16/20 08:00 Mechanical Ventilator 10/16/20 08:00 98.3 10/16/20 08:00 30 10/09/20 21:00 15.0 Laboratory Tests Test 10/15/20 18:00 10/15/20 19:10 10/15/20 19:47 10/16/20 02:50 Sodium Level 147 MMOL/L (136-145) H 163 MMOL/L (136-145) #*H 161 MMOL/L (136-145) *H Potassium Level 4.6 MMOL/L (3.5-5.1) 5.0 MMOL/L (3.5-5.1) 5.1 MMOL/L (3.5-5.1) Chloride Level 114 MMOL/L (98-107) H 129 MMOL/L (98-107) H 125 MMOL/L (98-107) H Carbon Dioxide Level 25 MMOL/L (21-32) 26 MMOL/L (21-32) 27 MMOL/L (21-32) Anion Gap 8 mmol/L (5-15) 9 mmol/L (5-15) 8 mmol/L (5-15) Blood Urea Nitrogen 27 mg/dL (7-18) H 30 mg/dL (7-18) H 27 mg/dL (7-18) H Creatinine 2.1 MG/DL (0.55-1.30) H 2.2 MG/DL (0.55-1.30) H 2.3 MG/DL (0.55-1.30) H Estimat Glomerular Filtration Rate 42.7 mL/min (>60) 40.4 mL/min (>60) 38.4 mL/min (>60) Glucose Level 675 MG/DL (74-106) *H 230 MG/DL (74-106) #H 235 MG/DL (74-106) H Calcium Level 8.5 MG/DL (8.5-10.1) 9.5 MG/DL (8.5-10.1) 9.5 MG/DL (8.5-10.1) Total Bilirubin 0.2 MG/DL (0.2-1.0) 0.2 MG/DL (0.2-1.0) 0.1 MG/DL (0.2-1.0) L Aspartate Amino Transf (AST/SGOT) 97 U/L (15-37) H 125 U/L (15-37) H 138 U/L (15-37) H Alanine Aminotransferase (ALT/SGPT) 41 U/L (12-78) 47 U/L (12-78) 47 U/L (12-78) Alkaline Phosphatase 78 U/L (46-116) 96 U/L (46-116) 100 U/L (46-116) Total Protein 5.0 G/DL (6.4-8.2) L 6.0 G/DL (6.4-8.2) L 5.9 G/DL (6.4-8.2) L Albumin 1.2 G/DL (3.4-5.0) L 1.5 G/DL (3.4-5.0) L 1.4 G/DL (3.4-5.0) L Globulin 3.8 g/dL 4.5 g/dL 4.5 g/dL Albumin/Globulin Ratio 0.3 (1.0-2.7) L 0.3 (1.0-2.7) L 0.3 (1.0-2.7) L White Blood Count 9.3 K/UL (4.8-10.8) 9.6 K/UL (4.8-10.8) Red Blood Count 2.82 M/UL (4.70-6.10) L 2.98 M/UL (4.70-6.10) L Hemoglobin 7.9 G/DL (14.2-18.0) L 8.3 G/DL (14.2-18.0) L Hematocrit 25.5 % (42.0-52.0) L 27.5 % (42.0-52.0) L Mean Corpuscular Volume 91 FL (80-99) 92 FL (80-99) Mean Corpuscular Hemoglobin 27.9 PG (27.0-31.0) 28.0 PG (27.0-31.0) Mean Corpuscular Hemoglobin Concent 30.8 G/DL (32.0-36.0) L 30.4 G/DL (32.0-36.0) L Red Cell Distribution Width 13.4 % (11.6-14.8) 14.0 % (11.6-14.8) Platelet Count 174 K/UL (150-450) 160 K/UL (150-450) Mean Platelet Volume 8.2 FL (6.5-10.1) 8.9 FL (6.5-10.1) Neutrophils (%) (Auto) % (45.0-75.0) % (45.0-75.0) Lymphocytes (%) (Auto) % (20.0-45.0) % (20.0-45.0) Monocytes (%) (Auto) % (1.0-10.0) % (1.0-10.0) Eosinophils (%) (Auto) % (0.0-3.0) % (0.0-3.0) Basophils (%) (Auto) % (0.0-2.0) % (0.0-2.0) Differential Total Cells Counted 100 100 Neutrophils % (Manual) 87 % (45-75) H 82 % (45-75) H Lymphocytes % (Manual) 11 % (20-45) L 15 % (20-45) L Monocytes % (Manual) 2 % (1-10) 3 % (1-10) Eosinophils % (Manual) 0 % (0-3) 0 % (0-3) Basophils % (Manual) 0 % (0-2) 0 % (0-2) Band Neutrophils 0 % (0-8) 0 % (0-8) Nucleated Red Blood Cells 10 /100 WBC 4 /100 WBC Platelet Estimate Adequate Adequate Platelet Morphology Normal Normal Polychromasia 1+ Hypochromasia 1+ 1+ POC Whole Blood Glucose 193 MG/DL (74-106) H Anisocytosis 1+ Random Vancomycin Level 20.6 ug/mL Test 10/16/20 05:37 POC Whole Blood Glucose Pending Neurologic Exam Objective ROS unable to obtain to assess he is lethargic Neuro Exam: GENERAL: intubated Neuro Exam: pt is comatose, responds to painful stimuli pupils are equal and reactive bilaterally to light. ocular encephalic responses are intact. Cranial nerves: gag reflux is present Motor exam: pt has no spontaneous movements in upper and lower extremities Sensory: patient withdraws to pain Impression/Recommendations Diagnostic Impression Imaging: Reviewed Assessment: 1. Encephalopathy likely toxic --> prior urine tox screen was + for methamphetamines --> CT head was completed and is unremarkable --> at this time continue to closely monitor patient and hold sedatives. --> bioethics committee consulted no further rec's. 2. Covid 19 Disease --> intubated now 3. Polysubstance Abuse --> rec cessation when fully awake. Thank you for the consultation we appreciate consultation Plan of care was discussed with my supervising Physician and he agrees with plan of care. Lilia Mejia NP Oct 16, 2020 11:12
--- NOTE | 2020-10-16 11:23 | NUR ---
NURSE NOTES: Pt seen by Dr Barrios - paulino for today reviewed.
--- NOTE | 2020-10-16 11:32 | NUR ---
RADIOLOGY DEPT., CHEST X-RAY DONE.-P.DYE
--- NOTE | 2020-10-16 11:56 | NUR ---
CASE MANAGEMENT:REVIEW 10/16/20 SI: COVID(+). HIV(+. TOXIC ENCEPHALOPATHY 98.3 85 16 117/68 100% ON VENT SUPPORT W/30% FIO2 H/H-8.3/27.5 NA+161 CR+2.3 IS: IVF NS@150/HR PHENYLEPHRINE GTT IV BACTRIM Q8HRS IV ZOSYN Q8HRS IV DIFLUCAN Q24 IV PROTONIX QD LOVENOX SQ QD : ICU STATUS DCP: SOCIAL SERVICE CONSULT PLAN: COMPLETED REMDESIVIR BIOETHICS
--- NOTE | 2020-10-16 12:00 | NUR ---
NURSE NOTES: Pt repositioned. PO care provided. Afebrile. Will continue monitoring.
--- NOTE | 2020-10-16 12:37 | Cardiology Report ---
APPROVED REPORT EKG Measurement Heart [id number] <Conclusion> Sinus tachycardia Nonspecific T wave abnormality Abnormal ECG
--- NOTE | 2020-10-16 12:42 | Consultation ---
Consult Note Consult Note I am asked to evaluate the patient at the request of Dr. Wiggins for renal failure and electrolyte imbalances Patient seen in ICU Discussed with ITZEL Tucker Patient has a large amount of urine output hourly 3 to 400 mL/h Patient has no electrical activity in the brain according to the RN Patient is DNR Patient intubated on ventilator Patient is being treated for the following: (1) Cryptococcosis (2) Fungemia (3) Sepsis (4) Dependence on respirator [ventilator] status (5) Cardiac arrest (6) AIDS (7) Encephalopathy acute (8) UTI (urinary tract infection) (9) Altered mental status (10) Amphetamine abuse (11) COVID-19 virus detected Assessment/Plan Acute renal failure Polyuria secondary to diabetes insipidus Electrolyte abnormalities Suggest: IV D5W 200 cc an hour DDAVP nasal spray Midodrine for low blood pressure Monitor electrolytes and renal parameters Poor prognosis Per orders Randall Barrios MD Oct 16, 2020 12:42
[2020-10-16] MEDS ORDERED: Desmopressin Nasal 5ml NS SCH (14:00)
--- NOTE | 2020-10-16 14:00 | NUR ---
NURSE NOTES: Pt repositioned. No distress noted.
[2020-10-16] MEDS: Midodrine 10mg tab ORAL SCH ×2 (14:07→20:57)
--- NOTE | 2020-10-16 16:00 | NUR ---
NURSE NOTES: Pt repositioned. PO care provided. Afebrile. D5W rate increased to 200 cc/hr per order. previous bag still running. Addendum: 10/16/20 at 1648 by Janett Glover RN Amendment: please disregard previous noted. Pt repositioned. PO care provided. Afebrile.
--- NOTE | 2020-10-16 16:34 | NUR ---
NURSE NOTES: D5W rate increased to 200 cc/hr per order.
--- NOTE | 2020-10-16 16:44 | Pulmonolgy Critical Care Note ---
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 (5) Cardiac arrest (6) AIDS (7) Encephalopathy acute (8) UTI (urinary tract infection) (9) Altered mental status (10) Amphetamine abuse (11) COVID-19 virus detected (12) Diabetes insipidus (13) Hypernatremia Assessment/Plan: Respiratory: Monitor gas exchange, continue current settings, pulmonary hygiene, PRN HHN's, no longer on DEX Cardiac: continue pressors (Cristel) - Titrate to keep MAP > 60, other Renal: monitor renal function, IVF D5W @ 200 + DDAVP per renal Infectious Disease: ABx and Flucon per ID, LP will not oil changer Gastrointestinal: NGTF's held 2/2 high residual Endocrine: monitor blood sugar, other Hematologic: monitor H/H Neurologic: Off sedation, unresponsive Goals: Ethics recs, DNAR based on medical futility Prophylaxis: Protonix & LMWH Time Spent (Minutes): other - 40 Notes Reviewed: ID, neuro Discussed with: nurses, consultants Critical Care - Objective Last 24 Hour Vital Signs Date Time Temp Pulse Resp B/P (MAP) Pulse Ox O2 Delivery O2 Flow Rate FiO2 10/16/20 16:00 Mechanical Ventilator 10/16/20 16:00 83 16 108/64 (79) 100 10/16/20 16:00 30 10/16/20 15:10 83 16 30 10/16/20 15:00 82 16 101/59 (73) 100 10/16/20 14:00 81 16 105/61 (76) 100 10/16/20 13:00 82 16 105/59 (74) 100 10/16/20 12:00 30 10/16/20 12:00 89 10/16/20 12:00 Mechanical Ventilator 10/16/20 12:00 98.7 85 16 104/63 (77) 100 10/16/20 11:33 89 110/69 10/16/20 11:20 86 16 30 10/16/20 11:00 98 16 129/86 (100) 100 10/16/20 10:00 82 16 109/62 (78) 100 10/16/20 09:00 83 16 113/65 (81) 100 10/16/20 08:00 Mechanical Ventilator 10/16/20 08:00 83 10/16/20 08:00 98.3 85 16 117/68 (84) 100 10/16/20 08:00 30 10/16/20 07:20 85 16 30 10/16/20 07:00 85 16 118/71 (87) 100 10/16/20 06:00 86 16 120/72 (88) 100 10/16/20 05:00 88 16 113/69 (84) 100 10/16/20 04:00 97.0 88 16 111/68 (82) 100 10/16/20 04:00 Mechanical Ventilator 10/16/20 04:00 86 10/16/20 04:00 30 10/16/20 03:36 86 94/49 10/16/20 03:08 88 16 30 10/16/20 03:00 86 16 94/49 (64) 100 10/16/20 02:00 87 16 100/56 (71) 100 10/16/20 01:00 87 16 101/56 (71) 100 10/16/20 00:00 86 10/16/20 00:00 Mechanical Ventilator 10/16/20 00:00 30 10/16/20 00:00 97.6 87 16 102/56 (71) 100 10/15/20 23:09 86 16 30 10/15/20 23:00 87 16 93/54 (67) 100 10/15/20 22:00 86 16 92/54 (67) 100 10/15/20 21:00 84 16 100/58 (72) 100 10/15/20 20:00 30 10/15/20 20:00 98.5 86 16 98/56 (70) 100 10/15/20 20:00 Mechanical Ventilator 10/15/20 20:00 85 10/15/20 19:57 86 85/52 10/15/20 19:06 85 16 30 10/15/20 19:00 89 16 102/64 (77) 100 10/15/20 18:00 84 16 90/51 (64) 100 10/15/20 17:00 84 16 90/54 (66) 100 Status: obtunded Condition: critical HEENT: atraumatic, normocephalic, other - ETT nGT Lungs: rhonchi Heart: HR/BP unstable Abdomen: soft, non-tender, active bowel sounds Extremities: no C/C/E Accucheck: 247 Blood Sugars: BS not controlled Critical Care - Subjective ROS Limited/Unobtainable: Yes ICU Day: 8 Intubation Day: 8 Interval Events: 400 cc/hr UO Na inc seen by renal Dx'd with likely DI started on vasopressin nasal and D5W inc Condition: critical IV Access: central - R fem EKG Rhythm: Sinus Rhythm FI02: 30 Vent Support Breath Rate: 16 Vent Support Mode: AC Vent Tidal Volume: 500 Sputum Amount: Scant PEEP: 5.0 PIP: 17 Secretions: None Fluids: D5W@200 Drips: CRISTEL @ 210 Tube Feeding Amount: 0 I&O: Intake and Output 10/15/20 10/16/20 19:00 07:00 Intake Total 5166.500 ml 1921.30 ml Output Total 2725 ml 1600 ml Balance 2441.500 ml 321.30 ml Free Water 10 ml 110 ml IV Total 5116.500 ml 1701.30 ml Tube Feeding 40 ml 110 ml Output Urine Total 2725 ml 1600 ml Subjective: BEN CXR: No change ET-Tube: 7.5 ET Position: 27 Labs: Laboratory Tests 10/15/20 18:00: Sodium Level 147H, Potassium Level 4.6, Chloride Level 114H, Carbon Dioxide Level 25, Anion Gap 8, Blood Urea Nitrogen 27H, Creatinine 2.1H, Estimat Glomerular Filtration Rate 42.7, Glucose Level 675*H, Calcium Level 8.5, Total Bilirubin 0.2, Aspartate Amino Transf (AST/SGOT) 97H, Alanine Aminotransferase (ALT/SGPT) 41, Alkaline Phosphatase 78, Total Protein 5.0L, Albumin 1.2L, Globulin 3.8, Albumin/Globulin Ratio 0.3L 10/15/20 19:10: Sodium Level 163#*H, Potassium Level 5.0, Chloride Level 129H, Carbon Dioxide Level 26, Anion Gap 9, Blood Urea Nitrogen 30H, Creatinine 2.2H, Estimat Glomerular Filtration Rate 40.4, Glucose Level 230#H, Calcium Level 9.5, Total Bilirubin 0.2, Aspartate Amino Transf (AST/SGOT) 125H, Alanine Aminotransferase (ALT/SGPT) 47, Alkaline Phosphatase 96, Total Protein 6.0L, Albumin 1.5L, Globulin 4.5, Albumin/Globulin Ratio 0.3L, White Blood Count 9.3, Red Blood Count 2.82L, Hemoglobin 7.9L, Hematocrit 25.5L, Mean Corpuscular Volume 91, Mean Corpuscular Hemoglobin 27.9, Mean Corpuscular Hemoglobin Concent 30.8L, Red Cell Distribution Width 13.4, Platelet Count 174, Mean Platelet Volume 8.2, Neutrophils (%) (Auto) , Lymphocytes (%) (Auto) , Monocytes (%) (Auto) , Eosinophils (%) (Auto) , Basophils (%) (Auto) , Differential Total Cells Counted 100, Neutrophils % (Manual) 87H, Lymphocytes % (Manual) 11L, Monocytes % (Manual) 2, Eosinophils % (Manual) 0, Basophils % (Manual) 0, Band Neutrophils 0, Nucleated Red Blood Cells 10, Platelet Estimate Adequate, Platelet Morphology Normal, Polychromasia 1+, Hypochromasia 1+ 10/15/20 19:47: POC Whole Blood Glucose 193H 10/16/20 02:50: Sodium Level 161*H, Potassium Level 5.1, Chloride Level 125H, Carbon Dioxide Level 27, Anion Gap 8, Blood Urea Nitrogen 27H, Creatinine 2.3H, Estimat Glomerular Filtration Rate 38.4, Glucose Level 235H, Calcium Level 9.5, Total Bilirubin 0.1L, Aspartate Amino Transf (AST/SGOT) 138H, Alanine Aminotransferase (ALT/SGPT) 47, Alkaline Phosphatase 100, Total Protein 5.9L, Albumin 1.4L, Globulin 4.5, Albumin/Globulin Ratio 0.3L, White Blood Count 9.6, Red Blood Count 2.98L, Hemoglobin 8.3L, Hematocrit 27.5L, Mean Corpuscular Volume 92, Mean Corpuscular Hemoglobin 28.0, Mean Corpuscular Hemoglobin Concent 30.4L, Red Cell Distribution Width 14.0, Platelet Count 160, Mean Platelet Volume 8.9, Neutrophils (%) (Auto) , Lymphocytes (%) (Auto) , Monocytes (%) (Auto) , Eosinophils (%) (Auto) , Basophils (%) (Auto) , Differential Total Cells Counted 100, Neutrophils % (Manual) 82H, Lymphocytes % (Manual) 15L, Monocytes % (Manual) 3, Eosinophils % (Manual) 0, Basophils % (Manual) 0, Band Neutrophils 0, Nucleated Red Blood Cells 4, Platelet Estimate Adequate, Platelet Morphology Normal, Hypochromasia 1+, Anisocytosis 1+, Random Vancomycin Level 20.6 10/16/20 05:37: POC Whole Blood Glucose [Pending] 10/16/20 12:45: Urine Random Sodium 46 Jaime Wiggins MD Oct 16, 2020 16:44
--- NOTE | 2020-10-16 16:46 | NUR ---
NURSE NOTES: Pt seen by Dr Wiggins.
[2020-10-16] MEDS: Desmopressin Nasal 5ml NS SCH (17:17)
--- NOTE | 2020-10-16 18:00 | NUR ---
NURSE NOTES: Pt repositioned. No distress noted.
--- NOTE | 2020-10-16 19:13 | NUR ---
NURSE HAND-OFF REPORT: Latest Vital Signs: Temperature 98.2 , Pulse 84 , B/P 91 /52 , Respiratory Rate 16 , O2 SAT 100 , Mechanical Ventilator, FiO2 30 %. EKG Rhythm: Sinus Rhythm Rhythm change?: N MD Notified?: n/a MD Response: n/a Latest Red Fall Score: 50 Fall Risk: High Risk Safety Measures: Call light Within Reach, Bed Alarm Zone 1, Side Rails Side Rails x3, Bed position Low and Locked. Fall Precautions: Report given to ITZEL Shah.
--- NOTE | 2020-10-16 19:14 | NUR ---
NURSE NOTES: Pt received from ITZEL Rowland. Pt is comatose, non-responsive, gag reflex absent, bilat pupils fixed and dilated - equal and round 6mm; pt does not respond to deep pain stimuli. Pt is SR to diversity intern with 1+ radial and dorsalis pedis pulses. . Pt is orally intubated with a 7.5 ETT noted 23 cm at the lip with the following settings: AC 16 TV 500 FiO2 30 % Peep 5. lung rodriguez noted diminished upon auscultation. OGT noted running nepro at 10 cc/hr. Abdomen is flat and soft w/ hypoactive bowel sounds to all quadrants. F/C noted draining yellow urine. Skin is intact. Pt has a RFA 22g and LFA 22g IVs saline-locked. Pt also has a R fem TLC with dry and intact dressing running phenylepherine at 230 mcg/min and D5W at 200 cc/hr. Bed in lowest position, alarm on, side rails up x 3, call light within reach.
[2020-10-16] MEDS: Dyna-Hex 2% Top Sol 2oz TOPIC SCH (20:57)
--- NOTE | 2020-10-16 22:01 | NUR ---
NURSE NOTES: Still with residual of 70cc greenish in color. Will hold the feeding for 2 more hours and re-assess @ 2400. Vitals has been stable since Phenylephrine started, at this time it's running 240mcg/min. Will closely monitor.
[2020-10-17] VITALS (70 sets, daily range): BP systolic 35–145; BP diastolic 22–103
--- NOTE | 2020-10-17 | NUR ---
NURSE NOTES: Blood pressure has been stable, SBP of 100-110. No desaturation noted on FI02 30%. No fever noted, repositioned on his right.
[2020-10-17] MEDS: Trimethoprim/Sulfamethoxazole 20 ML in D5W 500ml 550 ML IV SCH ×3 (00:11→16:15)
[2020-10-17] MEDS: Phenylephrine 100 MG in D5W 500ml 490 ML IV PRN ×3 (01:39→17:16)
--- NOTE | 2020-10-17 02:00 | NUR ---
NURSE NOTES: Noted yellow orange output on his yeung cather, still with sediments noted on the tubing. Blood pressure has been stable on 240mcg/min of Phenylephrine.
--- NOTE | 2020-10-17 03:50 | NUR ---
NURSE NOTES: Bed bath done, oral care provided, repositioned and cleanse and applied optifoam on his sacral. Still sinus rhythm on the monitor with no episode of desaturation.
--- NOTE | 2020-10-17 04:10 | NUR ---
NURSE NOTES: Noted that everytime RN will suction the patient there's a blood mixed on his secretions. Will wait for the result on his blood test this morning to see his hemoglobin level.
[2020-10-17 04:56] LABS: ALANINE AMINOTRANSFERASE 37 U/L (12-78); ALBUMIN 1.2 G/DL (3.4-5.0); ALBUMIN/GLOBULIN RATIO 0.3 (1.0-2.7); ALKALINE PHOSPHATASE 91 U/L (46-116); ANION GAP 7 mmol/L (5-15); ASPARTATE AMINO TRANSFERASE 171 U/L (15-37); BILIRUBIN,TOTAL < 0.1 MG/DL (0.2-1.0); BLOOD UREA NITROGEN 27 mg/dL (7-18); CALCIUM 8.7 MG/DL (8.5-10.1); CARBON DIOXIDE 25 MMOL/L (21-32); CHLORIDE 105 MMOL/L (98-107); CREATININE 2.7 MG/DL (0.55-1.30); POTASSIUM 5.1 MMOL/L (3.5-5.1); SODIUM 137 MMOL/L (136-145)
[2020-10-17 05:04] LABS: HEMATOCRIT 21.1 % (42.0-52.0); MEAN CORPUSCULAR VOLUME 90 FL (80-99); PLATELET COUNT 119 K/UL (150-450); RED BLOOD COUNT 2.34 M/UL (4.70-6.10); WHITE BLOOD COUNT 6.3 K/UL (4.8-10.8)
--- NOTE | 2020-10-17 05:10 | Cardiology Report ---
APPROVED REPORT EKG Measurement Heart [id number] <Conclusion> Sinus tachycardia Left posterior fascicular block Marked ST abnormality, possible inferior subendocardial injury Abnormal ECG
[2020-10-17 05:13] LABS: CREATINE KINASE 101 U/L (26-308); PHOSPHORUS 2.6 MG/DL (2.5-4.9)
[2020-10-17 05:28] LABS: HEMOGLOBIN 6.8 G/DL (14.2-18.0)
[2020-10-17] MEDS: Midodrine 10mg tab ORAL SCH ×3 (05:41→21:12)
[2020-10-17] MEDS ORDERED: Vancomycin 1.25gm/Ns 275 ML IVPB ONE ×2 (06:00)
--- NOTE | 2020-10-17 06:00 | NUR ---
NURSE NOTES: At this time, residual of 30 cc greenish in color. Resumed the feeding, Nepro @ 10cc/hour. Will monitor for further episode of residual.
[2020-10-17] MEDS: NovoLOG Insulin Flexpen SUBQ SCH ×4 (06:04→18:00)
--- NOTE | 2020-10-17 06:20 | NUR ---
NURSE NOTES: Called Dr. Wiggins and informed regarding the Hemoglobin result for today, awaiting for call back.
--- NOTE | 2020-10-17 07:29 | NUR ---
NURSE HAND-OFF REPORT: Latest Vital Signs: Temperature 99.9 , Pulse 86 , B/P 121 /70 , Respiratory Rate 16 , O2 SAT 99 , Room Air, O2 Flow Rate 15.0 . Vital Sign Comment: Stable, patient is still on phenylephrine @ 240mcg/min EKG Rhythm: Sinus Rhythm Rhythm change?: N Notified?: N - MD Response: Latest Red Fall Score: 50 Fall Risk: High Risk Safety Measures: Call light Within Reach, Bed Alarm Zone 1, Side Rails Side Rails x3, Bed position Low and Locked. Fall Precautions: Report given to ITZEL Olivier.
[2020-10-17] MEDS: Enoxaparin 40mg Inj SUBQ SCH (08:20)
[2020-10-17] MEDS: Pantoprazole Inj IVP SCH ×2 (08:20→21:13)
[2020-10-17] MEDS: Desmopressin Nasal 5ml NS SCH ×2 (08:21→18:00)
--- NOTE | 2020-10-17 09:37 | NUR ---
NURSE NOTES: LATE ENTRY: CALLED MD WATKINS, OFFICE SPOKE WITH JESÚS REGARDING PT H&H 6.8. AWAITING CALL BACK.
--- NOTE | 2020-10-17 09:40 | NUR ---
NURSE NOTES: LATE ENTRY: RECEIVED CALL FROM MD. WATKINS REGARDING H&H 6.8/21.1, BLOODY SECRETIONS, HELD AM LOVENOX. RECEIVED ORDER TO TRANSFUSE 2/2 UNITS PRBCS AND HOLD LOVENOX R/O GIB.
[2020-10-17] MEDS: D5 1/2NS 1,000 ML IV SCH ×2 (09:58→19:44)
--- NOTE | 2020-10-17 10:54 | NUR ---
EXCHANGE MECHANIC NOTE SW was informed by Molly Santos that pt's name could be possibly Jonas Lawrence AKMarcella Red Michaelyeisonmey. SW attempted to call Rekha Lawrence (Jonas's mother), , , and [phone]. Calls were not answered and did not have vm options.
--- NOTE | 2020-10-17 12:05 | NUR ---
NURSE NOTES: LATE ENTRY: CALLED AND SPOKE WITH MD. WATKINS REQUESTING NOTE BY MD REGARDING NEED EMERGENT NEED FOR TRANSFUSION, BASED ON NO FAMILY TO NOTIFY. MD STATED WILL PLACE NOTE SOON. C.N AWARE.
--- NOTE | 2020-10-17 12:34 | Nephrology Progress Note ---
Assessment/Plan Problem List: (1) ADALI (acute kidney injury) (2) AIDS (3) Amphetamine abuse (4) COVID-19 virus detected (5) Hypernatremia Assessment Acute renal failure Polyuria secondary to diabetes insipidus Electrolyte abnormalities Plan October 17: Labs reviewed. Discussed with RN. Serum creatinine rising. Clinically is doing poorly. Electrolytes improved. Hemoglobin low. Due for transfusion. Patient DNR. Continue same treatment plan. Suggest: IV D5W 200 cc an hour DDAVP nasal spray Midodrine for low blood pressure Monitor electrolytes and renal parameters Poor prognosis Per orders Subjective ROS Limited/Unobtainable: Yes Objective Objective Last 24 Hour Vital Signs Date Time Temp Pulse Resp B/P (MAP) Pulse Ox O2 Delivery O2 Flow Rate FiO2 10/17/20 11:15 81 16 30 10/17/20 11:00 82 16 119/69 (86) 99 10/17/20 10:45 82 16 117/69 (85) 99 10/17/20 10:30 81 16 119/68 (85) 98 10/17/20 10:15 82 16 112/70 (84) 99 10/17/20 10:00 81 16 119/66 (83) 99 10/17/20 09:45 81 16 114/69 (84) 99 10/17/20 09:30 82 16 111/69 (83) 99 10/17/20 09:15 83 16 109/58 (75) 98 10/17/20 09:00 83 16 106/59 (75) 98 10/17/20 08:45 82 16 112/54 (73) 98 10/17/20 08:30 84 16 115/70 (85) 99 10/17/20 08:22 85 119/65 10/17/20 08:15 84 16 119/69 (86) 99 10/17/20 08:00 101.7 84 16 120/67 (84) 98 10/17/20 08:00 Mechanical Ventilator 10/17/20 08:00 30 10/17/20 08:00 85 10/17/20 07:00 86 16 121/70 (87) 99 10/17/20 07:00 85 16 30 10/17/20 06:00 84 16 118/75 (89) 100 10/17/20 05:00 85 16 120/71 (87) 99 10/17/20 04:00 99.9 85 16 116/66 (83) 100 10/17/20 04:00 Mechanical Ventilator 10/17/20 04:00 30 10/17/20 04:00 86 10/17/20 03:15 85 16 30 10/17/20 03:00 89 16 112/62 (79) 100 10/17/20 02:00 85 16 101/59 (73) 100 10/17/20 01:39 88 98/50 10/17/20 01:00 86 16 100 10/17/20 00:00 85 10/17/20 00:00 99.5 84 16 113/75 (88) 100 10/17/20 00:00 30 10/17/20 00:00 Mechanical Ventilator 10/16/20 23:20 83 16 30 10/16/20 23:00 84 16 115/72 (86) 100 10/16/20 22:00 83 16 107/69 (82) 100 10/16/20 21:00 83 16 104/64 (77) 100 10/16/20 20:00 61 10/16/20 20:00 30 10/16/20 20:00 Mechanical Ventilator 10/16/20 20:00 98.8 85 16 104/65 (78) 100 10/16/20 19:53 85 16 30 10/16/20 19:00 84 16 85/49 (61) 100 10/16/20 19:00 84 91/52 10/16/20 18:00 82 16 94/53 (67) 100 10/16/20 17:00 82 16 100/61 (74) 100 10/16/20 16:00 Mechanical Ventilator 10/16/20 16:00 82 10/16/20 16:00 98.2 83 16 108/64 (79) 100 10/16/20 16:00 30 10/16/20 15:10 83 16 30 10/16/20 15:00 82 16 101/59 (73) 100 10/16/20 14:00 81 16 105/61 (76) 100 10/16/20 13:00 82 16 105/59 (74) 100 Intake and Output 0 10/16/20 10/17/20 19:00 07:00 Intake Total 4136.55 ml 3080 ml Output Total 2760 ml 900 ml Balance 1376.55 ml 2180 ml Free Water 5 ml IV Total 4101.55 ml 2940 ml Tube Feeding 30 ml 30 ml Other 110 ml Output Urine Total 2760 ml 900 ml Current Medications Medications (Trade) Dose Ordered Sig/Carleen Route PRN Reason Start Time Stop Time Status Last Admin Dose Admin Acetaminophen (Tylenol) 650 mg Q4H PRN ORAL Mild Pain (Pain Scale 1-3) 10/01/20 11:00 10/31/20 10:59 10/17/20 11:36 Acetaminophen (Tylenol) 650 mg Q4H PRN RECTAL BT>100.5F 10/04/20 23:30 11/03/20 23:29 10/05/20 08:18 Albuterol/ Ipratropium (Albuterol/ Ipratropium) 3 ml Q4H PRN HHN Shortness of Breath 10/13/20 08:45 10/18/20 08:44 Bisacodyl (Dulcolax) 10 mg DAILYPRN PRN RECTAL Constipation 10/08/20 19:00 01/06/21 18:59 Chlorhexidine Gluconate (Malgorzata-Hex 2%) 1 applic DAILY@2000 TOPIC 10/10/20 20:00 01/08/21 19:59 10/16/20 20:57 Desmopressin Acetate (Ddavp) 1 spray TWICE A DAY NS 10/16/20 18:00 01/14/21 17:59 10/17/20 08:21 Dextrose (Dextrose 50%) 25 ml Q30M PRN IV Hypoglycemia 10/15/20 20:45 01/13/21 20:44 Dextrose (Dextrose 50%) 50 ml Q30M PRN IV Hypoglycemia 10/15/20 20:45 01/13/21 20:44 Dextrose/Sodium Chloride 1,000 ml @ 100 mls/hr Q10H IV 10/17/20 09:30 11/16/20 09:29 10/17/20 09:58 Fluconazole/ Sodium Chloride 200 ml @ 100 mls/hr Q24H IV 10/11/20 18:00 10/20/20 17:59 10/16/20 17:19 Hydralazine HCl (Apresoline) 10 mg Q4H PRN IV SBP > 150 mmHg 10/09/20 08:15 01/07/21 08:14 Insulin Aspart (NovoLOG) Q6HR SUBQ 10/16/20 00:00 4/28/21 00:00 10/17/20 11:59 Metoprolol Tartrate (Lopressor) 5 mg Q5MIN X 3 IVP 10/10/20 05:15 01/08/21 05:14 10/10/20 05:15 Midodrine (Pro-Amatine) 10 mg Q8HR ORAL 10/16/20 14:00 01/14/21 13:59 10/17/20 05:41 Ondansetron HCl (Zofran) 4 mg Q6H PRN IVP Nausea & Vomiting 10/01/20 11:00 10/31/20 10:59 Pantoprazole (Protonix) 40 mg Q12HR IVP 10/16/20 21:00 11/01/20 12:59 10/17/20 08:20 Phenylephrine HCl 100 mg/Dextrose 500 ml @ 0 mls/hr Q24H PRN IV . 10/15/20 09:00 11/14/20 08:59 10/17/20 08:22 Piperacillin Sod/ Tazobactam Sod 3.375 gm/Dextrose 100 ml @ 25 mls/hr Q8H IVPB 10/07/20 08:00 10/18/20 23:59 10/17/20 08:19 Trimethoprim/ Sulfamethoxazole 20 ml/Dextrose 570 ml @ 380 mls/hr [id number] BACTRIM IV 10/10/20 00:00 10/22/20 23:59 10/17/20 08:19 Vancomycin HCl (Vanco pharmacy to dose) 1 ea DAILY PRN MISC Per rx protocol 10/05/20 16:00 11/04/20 15:59 Laboratory Tests 10/16/20 12:45: Urine Random Sodium 46 10/17/20 03:15: White Blood Count 6.3, Red Blood Count 2.34L, Hemoglobin 6.8*L, Hematocrit 21.1L , Mean Corpuscular Volume 90, Mean Corpuscular Hemoglobin 29.3, Mean Corpuscular Hemoglobin Concent 32.4, Red Cell Distribution Width 15.0H, Platelet Count 119L, Mean Platelet Volume 8.1, Neutrophils (%) (Auto) , Lymphocytes (%) (Auto) , Monocytes (%) (Auto) , Eosinophils (%) (Auto) , Basophils (%) (Auto) , Differential Total Cells Counted 100, Neutrophils % (Manual) 83H, Lymphocytes % (Manual) 11L, Monocytes % (Manual) 6, Eosinophils % (Manual) 0, Basophils % (Manual) 0, Band Neutrophils 0, Nucleated Red Blood Cells 5, Platelet Estimate DecreasedL, Platelet Morphology Normal, Polychromasia 1+, Hypochromasia 1+, Anisocytosis 1+, Sodium Level 137, Potassium Level 5.1, Chloride Level 105, Carbon Dioxide Level 25, Anion Gap 7, Blood Urea Nitrogen 27H, Creatinine 2.7H, Estimat Glomerular Filtration Rate 31.9, Glucose Level 241H, Uric Acid 2.1L, Calcium Level 8.7, Phosphorus Level 2.6, Magnesium Level 1.9, Total Bilirubin < 0.1L, Aspartate Amino Transf (AST/SGOT) 171H, Alanine Aminotransferase (ALT/SGPT) 37, Alkaline Phosphatase 91, Total Creatine Kinase 101, C-Reactive Protein, Quantitative 16.1H, Pro-B-Type Natriuretic Peptide 604H, Total Protein 5.4L, Albumin 1.2L, Globulin 4.2, Albumin/Globulin Ratio 0.3L, Random Vancomycin Level 10.4 10/17/20 05:49: POC Whole Blood Glucose 176H 10/17/20 11:45: POC Whole Blood Glucose 160H Height (Feet): 6 Weight (Pounds): 120 General Appearance: no apparent distress EENT: other - Intubated on ventilator Cardiovascular: tachycardia Respiratory/Chest: decreased breath sounds Abdomen: distended Randall Barrios MD Oct 17, 2020 12:34
--- NOTE | 2020-10-17 13:13 | NUR ---
NURSE NOTES: LATE ENTRY: BLOOD SAMPLE TAKEN FROM [facility] FOR TYPE AND CROSS. SENT TO LAB.
--- NOTE | 2020-10-17 15:46 | NUR ---
NURSE NOTES: ADDITIONAL CALL MADE TO MD. WATKINS, LEFT MESSAGE ON LINE REGARDING NEED FOR NOTE MADE FOR TRANSFUSION TO OCCUR. AWAITING NOTE AND OR CALL BACK.
--- NOTE | 2020-10-17 15:48 | NUR ---
DATA ANALYST NOTE SW attempted to contact possible family member, Rekha Lawrence 3x. Calls were not answered and there are no vm options. Please refer my previous note for phone numbers.
--- NOTE | 2020-10-17 15:57 | NUR ---
CASE MANAGEMENT:REVIEW 10/17/20 SI: COVID(+). HIV(+). TOXIC ENCEPHALOPATHY INTUBATED 100.0 81 16 129/73 99% ON VENT SUPPORT W/30% FIO2 H/H-6.8/21.1 PLT-119 BUN+27 CR+2.7 IS: TRANSFUSE 2 UNITS PRBC'S IVF NS@100/HR DDAVP NS BID PHENYLEPHRINE GTT IV BACTRIM Q8HRS IV ZOSYN Q8HRS IV DIFLUCAN Q24 IV PROTONIX QD LOVENOX SQ QD : ICU STATUS DCP: SOCIAL SERVICE CONSULT PLAN: COMPLETED REMDESIVIR BIOETHICS
[2020-10-17] MEDS ORDERED: Lidocaine 1% Plain 30 ml INJ PRN (16:00)
[2020-10-17] MEDS ORDERED: Heparin1,000 units/500ml Premix(Conc:2 units/ml) IV PRN (16:00)
--- NOTE | 2020-10-17 16:04 | NUR ---
NURSE NOTES: CALLED [facility]. SPOKE WITH JESÚS REGARDING NOTE TO TRANSFUSE. AWAITING CALL BACK.
--- NOTE | 2020-10-17 16:24 | NUR ---
RESPIRATORY NOTE: PT remains stable on Mechanical ventilation with current settings. SX PRN with no ADR. Airway is secure and patent. No s/s of respiratory distress noted at this time.
--- NOTE | 2020-10-17 16:43 | Infectious Diseases Prog Note ---
Assessment/Plan Assessment/Plan ASSESSMENT AND PLAN: 1. COVID-19 infection, acute hypoxia, ams, fevers, sepsis, ? pneumonia, ADALI s/p code - non-responsive now HIV, AIDS - CDR 10, VL - 133,370 LDH wnl - less likely pneumocystis but possible enterococcus uti cryptococcus + blood culture, cryptococcus fungemia, infection, likely meningitis - s/p dexamethasone, s/p remdesivir - zosyn, diflucan, iv bactrim - f/u beta-D glucan, cryptococcus antigen - neuro f/, poor prognosis, consider comfort care - monitor labs and chest x-ray, surveillance blood cultures negative - Hold on HIV treatment because of potential of immune reconstitution syndrome with disseminated cryptococcus infection - patient needs picc line and discontinue femoral line 2. pmh o/w negative 3. Amphetamine use 4) allergies - negative 5. will f/u Subjective Constitutional: Denies: fever Respiratory: Reports: shortness of breath Cardiovascular: Reports: other - no cp; Denies: chest pain Gastrointestinal/Abdominal: Denies: vomiting, diarrhea Genitourinary: Reports: other - + yeung Neurologic: Reports: weakness Psychiatric: Reports: other - NA Skin: Denies: rash Hematologic: Denies: bleeding Musculoskeletal: Reports: other - NA Allergies: Coded Allergies: No Known Allergies (Unverified , 09/29/20) Objective Last 24 Hour Vital Signs Date Time Temp Pulse Resp B/P (MAP) Pulse Ox O2 Delivery O2 Flow Rate FiO2 10/17/20 16:00 69 10/17/20 15:45 69 16 97/58 (71) 97 10/17/20 15:44 69 16 79/48 (58) 98 10/17/20 15:33 70 16 72/44 (53) 97 10/17/20 15:30 72 16 54/25 (35) 96 10/17/20 15:15 72 16 126/74 (91) 99 10/17/20 15:05 73 16 30 10/17/20 15:00 78 16 131/68 (89) 98 10/17/20 14:30 79 16 134/85 (101) 98 10/17/20 14:15 80 16 130/88 (102) 98 10/17/20 14:00 81 16 134/84 (101) 98 10/17/20 13:45 81 16 128/82 (97) 97 10/17/20 13:30 81 16 130/79 (96) 97 10/17/20 13:15 77 16 131/78 (95) 97 10/17/20 13:00 78 16 125/80 (95) 98 10/17/20 12:47 75 16 89/54 (66) 96 10/17/20 12:45 74 16 62/41 (48) 98 10/17/20 12:30 81 16 127/81 (96) 99 10/17/20 12:15 81 16 129/73 (91) 99 10/17/20 12:06 100.0 10/17/20 12:00 Mechanical Ventilator 10/17/20 12:00 30 10/17/20 12:00 81 10/17/20 12:00 100.0 81 16 123/70 (87) 99 10/17/20 11:15 81 16 30 10/17/20 11:00 82 16 119/69 (86) 99 10/17/20 10:45 82 16 117/69 (85) 99 10/17/20 10:30 81 16 119/68 (85) 98 10/17/20 10:15 82 16 112/70 (84) 99 10/17/20 10:00 81 16 119/66 (83) 99 10/17/20 09:45 81 16 114/69 (84) 99 10/17/20 09:30 82 16 111/69 (83) 99 10/17/20 09:15 83 16 109/58 (75) 98 10/17/20 09:00 83 16 106/59 (75) 98 10/17/20 08:45 82 16 112/54 (73) 98 10/17/20 08:30 84 16 115/70 (85) 99 10/17/20 08:22 85 119/65 10/17/20 08:15 84 16 119/69 (86) 99 10/17/20 08:00 101.7 84 16 120/67 (84) 98 10/17/20 08:00 Mechanical Ventilator 10/17/20 08:00 30 10/17/20 08:00 85 10/17/20 07:00 86 16 121/70 (87) 99 10/17/20 07:00 85 16 30 10/17/20 06:00 84 16 118/75 (89) 100 10/17/20 05:00 85 16 120/71 (87) 99 10/17/20 04:00 99.9 85 16 116/66 (83) 100 10/17/20 04:00 Mechanical Ventilator 10/17/20 04:00 30 10/17/20 04:00 86 10/17/20 03:15 85 16 30 10/17/20 03:00 89 16 112/62 (79) 100 10/17/20 02:00 85 16 101/59 (73) 100 10/17/20 01:39 88 98/50 10/17/20 01:00 86 16 100 10/17/20 00:00 85 10/17/20 00:00 99.5 84 16 113/75 (88) 100 10/17/20 00:00 30 10/17/20 00:00 Mechanical Ventilator 10/16/20 23:20 83 16 30 10/16/20 23:00 84 16 115/72 (86) 100 10/16/20 22:00 83 16 107/69 (82) 100 10/16/20 21:00 83 16 104/64 (77) 100 10/16/20 20:00 61 10/16/20 20:00 30 10/16/20 20:00 Mechanical Ventilator 10/16/20 20:00 98.8 85 16 104/65 (78) 100 10/16/20 19:53 85 16 30 10/16/20 19:00 84 16 85/49 (61) 100 10/16/20 19:00 84 91/52 10/16/20 18:00 82 16 94/53 (67) 100 10/16/20 17:00 82 16 100/61 (74) 100 Height (Feet): 6 Weight (Pounds): 120 General Appearance: other - on vent, HEENT: normocephalic, atraumatic Respiratory/Chest: crackles/rales, rhonchi - bilaterally Cardiovascular: normal rate, regular rhythm Abdomen: normal bowel sounds, non distended Genitourinary: other - + yeung Extremities: no cyanosis Skin: no rash Neurologic/Psychiatric: other - sedated on vent Lymphatic: no neck adenopathy Musculoskeletal: no effusion Chest x-ray - 10/04/20 - Procedure: XRAY Chest 1v EXAM: XR Chest, 1 View CLINICAL HISTORY: DIARRHEA TECHNIQUE: Frontal view of the chest. COMPARISON: Chest x-ray 10/01/2020 FINDINGS: Lungs: New mild patchy opacities within the medial left lung base and to a lesser extent the medial right lung base. Pleural space: Unremarkable. No pneumothorax. Heart: Unremarkable. No cardiomegaly. Mediastinum: Unremarkable. Bones/joints: Unremarkable. IMPRESSION: New mild patchy opacities within the lung bases may indicate a developing infectious/inflammatory process such as multifocal pneumonia or aspiration pneumonitis. Microbiology Date/Time Source Procedure Growth Status 10/15/20 15:28 Blood Blood Culture - Preliminary NO GROWTH AFTER 24 HOURS Resulted 10/15/20 15:15 Blood Blood Culture - Preliminary NO GROWTH AFTER 24 HOURS Resulted Laboratory Tests Test 10/17/20 03:15 10/17/20 05:49 10/17/20 11:45 White Blood Count 6.3 K/UL (4.8-10.8) Red Blood Count 2.34 M/UL (4.70-6.10) L Hemoglobin 6.8 G/DL (14.2-18.0) *L Hematocrit 21.1 % (42.0-52.0) L Mean Corpuscular Volume 90 FL (80-99) Mean Corpuscular Hemoglobin 29.3 PG (27.0-31.0) Mean Corpuscular Hemoglobin Concent 32.4 G/DL (32.0-36.0) Red Cell Distribution Width 15.0 % (11.6-14.8) H Platelet Count 119 K/UL (150-450) L Mean Platelet Volume 8.1 FL (6.5-10.1) Neutrophils (%) (Auto) % (45.0-75.0) Lymphocytes (%) (Auto) % (20.0-45.0) Monocytes (%) (Auto) % (1.0-10.0) Eosinophils (%) (Auto) % (0.0-3.0) Basophils (%) (Auto) % (0.0-2.0) Differential Total Cells Counted 100 Neutrophils % (Manual) 83 % (45-75) H Lymphocytes % (Manual) 11 % (20-45) L Monocytes % (Manual) 6 % (1-10) Eosinophils % (Manual) 0 % (0-3) Basophils % (Manual) 0 % (0-2) Band Neutrophils 0 % (0-8) Nucleated Red Blood Cells 5 /100 WBC Platelet Estimate Decreased L Platelet Morphology Normal Polychromasia 1+ Hypochromasia 1+ Anisocytosis 1+ Sodium Level 137 MMOL/L (136-145) Potassium Level 5.1 MMOL/L (3.5-5.1) Chloride Level 105 MMOL/L (98-107) Carbon Dioxide Level 25 MMOL/L (21-32) Anion Gap 7 mmol/L (5-15) Blood Urea Nitrogen 27 mg/dL (7-18) H Creatinine 2.7 MG/DL (0.55-1.30) H Estimat Glomerular Filtration Rate 31.9 mL/min (>60) Glucose Level 241 MG/DL (74-106) H Uric Acid 2.1 MG/DL (2.6-7.2) L Calcium Level 8.7 MG/DL (8.5-10.1) Phosphorus Level 2.6 MG/DL (2.5-4.9) Magnesium Level 1.9 MG/DL (1.8-2.4) Total Bilirubin < 0.1 MG/DL (0.2-1.0) L Aspartate Amino Transf (AST/SGOT) 171 U/L (15-37) H Alanine Aminotransferase (ALT/SGPT) 37 U/L (12-78) Alkaline Phosphatase 91 U/L (46-116) Total Creatine Kinase 101 U/L (26-308) C-Reactive Protein, Quantitative 16.1 mg/dL (0.00-0.90) H Pro-B-Type Natriuretic Peptide 604 pg/mL (0-125) H Total Protein 5.4 G/DL (6.4-8.2) L Albumin 1.2 G/DL (3.4-5.0) L Globulin 4.2 g/dL Albumin/Globulin Ratio 0.3 (1.0-2.7) L Random Vancomycin Level 10.4 ug/mL POC Whole Blood Glucose 176 MG/DL (74-106) H 160 MG/DL (74-106) H Current Medications Medications (Trade) Dose Ordered Sig/Carleen Route PRN Reason Start Time Stop Time Status Last Admin Dose Admin Acetaminophen (Tylenol) 650 mg Q4H PRN ORAL Mild Pain (Pain Scale 1-3) 10/01/20 11:00 10/31/20 10:59 10/17/20 11:36 Acetaminophen (Tylenol) 650 mg Q4H PRN RECTAL BT>100.5F 10/04/20 23:30 11/03/20 23:29 10/05/20 08:18 Albuterol/ Ipratropium (Albuterol/ Ipratropium) 3 ml Q4H PRN HHN Shortness of Breath 10/13/20 08:45 10/18/20 08:44 Bisacodyl (Dulcolax) 10 mg DAILYPRN PRN RECTAL Constipation 10/08/20 19:00 01/06/21 18:59 Chlorhexidine Gluconate (Malgorzata-Hex 2%) 1 applic DAILY@2000 TOPIC 10/17/20 20:00 01/15/21 19:59 Desmopressin Acetate (Ddavp) 1 spray TWICE A DAY NS 10/16/20 18:00 01/14/21 17:59 10/17/20 08:21 Dextrose (Dextrose 50%) 25 ml Q30M PRN IV Hypoglycemia 10/15/20 20:45 01/13/21 20:44 Dextrose (Dextrose 50%) 50 ml Q30M PRN IV Hypoglycemia 10/15/20 20:45 01/13/21 20:44 Dextrose/Sodium Chloride 1,000 ml @ 100 mls/hr Q10H IV 10/17/20 09:30 11/16/20 09:29 10/17/20 09:58 Fluconazole/ Sodium Chloride 200 ml @ 100 mls/hr Q24H IV 10/11/20 18:00 10/20/20 17:59 10/16/20 17:19 Heparin Sodium/ Sodium Chloride (Heparin 1000 units/500ml Premix) 1,000 unit ONCE PRN IV picc line placement 10/17/20 16:00 10/19/20 15:59 Hydralazine HCl (Apresoline) 10 mg Q4H PRN IV SBP > 150 mmHg 10/09/20 08:15 01/07/21 08:14 Insulin Aspart (NovoLOG) Q6HR SUBQ 10/16/20 00:00 01/14/21 00:00 10/17/20 11:59 Lidocaine HCl (Xylocaine 1% 30ml) 30 ml ONCE PRN INJ PICC LINE PLACEMENT 10/17/20 16:00 10/19/20 15:59 Metoprolol Tartrate (Lopressor) 5 mg Q5MIN X 3 IVP 10/10/20 05:15 01/08/21 05:14 10/10/20 05:15 Midodrine (Pro-Amatine) 10 mg Q8HR ORAL 10/16/20 14:00 01/14/21 13:59 10/17/20 14:20 Ondansetron HCl (Zofran) 4 mg Q6H PRN IVP Nausea & Vomiting 10/01/20 11:00 10/31/20 10:59 Pantoprazole (Protonix) 40 mg Q12HR IVP 10/16/20 21:00 11/01/20 12:59 10/17/20 08:20 Phenylephrine HCl 100 mg/Dextrose 500 ml @ 0 mls/hr Q24H PRN IV . 10/15/20 09:00 11/14/20 08:59 10/17/20 08:22 Piperacillin Sod/ Tazobactam Sod 3.375 gm/Dextrose 100 ml @ 25 mls/hr Q8H IVPB 10/07/20 08:00 10/18/20 23:59 10/17/20 16:15 Trimethoprim/ Sulfamethoxazole 20 ml/Dextrose 570 ml @ 380 mls/hr [id number] BACTRIM IV 10/10/20 00:00 10/22/20 23:59 10/17/20 16:15 Vancomycin HCl (Vanco pharmacy to dose) 1 ea DAILY PRN MISC Per rx protocol 10/05/20 16:00 11/04/20 15:59 Wood Tyler MD Oct 17, 2020 16:43
--- NOTE | 2020-10-17 18:11 | Pulmonolgy Critical Care Note ---
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 (5) Cardiac arrest (6) AIDS (7) Encephalopathy acute (8) UTI (urinary tract infection) (9) Altered mental status (10) Amphetamine abuse (11) COVID-19 virus detected (12) Diabetes insipidus (13) Hypernatremia (14) Anemia Assessment/Plan: Respiratory: Monitor gas exchange, continue current settings, pulmonary hygiene, PRN HHN's, no longer on DEX Cardiac: continue pressors (Cristel) - Titrate to keep MAP > 60, other Renal: monitor renal function, IVF per renal S/P DDAVP Infectious Disease: ABx and Flucon per ID, LP will not policy change clerk ---> CVC NEEDS TO BE REMOVED, AWAITING PICC Gastrointestinal: NGTF's held 2/2 high residual Endocrine: monitor blood sugar, other Hematologic: monitor H/H, TRANSFUSE PRBC, check FOBT, iron studies, retic - Patient needs urgent PRBC transfusion Neurologic: Off sedation, unresponsive Goals: Ethics recs, DNAR based on medical futility Prophylaxis: Protonix & LMWH (HELD) Time Spent (Minutes): other - 40 Notes Reviewed: ID, neuro Discussed with: nurses, consultants Critical Care - Objective Last 24 Hour Vital Signs Date Time Temp Pulse Resp B/P (MAP) Pulse Ox O2 Delivery O2 Flow Rate FiO2 10/17/20 17:16 73 120/97 10/17/20 17:15 72 16 136/97 (110) 100 10/17/20 17:00 72 16 126/86 (99) 100 10/17/20 16:00 Mechanical Ventilator 10/17/20 16:00 30 10/17/20 16:00 69 10/17/20 15:45 69 16 97/58 (71) 97 10/17/20 15:44 69 16 79/48 (58) 98 10/17/20 15:33 70 16 72/44 (53) 97 10/17/20 15:30 72 16 54/25 (35) 96 10/17/20 15:15 72 16 126/74 (91) 99 10/17/20 15:05 73 16 30 10/17/20 15:00 78 16 131/68 (89) 98 10/17/20 14:30 79 16 134/85 (101) 98 10/17/20 14:15 80 16 130/88 (102) 98 10/17/20 14:00 81 16 134/84 (101) 98 10/17/20 13:45 81 16 128/82 (97) 97 10/17/20 13:30 81 16 130/79 (96) 97 10/17/20 13:15 77 16 131/78 (95) 97 10/17/20 13:00 78 16 125/80 (95) 98 10/17/20 12:47 75 16 89/54 (66) 96 10/17/20 12:45 74 16 62/41 (48) 98 10/17/20 12:30 81 16 127/81 (96) 99 10/17/20 12:15 81 16 129/73 (91) 99 10/17/20 12:06 100.0 10/17/20 12:00 Mechanical Ventilator 10/17/20 12:00 30 10/17/20 12:00 81 10/17/20 12:00 100.0 81 16 123/70 (87) 99 10/17/20 11:15 81 16 30 10/17/20 11:00 82 16 119/69 (86) 99 10/17/20 10:45 82 16 117/69 (85) 99 10/17/20 10:30 81 16 119/68 (85) 98 10/17/20 10:15 82 16 112/70 (84) 99 10/17/20 10:00 81 16 119/66 (83) 99 10/17/20 09:45 81 16 114/69 (84) 99 10/17/20 09:30 82 16 111/69 (83) 99 10/17/20 09:15 83 16 109/58 (75) 98 10/17/20 09:00 83 16 106/59 (75) 98 10/17/20 08:45 82 16 112/54 (73) 98 10/17/20 08:30 84 16 115/70 (85) 99 10/17/20 08:22 85 119/65 10/17/20 08:15 84 16 119/69 (86) 99 10/17/20 08:00 101.7 84 16 120/67 (84) 98 10/17/20 08:00 Mechanical Ventilator 10/17/20 08:00 30 10/17/20 08:00 85 10/17/20 07:00 86 16 121/70 (87) 99 10/17/20 07:00 85 16 30 10/17/20 06:00 84 16 118/75 (89) 100 10/17/20 05:00 85 16 120/71 (87) 99 10/17/20 04:00 99.9 85 16 116/66 (83) 100 10/17/20 04:00 Mechanical Ventilator 10/17/20 04:00 30 10/17/20 04:00 86 10/17/20 03:15 85 16 30 10/17/20 03:00 89 16 112/62 (79) 100 10/17/20 02:00 85 16 101/59 (73) 100 10/17/20 01:39 88 98/50 10/17/20 01:00 86 16 100 10/17/20 00:00 85 10/17/20 00:00 99.5 84 16 113/75 (88) 100 10/17/20 00:00 30 10/17/20 00:00 Mechanical Ventilator 10/16/20 23:20 83 16 30 10/16/20 23:00 84 16 115/72 (86) 100 10/16/20 22:00 83 16 107/69 (82) 100 10/16/20 21:00 83 16 104/64 (77) 100 10/16/20 20:00 61 10/16/20 20:00 30 10/16/20 20:00 Mechanical Ventilator 10/16/20 20:00 98.8 85 16 104/65 (78) 100 10/16/20 19:53 85 16 30 10/16/20 19:00 84 16 85/49 (61) 100 10/16/20 19:00 84 91/52 Status: obtunded Condition: grave HEENT: atraumatic, normocephalic, other - ETT NGT Lungs: rhonchi Heart: HR/BP unstable Abdomen: soft, non-tender, active bowel sounds Extremities: edema - 2+ Micro: Microbiology Date/Time Source Procedure Growth Status 10/15/20 15:28 Blood Blood Culture - Preliminary NO GROWTH AFTER 24 HOURS Resulted 10/15/20 15:15 Blood Blood Culture - Preliminary NO GROWTH AFTER 24 HOURS Resulted Accucheck: 160 Blood Sugars: BS controlled Critical Care - Subjective ROS Limited/Unobtainable: Yes ICU Day: 9 Intubation Day: 9 Interval Events: Hb 6.8 Bleeding from gums Repeat CX's NG MS same NAEO Condition: critical IV Access: central - R fem CVC EKG Rhythm: Sinus Rhythm FI02: 30 Vent Support Breath Rate: 16 Vent Support Mode: AC Vent Tidal Volume: 500 Sputum Amount: Scant PEEP: 5.0 PIP: 17 Secretions: None Fluids: D51/2@100 Drips: CRISTEL @ 240 Tube Feeding Amount: 20 I&O: Intake and Output 10/16/20 10/17/20 19:00 07:00 Intake Total 4136.55 ml 3080 ml Output Total 2760 ml 900 ml Balance 1376.55 ml 2180 ml Free Water 5 ml IV Total 4101.55 ml 2940 ml Tube Feeding 30 ml 30 ml Other 110 ml Output Urine Total 2760 ml 900 ml Subjective: BEN ET-Tube: 7.5 ET Position: 27 Labs: Laboratory Tests 10/17/20 03:15: White Blood Count 6.3, Red Blood Count 2.34L, Hemoglobin 6.8*L, Hematocrit 21.1L , Mean Corpuscular Volume 90, Mean Corpuscular Hemoglobin 29.3, Mean Corpuscular Hemoglobin Concent 32.4, Red Cell Distribution Width 15.0H, Platelet Count 119L , Mean Platelet Volume 8.1, Neutrophils (%) (Auto) , Lymphocytes (%) (Auto) , Monocytes (%) (Auto) , Eosinophils (%) (Auto) , Basophils (%) (Auto) , Differential Total Cells Counted 100, Neutrophils % (Manual) 83H, Lymphocytes % (Manual) 11L, Monocytes % (Manual) 6, Eosinophils % (Manual) 0, Basophils % (Manual) 0, Band Neutrophils 0, Nucleated Red Blood Cells 5, Platelet Estimate DecreasedL, Platelet Morphology Normal, Polychromasia 1+, Hypochromasia 1+, Anisocytosis 1+, Sodium Level 137, Potassium Level 5.1, Chloride Level 105, Carbon Dioxide Level 25, Anion Gap 7, Blood Urea Nitrogen 27H, Creatinine 2.7H, Estimat Glomerular Filtration Rate 31.9, Glucose Level 241H, Uric Acid 2.1L, Calcium Level 8.7, Phosphorus Level 2.6, Magnesium Level 1.9, Total Bilirubin < 0.1L, Aspartate Amino Transf (AST/SGOT) 171H, Alanine Aminotransferase (ALT/SGPT) 37, Alkaline Phosphatase 91, Total Creatine Kinase 101, C-Reactive Protein, Quantitative 16.1H, Pro-B-Type Natriuretic Peptide 604H, Total Protein 5.4L, Albumin 1.2L, Globulin 4.2, Albumin/Globulin Ratio 0.3L, Random Vancomycin Level 10.4 10/17/20 05:49: POC Whole Blood Glucose 176H 10/17/20 11:45: POC Whole Blood Glucose 160H Jaime Wiggins MD Oct 17, 2020 18:11
--- NOTE | 2020-10-17 18:22 | NUR ---
NURSE NOTES: MD. WATKINS HERE TO SEE PT. WAS INFORMED OF NEED TO SIGH CONSENT AND INCLUDE NOTES.
[2020-10-17 19:16] LABS: % IRON SATURATION 11 % (15-50); IRON 16 ug/dL (50-175); TOTAL IRON BINDING CAPACITY 151 ug/dL (250-450)
[2020-10-17 19:29] LABS: FERRITIN 1124 NG/ML (8-388); LACTATE DEHYDROGENASE 805 U/L (81-234)
--- NOTE | 2020-10-17 19:47 | NUR ---
NURSE HAND-OFF REPORT: Latest Vital Signs: Temperature 100.0 , Pulse 67 , B/P 92 /54 , Respiratory Rate 16 , O2 SAT 100 , Room Air, O2 Flow Rate 15.0 . Vital Sign Comment: EKG Rhythm: Sinus Rhythm Rhythm change?: N MD Notified?: N - MD Response: Latest Red Fall Score: 50 Fall Risk: High Risk Safety Measures: Call light Within Reach, Bed Alarm Zone 1, Side Rails Side Rails x3, Bed position Low and Locked. Fall Precautions: Report given to .FATOUMATA Pacheco ENDORSED 2/2 UNITS PRBC.
--- NOTE | 2020-10-17 21:00 | NUR ---
Report recieved patient resting. Patient is noverbal, comatose not following commands vitals stable at this time with eriberto @200mcg/hr. This RN will assess patient and continue to monitor
[2020-10-17] MEDS: Dyna-Hex 2% Top Sol 2oz TOPIC SCH (21:13)
--- NOTE | 2020-10-17 23:15 | NUR ---
NURSE NOTES: patient vss at this time. eriberto @200mcg/hr patient bp drops into low 50s if eriberto is adjusted lower than 200mcg/hr. patient repositioned and assessed for pain. patient lines and dressing changed. Patient has good urine output. RN will continue to monitor.
[2020-10-18] VITALS (112 sets, daily range): BP systolic 39–160; BP diastolic 26–110
[2020-10-18] MEDS: Phenylephrine 100 MG in D5W 500ml 490 ML IV PRN ×3 (01:03→17:18)
[2020-10-18] MEDS: Trimethoprim/Sulfamethoxazole 20 ML in D5W 500ml 550 ML IV SCH ×4 (01:03→23:34)
[2020-10-18] MEDS: D5 1/2NS 1,000 ML IV SCH (01:05)
--- NOTE | 2020-10-18 02:11 | NUR ---
NURSE NOTES: RN initiated blood transfusion of 1of 2u of PRBC. Patients vss at the initiation of blood products and 15 minutes after the start of prbc. blood infusing at 100ml/hr will increase to 150ml/hr if patient tolerates. RN will continue to monitor.
[2020-10-18] MEDS: Midodrine 10mg tab ORAL SCH ×3 (05:44→21:20)
[2020-10-18 05:57] LABS: HEMATOCRIT 22.7 % (42.0-52.0); HEMOGLOBIN 7.8 G/DL (14.2-18.0); MEAN CORPUSCULAR VOLUME 85 FL (80-99); PLATELET COUNT 89 K/UL (150-450); RED BLOOD COUNT 2.68 M/UL (4.70-6.10); RED CELL DISTRIBUTION WIDTH 12.2 % (11.6-14.8)
[2020-10-18] MEDS: NovoLOG Insulin Flexpen SUBQ SCH ×5 (06:00→23:35)
[2020-10-18 06:11] LABS: ALBUMIN 1.1 G/DL (3.4-5.0); ALBUMIN/GLOBULIN RATIO 0.3 (1.0-2.7); BILIRUBIN,TOTAL 0.2 MG/DL (0.2-1.0); CALCIUM 7.4 MG/DL (8.5-10.1); CREATININE 2.9 MG/DL (0.55-1.30)
[2020-10-18 06:13] LABS: POTASSIUM 6.1 MMOL/L (3.5-5.1)
--- NOTE | 2020-10-18 06:36 | NUR ---
NURSE NOTES: RN notified by lab patient glucose 55 and potassium 6.1. RN readback results. RN notified MD and left voicemail. RN gave 25ml of D50 per ordered protocol and will recheck blood glucose in 15 mins. RN will continue to monitor
[2020-10-18] MEDS: Pantoprazole Inj IVP SCH ×2 (08:14→20:34)
[2020-10-18] MEDS: Desmopressin Nasal 5ml NS SCH (08:16)
--- NOTE | 2020-10-18 08:30 | NUR ---
NURSE NOTES: Pt rcvd comatose no response to pain. pupils nonreactive. Phenylephrine gtt @ 200mcg/min. O2 sats 99%. No bowel sounds present. tube feedings @ 15ml/hr. will continue to monitor residuals. oral care given and pt repositioned.
--- NOTE | 2020-10-18 09:13 | Diagnostic Imaging Report ---
EXAM: XR Chest, 1 View CLINICAL HISTORY: INFECT TECHNIQUE: Frontal view of the chest. COMPARISON: 10/16/20. FINDINGS: Lungs: There is been slight improvement in right lower lobe infiltrate. No new infiltrates are identified. Pleural space: There are probable small bilateral pleural effusions. No pneumothorax. Heart: Unremarkable. No cardiomegaly. Mediastinum: Unremarkable. Bones/joints: Unremarkable. Tubes, lines and devices: There is an endotracheal tube and NG tube in good position. IMPRESSION: There is been slight improvement in right lower lobe infiltrate. No new infiltrates are identified.
--- NOTE | 2020-10-18 10:15 | NUR ---
NURSE NOTES: No change in status. no s/s of distress. VSS.
--- NOTE | 2020-10-18 12:30 | NUR ---
NURSE NOTES: Pt with episode of hypoglycemia. BS 69. 1/2 amp of D50 given IVP repeat BS was 128. Tube feeding continues and IV fluid of D51/2NS infusing. Will continue to monitor pt. VSS. no other changes in status
--- NOTE | 2020-10-18 13:36 | Nephrology Progress Note ---
Assessment/Plan Problem List: (1) ADALI (acute kidney injury) (2) AIDS (3) Amphetamine abuse (4) COVID-19 virus detected (5) Hypernatremia Assessment Acute renal failure Polyuria secondary to diabetes insipidus Electrolyte abnormalities Plan October 18: Labs reviewed. Kayexalate via NG tube. 1 dose of Solu-Medrol. IV changed to D10 normal saline. Bolus of 3% saline given. Nasal vasopressin discontinued. Patient DNR/DNI. Continue to monitor electrolytes and renal parameters. Prognosis poor. October 17: Labs reviewed. Discussed with RN. Serum creatinine rising. Clinically is doing poorly. Electrolytes improved. Hemoglobin low. Due for transfusion. Patient DNR. Continue same treatment plan. Suggest: IV D5W 200 cc an hour DDAVP nasal spray Midodrine for low blood pressure Monitor electrolytes and renal parameters Poor prognosis Per orders Subjective ROS Limited/Unobtainable: Yes Objective Objective Last 24 Hour Vital Signs Date Time Temp Pulse Resp B/P (MAP) Pulse Ox O2 Delivery O2 Flow Rate FiO2 10/18/20 11:04 73 16 30 10/18/20 09:45 89 39/26 10/18/20 09:06 75 16 30 10/18/20 07:15 74 16 126/83 (97) 100 10/18/20 07:02 74 16 30 10/18/20 07:00 74 16 130/83 (99) 100 10/18/20 06:45 74 16 138/93 (108) 100 10/18/20 06:30 72 16 124/87 (99) 100 10/18/20 06:15 72 16 120/82 (95) 100 10/18/20 06:00 72 16 117/76 (90) 100 10/18/20 05:45 72 16 118/78 (91) 100 10/18/20 05:45 72 16 118/78 (91) 100 10/18/20 05:30 72 16 115/76 (89) 100 10/18/20 05:30 72 16 115/76 (89) 100 10/18/20 05:15 72 16 117/78 (91) 100 10/18/20 05:15 72 16 117/78 (91) 100 10/18/20 05:00 72 16 121/80 (94) 100 10/18/20 05:00 72 16 121/80 (94) 100 10/18/20 04:45 72 16 117/78 (91) 100 10/18/20 04:30 72 16 117/78 (91) 100 10/18/20 04:15 73 16 120/76 (91) 100 10/18/20 04:07 30 10/18/20 04:06 Mechanical Ventilator 10/18/20 04:01 73 10/18/20 04:00 98.3 73 16 115/77 (90) 100 10/18/20 04:00 73 16 115/77 (90) 100 10/18/20 03:45 74 16 110/73 (85) 100 10/18/20 03:30 74 16 111/71 (84) 100 10/18/20 03:15 74 16 113/69 (84) 100 10/18/20 03:00 73 16 30 10/18/20 03:00 74 16 109/65 (80) 99 10/18/20 02:45 74 16 111/67 (82) 99 10/18/20 02:30 74 16 112/69 (83) 100 10/18/20 02:15 98.9 73 16 116/71 (86) 100 10/18/20 02:05 72 16 117/78 (91) 100 10/18/20 02:00 71 16 100 10/18/20 01:45 74 16 129/78 (95) 100 10/18/20 01:43 73 16 123/82 (96) 100 10/18/20 01:30 73 16 125/80 (95) 100 10/18/20 01:15 70 16 116/69 (85) 100 10/18/20 01:03 70 101/48 10/18/20 01:00 75 16 132/87 (102) 100 10/18/20 00:45 74 16 127/83 (98) 100 10/18/20 00:30 73 16 119/77 (91) 100 10/18/20 00:15 72 16 114/69 (84) 100 10/18/20 00:00 Mechanical Ventilator 10/18/20 00:00 72 16 103/60 (74) 100 10/18/20 00:00 69 10/17/20 23:45 71 16 107/64 (78) 100 10/17/20 23:30 70 16 104/64 (77) 100 10/17/20 23:15 69 17 103/58 (73) 100 10/17/20 23:13 68 16 98/52 (67) 100 10/17/20 23:12 69 16 30 10/17/20 23:05 65 16 59/40 (46) 100 10/17/20 23:00 65 16 35/22 (26) 100 10/17/20 22:45 68 16 92/43 (59) 100 10/17/20 22:34 66 16 53/34 (40) 100 10/17/20 22:32 65 16 42/24 (30) 100 10/17/20 22:30 66 16 44/24 (31) 100 10/17/20 22:15 71 16 130/82 (98) 100 10/17/20 22:15 71 16 130/82 (98) 100 10/17/20 22:00 71 16 123/83 (96) 100 10/17/20 21:45 71 16 126/80 (95) 100 10/17/20 21:30 71 16 123/82 (96) 99 10/17/20 21:15 72 16 136/92 (107) 100 10/17/20 21:00 72 16 129/92 (104) 100 10/17/20 20:30 72 16 125/91 (102) 100 10/17/20 20:15 72 16 131/92 (105) 100 10/17/20 20:00 Mechanical Ventilator 10/17/20 20:00 73 16 132/91 (105) 100 10/17/20 20:00 72 10/17/20 20:00 30 10/17/20 19:45 75 16 135/93 (107) 99 10/17/20 19:30 76 16 145/103 (117) 99 10/17/20 19:24 66 16 94/67 (76) 100 10/17/20 19:22 66 16 45/26 (32) 100 10/17/20 19:18 67 16 64/33 (43) 100 10/17/20 19:16 67 16 30 10/17/20 19:15 68 16 64/33 (43) 100 10/17/20 19:00 68 16 92/54 (67) 100 10/17/20 19:00 68 16 92/54 (67) 100 10/17/20 18:45 71 16 105/63 (77) 100 10/17/20 18:30 71 16 122/88 (99) 100 10/17/20 18:15 72 16 129/84 (99) 100 10/17/20 18:00 72 16 124/91 (102) 100 10/17/20 17:16 73 120/97 10/17/20 17:15 72 16 136/97 (110) 100 10/17/20 17:00 72 16 126/86 (99) 100 10/17/20 16:00 Mechanical Ventilator 10/17/20 16:00 30 10/17/20 16:00 69 10/17/20 15:45 69 16 97/58 (71) 97 10/17/20 15:44 69 16 79/48 (58) 98 10/17/20 15:33 70 16 72/44 (53) 97 10/17/20 15:30 72 16 54/25 (35) 96 10/17/20 15:15 72 16 126/74 (91) 99 10/17/20 15:05 73 16 30 10/17/20 15:00 78 16 131/68 (89) 98 10/17/20 14:30 79 16 134/85 (101) 98 10/17/20 14:15 80 16 130/88 (102) 98 10/17/20 14:00 81 16 134/84 (101) 98 10/17/20 13:45 81 16 128/82 (97) 97 Intake and Output 10/17/20 10/18/20 19:00 07:00 Intake Total 3407 ml 675 ml Output Total 550 ml 1250 ml Balance 2857 ml -575 ml IV Total 3152 ml 100 ml Tube Feeding 215 ml 225 ml Blood Product 350 ml Other 40 ml Output Urine Total 550 ml 1250 ml Current Medications Medications (Trade) Dose Ordered Sig/Carleen Route PRN Reason Start Time Stop Time Status Last Admin Dose Admin Acetaminophen (Tylenol) 650 mg Q4H PRN ORAL Mild Pain (Pain Scale 1-3) 10/01/20 11:00 10/31/20 10:59 10/17/20 11:36 Acetaminophen (Tylenol) 650 mg Q4H PRN RECTAL BT>100.5F 10/04/20 23:30 11/03/20 23:29 10/05/20 08:18 Bisacodyl (Dulcolax) 10 mg DAILYPRN PRN RECTAL Constipation 10/08/20 19:00 01/06/21 18:59 Chlorhexidine Gluconate (Malgorzata-Hex 2%) 1 applic DAILY@2000 TOPIC 10/17/20 20:00 01/15/21 19:59 10/17/20 21:13 Desmopressin Acetate (Ddavp) 1 spray TWICE A DAY NS 10/16/20 18:00 01/14/21 17:59 10/18/20 08:16 Dextrose (Dextrose 50%) 25 ml Q30M PRN IV Hypoglycemia 10/15/20 20:45 01/13/21 20:44 10/18/20 12:13 Dextrose (Dextrose 50%) 50 ml Q30M PRN IV Hypoglycemia 10/15/20 20:45 01/13/21 20:44 Fluconazole/ Sodium Chloride 200 ml @ 100 mls/hr Q24H IV 10/11/20 18:00 10/20/20 17:59 10/17/20 18:30 Heparin Sodium/ Sodium Chloride (Heparin 1000 units/500ml Premix) 1,000 unit ONCE PRN IV picc line placement 10/17/20 16:00 10/19/20 15:59 Hydralazine HCl (Apresoline) 10 mg Q4H PRN IV SBP > 150 mmHg 10/09/20 08:15 01/07/21 08:14 Insulin Aspart (NovoLOG) Q6HR SUBQ 10/16/20 00:00 01/14/21 00:00 10/17/20 11:59 Lidocaine HCl (Xylocaine 1% 30ml) 30 ml ONCE PRN INJ PICC LINE PLACEMENT 10/17/20 16:00 10/19/20 15:59 Metoprolol Tartrate (Lopressor) 5 mg Q5MIN X 3 IVP 10/10/20 05:15 01/08/21 05:14 10/10/20 05:15 Midodrine (Pro-Amatine) 10 mg Q8HR ORAL 10/16/20 14:00 01/14/21 13:59 10/18/20 05:44 Ondansetron HCl (Zofran) 4 mg Q6H PRN IVP Nausea & Vomiting 10/01/20 11:00 10/31/20 10:59 Pantoprazole (Protonix) 40 mg Q12HR IVP 10/16/20 21:00 11/01/20 12:59 10/18/20 08:14 Phenylephrine HCl 100 mg/Dextrose 500 ml @ 0 mls/hr Q24H PRN IV . 10/15/20 09:00 11/14/20 08:59 10/18/20 09:45 Piperacillin Sod/ Tazobactam Sod 3.375 gm/Dextrose 100 ml @ 25 mls/hr Q8H IVPB 10/18/20 00:00 10/29/20 15:59 10/18/20 08:15 Sodium Polystyrene Sulfonate (Kayexalate) 45 gm ONCE ONCE NG 10/18/20 13:45 10/18/20 13:46 UNV Sodium Chloride 250 ml @ 30 mls/hr ONCE ONCE IV 10/18/20 13:45 10/18/20 22:04 UNV Trimethoprim/ Sulfamethoxazole 20 ml/Dextrose 570 ml @ 380 mls/hr [id number] BACTRIM IV 10/10/20 00:00 10/22/20 23:59 10/18/20 08:14 Laboratory Tests 10/17/20 18:48: POC Whole Blood Glucose 99 10/18/20 05:30: White Blood Count 4.0L, Red Blood Count 2.68L, Hemoglobin 7.8L, Hematocrit 22.7L , Mean Corpuscular Volume 85, Mean Corpuscular Hemoglobin 29.1, Mean Corpuscular Hemoglobin Concent 34.3, Red Cell Distribution Width 12.2, Platelet Count 89L, Mean Platelet Volume 8.8, Neutrophils (%) (Auto) , Lymphocytes (%) (Auto) , Monocytes (%) (Auto) , Eosinophils (%) (Auto) , Basophils (%) (Auto) , Differential Total Cells Counted 100, Neutrophils % (Manual) 71, Lymphocytes % (Manual) 24, Monocytes % (Manual) 1, Eosinophils % (Manual) 4H, Basophils % (Manual) 0, Band Neutrophils 0, Nucleated Red Blood Cells 8, Platelet Estimate DecreasedL, Platelet Morphology Normal, Hypochromasia 1+, Sodium Level 122L, Potassium Level 6.1*H, Chloride Level 92L, Carbon Dioxide Level 23, Anion Gap 8, Blood Urea Nitrogen 36H, Creatinine 2.9H, Estimat Glomerular Filtration Rate 29.3, Glucose Level 55#L, Uric Acid 2.4L, Calcium Level 7.4L, Phosphorus Level 4.0, Magnesium Level 1.4L, Total Bilirubin 0.2, Aspartate Amino Transf (AST/SGOT) 237H, Alanine Aminotransferase (ALT/SGPT) 35, Alkaline Phosphatase 105, C-Reactive Protein, Quantitative 16.0H, Pro-B-Type Natriuretic Peptide 2534H, Total Protein 5.2L, Albumin 1.1L, Globulin 4.1, Albumin/Globulin Ratio 0.3L 10/18/20 06:57: POC Whole Blood Glucose 121H 10/18/20 12:07: POC Whole Blood Glucose [Pending] 10/18/20 12:32: POC Whole Blood Glucose [Pending] Height (Feet): 6 Weight (Pounds): 120 General Appearance: no apparent distress EENT: other - Intubated on ventilator Cardiovascular: normal rate Respiratory/Chest: decreased breath sounds Abdomen: distended Randall Barrios MD Oct 18, 2020 13:36
[2020-10-18] MEDS ORDERED: Solu-MEDROL 125mg Inj IVP SCH (14:00)
--- NOTE | 2020-10-18 14:10 | NUR ---
NURSE NOTES: Pt resting quietly. no s/s of distress. pt repositioned. no change in status.
[2020-10-18] MEDS ORDERED: NaCl 3% 500ml 250 ML IV ONE (14:30)
[2020-10-18] MEDS: Dextrose 10%/0.9% SOD CHL 1,000 ML IV SCH (15:25)
[2020-10-18] MEDS: Sodium Polystyrene Sulfonate 15gm Powder NG SCH ×2 (15:27→20:30)
--- NOTE | 2020-10-18 15:49 | Pulmonolgy Critical Care Note ---
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 (5) Cardiac arrest (6) AIDS (7) Encephalopathy acute (8) UTI (urinary tract infection) (9) Altered mental status (10) Amphetamine abuse (11) COVID-19 virus detected (12) Diabetes insipidus (13) Hypernatremia (14) Anemia Assessment/Plan: Respiratory: Monitor gas exchange, continue current settings, pulmonary hygiene, PRN HHN's, no longer on DEX Cardiac: continue pressors (Cristel) - Titrate to keep MAP > 60, other Renal: monitor renal function, IVF per renal S/P DDAVP Infectious Disease: ABx and Flucon per ID, 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 Norton Re: withdrawing care but NO ESCALATION @ THIS POINT Prophylaxis: Protonix & LMWH (HELD) Time Spent (Minutes): other - 40 Notes Reviewed: ID, neuro Discussed with: nurses, consultants Critical Care - Objective Last 24 Hour Vital Signs Date Time Temp Pulse Resp B/P (MAP) Pulse Ox O2 Delivery O2 Flow Rate FiO2 10/18/20 11:04 73 16 30 10/18/20 09:45 89 39/26 10/18/20 09:06 75 16 30 10/18/20 07:15 74 16 126/83 (97) 100 10/18/20 07:02 74 16 30 10/18/20 07:00 74 16 130/83 (99) 100 10/18/20 06:45 74 16 138/93 (108) 100 10/18/20 06:30 72 16 124/87 (99) 100 10/18/20 06:15 72 16 120/82 (95) 100 10/18/20 06:00 72 16 117/76 (90) 100 10/18/20 05:45 72 16 118/78 (91) 100 10/18/20 05:45 72 16 118/78 (91) 100 10/18/20 05:30 72 16 115/76 (89) 100 10/18/20 05:30 72 16 115/76 (89) 100 10/18/20 05:15 72 16 117/78 (91) 100 10/18/20 05:15 72 16 117/78 (91) 100 10/18/20 05:00 72 16 121/80 (94) 100 10/18/20 05:00 72 16 121/80 (94) 100 10/18/20 04:45 72 16 117/78 (91) 100 10/18/20 04:30 72 16 117/78 (91) 100 10/18/20 04:15 73 16 120/76 (91) 100 10/18/20 04:07 30 10/18/20 04:06 Mechanical Ventilator 10/18/20 04:01 73 10/18/20 04:00 98.3 73 16 115/77 (90) 100 10/18/20 04:00 73 16 115/77 (90) 100 10/18/20 03:45 74 16 110/73 (85) 100 10/18/20 03:30 74 16 111/71 (84) 100 10/18/20 03:15 74 16 113/69 (84) 100 10/18/20 03:00 73 16 30 10/18/20 03:00 74 16 109/65 (80) 99 10/18/20 02:45 74 16 111/67 (82) 99 10/18/20 02:30 74 16 112/69 (83) 100 10/18/20 02:15 98.9 73 16 116/71 (86) 100 10/18/20 02:05 72 16 117/78 (91) 100 10/18/20 02:00 71 16 100 10/18/20 01:45 74 16 129/78 (95) 100 10/18/20 01:43 73 16 123/82 (96) 100 10/18/20 01:30 73 16 125/80 (95) 100 10/18/20 01:15 70 16 116/69 (85) 100 10/18/20 01:03 70 101/48 10/18/20 01:00 75 16 132/87 (102) 100 10/18/20 00:45 74 16 127/83 (98) 100 10/18/20 00:30 73 16 119/77 (91) 100 10/18/20 00:15 72 16 114/69 (84) 100 10/18/20 00:00 Mechanical Ventilator 10/18/20 00:00 72 16 103/60 (74) 100 10/18/20 00:00 69 10/17/20 23:45 71 16 107/64 (78) 100 10/17/20 23:30 70 16 104/64 (77) 100 10/17/20 23:15 69 17 103/58 (73) 100 10/17/20 23:13 68 16 98/52 (67) 100 10/17/20 23:12 69 16 30 10/17/20 23:05 65 16 59/40 (46) 100 10/17/20 23:00 65 16 35/22 (26) 100 10/17/20 22:45 68 16 92/43 (59) 100 10/17/20 22:34 66 16 53/34 (40) 100 10/17/20 22:32 65 16 42/24 (30) 100 10/17/20 22:30 66 16 44/24 (31) 100 10/17/20 22:15 71 16 130/82 (98) 100 10/17/20 22:15 71 16 130/82 (98) 100 10/17/20 22:00 71 16 123/83 (96) 100 10/17/20 21:45 71 16 126/80 (95) 100 10/17/20 21:30 71 16 123/82 (96) 99 10/17/20 21:15 72 16 136/92 (107) 100 10/17/20 21:00 72 16 129/92 (104) 100 10/17/20 20:30 72 16 125/91 (102) 100 10/17/20 20:15 72 16 131/92 (105) 100 10/17/20 20:00 Mechanical Ventilator 10/17/20 20:00 73 16 132/91 (105) 100 10/17/20 20:00 72 10/17/20 20:00 30 10/17/20 19:45 75 16 135/93 (107) 99 10/17/20 19:30 76 16 145/103 (117) 99 10/17/20 19:24 66 16 94/67 (76) 100 10/17/20 19:22 66 16 45/26 (32) 100 10/17/20 19:18 67 16 64/33 (43) 100 10/17/20 19:16 67 16 30 10/17/20 19:15 68 16 64/33 (43) 100 10/17/20 19:00 68 16 92/54 (67) 100 10/17/20 19:00 68 16 92/54 (67) 100 10/17/20 18:45 71 16 105/63 (77) 100 10/17/20 18:30 71 16 122/88 (99) 100 10/17/20 18:15 72 16 129/84 (99) 100 10/17/20 18:00 72 16 124/91 (102) 100 10/17/20 17:16 73 120/97 10/17/20 17:15 72 16 136/97 (110) 100 10/17/20 17:00 72 16 126/86 (99) 100 10/17/20 16:00 Mechanical Ventilator 10/17/20 16:00 30 10/17/20 16:00 69 Status: obtunded - no reflexes Condition: critical HEENT: atraumatic, normocephalic Lungs: rhonchi Heart: HR/BP unstable, edema Abdomen: soft, non-tender, active bowel sounds Extremities: edema - 2+ Accucheck: 69 Blood Sugars: BS not controlled Critical Care - Subjective ROS Limited/Unobtainable: Yes ICU Day: 10 Intubation Day: 10 Interval Events: Hb 7.8 after PRBC plt dec NAEO o/w Pupils F&D, no gag Condition: critical IV Access: central EKG Rhythm: Sinus Rhythm FI02: 30 Vent Support Breath Rate: 16 Vent Support Mode: AC Vent Tidal Volume: 500 Sputum Amount: Scant PEEP: 5.0 PIP: 17 Secretions: None Fluids: D51/2 Drips: CRISTEL Tube Feeding Amount: 15 I&O: Intake and Output 10/17/20 10/18/20 19:00 07:00 Intake Total 3407 ml 675 ml Output Total 550 ml 1250 ml Balance 2857 ml -575 ml IV Total 3152 ml 100 ml Tube Feeding 215 ml 225 ml Blood Product 350 ml Other 40 ml Output Urine Total 550 ml 1250 ml Subjective: BEN CXR: Dec RLL inf ET-Tube: 7.5 ET Position: 27 Labs: Laboratory Tests 10/17/20 18:48: POC Whole Blood Glucose 99 10/18/20 05:30: White Blood Count 4.0L, Red Blood Count 2.68L, Hemoglobin 7.8L, Hematocrit 22.7L , Mean Corpuscular Volume 85, Mean Corpuscular Hemoglobin 29.1, Mean Corpuscular Hemoglobin Concent 34.3, Red Cell Distribution Width 12.2, Platelet Count 89L, Mean Platelet Volume 8.8, Neutrophils (%) (Auto) , Lymphocytes (%) (Auto) , Monocytes (%) (Auto) , Eosinophils (%) (Auto) , Basophils (%) (Auto) , Differential Total Cells Counted 100, Neutrophils % (Manual) 71, Lymphocytes % (Manual) 24, Monocytes % (Manual) 1, Eosinophils % (Manual) 4H, Basophils % (Manual) 0, Band Neutrophils 0, Nucleated Red Blood Cells 8, Platelet Estimate DecreasedL, Platelet Morphology Normal, Hypochromasia 1+, Sodium Level 122L, Potassium Level 6.1*H, Chloride Level 92L, Carbon Dioxide Level 23, Anion Gap 8, Blood Urea Nitrogen 36H, Creatinine 2.9H, Estimat Glomerular Filtration Rate 29.3, Glucose Level 55#L, Uric Acid 2.4L, Calcium Level 7.4L, Phosphorus Level 4.0, Magnesium Level 1.4L, Total Bilirubin 0.2, Aspartate Amino Transf (AST/SGOT) 237H, Alanine Aminotransferase (ALT/SGPT) 35, Alkaline Phosphatase 105, C-Reactive Protein, Quantitative 16.0H, Pro-B-Type Natriuretic Peptide 2534H, Total Protein 5.2L, Albumin 1.1L, Globulin 4.1, Albumin/Globulin Ratio 0.3L 10/18/20 06:57: POC Whole Blood Glucose 121H 10/18/20 12:07: POC Whole Blood Glucose [Pending] 10/18/20 12:32: POC Whole Blood Glucose [Pending] Jaime Wiggins MD Oct 18, 2020 15:49
--- NOTE | 2020-10-18 16:05 | NUR ---
NURSE NOTES: IV fluid change to D10 and 3% NS started due to Sodium of 122. Phenylephrine gtt now @ 240mcg/min d/t low BP. no other changes to status.
--- NOTE | 2020-10-18 18:00 | NUR ---
NURSE NOTES: Pt resting quietly. no s/s of distress. VSS. pt with good urine output. Phenylephrine infusing. BS stable @ 182. Will not cover sugar at this time. Will continue to monitor BS.
--- NOTE | 2020-10-18 19:00 | NUR ---
NURSE HAND-OFF REPORT: Latest Vital Signs: Temperature 98.0 , Pulse 84 , B/P 134 /92 , Respiratory Rate 16 , O2 SAT 100 , Room Air, O2 Flow Rate 15.0 . Vital Sign Comment: Phenyl gtt @ 240 mcg/min EKG Rhythm: Sinus Rhythm Rhythm change?: N MD Notified?: N - MD Response: Latest Red Fall Score: 50 Fall Risk: High Risk Safety Measures: Call light Within Reach, Bed Alarm Zone 1, Side Rails Side Rails x3, Bed position Low and Locked. Fall Precautions: Report given to ITZEL Curtis
[2020-10-18] MEDS: Dyna-Hex 2% Top Sol 2oz TOPIC SCH (20:30)
[2020-10-19] VITALS (97 sets, daily range): BP systolic 69–145; BP diastolic 37–101
[2020-10-19] MEDS: Phenylephrine 100 MG in D5W 500ml 490 ML IV PRN ×3 (00:58→20:23)
[2020-10-19] MEDS: Midodrine 10mg tab ORAL SCH ×3 (06:00→22:00)
[2020-10-19] MEDS: NovoLOG Insulin Flexpen SUBQ SCH ×3 (06:00→18:00)
[2020-10-19 07:04] LABS: ALBUMIN 1.2 G/DL (3.4-5.0); ALBUMIN/GLOBULIN RATIO 0.3 (1.0-2.7); BILIRUBIN,TOTAL 0.1 MG/DL (0.2-1.0); CALCIUM 7.1 MG/DL (8.5-10.1); CREATININE 3.2 MG/DL (0.55-1.30); PHOSPHORUS 4.2 MG/DL (2.5-4.9); POTASSIUM 5.9 MMOL/L (3.5-5.1)
[2020-10-19 07:53] LABS: HEMOGLOBIN 8.2 G/DL (14.2-18.0); MEAN CORPUSCULAR VOLUME 85 FL (80-99); PLATELET COUNT 91 K/UL (150-450); RED BLOOD COUNT 2.94 M/UL (4.70-6.10); RED CELL DISTRIBUTION WIDTH 11.7 % (11.6-14.8); WHITE BLOOD COUNT 3.1 K/UL (4.8-10.8)
[2020-10-19] MEDS: Pantoprazole Inj IVP SCH ×2 (08:15→20:23)
[2020-10-19] MEDS: Trimethoprim/Sulfamethoxazole 20 ML in D5W 500ml 550 ML IV SCH ×2 (08:32→20:23)
--- NOTE | 2020-10-19 09:53 | NUR ---
RD ASSESSMENT & RECOMMENDATIONS SEE CARE ACTIVITY FOR COMPLETE ASSESSMENT DAILY ESTIMATED NEEDS: Needs based on Underweight, Critical Care/ 54.4kg 25-35 kcals/kg 6919-4905 total kcals 1.2-2 g protein/kg 65-109 g total protein 25-30 mL/kg 1540-8974 total fluid mLs NUTRITION DIAGNOSIS: Increased kcal and pro needs r/t underweight status as evidenced by BMI underweight per guidelines, pt is 67% of [place] Body weight w/ visual wasting per RN, NPO until fully awake per MD, now orally intubated (10/09), s/p code blue (10/10), on pressor support, NPO. CURRENT TF: Nepro @35ml/hr-> now held ENTERAL NUTRITION RECOMMENDATIONS: NEPRO @35ml/hr x 24 hrs to provide 840ml, 1512kcal, 68g prot, 611ml free water FEED WITH HEMODYNAMIC STABILITY ---> W/ GI access, initiate NEPRO @15ml/hr x 6hrs ---> Advance 10ml q 4-6 hrs as tolerated to goal ---> HOB over 30 degrees/ H2o flush 180ml q 8hrs WITHOUT HEMODYNAMIC STABILITY, rec trophic feeding of NEPRO @10ml/hr if able to keep HOB >30 degrees ADDITIONAL RECOMMENDATIONS: 1) Monitor hemodynamic stability, ability to feed: NPO from adm s/p code blue (10/10); TF initiated(10/14), now held 2) Monitor for hypoglycemia while NPO- now on D10, BG up 3) BM not updated since 10/01, rec bowel regimen 4) Daily wts on calibrated bed scale
[2020-10-19] MEDS: Dextrose 10%/0.9% SOD CHL 1,000 ML IV SCH (11:00)
[2020-10-19] MEDS ORDERED: Sodium Polystyrene Sulfonate 15gm Powder NG SCH (12:30)
--- NOTE | 2020-10-19 12:31 | Nephrology Progress Note ---
Assessment/Plan Problem List: (1) ADALI (acute kidney injury) (2) AIDS (3) Amphetamine abuse (4) COVID-19 virus detected (5) Hypernatremia Assessment Acute renal failure Polyuria secondary to diabetes insipidus Electrolyte abnormalities Plan October 19: Labs reviewed. Low sodium and high potassium. Patient started on stress dose of steroids. Kayexalate given. Patient DNR/DNI. Clinically deteriorating. Discussed with RN. Plan for terminal extubation tomorrow. We will hold on dialysis treatment since treatment appears to be futile. October 18: Labs reviewed. Kayexalate via NG tube. 1 dose of Solu-Medrol. IV changed to D10 normal saline. Bolus of 3% saline given. Nasal vasopressin discontinued. Patient DNR/DNI. Continue to monitor electrolytes and renal parameters. Prognosis poor. October 17: Labs reviewed. Discussed with RN. Serum creatinine rising. Clinically is doing poorly. Electrolytes improved. Hemoglobin low. Due for transfusion. Patient DNR. Continue same treatment plan. Suggest: IV D5W 200 cc an hour DDAVP nasal spray Midodrine for low blood pressure Monitor electrolytes and renal parameters Poor prognosis Per orders Subjective ROS Limited/Unobtainable: Yes Objective Objective Last 24 Hour Vital Signs Date Time Temp Pulse Resp B/P (MAP) Pulse Ox O2 Delivery O2 Flow Rate FiO2 10/19/20 08:17 85 140/93 10/19/20 07:03 85 16 30 10/19/20 07:00 89 16 114/62 (79) 100 10/19/20 06:45 89 16 112/65 (81) 100 10/19/20 06:30 89 16 115/63 (80) 100 10/19/20 06:15 88 16 112/66 (81) 100 10/19/20 06:15 88 16 112/66 (81) 100 10/19/20 06:00 87 16 117/70 (86) 100 10/19/20 06:00 87 16 117/70 (86) 100 10/19/20 05:45 89 16 124/83 (97) 100 10/19/20 05:30 89 16 134/85 (101) 100 10/19/20 05:28 89 16 30 10/19/20 05:15 89 16 139/84 (102) 100 10/19/20 05:00 90 16 136/83 (100) 100 10/19/20 04:45 89 16 134/79 (97) 100 10/19/20 04:30 89 16 133/72 (92) 100 10/19/20 04:15 89 16 124/76 (92) 100 10/19/20 04:00 30 10/19/20 04:00 Mechanical Ventilator 10/19/20 04:00 87 16 129/77 (94) 100 10/19/20 04:00 88 16 121/69 (86) 100 10/19/20 04:00 78 10/19/20 03:45 87 16 116/65 (82) 100 10/19/20 03:30 87 16 118/63 (81) 100 10/19/20 03:15 87 16 127/80 (96) 100 10/19/20 03:09 87 16 30 10/19/20 03:00 87 16 129/77 (94) 100 10/19/20 02:45 87 16 125/75 (92) 100 10/19/20 02:30 88 16 129/79 (96) 100 10/19/20 02:15 88 16 127/79 (95) 100 10/19/20 02:00 88 16 132/86 (101) 100 10/19/20 01:45 88 16 130/86 (101) 100 10/19/20 01:30 87 17 132/87 (102) 100 10/19/20 01:28 87 16 30 10/19/20 01:15 87 16 125/75 (92) 100 10/19/20 01:15 87 16 125/75 (92) 100 10/19/20 01:00 86 16 128/75 (92) 100 10/19/20 01:00 86 16 128/75 (92) 100 10/19/20 00:58 84 101/63 10/19/20 00:45 84 16 122/77 (92) 100 10/19/20 00:45 84 16 122/77 (92) 100 10/19/20 00:30 85 16 100/55 (70) 100 10/19/20 00:30 85 16 100/55 (70) 100 10/19/20 00:15 87 16 133/87 (102) 100 10/19/20 00:15 87 16 133/87 (102) 100 10/19/20 00:00 86 16 129/79 (96) 100 10/19/20 00:00 83 10/19/20 00:00 86 16 129/79 (96) 100 10/19/20 00:00 Mechanical Ventilator 10/19/20 00:00 30 10/18/20 23:45 86 16 128/81 (97) 100 10/18/20 23:30 85 16 120/74 (89) 100 10/18/20 23:19 85 16 30 10/18/20 23:15 86 16 125/79 (94) 100 10/18/20 23:15 86 16 125/79 (94) 100 10/18/20 23:00 86 16 128/80 (96) 100 10/18/20 22:45 87 16 119/71 (87) 100 10/18/20 22:30 87 16 118/73 (88) 100 10/18/20 22:15 85 16 104/61 (75) 100 10/18/20 22:00 84 16 105/59 (74) 100 10/18/20 22:00 84 16 105/59 (74) 100 10/18/20 21:45 85 16 131/83 (99) 100 10/18/20 21:30 86 16 126/84 (98) 100 10/18/20 21:16 87 16 30 10/18/20 21:15 88 16 127/79 (95) 100 10/18/20 21:15 88 16 127/79 (95) 100 10/18/20 21:08 91 16 128/81 (97) 100 10/18/20 21:00 90 16 160/110 (127) 100 10/18/20 21:00 90 16 160/110 (127) 100 10/18/20 20:45 87 16 100/62 (75) 100 10/18/20 20:30 83 16 95/55 (68) 100 10/18/20 20:15 80 16 91/53 (66) 100 10/18/20 20:10 78 16 87/51 (63) 100 10/18/20 20:09 77 16 77/50 (59) 100 10/18/20 20:05 78 16 72/38 (49) 100 10/18/20 20:03 79 16 74/41 (52) 100 10/18/20 20:02 79 16 80/44 (56) 100 10/18/20 20:00 Mechanical Ventilator 10/18/20 20:00 84 10/18/20 20:00 81 16 100 10/18/20 20:00 30 10/18/20 19:45 84 16 134/93 (107) 100 10/18/20 19:30 84 16 135/94 (108) 100 10/18/20 19:29 84 16 30 10/18/20 19:15 85 16 134/92 (106) 100 10/18/20 19:15 85 16 134/92 (106) 100 10/18/20 19:00 85 16 132/93 (106) 100 10/18/20 19:00 85 16 132/93 (106) 100 10/18/20 18:45 84 16 131/92 (105) 100 10/18/20 18:30 85 16 131/89 (103) 100 10/18/20 18:15 84 16 128/86 (100) 100 10/18/20 18:00 85 16 126/83 (97) 100 10/18/20 17:45 85 16 121/82 (95) 100 10/18/20 17:30 86 16 116/76 (89) 100 10/18/20 17:18 87 107/74 10/18/20 17:15 88 16 107/74 (85) 100 10/18/20 17:00 83 16 92/51 (65) 100 10/18/20 16:59 83 16 90/48 (62) 100 10/18/20 16:45 80 16 53/31 (38) 100 10/18/20 16:38 81 16 30 10/18/20 16:30 82 16 78/39 (52) 100 10/18/20 16:15 80 16 90/52 (65) 100 10/18/20 16:00 98.0 82 16 115/77 (90) 100 10/18/20 16:00 30 10/18/20 16:00 83 10/18/20 16:00 Mechanical Ventilator 10/18/20 15:45 82 16 122/82 (95) 100 10/18/20 15:30 82 16 121/78 (92) 100 10/18/20 15:15 83 16 116/79 (91) 100 10/18/20 15:07 82 16 30 10/18/20 15:00 83 16 113/73 (86) 100 10/18/20 14:45 83 16 105/66 (79) 100 10/18/20 14:30 83 16 94/59 (71) 100 10/18/20 14:15 82 16 91/54 (66) 100 10/18/20 14:00 82 16 92/50 (64) 99 10/18/20 13:53 80 16 89/49 (62) 98 10/18/20 13:45 78 16 84/41 (55) 98 10/18/20 13:39 76 16 80/40 (53) 98 10/18/20 13:37 76 16 79/40 (53) 99 10/18/20 13:35 75 16 76/40 (52) 97 10/18/20 13:30 74 16 75/41 (52) 98 10/18/20 13:28 73 16 74/40 (51) 98 10/18/20 13:15 73 16 88/51 (63) 100 10/18/20 13:02 89 16 30 10/18/20 13:00 70 16 50/29 (36) 100 10/18/20 12:45 73 16 113/76 (88) 100 10/18/20 12:30 74 16 109/71 (84) 100 Intake and Output 10/18/20 10/19/20 19:00 07:00 Intake Total 3653.917 ml 135 ml Output Total 1310 ml 2275 ml Balance 2343.917 ml -2140 ml Free Water 250 ml IV Total 3223.917 ml Tube Feeding 180 ml 135 ml Blood Product 0 ml Output Urine Total 1310 ml 2275 ml Current Medications Medications (Trade) Dose Ordered Sig/Carleen Route PRN Reason Start Time Stop Time Status Last Admin Dose Admin Acetaminophen (Tylenol) 650 mg Q4H PRN ORAL Mild Pain (Pain Scale 1-3) 10/01/20 11:00 10/31/20 10:59 10/17/20 11:36 Acetaminophen (Tylenol) 650 mg Q4H PRN RECTAL BT>100.5F 10/04/20 23:30 11/03/20 23:29 10/05/20 08:18 Bisacodyl (Dulcolax) 10 mg DAILYPRN PRN RECTAL Constipation 10/08/20 19:00 01/06/21 18:59 Chlorhexidine Gluconate (Malgorzata-Hex 2%) 1 applic DAILY@2000 TOPIC 10/17/20 20:00 01/15/21 19:59 10/18/20 20:30 Dextrose (Dextrose 50%) 25 ml Q30M PRN IV Hypoglycemia 10/15/20 20:45 01/13/21 20:44 10/18/20 12:13 Dextrose (Dextrose 50%) 50 ml Q30M PRN IV Hypoglycemia 10/15/20 20:45 01/13/21 20:44 Dextrose/Sodium Chloride 1,000 ml @ 50 mls/hr Q20H IV 10/18/20 15:00 11/17/20 14:59 10/19/20 11:00 Fluconazole/ Sodium Chloride 200 ml @ 100 mls/hr Q24H IV 10/11/20 18:00 10/20/20 17:59 10/18/20 20:30 Heparin Sodium/ Sodium Chloride (Heparin 1000 units/500ml Premix) 1,000 unit ONCE PRN IV picc line placement 10/17/20 16:00 10/19/20 15:59 Hydralazine HCl (Apresoline) 10 mg Q4H PRN IV SBP > 150 mmHg 10/09/20 08:15 01/07/21 08:14 Hydrocortisone (Solu-CORTEF) 100 mg EVERY 8 HOURS IV 10/19/20 14:00 01/17/21 13:59 UNV Insulin Aspart (NovoLOG) Q6HR SUBQ 10/16/20 00:00 01/14/21 00:00 10/19/20 12:20 Lidocaine HCl (Xylocaine 1% 30ml) 30 ml ONCE PRN INJ PICC LINE PLACEMENT 10/17/20 16:00 10/19/20 15:59 Midodrine (Pro-Amatine) 10 mg Q8HR ORAL 10/16/20 14:00 01/14/21 13:59 10/19/20 06:00 Ondansetron HCl (Zofran) 4 mg Q6H PRN IVP Nausea & Vomiting 10/01/20 11:00 10/31/20 10:59 Pantoprazole (Protonix) 40 mg Q12HR IVP 10/16/20 21:00 11/01/20 12:59 10/19/20 08:15 Phenylephrine HCl 100 mg/Dextrose 500 ml @ 0 mls/hr Q24H PRN IV . 10/15/20 09:00 11/14/20 08:59 10/19/20 08:17 Piperacillin Sod/ Tazobactam Sod 3.375 gm/Dextrose 100 ml @ 25 mls/hr Q8H IVPB 10/18/20 00:00 10/29/20 15:59 10/19/20 08:16 Trimethoprim/ Sulfamethoxazole 20 ml/Dextrose 570 ml @ 380 mls/hr Q12H IV 10/19/20 20:00 10/26/20 19:59 Laboratory Tests 10/18/20 12:32: POC Whole Blood Glucose [Pending] 10/18/20 18:43: POC Whole Blood Glucose 182H 10/18/20 23:24: POC Whole Blood Glucose 263H 10/19/20 05:21: Sodium Level 116*L, Potassium Level 5.9H, Chloride Level 86L, Carbon Dioxide Level 18L, Anion Gap 12, Blood Urea Nitrogen 44H, Creatinine 3.2H, Estimat Glomerular Filtration Rate 26.2, Glucose Level 274#H, Uric Acid 2.9, Calcium Level 7.1L, Phosphorus Level 4.2, Magnesium Level 1.6L, Total Bilirubin 0.1L, Aspartate Amino Transf (AST/SGOT) 258H, Alanine Aminotransferase (ALT/SGPT) 41, Alkaline Phosphatase 130H, Troponin I 0.007, C-Reactive Protein, Quantitative 13.8H, Pro-B-Type Natriuretic Peptide 3640H, Total Protein 5.8L, Albumin 1.2L, Globulin 4.6, Albumin/Globulin Ratio 0.3L 10/19/20 05:32: POC Whole Blood Glucose 241H 10/19/20 07:35: White Blood Count 3.1L, Red Blood Count 2.94L, Hemoglobin 8.2L, Hematocrit 25.0L , Mean Corpuscular Volume 85, Mean Corpuscular Hemoglobin 27.9, Mean Corpuscular Hemoglobin Concent 32.9, Red Cell Distribution Width 11.7, Platelet Count 91L, Mean Platelet Volume 8.6, Neutrophils (%) (Auto) , Lymphocytes (%) (Auto) , Monocytes (%) (Auto) , Eosinophils (%) (Auto) , Basophils (%) (Auto) , Differential Total Cells Counted 100, Neutrophils % (Manual) 81H, Lymphocytes % (Manual) 9L, Monocytes % (Manual) 2, Eosinophils % (Manual) 0, Basophils % (Manual) 0, Band Neutrophils 8, Platelet Estimate DecreasedL, Platelet Morpho logy Normal, Hypochromasia 1+ 10/19/20 12:06: POC Whole Blood Glucose 285H Height (Feet): 6 Weight (Pounds): 120 General Appearance: no apparent distress EENT: other - Intubated on ventilator Cardiovascular: normal rate Respiratory/Chest: decreased breath sounds Abdomen: distended Randall Barrios MD Oct 19, 2020 12:31
[2020-10-19] MEDS: Hydrocortisone 100mg Inj IV SCH ×2 (14:00→22:00)
--- NOTE | 2020-10-19 14:02 | Pulmonolgy Critical Care Note ---
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 Barrios, will hold off on HD given overall trajectory Infectious Disease: ABx and Flucon per ID Gastrointestinal: Cautious trickle feeds Endocrine: monitor blood sugar, other, stress test steroids Hematologic: monitor H/H, TRANSFUSE PPRN, F/U FOBT, iron studies, retic Neurologic: Off sedation, unresponsive Goals: Ethics recs, DNAR based on medical futility ---> will d/w Dr. Norton Re: withdrawing care but NO ESCALATION @ THIS POINT Prophylaxis: Protonix & LMWH (HELD) Time Spent (Minutes): other - 40 Notes Reviewed: ID, neuro Discussed with: nurses, consultants Critical Care - Objective Last 24 Hour Vital Signs Date Time Temp Pulse Resp B/P (MAP) Pulse Ox O2 Delivery O2 Flow Rate FiO2 10/19/20 08:17 85 140/93 10/19/20 07:03 85 16 30 10/19/20 07:00 89 16 114/62 (79) 100 10/19/20 06:45 89 16 112/65 (81) 100 10/19/20 06:30 89 16 115/63 (80) 100 10/19/20 06:15 88 16 112/66 (81) 100 10/19/20 06:15 88 16 112/66 (81) 100 10/19/20 06:00 87 16 117/70 (86) 100 10/19/20 06:00 87 16 117/70 (86) 100 10/19/20 05:45 89 16 124/83 (97) 100 10/19/20 05:30 89 16 134/85 (101) 100 10/19/20 05:28 89 16 30 10/19/20 05:15 89 16 139/84 (102) 100 10/19/20 05:00 90 16 136/83 (100) 100 10/19/20 04:45 89 16 134/79 (97) 100 10/19/20 04:30 89 16 133/72 (92) 100 10/19/20 04:15 89 16 124/76 (92) 100 10/19/20 04:00 30 10/19/20 04:00 Mechanical Ventilator 10/19/20 04:00 87 16 129/77 (94) 100 10/19/20 04:00 88 16 121/69 (86) 100 10/19/20 04:00 78 10/19/20 03:45 87 16 116/65 (82) 100 10/19/20 03:30 87 16 118/63 (81) 100 10/19/20 03:15 87 16 127/80 (96) 100 10/19/20 03:09 87 16 30 10/19/20 03:00 87 16 129/77 (94) 100 10/19/20 02:45 87 16 125/75 (92) 100 10/19/20 02:30 88 16 129/79 (96) 100 10/19/20 02:15 88 16 127/79 (95) 100 10/19/20 02:00 88 16 132/86 (101) 100 10/19/20 01:45 88 16 130/86 (101) 100 10/19/20 01:30 87 17 132/87 (102) 100 10/19/20 01:28 87 16 30 10/19/20 01:15 87 16 125/75 (92) 100 10/19/20 01:15 87 16 125/75 (92) 100 10/19/20 01:00 86 16 128/75 (92) 100 10/19/20 01:00 86 16 128/75 (92) 100 10/19/20 00:58 84 101/63 10/19/20 00:45 84 16 122/77 (92) 100 10/19/20 00:45 84 16 122/77 (92) 100 10/19/20 00:30 85 16 100/55 (70) 100 10/19/20 00:30 85 16 100/55 (70) 100 10/19/20 00:15 87 16 133/87 (102) 100 10/19/20 00:15 87 16 133/87 (102) 100 10/19/20 00:00 86 16 129/79 (96) 100 10/19/20 00:00 83 10/19/20 00:00 86 16 129/79 (96) 100 10/19/20 00:00 Mechanical Ventilator 10/19/20 00:00 30 10/18/20 23:45 86 16 128/81 (97) 100 10/18/20 23:30 85 16 120/74 (89) 100 10/18/20 23:19 85 16 30 10/18/20 23:15 86 16 125/79 (94) 100 10/18/20 23:15 86 16 125/79 (94) 100 10/18/20 23:00 86 16 128/80 (96) 100 10/18/20 22:45 87 16 119/71 (87) 100 10/18/20 22:30 87 16 118/73 (88) 100 10/18/20 22:15 85 16 104/61 (75) 100 10/18/20 22:00 84 16 105/59 (74) 100 10/18/20 22:00 84 16 105/59 (74) 100 10/18/20 21:45 85 16 131/83 (99) 100 10/18/20 21:30 86 16 126/84 (98) 100 10/18/20 21:16 87 16 30 10/18/20 21:15 88 16 127/79 (95) 100 10/18/20 21:15 88 16 127/79 (95) 100 10/18/20 21:08 91 16 128/81 (97) 100 10/18/20 21:00 90 16 160/110 (127) 100 10/18/20 21:00 90 16 160/110 (127) 100 10/18/20 20:45 87 16 100/62 (75) 100 10/18/20 20:30 83 16 95/55 (68) 100 10/18/20 20:15 80 16 91/53 (66) 100 10/18/20 20:10 78 16 87/51 (63) 100 10/18/20 20:09 77 16 77/50 (59) 100 10/18/20 20:05 78 16 72/38 (49) 100 10/18/20 20:03 79 16 74/41 (52) 100 10/18/20 20:02 79 16 80/44 (56) 100 10/18/20 20:00 Mechanical Ventilator 10/18/20 20:00 84 10/18/20 20:00 81 16 100 10/18/20 20:00 30 10/18/20 19:45 84 16 134/93 (107) 100 10/18/20 19:30 84 16 135/94 (108) 100 10/18/20 19:29 84 16 30 10/18/20 19:15 85 16 134/92 (106) 100 10/18/20 19:15 85 16 134/92 (106) 100 10/18/20 19:00 85 16 132/93 (106) 100 10/18/20 19:00 85 16 132/93 (106) 100 10/18/20 18:45 84 16 131/92 (105) 100 10/18/20 18:30 85 16 131/89 (103) 100 10/18/20 18:15 84 16 128/86 (100) 100 10/18/20 18:00 85 16 126/83 (97) 100 10/18/20 17:45 85 16 121/82 (95) 100 10/18/20 17:30 86 16 116/76 (89) 100 10/18/20 17:18 87 107/74 10/18/20 17:15 88 16 107/74 (85) 100 10/18/20 17:00 83 16 92/51 (65) 100 10/18/20 16:59 83 16 90/48 (62) 100 10/18/20 16:45 80 16 53/31 (38) 100 10/18/20 16:38 81 16 30 10/18/20 16:30 82 16 78/39 (52) 100 10/18/20 16:15 80 16 90/52 (65) 100 10/18/20 16:00 98.0 82 16 115/77 (90) 100 10/18/20 16:00 30 10/18/20 16:00 83 10/18/20 16:00 Mechanical Ventilator 10/18/20 15:45 82 16 122/82 (95) 100 10/18/20 15:30 82 16 121/78 (92) 100 10/18/20 15:15 83 16 116/79 (91) 100 10/18/20 15:07 82 16 30 10/18/20 15:00 83 16 113/73 (86) 100 10/18/20 14:45 83 16 105/66 (79) 100 10/18/20 14:30 83 16 94/59 (71) 100 10/18/20 14:15 82 16 91/54 (66) 100 10/18/20 14:00 82 16 92/50 (64) 99 Status: other - unresponsive no reflexes Condition: critical HEENT: atraumatic Neck: trach Lungs: rhonchi Heart: HR/BP unstable Abdomen: soft, non-tender, active bowel sounds Extremities: edema - 2+ Accucheck: 285 Blood Sugars: BS not controlled Critical Care - Subjective ROS Limited/Unobtainable: Yes ICU Day: 11 Intubation Day: 11 Interval Events: Na dec to 116 despite 3% NAEO Condition: critical IV Access: central EKG Rhythm: Sinus Rhythm FI02: 30 Vent Support Breath Rate: 16 Vent Support Mode: AC Vent Tidal Volume: 500 Sputum Amount: Scant PEEP: 5.0 PIP: 18 Secretions: None Fluids: D10NS Drips: CRISTEL @160 Tube Feeding Amount: 0 I&O: Intake and Output 10/18/20 10/19/20 19:00 07:00 Intake Total 3653.917 ml 135 ml Output Total 1310 ml 2275 ml Balance 2343.917 ml -2140 ml Free Water 250 ml IV Total 3223.917 ml Tube Feeding 180 ml 135 ml Blood Product 0 ml Output Urine Total 1310 ml 2275 ml Subjective: BEN ET-Tube: 7.5 ET Position: 27 Labs: Laboratory Tests 10/18/20 18:43: POC Whole Blood Glucose 182H 10/18/20 23:24: POC Whole Blood Glucose 263H 10/19/20 05:21: Sodium Level 116*L, Potassium Level 5.9H, Chloride Level 86L, Carbon Dioxide Level 18L, Anion Gap 12, Blood Urea Nitrogen 44H, Creatinine 3.2H, Estimat Glomerular Filtration Rate 26.2, Glucose Level 274#H, Uric Acid 2.9, Calcium Level 7.1L, Phosphorus Level 4.2, Magnesium Level 1.6L, Total Bilirubin 0.1L, Aspartate Amino Transf (AST/SGOT) 258H, Alanine Aminotransferase (ALT/SGPT) 41, Alkaline Phosphatase 130H, Troponin I 0.007, C-Reactive Protein, Quantitative 13.8H, Pro-B-Type Natriuretic Peptide 3640H, Total Protein 5.8L, Albumin 1.2L, Globulin 4.6, Albumin/Globulin Ratio 0.3L 10/19/20 05:32: POC Whole Blood Glucose 241H 10/19/20 07:35: White Blood Count 3.1L, Red Blood Count 2.94L, Hemoglobin 8.2L, Hematocrit 25.0L , Mean Corpuscular Volume 85, Mean Corpuscular Hemoglobin 27.9, Mean Corpuscular Hemoglobin Concent 32.9, Red Cell Distribution Width 11.7, Platelet Count 91L, Mean Platelet Volume 8.6, Neutrophils (%) (Auto) , Lymphocytes (%) (Auto) , Monocytes (%) (Auto) , Eosinophils (%) (Auto) , Basophils (%) (Auto) , Differential Total Cells Counted 100, Neutrophils % (Manual) 81H, Lymphocytes % (Manual) 9L, Monocytes % (Manual) 2, Eosinophils % (Manual) 0, Basophils % (Manual) 0, Band Neutrophils 8, Platelet Estimate DecreasedL, Platelet Morphology Normal, Hypochromasia 1+ 10/19/20 12:06: POC Whole Blood Glucose 285H Jaime Wiggins MD Oct 19, 2020 14:02
[2020-10-19] MEDS ORDERED: NaCl 3% 500ml 250 ML IV ONE (15:30)
--- NOTE | 2020-10-19 15:30 | Infectious Diseases Prog Note ---
Assessment/Plan Assessment/Plan ASSESSMENT AND PLAN: 1. COVID-19 infection, acute hypoxia, ams, fevers, sepsis, ? pneumonia, ADALI s/p code - non-responsive now HIV, AIDS - CDR 10, VL - 133,370 LDH wnl - less likely pneumocystis but possible enterococcus uti cryptococcus + blood culture, cryptococcus fungemia, infection, likely meningitis - s/p dexamethasone, s/p remdesivir - zosyn, diflucan, iv bactrim - f/u beta-D glucan, cryptococcus antigen - neuro f/, poor prognosis, consider comfort care - monitor labs and chest x-ray, surveillance blood cultures negative - Hold on HIV treatment because of potential of immune reconstitution syndrome with disseminated cryptococcus infection - patient needs picc line and discontinue femoral line - possible terminal extubation - prognosis grave 2. pmh o/w negative 3. Amphetamine use 4) allergies - negative 5. will f/u Subjective Constitutional: Reports: fever HEENT: Reports: congestion Respiratory: Reports: shortness of breath Gastrointestinal/Abdominal: Denies: nausea, vomiting, diarrhea Genitourinary: Reports: other - + yeung Neurologic: Reports: other - non-responsive Allergies: Coded Allergies: No Known Allergies (Unverified , 09/29/20) Objective Last 24 Hour Vital Signs Date Time Temp Pulse Resp B/P (MAP) Pulse Ox O2 Delivery O2 Flow Rate FiO2 10/19/20 13:08 89 16 30 10/19/20 11:05 88 16 30 10/19/20 09:02 89 16 30 10/19/20 08:17 85 140/93 10/19/20 07:03 85 16 30 10/19/20 07:00 89 16 114/62 (79) 100 10/19/20 06:45 89 16 112/65 (81) 100 10/19/20 06:30 89 16 115/63 (80) 100 10/19/20 06:15 88 16 112/66 (81) 100 10/19/20 06:15 88 16 112/66 (81) 100 10/19/20 06:00 87 16 117/70 (86) 100 10/19/20 06:00 87 16 117/70 (86) 100 10/19/20 05:45 89 16 124/83 (97) 100 10/19/20 05:30 89 16 134/85 (101) 100 10/19/20 05:28 89 16 30 10/19/20 05:15 89 16 139/84 (102) 100 10/19/20 05:00 90 16 136/83 (100) 100 10/19/20 04:45 89 16 134/79 (97) 100 10/19/20 04:30 89 16 133/72 (92) 100 10/19/20 04:15 89 16 124/76 (92) 100 10/19/20 04:00 30 10/19/20 04:00 Mechanical Ventilator 10/19/20 04:00 87 16 129/77 (94) 100 10/19/20 04:00 88 16 121/69 (86) 100 10/19/20 04:00 78 10/19/20 03:45 87 16 116/65 (82) 100 10/19/20 03:30 87 16 118/63 (81) 100 10/19/20 03:15 87 16 127/80 (96) 100 10/19/20 03:09 87 16 30 10/19/20 03:00 87 16 129/77 (94) 100 10/19/20 02:45 87 16 125/75 (92) 100 10/19/20 02:30 88 16 129/79 (96) 100 10/19/20 02:15 88 16 127/79 (95) 100 10/19/20 02:00 88 16 132/86 (101) 100 10/19/20 01:45 88 16 130/86 (101) 100 10/19/20 01:30 87 17 132/87 (102) 100 10/19/20 01:28 87 16 30 10/19/20 01:15 87 16 125/75 (92) 100 10/19/20 01:15 87 16 125/75 (92) 100 10/19/20 01:00 86 16 128/75 (92) 100 10/19/20 01:00 86 16 128/75 (92) 100 10/19/20 00:58 84 101/63 10/19/20 00:45 84 16 122/77 (92) 100 10/19/20 00:45 84 16 122/77 (92) 100 10/19/20 00:30 85 16 100/55 (70) 100 10/19/20 00:30 85 16 100/55 (70) 100 10/19/20 00:15 87 16 133/87 (102) 100 10/19/20 00:15 87 16 133/87 (102) 100 10/19/20 00:00 86 16 129/79 (96) 100 10/19/20 00:00 83 10/19/20 00:00 86 16 129/79 (96) 100 10/19/20 00:00 Mechanical Ventilator 10/19/20 00:00 30 10/18/20 23:45 86 16 128/81 (97) 100 10/18/20 23:30 85 16 120/74 (89) 100 10/18/20 23:19 85 16 30 10/18/20 23:15 86 16 125/79 (94) 100 10/18/20 23:15 86 16 125/79 (94) 100 10/18/20 23:00 86 16 128/80 (96) 100 10/18/20 22:45 87 16 119/71 (87) 100 10/18/20 22:30 87 16 118/73 (88) 100 10/18/20 22:15 85 16 104/61 (75) 100 10/18/20 22:00 84 16 105/59 (74) 100 10/18/20 22:00 84 16 105/59 (74) 100 10/18/20 21:45 85 16 131/83 (99) 100 10/18/20 21:30 86 16 126/84 (98) 100 10/18/20 21:16 87 16 30 10/18/20 21:15 88 16 127/79 (95) 100 10/18/20 21:15 88 16 127/79 (95) 100 10/18/20 21:08 91 16 128/81 (97) 100 10/18/20 21:00 90 16 160/110 (127) 100 10/18/20 21:00 90 16 160/110 (127) 100 10/18/20 20:45 87 16 100/62 (75) 100 10/18/20 20:30 83 16 95/55 (68) 100 10/18/20 20:15 80 16 91/53 (66) 100 10/18/20 20:10 78 16 87/51 (63) 100 10/18/20 20:09 77 16 77/50 (59) 100 10/18/20 20:05 78 16 72/38 (49) 100 10/18/20 20:03 79 16 74/41 (52) 100 10/18/20 20:02 79 16 80/44 (56) 100 10/18/20 20:00 Mechanical Ventilator 10/18/20 20:00 84 10/18/20 20:00 81 16 100 10/18/20 20:00 30 10/18/20 19:45 84 16 134/93 (107) 100 10/18/20 19:30 84 16 135/94 (108) 100 10/18/20 19:29 84 16 30 10/18/20 19:15 85 16 134/92 (106) 100 10/18/20 19:15 85 16 134/92 (106) 100 10/18/20 19:00 85 16 132/93 (106) 100 10/18/20 19:00 85 16 132/93 (106) 100 10/18/20 18:45 84 16 131/92 (105) 100 10/18/20 18:30 85 16 131/89 (103) 100 10/18/20 18:15 84 16 128/86 (100) 100 10/18/20 18:00 85 16 126/83 (97) 100 10/18/20 17:45 85 16 121/82 (95) 100 10/18/20 17:30 86 16 116/76 (89) 100 10/18/20 17:18 87 107/74 10/18/20 17:15 88 16 107/74 (85) 100 10/18/20 17:00 83 16 92/51 (65) 100 10/18/20 16:59 83 16 90/48 (62) 100 10/18/20 16:45 80 16 53/31 (38) 100 10/18/20 16:38 81 16 30 10/18/20 16:30 82 16 78/39 (52) 100 10/18/20 16:15 80 16 90/52 (65) 100 10/18/20 16:00 98.0 82 16 115/77 (90) 100 10/18/20 16:00 30 10/18/20 16:00 83 10/18/20 16:00 Mechanical Ventilator 10/18/20 15:45 82 16 122/82 (95) 100 10/18/20 15:30 82 16 121/78 (92) 100 Height (Feet): 6 Weight (Pounds): 120 HEENT: normocephalic, atraumatic, anicteric Respiratory/Chest: crackles/rales, rhonchi - bilaterally Cardiovascular: normal rate, regular rhythm Abdomen: normal bowel sounds, soft, non tender, no organomegaly, non distended Chest x-ray - 10/04/20 - Procedure: XRAY Chest 1v EXAM: XR Chest, 1 View CLINICAL HISTORY: DIARRHEA TECHNIQUE: Frontal view of the chest. COMPARISON: Chest x-ray 10/01/2020 FINDINGS: Lungs: New mild patchy opacities within the medial left lung base and to a lesser extent the medial right lung base. Pleural space: Unremarkable. No pneumothorax. Heart: Unremarkable. No cardiomegaly. Mediastinum: Unremarkable. Bones/joints: Unremarkable. IMPRESSION: New mild patchy opacities within the lung bases may indicate a developing infectious/inflammatory process such as multifocal pneumonia or aspiration pneumonitis. Laboratory Tests Test 10/18/20 18:43 10/18/20 23:24 10/19/20 05:21 10/19/20 05:32 POC Whole Blood Glucose 182 MG/DL (74-106) H 263 MG/DL (74-106) H 241 MG/DL (74-106) H Sodium Level 116 MMOL/L (136-145) *L Potassium Level 5.9 MMOL/L (3.5-5.1) H Chloride Level 86 MMOL/L (98-107) L Carbon Dioxide Level 18 MMOL/L (21-32) L Anion Gap 12 mmol/L (5-15) Blood Urea Nitrogen 44 mg/dL (7-18) H Creatinine 3.2 MG/DL (0.55-1.30) H Estimat Glomerular Filtration Rate 26.2 mL/min (>60) Glucose Level 274 MG/DL (74-106) #H Uric Acid 2.9 MG/DL (2.6-7.2) Calcium Level 7.1 MG/DL (8.5-10.1) L Phosphorus Level 4.2 MG/DL (2.5-4.9) Magnesium Level 1.6 MG/DL (1.8-2.4) L Total Bilirubin 0.1 MG/DL (0.2-1.0) L Aspartate Amino Transf (AST/SGOT) 258 U/L (15-37) H Alanine Aminotransferase (ALT/SGPT) 41 U/L (12-78) Alkaline Phosphatase 130 U/L (46-116) H Troponin I 0.007 ng/mL (0.000-0.056) C-Reactive Protein, Quantitative 13.8 mg/dL (0.00-0.90) H Pro-B-Type Natriuretic Peptide 3640 pg/mL (0-125) H Total Protein 5.8 G/DL (6.4-8.2) L Albumin 1.2 G/DL (3.4-5.0) L Globulin 4.6 g/dL Albumin/Globulin Ratio 0.3 (1.0-2.7) L Test 10/19/20 07:35 10/19/20 12:06 White Blood Count 3.1 K/UL (4.8-10.8) L Red Blood Count 2.94 M/UL (4.70-6.10) L Hemoglobin 8.2 G/DL (14.2-18.0) L Hematocrit 25.0 % (42.0-52.0) L Mean Corpuscular Volume 85 FL (80-99) Mean Corpuscular Hemoglobin 27.9 PG (27.0-31.0) Mean Corpuscular Hemoglobin Concent 32.9 G/DL (32.0-36.0) Red Cell Distribution Width 11.7 % (11.6-14.8) Platelet Count 91 K/UL (150-450) L Mean Platelet Volume 8.6 FL (6.5-10.1) Neutrophils (%) (Auto) % (45.0-75.0) Lymphocytes (%) (Auto) % (20.0-45.0) Monocytes (%) (Auto) % (1.0-10.0) Eosinophils (%) (Auto) % (0.0-3.0) Basophils (%) (Auto) % (0.0-2.0) Differential Total Cells Counted 100 Neutrophils % (Manual) 81 % (45-75) H Lymphocytes % (Manual) 9 % (20-45) L Monocytes % (Manual) 2 % (1-10) Eosinophils % (Manual) 0 % (0-3) Basophils % (Manual) 0 % (0-2) Band Neutrophils 8 % (0-8) Platelet Estimate Decreased L Platelet Morphology Normal Hypochromasia 1+ POC Whole Blood Glucose 285 MG/DL (74-106) H Current Medications Medications (Trade) Dose Ordered Sig/Carleen Route PRN Reason Start Time Stop Time Status Last Admin Dose Admin Acetaminophen (Tylenol) 650 mg Q4H PRN ORAL Mild Pain (Pain Scale 1-3) 10/01/20 11:00 10/31/20 10:59 10/17/20 11:36 Acetaminophen (Tylenol) 650 mg Q4H PRN RECTAL BT>100.5F 10/04/20 23:30 11/03/20 23:29 10/05/20 08:18 Artificial Tears (Lacri-Lube) 1 applic EVERY 6 HOURS BOTH EYES 10/19/20 18:00 11/18/20 17:59 Bisacodyl (Dulcolax) 10 mg DAILYPRN PRN RECTAL Constipation 10/08/20 19:00 01/06/21 18:59 Chlorhexidine Gluconate (Malgorzata-Hex 2%) 1 applic DAILY@2000 TOPIC 10/17/20 20:00 01/15/21 19:59 10/18/20 20:30 Dextrose (Dextrose 50%) 25 ml Q30M PRN IV Hypoglycemia 10/15/20 20:45 01/13/21 20:44 10/18/20 12:13 Dextrose (Dextrose 50%) 50 ml Q30M PRN IV Hypoglycemia 10/15/20 20:45 01/13/21 20:44 Dextrose/Sodium Chloride 1,000 ml @ 50 mls/hr Q20H IV 10/18/20 15:00 11/17/20 14:59 10/19/20 11:00 Fluconazole/ Sodium Chloride 200 ml @ 100 mls/hr Q24H IV 10/19/20 18:00 10/28/20 17:59 Heparin Sodium/ Sodium Chloride (Heparin 1000 units/500ml Premix) 1,000 unit ONCE PRN IV picc line placement 10/17/20 16:00 10/19/20 15:59 Hydralazine HCl (Apresoline) 10 mg Q4H PRN IV SBP > 150 mmHg 10/09/20 08:15 01/07/21 08:14 Hydrocortisone (Solu-CORTEF) 100 mg EVERY 8 HOURS IV 10/19/20 14:00 01/17/21 13:59 10/19/20 14:00 Insulin Aspart (NovoLOG) Q6HR SUBQ 10/16/20 00:00 01/14/21 00:00 10/19/20 12:20 Lidocaine HCl (Xylocaine 1% 30ml) 30 ml ONCE PRN INJ PICC LINE PLACEMENT 10/17/20 16:00 10/19/20 15:59 Magnesium Sulfate 100 ml @ 100 mls/hr Q1H IVPB 10/19/20 14:30 10/19/20 16:29 10/19/20 15:04 Midodrine (Pro-Amatine) 10 mg Q8HR ORAL 10/16/20 14:00 01/14/21 13:59 10/19/20 15:03 Ondansetron HCl (Zofran) 4 mg Q6H PRN IVP Nausea & Vomiting 10/01/20 11:00 10/31/20 10:59 Pantoprazole (Protonix) 40 mg Q12HR IVP 10/16/20 21:00 11/01/20 12:59 10/19/20 08:15 Phenylephrine HCl 100 mg/Dextrose 500 ml @ 0 mls/hr Q24H PRN IV . 10/15/20 09:00 11/14/20 08:59 10/19/20 08:17 Piperacillin Sod/ Tazobactam Sod 3.375 gm/Dextrose 100 ml @ 25 mls/hr Q8H IVPB 10/18/20 00:00 10/29/20 15:59 10/19/20 08:16 Sodium Polystyrene Sulfonate (Kayexalate) 45 gm ONCE NG 10/19/20 12:30 10/19/20 16:00 10/19/20 15:03 Sodium Chloride 250 ml @ 30 mls/hr ONCE ONCE IV 10/19/20 15:30 10/19/20 23:49 Trimethoprim/ Sulfamethoxazole 20 ml/Dextrose 570 ml @ 380 mls/hr Q12H IV 10/19/20 20:00 10/26/20 19:59 Wood Tyler MD Oct 19, 2020 15:29
[2020-10-19] MEDS: Lacri-Lube Opth Oint 3.5gm BOTH EYES SCH (18:00)
--- NOTE | 2020-10-19 19:00 | NUR ---
NURSE HAND-OFF REPORT: Latest Vital Signs: Temperature 99.0 , Pulse 84 , B/P 110 /88 , Respiratory Rate 16 , O2 SAT 100 , Room Air, O2 Flow Rate 15.0 . Vital Sign Comment: Phenylephrine @ 120mcg/min EKG Rhythm: Sinus Rhythm Rhythm change?: N MD Notified?: N - MD Response: Latest Red Fall Score: 50 Fall Risk: High Risk Safety Measures: Call light Within Reach, Bed Alarm Zone 1, Side Rails Side Rails x3, Bed position Low and Locked. Fall Precautions: Report given to ITZEL Curtis
--- NOTE | 2020-10-19 19:30 | NUR ---
NURSE NOTES: Received report from Genia ROBBINS on patient. Patient resting comfortably. No s/s of pain. Patient vitals are stable at this time. Patient afebrile. Patient currently on mechinal ventilator with assist control of 16 Tidal volume 500 PEEP 5 and FIO2 at 30%. Patient tolerating this well with pulse ox of 100%. Patient assessed and repositioned for commfort and to prevent pressure ulcers. Oral care completed. Laci gtt running at 100mcg/hr. 3% ns infusing and D10. This RN will continue to monitor.
[2020-10-19] MEDS: Dyna-Hex 2% Top Sol 2oz TOPIC SCH (20:23)
[2020-10-19] MEDS ORDERED: NS 275ml ONE (20:25)
[2020-10-19] MEDS ORDERED: Tubing IV Secondary IV ONE (20:25)
[2020-10-19] MEDS ORDERED: 1/2 NS 1000ml IV ONE (20:25)
--- NOTE | 2020-10-19 21:30 | NUR ---
Patient resting, No s/s of pain. Vitals are stable at this time. Laci gtt still infusing at 100mcg/hr. Patient has adequate urine output. Patient remains NPO due to high tube feeding residuals. Patient repositioned. Will continue to monitor.
--- NOTE | 2020-10-19 23:30 | NUR ---
NURSE NOTES: Patient resting with no s/s of pain. Patient vitals are stable at this time. Laci gtt still infusing to maintain bp at 100mcg/hr. Patient blood glucose of 283 and patient was covered with insulin. D10 infusing due to a few low blood sugars. All prescribed meds given. Patient has good urine output. Patient repositioned. RN will continue to monitor.
[2020-10-20] VITALS (41 sets, daily range): BP systolic 48–130; BP diastolic 26–96
[2020-10-20] MEDS: Lacri-Lube Opth Oint 3.5gm BOTH EYES SCH ×3 (00:25→12:00)
[2020-10-20] MEDS: NovoLOG Insulin Flexpen SUBQ SCH ×2 (00:26→06:00)
--- NOTE | 2020-10-20 01:30 | NUR ---
NURSE NOTES: Patient resting with no s/s of pain. Patient vitals stable. Laci gtt infusing to maintain bp. Patient has adequate urine output. Patient repositioned. RN will continue to monitor.
--- NOTE | 2020-10-20 03:30 | NUR ---
NURSE NOTES: Patient resting. Patient vitals are stable at this time. CRISTEL gtt infusing to maintain bp. Patient repositioned. Patient has good urine output. Will continue to monitor
--- NOTE | 2020-10-20 04:59 | Electroencephalogram ---
DATE OF PROCEDURE: 10/13/2020 READING PHYSICIAN: Harrison Flannery MD PROCEDURE PERFORMED: EEG. HISTORY: This EEG was performed on a 39-year-old gentleman who was hospitalized for an altered mental state associated with COVID-19 infection. No further history is available to me. The purpose of this EEG was to evaluate the patient for the degree and type of cerebral dysfunction. TECHNICAL NOTE: This EEG was performed on a [employer] Unit with electrodes placed on the scalp according to the international 10-20 system. A special montage with double distance electrodes was utilized. The EEG was technically satisfactory and was performed while the patient was in an unresponsive state. OBSERVATIONS: In the unresponsive state, no electrical cerebral activity was seen as high as 2 microvolts per millimeter using double distance electrodes. When the patient was stimulated with various different stimuli, no change in the EEG background was noted. IMPRESSION: This is a severely abnormal EEG characterized by the absence of electrical cerebral activity. COMMENT: The study is consistent with electrical cerebral inactivity. Clinical correlation is recommended. Harrison Flannery M.D. DR: DARWIN JOB#: [id number] CC:
--- NOTE | 2020-10-20 05:30 | NUR ---
NURSE NOTES: Patient vitals stable. Patient resting with no s/s of pain. Patient repositioned and all medication given as ordered. patient blood glucose 117 no insulin given. Laci decreased to 80mcg/hr patient tolerating well. will continue to monitor.
[2020-10-20] MEDS: Hydrocortisone 100mg Inj IV SCH (05:50)
[2020-10-20] MEDS: Midodrine 10mg tab ORAL SCH (05:51)
[2020-10-20] MEDS: Dextrose 10%/0.9% SOD CHL 1,000 ML IV SCH (06:11)
--- NOTE | 2020-10-20 06:48 | NUR ---
NURSE NOTES: Rn went to check patient and pulse ox 63%. RN notified charge attendant and RT. Will continue to monitor.
[2020-10-20 06:49] LABS: HEMATOCRIT 25.5 % (42.0-52.0); HEMOGLOBIN 8.6 G/DL (14.2-18.0); MEAN CORPUSCULAR VOLUME 84 FL (80-99); PLATELET COUNT 87 K/UL (150-450); RED BLOOD COUNT 3.05 M/UL (4.70-6.10); RED CELL DISTRIBUTION WIDTH 11.6 % (11.6-14.8); WHITE BLOOD COUNT 5.5 K/UL (4.8-10.8)
[2020-10-20 07:09] LABS: ALBUMIN 1.2 G/DL (3.4-5.0); ALBUMIN/GLOBULIN RATIO 0.3 (1.0-2.7); BILIRUBIN,TOTAL 0.2 MG/DL (0.2-1.0); CALCIUM 7.4 MG/DL (8.5-10.1); CREATININE 2.7 MG/DL (0.55-1.30); PHOSPHORUS 3.6 MG/DL (2.5-4.9); POTASSIUM 5.3 MMOL/L (3.5-5.1)
--- NOTE | 2020-10-20 07:41 | NUR ---
NURSE HAND-OFF REPORT: Latest Vital Signs: Temperature 98.0 , Pulse 70 , B/P 117 /86 , Respiratory Rate 16 , O2 SAT 100 , Room Air, O2 Flow Rate 15.0 . Vital Sign Comment: EKG Rhythm: Sinus Rhythm Rhythm change?: N MD Notified?: N - MD Response: Latest Red Fall Score: 50 Fall Risk: High Risk Safety Measures: Call light Within Reach, Bed Alarm Zone 1, Side Rails Side Rails x3, Bed position Low and Locked. Fall Precautions: Report given to
--- NOTE | 2020-10-20 07:42 | NUR ---
NURSE NOTES: Pt received from ITZEL Curtis. Pt is comatose, non-responsive, gag reflex absent, bilat pupils fixed and dilated - right pupil is 5 mm and left pupil 4 mm; pt does not respond to deep pain stimuli. Pt is SR to monitoring and evaluation advisor with 1+ radial and dorsalis pedis pulses. . Pt is orally intubated with a 7.5 ETT noted 23 cm at the lip with the following settings: AC 16 TV 500 FiO2 30 % Peep 5. lung rodriguez noted diminished upon auscultation. OGT noted clamped - residuals 110 cc - TF on hold. Abdomen is flat and soft w/ absent bowel sounds to all quadrants. F/C noted draining yellow urine with sedimentation. Skin is intact. Pt has a RFA 22g saline-locked. Pt also has a R fem TLC with dry and intact dressing running phenylepherine at 80 mcg/min and D10NS at 50 cc/hr. Bed in lowest position, alarm on, side rails up x 3, call light within reach. Addendum: 10/20/20 at 1327 by Janett Glover RN Late entry: pt also noted with non-pitting edema to RUE
--- NOTE | 2020-10-20 08:00 | NUR ---
NURSE NOTES: PO care provided. Afebrile. No distress noted.
--- NOTE | 2020-10-20 08:16 | NUR ---
NURSE NOTES: Pt seen by Dr Rose. SCDs ordered for DVT prophylaxis (venous duplex noted negative 10/02). PLT trend noted (today 87).
[2020-10-20] MEDS: Pantoprazole Inj IVP SCH (08:24)
[2020-10-20] MEDS: Trimethoprim/Sulfamethoxazole 20 ML in D5W 500ml 550 ML IV SCH (08:24)
--- NOTE | 2020-10-20 09:42 | General Progress Note ---
Progress Note Progress Note Bioethics Consulkt Asked by Dr. Wiggins to re-consult on this unfortunate 39 year old, unrepresented male with COVID pneumonia, cryptococcal meningitis and fungemia, HIV with CD-4 10 and history of nonaderhence to HIV regimen. The prognosis for survival with quality of life is nil. Extubation and comfort measures and DNR are appropriate. Maco Norton M.D. Chair, Bioethics Committee Maco Norton MD Oct 20, 2020 09:42
--- NOTE | 2020-10-20 09:50 | NUR ---
CASE MANAGEMENT:REVIEW 10/20/20 SI: COVID(+). HIV(+). TOXIC ENCEPHALOPATHY RESPIRATORY FAILURE....INTUBATED 98.0 73 16 117/86 100% ON VENT SUPPORT W/30% FIO2 H/H-8.6/25.5 PLT-87 NA-120 K+5.4 BUN+40 CR+2.7 IS: IV BACTRIM Q12 IV DIFLUCAN Q24 IV ZOSYN Q8HR IV SOLUCORTEF Q8HRS IVF@50/HR : ICU STATUS DCP: SOCIAL SERVICE CONSULT PLAN: COMPLETED REMDESIVIR BIOETHICS
--- NOTE | 2020-10-20 10:00 | NUR ---
NURSE NOTES: Pt repositioned. No distress noted.
--- NOTE | 2020-10-20 12:00 | NUR ---
NURSE NOTES: Repositioned. Afebrile. No distress noted.
[2020-10-20] MEDS ORDERED: Morphine Sulfate 4mg/ml Inj (IV USE ONLY) IVP PRN (12:30)
--- NOTE | 2020-10-20 12:30 | Nephrology Progress Note ---
Assessment/Plan Problem List: (1) ADALI (acute kidney injury) (2) AIDS (3) Amphetamine abuse (4) COVID-19 virus detected (5) Hypernatremia Assessment Acute renal failure Polyuria secondary to diabetes insipidus Electrolyte abnormalities Plan October 20: Labs reviewed. Discussed with nurse RN. Discussed with PMD . Patient due for comfort care and possible terminal extubation. Will not make any other changes with regard to renal standpoint of view. October 19: Labs reviewed. Low sodium and high potassium. Patient started on stress dose of steroids. Kayexalate given. Patient DNR/DNI. Clinically deteriorating. Discussed with RN. Plan for terminal extubation tomorrow. We will hold on dialysis treatment since treatment appears to be futile. October 18: Labs reviewed. Kayexalate via NG tube. 1 dose of Solu-Medrol. IV changed to D10 normal saline. Bolus of 3% saline given. Nasal vasopressin discontinued. Patient DNR/DNI. Continue to monitor electrolytes and renal parameters. Prognosis poor. October 17: Labs reviewed. Discussed with RN. Serum creatinine rising. Clinically is doing poorly. Electrolytes improved. Hemoglobin low. Due for transfusion. Patient DNR. Continue same treatment plan. Suggest: IV D5W 200 cc an hour DDAVP nasal spray Midodrine for low blood pressure Monitor electrolytes and renal parameters Poor prognosis Per orders Subjective ROS Limited/Unobtainable: Yes Objective Objective Last 24 Hour Vital Signs Date Time Temp Pulse Resp B/P (MAP) Pulse Ox O2 Delivery O2 Flow Rate FiO2 10/20/20 11:10 71 16 30 10/20/20 11:00 73 16 108/73 (85) 100 10/20/20 10:00 73 16 117/82 (94) 100 10/20/20 09:16 73 16 30 10/20/20 09:00 70 16 121/87 (98) 100 10/20/20 08:00 Mechanical Ventilator 10/20/20 08:00 98.1 71 15 117/87 (97) 100 10/20/20 08:00 71 10/20/20 08:00 30 10/20/20 07:30 70 16 117/86 (96) 100 10/20/20 07:15 71 16 119/86 (97) 100 10/20/20 07:00 70 16 117/86 (96) 100 10/20/20 07:00 70 16 30 10/20/20 06:45 70 16 114/85 (95) 100 10/20/20 06:30 71 13 115/84 (94) 100 10/20/20 06:15 71 12 100 10/20/20 06:15 71 12 122/83 (96) 100 10/20/20 06:00 71 16 116/86 (96) 100 10/20/20 05:45 71 16 117/87 (97) 100 10/20/20 05:30 73 14 114/83 (93) 100 10/20/20 05:15 73 16 125/94 (104) 100 10/20/20 05:00 98.0 73 16 128/96 (107) 100 10/20/20 05:00 73 16 128/96 (107) 100 10/20/20 04:45 74 16 127/95 (106) 100 10/20/20 04:30 73 16 130/93 (105) 100 10/20/20 04:15 73 16 123/93 (103) 100 10/20/20 04:00 73 16 122/92 (102) 100 10/20/20 04:00 Mechanical Ventilator 10/20/20 04:00 73 10/20/20 04:00 30 10/20/20 03:45 73 16 123/92 (102) 100 10/20/20 03:30 73 16 121/92 (102) 100 10/20/20 03:15 73 16 117/86 (96) 100 10/20/20 03:00 72 16 118/86 (97) 100 10/20/20 03:00 73 16 30 10/20/20 02:45 73 16 114/82 (93) 100 10/20/20 02:30 73 16 111/83 (92) 100 10/20/20 02:15 73 16 114/81 (92) 100 10/20/20 02:00 73 16 114/81 (92) 100 10/20/20 01:45 73 16 115/82 (93) 100 10/20/20 01:45 73 16 115/82 (93) 100 10/20/20 01:30 73 16 120/87 (98) 100 10/20/20 01:15 73 16 119/87 (98) 100 10/20/20 01:00 73 16 120/86 (97) 100 10/20/20 00:45 73 16 122/89 (100) 100 10/20/20 00:30 74 16 120/89 (99) 100 10/20/20 00:15 75 16 126/93 (104) 100 10/20/20 00:00 97.7 75 16 121/94 (103) 100 10/20/20 00:00 Mechanical Ventilator 10/20/20 00:00 30 10/20/20 00:00 70 10/19/20 23:30 75 16 131/96 (108) 100 10/19/20 23:15 75 16 122/92 (102) 100 10/19/20 23:00 75 16 30 10/19/20 23:00 75 16 122/95 (104) 100 10/19/20 22:45 76 16 125/91 (102) 100 10/19/20 22:30 76 16 124/94 (104) 100 10/19/20 22:15 76 16 123/93 (103) 100 10/19/20 22:15 76 16 123/93 (103) 100 10/19/20 22:00 76 16 126/96 (106) 100 10/19/20 21:45 76 16 128/95 (106) 100 10/19/20 21:30 76 16 128/95 (106) 100 10/19/20 21:15 77 16 129/96 (107) 100 10/19/20 21:00 78 16 122/96 (105) 100 10/19/20 20:45 78 16 133/98 (110) 100 10/19/20 20:30 77 16 130/98 (109) 100 10/19/20 20:23 84 110/88 10/19/20 20:15 97.9 77 16 127/97 (107) 100 10/19/20 20:00 76 10/19/20 20:00 77 16 124/92 (103) 100 10/19/20 20:00 Mechanical Ventilator 10/19/20 20:00 30 10/19/20 19:45 77 16 120/88 (99) 100 10/19/20 19:30 75 16 116/81 (93) 100 10/19/20 19:15 74 16 103/69 (80) 100 10/19/20 19:00 75 16 30 10/19/20 19:00 73 16 95/56 (69) 100 10/19/20 18:45 71 16 90/48 (62) 100 10/19/20 18:42 71 16 85/44 (58) 100 10/19/20 18:33 74 20 81/43 (56) 100 10/19/20 18:31 71 16 69/37 (48) 98 10/19/20 18:30 71 16 98 10/19/20 18:15 72 16 101/57 (72) 100 10/19/20 18:00 73 16 103/65 (78) 100 10/19/20 17:45 73 16 114/65 (81) 100 10/19/20 17:31 71 16 30 10/19/20 17:30 73 16 108/73 (85) 100 10/19/20 17:15 73 16 116/74 (88) 100 10/19/20 17:00 73 16 111/73 (86) 100 10/19/20 16:45 76 16 118/76 (90) 100 10/19/20 16:30 76 16 122/83 (96) 100 10/19/20 16:15 77 16 127/82 (97) 100 10/19/20 16:00 Mechanical Ventilator 10/19/20 16:00 30 10/19/20 16:00 99.0 77 16 125/85 (98) 100 10/19/20 15:45 77 16 125/87 (100) 100 10/19/20 15:30 78 16 129/87 (101) 100 10/19/20 15:15 81 16 136/96 (109) 100 10/19/20 15:09 73 16 30 10/19/20 15:00 82 16 141/97 (112) 100 10/19/20 14:45 82 16 141/99 (113) 100 10/19/20 14:30 82 16 140/97 (111) 100 10/19/20 14:15 82 16 138/96 (110) 100 10/19/20 14:00 82 16 136/93 (107) 100 10/19/20 13:45 82 16 135/93 (107) 100 10/19/20 13:30 82 16 135/93 (107) 100 10/19/20 13:15 83 16 138/95 (109) 100 10/19/20 13:08 89 16 30 10/19/20 13:00 83 16 139/96 (110) 100 10/19/20 12:45 83 16 145/101 (116) 100 10/19/20 12:30 83 16 141/95 (110) 100 Intake and Output 10/19/20 10/20/20 19:00 07:00 Intake Total 2281.50 ml 1643 ml Output Total 2710 ml 1800 ml Balance -428.50 ml -157 ml Free Water 250 ml IV Total 2031.50 ml 1643 ml Tube Feeding 0 ml 0 ml Output Urine Total 2460 ml 1800 ml Stool Total 0 ml Chest Tube Drainage Total 250 ml Current Medications Medications (Trade) Dose Ordered Sig/Carleen Route PRN Reason Start Time Stop Time Status Last Admin Dose Admin Acetaminophen (Tylenol) 650 mg Q4H PRN ORAL Mild Pain (Pain Scale 1-3) 10/01/20 11:00 10/31/20 10:59 10/17/20 11:36 Acetaminophen (Tylenol) 650 mg Q4H PRN RECTAL BT>100.5F 10/04/20 23:30 11/03/20 23:29 10/05/20 08:18 Artificial Tears (Lacri-Lube) 1 applic EVERY 6 HOURS BOTH EYES 10/19/20 18:00 11/18/20 17:59 10/20/20 12:00 Bisacodyl (Dulcolax) 10 mg DAILYPRN PRN RECTAL Constipation 10/08/20 19:00 01/06/21 18:59 Chlorhexidine Gluconate (Malgorzata-Hex 2%) 1 applic DAILY@2000 TOPIC 10/17/20 20:00 01/15/21 19:59 10/19/20 20:23 Dextrose (Dextrose 50%) 25 ml Q30M PRN IV Hypoglycemia 10/15/20 20:45 01/13/21 20:44 10/18/20 12:13 Dextrose (Dextrose 50%) 50 ml Q30M PRN IV Hypoglycemia 10/15/20 20:45 01/13/21 20:44 Dextrose/Sodium Chloride 1,000 ml @ 50 mls/hr Q20H IV 10/18/20 15:00 11/17/20 14:59 10/20/20 06:11 Fluconazole/ Sodium Chloride 200 ml @ 100 mls/hr Q24H IV 10/19/20 18:00 10/28/20 17:59 10/19/20 18:00 Hydralazine HCl (Apresoline) 10 mg Q4H PRN IV SBP > 150 mmHg 10/09/20 08:15 01/07/21 08:14 Hydrocortisone (Solu-CORTEF) 100 mg EVERY 8 HOURS IV 10/19/20 14:00 01/17/21 13:59 10/20/20 05:50 Insulin Aspart (NovoLOG) Q6HR SUBQ 10/16/20 00:00 01/14/21 00:00 10/20/20 00:26 Midodrine (Pro-Amatine) 10 mg Q8HR ORAL 10/16/20 14:00 01/14/21 13:59 10/20/20 05:51 Ondansetron HCl (Zofran) 4 mg Q6H PRN IVP Nausea & Vomiting 10/01/20 11:00 10/31/20 10:59 Pantoprazole (Protonix) 40 mg Q12HR IVP 10/16/20 21:00 11/01/20 12:59 10/20/20 08:24 Phenylephrine HCl 100 mg/Dextrose 500 ml @ 0 mls/hr Q24H PRN IV . 10/15/20 09:00 11/14/20 08:59 10/19/20 20:23 Piperacillin Sod/ Tazobactam Sod 3.375 gm/Dextrose 100 ml @ 25 mls/hr Q8H IVPB 10/18/20 00:00 10/29/20 15:59 10/20/20 08:24 Trimethoprim/ Sulfamethoxazole 20 ml/Dextrose 570 ml @ 380 mls/hr Q12H IV 10/19/20 20:00 10/26/20 19:59 10/20/20 08:24 Laboratory Tests 10/19/20 18:15: POC Whole Blood Glucose [Pending] 10/20/20 05:14: White Blood Count 5.5#, Red Blood Count 3.05L, Hemoglobin 8.6L, Hematocrit 25.5L , Mean Corpuscular Volume 84, Mean Corpuscular Hemoglobin 28.3, Mean Corpuscular Hemoglobin Concent 33.9, Red Cell Distribution Width 11.6, Platelet Count 87L, Mean Platelet Volume 10.5H, Neutrophils (%) (Auto) , Lymphocytes (%) (Auto) , Monocytes (%) (Auto) , Eosinophils (%) (Auto) , Basophils (%) (Auto) , Differential Total Cells Counted 100, Neutrophils % (Manual) 91H, Lymphocytes % (Manual) 5L, Monocytes % (Manual) 1, Eosinophils % (Manual) 1, Basophils % (Manual) 0, Band Neutrophils 2, Platelet Estimate DecreasedL, Platelet Morphology Normal, Hypochromasia 1+, Sodium Level 120L, Potassium Level 5.3H, Chloride Level 89L, Carbon Dioxide Level 23, Anion Gap 9, Blood Urea Nitrogen 40H, Creatinine 2.7H, Estimat Glomerular Filtration Rate 31.9, Glucose Level 115#H, Uric Acid 2.8, Calcium Level 7.4L, Phosphorus Level 3.6, Magnesium Level 1.8, Total Bilirubin 0.2, Aspartate Amino Transf (AST/SGOT) 267H, Alanine Aminotransferase (ALT/SGPT) 39, Alkaline Phosphatase 113, Lactate Dehydrogenase 1240H, C-Reactive Protein, Quantitative 5.5H, Pro-B-Type Natriuretic Peptide 3036H, Total Protein 5.8L, Albumin 1.2L, Globulin 4.6, Albumin/Globulin Ratio 0.3L Height (Feet): 6 Weight (Pounds): 120 General Appearance: no apparent distress, other - Nonresponsive Cardiovascular: normal rate Respiratory/Chest: decreased breath sounds Abdomen: distended Randall Barrios MD Oct 20, 2020 12:30
--- NOTE | 2020-10-20 12:36 | Pulmonolgy Critical Care Note ---
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 (5) Cardiac arrest (6) AIDS (7) Encephalopathy acute (8) UTI (urinary tract infection) (9) Altered mental status (10) Amphetamine abuse (11) COVID-19 virus detected (12) Diabetes insipidus (13) Anemia (14) Hyponatremia Assessment/Plan: Respiratory: Plan for terminal extubation Cardiac: D/C midodrine, D/C eriberto, D/C monitor Renal: D/C labs, no plan for HD Infectious Disease: D/C Abx and Flucon Gastrointestinal: D/C trickle feeds Endocrine: D/C monitoring of blood sugar Hematologic: D/C labs Neurologic: Off sedation, unresponsive Goals: D/W Dr. Norton, care futile @ this point. Will D/C all meds and lab draws, transition to SHIP MATE, plan for palliative extubation Prophylaxis: D/C Protonix & LMWH Time Spent (Minutes): other - 40 Notes Reviewed: ID, neuro, ethics Discussed with: nurses, consultants Critical Care - Objective Last 24 Hour Vital Signs Date Time Temp Pulse Resp B/P (MAP) Pulse Ox O2 Delivery O2 Flow Rate FiO2 10/20/20 11:10 71 16 30 10/20/20 11:00 73 16 108/73 (85) 100 10/20/20 10:00 73 16 117/82 (94) 100 10/20/20 09:16 73 16 30 10/20/20 09:00 70 16 121/87 (98) 100 10/20/20 08:00 Mechanical Ventilator 10/20/20 08:00 98.1 71 15 117/87 (97) 100 10/20/20 08:00 71 10/20/20 08:00 30 10/20/20 07:30 70 16 117/86 (96) 100 10/20/20 07:15 71 16 119/86 (97) 100 10/20/20 07:00 70 16 117/86 (96) 100 10/20/20 07:00 70 16 30 10/20/20 06:45 70 16 114/85 (95) 100 10/20/20 06:30 71 13 115/84 (94) 100 10/20/20 06:15 71 12 100 10/20/20 06:15 71 12 122/83 (96) 100 10/20/20 06:00 71 16 116/86 (96) 100 10/20/20 05:45 71 16 117/87 (97) 100 10/20/20 05:30 73 14 114/83 (93) 100 10/20/20 05:15 73 16 125/94 (104) 100 10/20/20 05:00 98.0 73 16 128/96 (107) 100 10/20/20 05:00 73 16 128/96 (107) 100 10/20/20 04:45 74 16 127/95 (106) 100 10/20/20 04:30 73 16 130/93 (105) 100 10/20/20 04:15 73 16 123/93 (103) 100 10/20/20 04:00 73 16 122/92 (102) 100 10/20/20 04:00 Mechanical Ventilator 10/20/20 04:00 73 10/20/20 04:00 30 10/20/20 03:45 73 16 123/92 (102) 100 10/20/20 03:30 73 16 121/92 (102) 100 10/20/20 03:15 73 16 117/86 (96) 100 10/20/20 03:00 72 16 118/86 (97) 100 10/20/20 03:00 73 16 30 10/20/20 02:45 73 16 114/82 (93) 100 10/20/20 02:30 73 16 111/83 (92) 100 10/20/20 02:15 73 16 114/81 (92) 100 10/20/20 02:00 73 16 114/81 (92) 100 10/20/20 01:45 73 16 115/82 (93) 100 10/20/20 01:45 73 16 115/82 (93) 100 10/20/20 01:30 73 16 120/87 (98) 100 10/20/20 01:15 73 16 119/87 (98) 100 10/20/20 01:00 73 16 120/86 (97) 100 10/20/20 00:45 73 16 122/89 (100) 100 10/20/20 00:30 74 16 120/89 (99) 100 10/20/20 00:15 75 16 126/93 (104) 100 10/20/20 00:00 97.7 75 16 121/94 (103) 100 10/20/20 00:00 Mechanical Ventilator 10/20/20 00:00 30 10/20/20 00:00 70 10/19/20 23:30 75 16 131/96 (108) 100 10/19/20 23:15 75 16 122/92 (102) 100 10/19/20 23:00 75 16 30 10/19/20 23:00 75 16 122/95 (104) 100 10/19/20 22:45 76 16 125/91 (102) 100 10/19/20 22:30 76 16 124/94 (104) 100 10/19/20 22:15 76 16 123/93 (103) 100 10/19/20 22:15 76 16 123/93 (103) 100 10/19/20 22:00 76 16 126/96 (106) 100 10/19/20 21:45 76 16 128/95 (106) 100 10/19/20 21:30 76 16 128/95 (106) 100 10/19/20 21:15 77 16 129/96 (107) 100 10/19/20 21:00 78 16 122/96 (105) 100 10/19/20 20:45 78 16 133/98 (110) 100 10/19/20 20:30 77 16 130/98 (109) 100 10/19/20 20:23 84 110/88 10/19/20 20:15 97.9 77 16 127/97 (107) 100 10/19/20 20:00 76 10/19/20 20:00 77 16 124/92 (103) 100 10/19/20 20:00 Mechanical Ventilator 10/19/20 20:00 30 10/19/20 19:45 77 16 120/88 (99) 100 10/19/20 19:30 75 16 116/81 (93) 100 10/19/20 19:15 74 16 103/69 (80) 100 10/19/20 19:00 75 16 30 10/19/20 19:00 73 16 95/56 (69) 100 10/19/20 18:45 71 16 90/48 (62) 100 10/19/20 18:42 71 16 85/44 (58) 100 10/19/20 18:33 74 20 81/43 (56) 100 10/19/20 18:31 71 16 69/37 (48) 98 10/19/20 18:30 71 16 98 10/19/20 18:15 72 16 101/57 (72) 100 10/19/20 18:00 73 16 103/65 (78) 100 10/19/20 17:45 73 16 114/65 (81) 100 10/19/20 17:31 71 16 30 10/19/20 17:30 73 16 108/73 (85) 100 10/19/20 17:15 73 16 116/74 (88) 100 10/19/20 17:00 73 16 111/73 (86) 100 10/19/20 16:45 76 16 118/76 (90) 100 10/19/20 16:30 76 16 122/83 (96) 100 10/19/20 16:15 77 16 127/82 (97) 100 10/19/20 16:00 Mechanical Ventilator 10/19/20 16:00 30 10/19/20 16:00 99.0 77 16 125/85 (98) 100 10/19/20 15:45 77 16 125/87 (100) 100 10/19/20 15:30 78 16 129/87 (101) 100 10/19/20 15:15 81 16 136/96 (109) 100 10/19/20 15:09 73 16 30 10/19/20 15:00 82 16 141/97 (112) 100 10/19/20 14:45 82 16 141/99 (113) 100 10/19/20 14:30 82 16 140/97 (111) 100 10/19/20 14:15 82 16 138/96 (110) 100 10/19/20 14:00 82 16 136/93 (107) 100 10/19/20 13:45 82 16 135/93 (107) 100 10/19/20 13:30 82 16 135/93 (107) 100 10/19/20 13:15 83 16 138/95 (109) 100 10/19/20 13:08 89 16 30 10/19/20 13:00 83 16 139/96 (110) 100 10/19/20 12:45 83 16 145/101 (116) 100 10/19/20 12:30 83 16 141/95 (110) 100 Status: other - Pup F&D no reflexes Condition: critical Lungs: rhonchi Heart: HR/BP unstable Abdomen: absent bowel sounds Extremities: edema - 2+ Accucheck: 117 Blood Sugars: BS controlled Critical Care - Subjective ROS Limited/Unobtainable: Yes ICU Day: 12 Intubation Day: 12 Interval Events: Pupils F&D no gag no BS reflexes D/W Dr. Norton ---> term ext and SHIP MATE Condition: critical IV Access: central EKG Rhythm: Sinus Rhythm FI02: 30 Vent Support Breath Rate: 16 Vent Support Mode: AC Vent Tidal Volume: 500 Sputum Amount: Scant PEEP: 5.0 PIP: 17 Tube Feeding Amount: 0 I&O: Intake and Output 10/19/20 10/20/20 19:00 07:00 Intake Total 2281.50 ml 1643 ml Output Total 2710 ml 1800 ml Balance -428.50 ml -157 ml Free Water 250 ml IV Total 2031.50 ml 1643 ml Tube Feeding 0 ml 0 ml Output Urine Total 2460 ml 1800 ml Stool Total 0 ml Chest Tube Drainage Total 250 ml Subjective: BEN ET-Tube: 7.5 ET Position: 27 Labs: Laboratory Tests 10/19/20 18:15: POC Whole Blood Glucose [Pending] 10/20/20 05:14: White Blood Count 5.5#, Red Blood Count 3.05L, Hemoglobin 8.6L, Hematocrit 25.5L , Mean Corpuscular Volume 84, Mean Corpuscular Hemoglobin 28.3, Mean Corpuscular Hemoglobin Concent 33.9, Red Cell Distribution Width 11.6, Platelet Count 87L, Mean Platelet Volume 10.5H, Neutrophils (%) (Auto) , Lymphocytes (%) (Auto) , Monocytes (%) (Auto) , Eosinophils (%) (Auto) , Basophils (%) (Auto) , Differential Total Cells Counted 100, Neutrophils % (Manual) 91H, Lymphocytes % (Manual) 5L, Monocytes % (Manual) 1, Eosinophils % (Manual) 1, Basophils % (Manual) 0, Band Neutrophils 2, Platelet Estimate DecreasedL, Platelet Morphology Normal, Hypochromasia 1+, Sodium Level 120L, Potassium Level 5.3H, Chloride Level 89L, Carbon Dioxide Level 23, Anion Gap 9, Blood Urea Nitrogen 40H, Creatinine 2.7H, Estimat Glomerular Filtration Rate 31.9, Glucose Level 115#H, Uric Acid 2.8, Calcium Level 7.4L, Phosphorus Level 3.6, Magnesium Level 1.8, Total Bilirubin 0.2, Aspartate Amino Transf (AST/SGOT) 267H, Alanine Aminotransferase (ALT/SGPT) 39, Alkaline Phosphatase 113, Lactate Dehydrogenase 1240H, C-Reactive Protein, Quantitative 5.5H, Pro-B-Type Natriuretic Peptide 3036H, Total Protein 5.8L, Albumin 1.2L, Globulin 4.6, Albumin/Globulin Ratio 0.3L Jaime Wiggins MD Oct 20, 2020 12:36
--- NOTE | 2020-10-20 12:41 | NUR ---
NURSE NOTES: Pt seen by Dr Wiggins. Order placed for comfort care only. All meds, accuchecks, and neuro checks cancelled per Dr Wiggins.
--- NOTE | 2020-10-20 13:58 | NUR ---
NURSE NOTES: Spoke with Baptism from [facility] - requested to keep pt on phenylephrine gtt until call back is received with final decision regarding organ donation.
--- NOTE | 2020-10-20 14:11 | NUR ---
NURSE NOTES: Received call back from Maco with [facility] - pt not candidate for organ donation. Will proceed with vasopressor withdrawal.
--- NOTE | 2020-10-20 15:25 | NUR ---
NURSE NOTES: Pt terminally extubated ad placed on 15 L O2 via non-rebreather - FiO2 100%. Pt, however, observed apneic - SpO2 trending down expectedly.
--- NOTE | 2020-10-20 15:30 | NUR ---
RESPIRATORY NOTE: pt terminally extubated @1525 and put on NRB 100%. RN Janett bedside.
--- NOTE | 2020-10-20 15:44 | NUR ---
NURSE NOTES: Pt developed bradycardia - eventually became asystolic - pronounced at 1544 by MAXWELL Salazar MD.
--- NOTE | 2020-10-20 16:39 | NUR ---
NURSE NOTES: [facility] and boiler room helper's notified of per lupe Rivera RN.
--- NOTE | 2020-10-20 17:32 | NUR ---
NURSE NOTES: Post mortem care complete.
--- NOTE | 2020-10-20 17:54 | Emergency Room Report ---
History of Present Illness General Chief Complaint: Altered Mental Status Source: Patient Present Illness Allergies: Coded Allergies: No Known Allergies (Unverified , 09/29/20) COVID-19 Screening Contact w/high risk pt: Yes Experienced COVID-19 symptoms?: No COVID-19 Testing performed [employer] ADVISORY TEACHER: No COVID-19 Screening: Positive COVID-19 Nursing Documentation-PM Past Medical History: No History, Except For Hx Cardiac Problems: No Hx Neurological Problems: No Physical Exam Vital Signs Date Time Temp Pulse Resp B/P (MAP) Pulse Ox O2 Delivery O2 Flow Rate FiO2 10/16/20 07:00 85 16 118/71 (87) 100 10/16/20 07:20 30 10/16/20 08:00 98.3 10/16/20 08:00 Mechanical Ventilator 10/20/20 15:25 15.0 Medical Decision Making Diagnostic Impression: Primary Impression: Altered mental status Qualified Codes: R40.4 - Transient alteration of awareness Additional Impressions: COVID-19 virus detected Cardiac arrest Amphetamine abuse ER Course I was called to the ICU to pronounce this patient. Patient has been extubated. Time of 1344. No rhythm on monitor. No respirations. Last Vital Signs Date Time Temp Pulse Resp B/P (MAP) Pulse Ox O2 Delivery O2 Flow Rate FiO2 10/20/20 15:44 77 0 50/26 (34) 73 10/20/20 15:29 Non-Rebreather 15.0 10/20/20 15:25 100 10/20/20 12:00 98.4 Status: worsened Disposition: Condition: Scripts Unable to Obtain Active Prescriptions or Reported Meds Referrals: NOT CHOSEN IPA/,REFERRING (PCP) Steve Wade MD Oct 20, 2020 17:54
--- NOTE | 2020-10-20 19:12 | NUR ---
NURSE NOTES: Report given to Stephany extension service specialist in charge. Body awaiting transfer to [facility] [place].
--- NOTE | 2020-10-22 02:25 | Cardiology Report ---
APPROVED REPORT EXAM: Two-dimensional and M-mode echocardiogram with Doppler and color Doppler. INDICATION ALTERED LOC M-Mode DIMENSIONS IVSd1.0 (0.7-1.1cm)Left Atrium (MM)2.3 (1.6-4.0cm) LVDd3.9 (3.5-5.6cm)Aortic Root3.9 (2.0-3.7cm) PWd0.8 (0.7-1.1cm)Aortic Cusp Exc.1.9 (1.5-2.0cm) IVSs1.5 cmEPSS0.5 (>1.0cm) LVDs1.9 (2.5-4.0cm) PWs1.4 cm <Conclusion> Technically difficult study due to poor acoustical windows, all the images obtained from subcoatal. Normal left ventricular chamber size, systolic function and wall motion to extent visualized. Left ventricular ejection fraction estimated to be 55%. Study quality precludes accurate assessment of regional wall motion. No evidence of left ventricular hypertrophy. Trivial pericardial effusion. All other cardiac chamber sizes are within normal limits. Focal aortic valve sclerosis with adequate cusp excursion. Thickened mitral valve leaflets with normal excursion. Mitral annulus and aortic root calcification. Pulmonic valve not well visualized. Tricuspid valve not well visualized IVC dilated at 2.4 cm without physiologic collapse suggestive of increased RA pressure. A color flow and spectral Doppler study was performed and revealed: No aortic regurgitation. No mitral regurgitation. Mitral inflow indicates normal left ventricular diastolic function. Mild tricuspid regurgitation. Tricuspid systolic velocities suggests peak right ventricular systolic pressure of 30 mmHg
== END 2020-10-20 15:44 | disposition expired | DRG 974 ==
LOC: EDBD 14:31 → EMR 14:56 → EDBEDREQ 23:40 → CANBEDREQ 10-01 00:15 → 4E 10-01 09:19 → EDBEDREQ 10-01 09:35 → 4E 10-01 16:08 → 2E 10-04 22:45 → ICU 10-09 17:45
PROC: XW033E5 Introduction of Remdesivir Anti-infective into Peripheral Vein, Percutaneous Approach, New Technology Group 5 (ICD-10-PCS; principal; 2020-10-04)
PROC: 0BH17EZ Insertion of Endotracheal Airway into Trachea, Via Natural or Artificial Opening (ICD-10-PCS; 2020-10-09)
PROC: 5A1955Z Respiratory Ventilation, Greater than 96 Consecutive Hours (ICD-10-PCS; 2020-10-09)
PROC: 5A12012 Performance of Cardiac Output, Single, Manual (ICD-10-PCS; 2020-10-10)
PROC: 06HM33Z Insertion of Infusion Device into Right Femoral Vein, Percutaneous Approach (ICD-10-PCS; 2020-10-10)
DX: U07.1 COVID-19 (principal); G92 Toxic encephalopathy; B20 Human immunodeficiency virus [HIV] disease; A41.89 Other specified sepsis; J12.82 Pneumonia due to coronavirus disease 2019; B45.8 Other forms of cryptococcosis; Z99.11 Dependence on respirator [ventilator] status; N39.0 Urinary tract infection, site not specified; N17.9 Acute kidney failure, unspecified; E23.2 Diabetes insipidus; E87.0 Hyperosmolality and hypernatremia; T43.621A Poisoning by amphetamines, accidental (unintentional), initial encounter; Y92.9 Unspecified place or not applicable; F15.10 Other stimulant abuse, uncomplicated; R27.0 Ataxia, unspecified; Z59.0 Homelessness; Z66 Do not resuscitate; F29 Unspecified psychosis not due to a substance or known physiological condition
CPT/HCPCS: 36415; 70450; 71045; 74018; 80048; 80053; 80202; 80307; 81003; 82140; 82248; 82550; 82728; 82803; 82962; 83540; 83550; 83615; 83735; 83880; 84100; 84300; 84450; 84460; 84484; 84550; 85007; 85025; 85044; 85060; 85379; 85651; 86140; 86360; 86689; 86703; 86850; 86900; 86901; 86920; 87040; 87086; 87181; 87449; 87536; 92950; 93005; 93306; 93970; 94002; 94003; 96361; 96372; 96374; 99291; G0480; J0171; J1815; J2250; J2370; J3490; J7030; U0002